=== PATIENT | male | born 1945 | race Caucasian/White ===

== ENCOUNTER 2017-01-12 12:19 | Inpatient (IN) | payer MEDICARE, OTHER ==
[~2017-01-12] VITALS: Ht 180.3 cm; Wt 75.5 kg
[~2017-01-12 12:19] MED LIST: AMLO5TAB4 PO; ATOR80TA75 PO; CELE200C PO; CLON-379 PO; CLOP75TA27 PO; FLUO40CA10 PO; LOSA100T7 PO; METO25TA7 PO; PANT40TA4 PO
--- NOTE | 2017-01-12 12:35 | ERA ---
ER Documentation Chief Complaint Date/Time DATE: 01/12/17 TIME: 12:35 Chief Complaint LEFT HIP PAIN FROM GROUND LEVEL FALL. UNABLE TO STRAIGHTEN LEG. HPI 71-year-old male with a history of hypertension, hyperlipidemia, CVA with left- sided weakness, GERD, osteoarthritis and prostatism presents to the ED via rescue ambulance for evaluation of left hip pain. Patient fell over his walker at home and now complains of severe, sharp, nonradiating left hip pain exacerbated any movement. He denies syncope or loss of consciousness. No head injury headache or neck pain. Denies visual changes or new focal weakness or numbness. Denies chest pain, palpitations or shortness of breath. Abdominal pain or back pain. Chronic polyuria but no dysuria or hematuria. No URI symptoms or cough. No fevers or chills per ROS All systems reviewed and are negative except as per history of present illness. Medications Home Meds Reported Medications Fluoxetine Hcl* (Prozac*) 40 Mg Capsule, 40 MG PO DAILY, CAP 07/05/16 Metoprolol Succinate* (Toprol XL*) 25 Mg Tab.sr.24h, 25 MG PO DAILY, #30 TAB 07/05/16 Clopidogrel Bisulfate (Clopidogrel) 75 Mg Tablet, 75 MG PO DAILY, #30 TAB 02/05/16 Atorvastatin* (Atorvastatin*) 80 Mg Tablet, 80 MG PO QHS, #30 TAB 02/05/16 Losartan Potassium* (Losartan Potassium*) 100 Mg Tablet, 100 MG PO DAILY, TAB 02/05/16 Pantoprazole* (Pantoprazole*) 40 Mg Tablet.dr, 40 MG PO DAILY, TAB 02/05/16 Discontinued Reported Medications Amlodipine Besylate* (Norvasc*) 5 Mg Tablet, 5 MG PO DAILY, TAB 02/05/16 Clonidine Hcl* (Clonidine Hcl*) 0.1 Mg Tab, 0.1 MG PO Q24 Y for ELEVATED BLOOD PRESSURE, TAB USE ONLY WHEN BP IS UP TO 170 OR ABOVE, 1 AT A TIME 02/05/16 Discontinued Scripts Celecoxib* (Celebrex*) 200 Mg Capsule, 200 MG PO DAILY Y for PAIN for 30 Days, # 30 CAP Prov:ELADIO MACIAS MD 07/06/16 Allergies Allergies: Coded Allergies: No Known Allergy (Unverified , 01/12/17) PMhx/Soc Reviewed in chart. As per HPI. History of Surgery: No Anesthesia Reaction: No Hx Neurological Disorder: Yes (CVA 2013) Hx Respiratory Disorders: No Hx Cardiac Disorders: Yes (HIGH BP;HIGH CHOL) Hx Psychiatric Problems: Yes Hx Miscellaneous Medical Probl: Yes (CVA (L sided weakness, HTN, GERD) Hx Alcohol Use: Yes Hx Substance Use: No Hx Tobacco Use: No FmHx Hypertension and coronary artery disease. No stroke or cancer. Physical Exam Vitals Vital Signs Date Time Temp Pulse Resp B/P Pulse Ox O2 Delivery O2 Flow Rate FiO2 01/12/17 12:28 98.8 112 20 155/87 98 Physical Exam Const: Alert, elderly in moderate distress due to pain. Head: Atraumatic Eyes: Normal Conjunctiva. Pupils equal reactive to light, extraocular movements are intact. No periorbital ecchymosis or subconjunctival hemorrhage. ENT: Normal External Ears, Nose and Mouth. Negative mathew sign. Neck: Full range of motion. Nontender. No JVD. Resp: Breath sounds are equal and clear to auscultation bilaterally Cardio: Regular rate and rhythm, no murmurs Abd: Soft, non tender, non distended. Normal bowel sounds Skin: No petechiae or rashes Back: No midline or flank tenderness Ext: Left lower extremity: Flex at the hip shortened and externally rotated. Groin tenderness. Distal neurovascular intact. Neur: Awake and alert. Mild left-sided weakness. No change from baseline. Psych: Normal Mood and Affect Result Diagram: 01/12/17 1240 01/12/17 1240 Results 24 hrs Laboratory Tests Test 01/12/17 12:40 White Blood Count 6.310^3/ul Red Blood Count 4.2210^6/ul Hemoglobin 13.3g/dl Hematocrit 38.8% Mean Corpuscular Volume 91.9fl Mean Corpuscular Hemoglobin 31.5pg Mean Corpuscular Hemoglobin Concent 34.3g/dl Red Cell Distribution Width 13.2% Platelet Count 27712^3/UL Mean Platelet Volume 10.2fl Neutrophils % 76.4% Lymphocytes % 12.8% Monocytes % 7.6% Eosinophils % 1.6% Basophils % 0.8% Nucleated Red Blood Cells % 0.0/100WBC Neutrophils # 4.910^3/ul Lymphocytes # 0.810^3/ul Monocytes # 0.510^3/ul Eosinophils # 0.110^3/ul Basophils # 0.110^3/ul Nucleated Red Blood Cells # 0.010^3/ul Sodium Level 138mmol/L Potassium Level 4.6mmol/L Chloride Level 108mmol/L Carbon Dioxide Level 25mmol/L Anion Gap 10 Blood Urea Nitrogen 13mg/dl Creatinine 0.70mg/dl Glucose Level 98mg/dl Calcium Level 9.1mg/dl Troponin I < 0.012ng/ml Current Medications Medications (Trade) Dose Ordered Sig/Jenny Route PRN Reason Start Time Stop Time Status Last Admin Dose Admin Morphine Sulfate (morphine) 4 mg ONCE STAT IV 01/12/17 13:08 01/12/17 13:13 DC 01/12/17 13:41 Ondansetron HCl (Zofran Inj) 4 mg ONCE STAT IV 01/12/17 13:08 01/12/17 13:13 DC 01/12/17 13:39 Morphine Sulfate (morphine) 4 mg ONCE STAT IV 01/12/17 14:33 01/12/17 14:37 DC 01/12/17 15:30 EKG: TIME: 14:56. Sinus rhythm. Ventricular rate 82. Left ventricular hypertrophy. Q waves in leads III and aVF. Nonspecific ST-T wave changes. No acute ST segment elevation or depression. No ectopy. EP Interpretation: Abnormal EKG. IMAGING: PROCEDURE: XR Chest. CLINICAL INDICATION: Pain. Trauma. TECHNIQUE: Chest x-ray, single view. COMPARISON: 07/05/2016. FINDINGS: The cardiac silhouette is magnified and unchanged in size and configuration. Mild aortic arch atherosclerotic calcification is present. Low lung volumes are observed. There is no evidence of focal pulmonary parenchymal opacification. Osseous structures appear decreased in density. The visualized upper abdomen is unremarkable. IMPRESSION: No radiographic evidence of acute cardiopulmonary pathology. RPTAT: PP .Valentina Go MD, Date Time Electronically viewed and signed by .Valentina Go MD, on 01/12/2017 13:52 .T/ PROCEDURE: XR Hip. CLINICAL INDICATION: Pain. Trauma. TECHNIQUE: Left hip x-rays, 2 views. COMPARISON: Pelvic x-ray 01/12/2017. FINDINGS: Bony mineralization appears decreased. A subcapital versus mid-cervical left femoral neck fracture is observed. The hip joint is intact. Soft tissues are unremarkable. IMPRESSION: Subcapital versus mid cervical left femoral neck fracture. RPTAT: PP .Valentina Go MD, Date Time Electronically viewed and signed by .Valentina Go MD, on 01/12/2017 13:54 .T/ PROCEDURE: XR Femur. CLINICAL INDICATION: Trauma. Left leg pain. TECHNIQUE: AP and lateral views of the left femur were performed. COMPARISON: None. FINDINGS: There is an acute subcapital mid-cervical left femoral neck fracture. There is no other fracture and there is no dislocation. The soft tissues are normal. Articular surfaces are intact. There is no lytic or blastic lesion. There is no radiopaque foreign body. IMPRESSION: 1. Acute subcapital or mid cervical left femoral neck fracture. 2. Otherwise unremarkable study. RPTAT: QQ .Nehemias Wong MD, Date Time Electronically viewed and signed by .Nehemias Wong MD, on 01/12/2017 14:09 .R/ PROCEDURE: XR Pelvis. CLINICAL INDICATION: Pain status post trauma. TECHNIQUE: Pelvic x-ray, single AP view. COMPARISON: None. FINDINGS: Bone density appears slightly decreased. There is a subcapital versus mid cervical left femoral neck fracture. The hip joints are intact. Soft tissues are unremarkable. IMPRESSION: Subcapital versus mid cervical left femoral neck fracture. RPTAT: PP .Valentina Go MD, MD Date Time Electronically viewed and signed by .Valentina oG MD, on 01/12/2017 13:55 .T/ Procedures/MDM DOCUMENTS REVIEWED: ED nurse, prior ED, prior records including admission 2015 for chest pain. MEDICAL DECISION MAKIN-year-old male with a history of hypertension, hyperlipidemia, CVA with left-sided weakness, GERD, osteoarthritis and prostatism presents to the ED via rescue ambulance for evaluation of left hip pain. Patient sustained a left subcapital femur fracture after mechanical fall. There is no dislocation. No head injury, headache, altered mental status or other indication for neuroimaging. [facility] for urgent surgical consultation, further evaluation and management. Counseled patient and family regarding diagnosis, diagnostic results and plan for admission. CALLS/CONSULTS: Time 14:30, Dr. June, Recommends Med/Surg. CALLS/CONSULTS: Time 15:30. Dr Aj PATIENT CARE TRANSITIONED: Time: 15:04, Dr. June. Departure Diagnosis: Primary Impression: Closed subcapital fracture of femur Qualified Code: S72.012A - Closed subcapital fracture of femur, left, initial encounter Additional Impressions: Fall Qualified Code: W19.XXXA - Fall, initial encounter Essential hypertension History of CVA (cerebrovascular accident) Condition: Serious ARTURO ALMANZA MD January 12, 2017 12:35
[2017-01-12 13:03] LABS: ADD SCAN DIFF NO; BASOPHIL # 0.1 10^3/ul (0.0-0.1); BASOPHILS % 0.8 % (0.0-2.0); EOSINOPHILS # 0.1 10^3/ul (0.0-0.5); EOSINOPHILS % 1.6 % (0.0-7.0); HEMATOCRIT 38.8 % (42.0-52.0); HEMOGLOBIN 13.3 g/dl (14.0-18.0); LYMPHOCYTES # 0.8 10^3/ul (0.8-2.9); LYMPHOCYTES % 12.8 % (15.0-51.0); MEAN CORPUSCULAR HEMOGLOBIN 31.5 pg (29.0-33.0); MEAN CORPUSCULAR HGB CONC 34.3 g/dl (32.0-37.0); MEAN CORPUSCULAR VOLUME 91.9 fl (82.0-101.0); MEAN PLATELET VOLUME 10.2 fl (7.4-10.4); MONOCYTE # 0.5 10^3/ul (0.3-0.9); MONOCYTES % 7.6 % (0.0-11.0); NEUTROPHIL # 4.9 10^3/ul (1.6-7.5); NEUTROPHILS % 76.4 % (39.0-77.0); PLATELET COUNT 182 10^3/UL (140-415); RED BLOOD COUNT 4.22 10^6/ul (4.70-6.10); RED CELL DISTRIBUTION WIDTH 13.2 % (11.5-14.5); WHITE BLOOD COUNT 6.3 10^3/ul (4.8-10.8)
[2017-01-12] MEDS ORDERED: ONDANSETRON 4 MG INJ IV STA (13:08)
[2017-01-12] MEDS ORDERED: morphine 4 MG/ML VIAL IV STA ×2 (13:08→14:33)
[2017-01-12 13:22] LABS: ANION GAP 10 (8-16); BLOOD UREA NITROGEN 13 mg/dl (7-20); CALCIUM 9.1 mg/dl (8.4-10.2); CARBON DIOXIDE 25 mmol/L (21-31); CHLORIDE 108 mmol/L (97-110); GLUCOSE 98 mg/dl (70-220); POTASSIUM 4.6 mmol/L (3.5-5.1); SODIUM 138 mmol/L (135-144)
[2017-01-12 13:40] LABS: TROPONIN-I < 0.012 ng/ml (0.00-0.12)
--- NOTE | 2017-01-12 13:52 | RADRPT ---
PROCEDURE: XR Chest. CLINICAL INDICATION: Pain. Trauma. TECHNIQUE: Chest x-ray, single view. COMPARISON: 07/05/2016. FINDINGS: The cardiac silhouette is magnified and unchanged in size and configuration. Mild aortic arch ather osclerotic calcification is present. Low lung volumes are observed. There is no evidence of focal pulmonary parenchymal opacification. Osseous structures appear decreased in density. The visualize d upper abdomen is unremarkable. IMPRESSION: No radiographic evidence of acute cardiopulmonary pathology. RPTAT: PP .Valentina Go MD, MD Date Time Electronically viewed and signed by .Valentina Go MD, MD on 01/12/2017 13:52 .T/
--- NOTE | 2017-01-12 13:55 | RADRPT ---
PROCEDURE: XR Hip. CLINICAL INDICATION: Pain. Trauma. TECHNIQUE: Left hip x-rays, 2 views. COMPARISON: Pelvic x-ray 01/12/2017. FINDINGS: Bony mineralization appears decreased. A subcapital versus mid-cervical left femoral neck fracture is observed. The hip joint is intact. Soft tissues are unremarkable. IMPRESSION: Subcapital versus mid cervical left femoral neck fracture. RPTAT: PP .Valentina Go MD, MD Date Time Electronically viewed and signed by .Valentina Go MD, on 01/12/2017 13:54 .T/
--- NOTE | 2017-01-12 13:56 | RADRPT ---
PROCEDURE: XR Pelvis. CLINICAL INDICATION: Pain status post trauma. TECHNIQUE: Pelvic x-ray, single AP view. COMPARISON: None. FINDINGS: Bone density appears slightly decreased. There is a subcapital versus mid cervical left femoral nec k fracture. The hip joints are intact. Soft tissues are unremarkable. IMPRESSION: Subcapital versus mid cervical left femoral neck fracture. RPTAT: PP .Valentina Go MD, MD Date Time Electronically viewed and signed by .Valentina Go MD, MD on 01/12/2017 13:55 .T/
--- NOTE | 2017-01-12 14:09 | RADRPT ---
PROCEDURE: XR Femur. CLINICAL INDICATION: Trauma. Left leg pain. TECHNIQUE: AP and lateral views of the left femur were performed. COMPARISON: None. FINDINGS: There is an acute subcapital mid-cervical left femoral neck fracture. There is no other fracture an d there is no dislocation. The soft tissues are normal. Articular surfaces are intact. There is no lytic or blastic lesion. There is no radiopaque foreign body. IMPRESSION: 1. Acute subcapital or mid cervical left femoral neck fracture. 2. Otherwise unremarkable study. RPTAT: QQ .Nehemias Wong MD, Date Time Electronically viewed and signed by .Nehemias Wong MD, on 01/12/2017 14:09 .R/
[2017-01-12] MEDS ORDERED: HYDROCODONE/APAP (5/325) TAB PO PRN (15:30)
[2017-01-12] MEDS ORDERED: NACL 0.9% 3 ML SYG IV SCH (15:30)
[2017-01-12] MEDS ORDERED: ONDANSETRON 4 MG TAB PO PRN (15:30)
[2017-01-12] MEDS: METOPROLOL (XL) 25 MG TAB PO SCH (15:30)
[2017-01-12] MEDS ORDERED: ACETAMINOPHEN 325 MG TAB PO PRN ×2 (15:30)
[2017-01-12] MEDS ORDERED: BISACODYL (EC) 5 MG TAB PO PRN (15:30)
[2017-01-12] MEDS ORDERED: ONDANSETRON 4 MG INJ IV PRN (15:30)
[2017-01-12 16:34] VITALS: TEMP 98.8
[2017-01-12 17:10] VITALS: BP 131/72; PULSE 73; RESP 18
[2017-01-12 17:21] VITALS: Ht 180.3 cm; Wt 75.5 kg
[2017-01-12 19:21] VITALS: BP 125/72; RESP 18
[2017-01-12] MEDS: DOCUSATE SODIUM 100 MG CAP PO PRN (20:15)
[2017-01-12] MEDS: ATORVASTATIN 80 MG TAB PO SCH (20:15)
[2017-01-12] MEDS: FAMOTIDINE 20 MG TAB PO SCH (20:15)
[2017-01-13] MEDS: DOCUSATE SODIUM 100 MG CAP PO PRN ×2 (04:29→20:28)
[2017-01-13] MEDS: HYDROCODONE/APAP (5/325) TAB PO PRN ×2 (04:29→09:54)
[2017-01-13 05:40] LABS: INR 1.16; PARTIAL THROMBOPLASTIN TIME 27.6 Sec (25.0-35.0); PROTIME 14.9 Sec (12.2-14.2); PT RATIO 1.2
[2017-01-13 08:49] VITALS: BP 124/69; RESP 20
[2017-01-13] MEDS: FAMOTIDINE 20 MG TAB PO SCH ×2 (09:50→20:27)
--- NOTE | 2017-01-13 09:50 | PREOPHP ---
DATE OF ADMISSION: 01/12/2017 PREOPERATIVE INTERNAL MEDICINE CONSULTATION/MEDICAL HISTORY AND PHYSICAL HISTORY OF PRESENT ILLNESS: This is one of several [facility] admissions for this 71-year-old gentleman admitted with a chief complaint of left hip pain. Mr. Waldron is a 71-year-old gentleman with a history of prior stroke and left- sided weakness, apparently lost his balance while walking towards his couch and fell and sustained injury to his left hip. The patient has been falling intermittently, he has been counseled on the use a walker; however, at this particular point in time he was not using his walker, but it was close, he was at home, going towards his couch. He denies any syncope or any other reason for the fall other than he lost his balance and fell. In terms of his past medical history the patient has had significant stroke in 2013, which left him with left-sided weakness. He has had tonsils, adenoid surgery and had a vascular procedure. Other than that, has been in relatively good health and has been quite despondent lately because of his issues, as far as his weakness on the left side and his dizziness and his ability to ambulate; however, again in terms of this particular fall denies any pains, loss of consciousness or other etiologies for his fall. MEDICATIONS: He is currently taking the following medications: 1. Amlodipine 5 mg a day. 2. Prozac 20 mg a day. 3. Lipitor 80 mg a day. 4. Losartan 50 mg a day. 5. Protonix 40 mg a day. 6. Metoprolol ER 25 mg a day. 7. Plavix 75 mg a day ALLERGIES: HE IS NOT ALLERGIC TO ANY MEDICATIONS. PAST MEDICAL HISTORY: Prior in the past has fractured his left arm and his left foot. Other than that, however, has been relatively stable other than that mentioned above. SOCIAL HISTORY: The patient is , has 3 children and 2 grandchildren. He does not smoke. Alcohol socially. Does not drink coffee and usually has no difficulty sleeping at night. FAMILY HISTORY: Father at age 86, COPD, was a smoker. Mother in her 80s, old age and blood pressure issues, possibly had a stroke. There is a family history of diabetes, hypertension, stroke. No heart or cancer to his knowledge. REVIEW OF SYSTEMS HEENT: Periodic headaches. CARDIORESPIRATORY: Denies any chest pain or shortness of breath. GASTROINTESTINAL: No melena or hematemesis. GENITOURINARY: No urgency or frequency. MUSCULOSKELETAL: Positive for weakness on the left side, dizziness, loss of balance and occasional falls. NEUROPSYCHIATRIC: Positive for depression. GENERAL HEALTH: As above. PHYSICAL EXAMINATION: VITAL SIGNS: The patient's blood pressure was 125/72, pulse was 90 and regular , respirations were 18, temperature 99.2, O2 saturation 95%. GENERAL: The patient was noted to be a well-developed, well-nourished male, alert and cooperative, in no apparent acute distress, oriented to time, place, and person and cognition. HEENT: Head was atraumatic. Eyes: Pupils were equal , reactive to light and accommodation. Fundi were poorly visualized. Tympanic membranes were unremarkable. Nose was negative. Mouth was unremarkable. Fair oral hygiene was present. NECK: Supple without any rigidity. Trachea was midline. Thyroid was unremarkable. Neck veins were flat. Carotid pulses were equal. No bruits were heard. BACK: Unremarkable. CHEST: Symmetrical. BREASTS AND AXILLARY: Did not reveal any masses. LUNGS: Clear to percussion and auscultation. HEART: PMI is fifth intercostal space at the midclavicular line. Regular sinus rhythm was noted. No significant murmurs, rubs, or gallops being elicited. ABDOMEN: Soft, good bowel sounds were noted. No significant organomegaly, masses, or tenderness. GENITALIA: Male external genitalia. RECTAL AND PROSTATIC: Done within the last year revealed prostate to be enlarged, no rectal or prostatic masses. EXTREMITIES: Did not reveal any clubbing, edema or cyanosis. Peripheral pulses were physiologic. Left-sided weakness was noted. SKIN: Moist and warm without any eruptions. No gross lymphadenopathy was noted. NEUROLOGIC: As mentioned above showed left-sided weakness compatible with his prior stroke. He also had shortening of his lower extremity; however, hard to tell lying in bed. IMPRESSION: 1. Acute subcapital arm and cervical left femoral neck fracture. 2. Status post stroke in 2013 with left-sided weakness. 3. Hypertension. 4. Gastroesophageal reflux disease. 5. Hypertension. 6. Depression. 7. Stable health. DISCUSSION: Review of laboratory and other data revealed the following: The patient's CBC reveals a normal white count, hemoglobin of 13.3, hematocrit of 38.8. Chemistry panel revealed normal electrolytes, BUN, creatinine, glucose, calcium. Troponin was negative and PT and PTT were normal. EKG did not reveal any acute changes and the patient's x-ray did not reveal any acute infiltrate. DISCUSSION: Dr. Aj, I see no contraindications to the patient undergoing current proposed surgery. I feel he is a suitable candidate at this time. Discussed it with the patient, he would rather be able to ambulate rather than to be bedridden. Recent laboratory done in my office, including lipids, electrolytes, glucose, BUN and creatinine and CBC were all normal as well. CONDITION ON ADMISSION: Stable. PROGNOSIS: Obviously dependent upon how the patient responds to treatment. Dictated By: DANIELLE HARMAN/JANET Conf#: [id number] DID#: [id number] MTDD
[2017-01-13] MEDS: METOPROLOL (XL) 25 MG TAB PO SCH (09:51)
[2017-01-13] MEDS: FLUOXETINE 20 MG CAP PO SCH (09:51)
[2017-01-13] MEDS: LOSARTAN 50 MG TAB PO SCH (09:51)
--- NOTE | 2017-01-13 10:26 | HP ---
Date/Time of Note Date/Time of Note DATE: 01/13/17 TIME: 10:06 Assessment/Plan VTE Prophylaxis VTE Prophylaxis Intervention: SCD's, other (Patient on clopidogrel 75 mg) Lines/Catheters IV Catheter Type (from Nrsg): Saline Lock Assessment/Plan Assessment/Plan * Discussed with Dr. Aj and patient PCP Dr. Babin and patient will be scheduled for left total hip arthroplasty (anterior versus posterior route?) On 01/13/2017. * Continue close monitoring while on MedSurg floor. * Will adjust [place] 10/325 mg 2 every 4 hours as needed for severe pain. * Dr. Babin has verbally cleared patient stating that he is stable for surgery tomorrow. Will provide documentation in chart. Primary care provider will also monitor patient's current medications as he is on blood thinners and has history of cardiac disorders along with CVA in 2013. * X-ray imaging of fracture as well as chest x-ray in [facility]. * Patient will be undergoing EKG later today and possible echocardiogram, per nurse. * Will begin preparation for hip replacement. * All questions asked by patient and patient's were discussed today. Risks and benefits regarding surgery discussed with patient today. * Current plan postoperatively, is for patient to be discharged to long-term facility per patient and patient's . Case management will follow- up with patient status post surgery regarding discharge after hip replacement. HPI/ROS Admit Date/Time Admit Date/Time January 12, 2017 at 15:05 Hx of Present Illness 71-year-old male with a history of hypertension, hyperlipidemia, CVA (2013) with subsequent left-sided weakness, GERD, osteoarthritis and prostatism seen today on the med/surg floor in 4 W in room 429. present. Original injury occurred on 01/12/2017 while at home. Patient incidentally tripped over his walker suffering pain local to the left hip. Patient denies any radiating pain at the time of injury. Patient denies any head trauma as well. Patient states that after stroke in 2013 he has experienced previous falls suffering minimal injuries. Patient was transported to emergency room, via ambulance, where x- rays were performed showing subcapital fracture to the left femur/femoral neck. Patient then admitted and transferred to [facility]. Currently, patient denies any pain complaints while at rest. He states that when he attempts to move left hip he experiences moderate to severe pain. Currently on [place] 10/325 as needed for severe pain complaints. [place] is helping alleviate pain complaints. Patient denies any focal neurological deficits. No increased weakness to the left side. Denies any chest pain/tightness. Patient denies any calf pain or shortness of breath. Patient is on O2 via nasal cannula and doing well. Patient is nonweightbearing secondary to severe pain due to fracture at the femoral neck/subcapital region of the left lower extremity. No head injury headache or neck pain. No fevers. Remains on bedrest/nonweightbearing. ROS Constitutional: no complaints Respiratory: no complaints Cardiovascular: no complaints PMH/Family/Social Past Medical History Hypertension, hyperlipidemia, CVA (2013) with subsequent left-sided weakness, GERD, osteoarthritis, prostatism Medical History: diabetes, hypertension Family History Significant Family History: heart disease Social History Alcohol Use: occasionally Smoking Status: Never smoker Exam/Review of Systems Vital Signs Vitals Vital Signs Date Time Temp Pulse Resp B/P Pulse Ox O2 Delivery O2 Flow Rate FiO2 01/13/17 08:49 98.3 93 20 124/69 93 01/12/17 17:10 Nasal Cannula 2.0 Intake and Output 01/12/17 01/12/17 01/13/17 15:00 23:00 07:00 Intake Total 300 ml 600 ml Balance 300 ml 600 ml Exam Exam * No obvious abnormalities such as ecchymosis on inspection of the left hip. Slight external rotation of the left lower extremity at rest. * No tenderness to palpation to the greater trochanteric region or directly over groin with deep palpation. * Normal sensory examination to light touch throughout the left lower extremity. Toes freely movable. * Negative Homans sign. * On passive range of motion there is moderate to severe pain exacerbation local to the left groin region. * Strength testing not had today with hip flexors, abductor, abductors and hip extensors secondary to left subcapital fracture at the femoral neck. * Normal capillary refill to the toes of bilateral lower extremities. Constitutional: alert, oriented, well developed Psych: no complaints Head: normocephalic Extremities: normal pulses Labs Result Diagram: 01/12/17 1240 01/12/17 1240 Medications Medications Current Medications Ondansetron HCl (Zofran Tab) 4 mg Q6H PRN PO NAUSEA AND/OR VOMITING Last administered on 01/12/17 17:34; Admin Dose 4 MG; Start 01/12/17 at 15:30 Acetaminophen (Tylenol Tab) 650 mg Q6H PRN PO PAIN LEVEL 1-3 OR FEVER; Start at 15:30 Acetaminophen/ Hydrocodone Bitart ([place] (5/325)) 1 tab Q6H PRN PO MODERATE PAIN LEVEL 4-6 Last administered on 01/12/17 17:34; Admin Dose 1 TAB; Start 01/12 at 15:30 Acetaminophen/ Hydrocodone Bitart ([place] (5/325)) 2 tab Q6H PRN PO SEVERE PAIN LEVEL 7-10 Last administered on 01/13/17 09:54; Admin Dose 2 TAB; Start 01/12/17 at 15:30 Docusate Sodium (Colace) 100 mg Q12H PRN PO CONSTIPATION Last administered on 04:29; Admin Dose 100 MG; Start 01/12/17 at 15:30 Bisacodyl (Dulcolax) 5 mg DAILY PRN PO CONSTIPATION; Start 01/12/17 at 15:30 Famotidine (Pepcid) 20 mg Q12 PO Last administered on 01/13/17 09:50; Admin Dose 20 MG; Start 01/12/17 at 21:00 Atorvastatin Calcium (Lipitor) 80 mg QHS PO Last administered on 01/12/17 20:15 ; Admin Dose 80 MG; Start 01/12/17 at 21:00 Fluoxetine HCl (Prozac) 40 mg DAILY PO Last administered on 01/13/17 09:51; Admin Dose 40 MG; Start 01/13/17 at 09:00 Losartan Potassium (Cozaar) 100 mg DAILY PO Last administered on 01/13/17 09:51 ; Admin Dose 100 MG; Start 01/13/17 at 09:00 Metoprolol Succinate (Toprol Xl) 25 mg DAILY PO Last administered on 01/13/17 09:51; Admin Dose 25 MG; Start 01/12/17 at 15:30 Copies To: CC: DANIELLE BABIN MD, KERBY PA-C January 13, 2017 10:19
--- NOTE | 2017-01-13 12:52 | RADRPT ---
PROCEDURE: CT LEFT HIP CLINICAL INDICATION: Fall. Rule out left femoral head fracture. The femoral neck fracture.. TECHNIQUE: CT scan of the left hip was performed on a multi -slice scanner. No IV contrast was ad ministered. Coronal and sagittal reformatted images were obtained from the axial source images. Th e total exam DLP equals 217.79 mGy-cm. The CDTI volume was 9.27 mGy. One or more of the following dose reduction techniques were used: - Automated exposure control. - Adjustment of the mA and/or kV according to patient size . - Use of iterative reconstruction technique. Images were reviewed on a high-resolution PACS workstation. COMPARISON: Plain film dated 01/12/2017. FINDINGS: There is a displaced comminuted subcapital left femoral neck fracture. The base of the femoral neck and trochanter is displaced superiorly 1.5 cm. The femoral head is still located within the acetab ulum. The intertrochanteric femur and shaft are angulated posteriorly with respect to the femoral he ad as can be seen on axial image number 28. There is a preexisting probable enchondroma within the medullary space. There is preexisting acetabular marginal spurring indicating moderate arthrosis. T he surrounding soft tissue swelling. The bones are osteoporotic. IMPRESSION: 1. Displaced comminuted subcapital left femoral neck fracture. 2. Osteoporosis. RPTAT: XX .Elder Davalos MD, Date Time Electronically viewed and signed by .Elder Davalos MD, on 01/13/2017 12:51 .T/
[2017-01-13] MEDS: ATORVASTATIN 80 MG TAB PO SCH (20:28)
[2017-01-13 21:02] VITALS: BP 98/60; RESP 20
[2017-01-14] VITALS (18 sets, daily range): BP systolic 102–159; BP diastolic 54–89; PULSE 60–94; RESP 14–21
[2017-01-14 05:25] LABS: INR 1.14; PROTIME 14.6 Sec (12.2-14.2); PT RATIO 1.1
[2017-01-14 05:26] LABS: PARTIAL THROMBOPLASTIN TIME 28.5 Sec (25.0-35.0)
[2017-01-14] MEDS: LACTATED RINGER'S 1,000 ML IV SCH ×3 (07:30→20:50)
[2017-01-14] MEDS: LOSARTAN 50 MG TAB PO SCH (09:00)
[2017-01-14] MEDS: FAMOTIDINE 20 MG TAB PO SCH ×2 (09:00→21:00)
[2017-01-14] MEDS: METOPROLOL (XL) 25 MG TAB PO SCH (09:00)
[2017-01-14] MEDS: FLUOXETINE 20 MG CAP PO SCH (09:00)
--- NOTE | 2017-01-14 13:43 | PN ---
Date/Time of Note Date/Time of Note DATE: 01/14/17 TIME: 13:41 Assessment/Plan VTE Prophylaxis VTE Prophylaxis Intervention: SCD's Lines/Catheters IV Catheter Type (from Nrs): Saline Lock Assessment/Plan Problems: (1) Onychomycosis Status: Chronic Comment: Lamisil pulse therapy (2) Closed subcapital fracture of femur Status: Acute Comment: For surgery today. Is an appropriate surgical candidate under the consult under the current circumstances. Benefits outweigh risks Qualifiers: Encounter type: initial encounter Laterality: left Qualified Code: S72.012A - Closed subcapital fracture of femur, left, initial encounter (3) Essential hypertension Status: Acute Comment: Adequate control. (4) Diastolic dysfunction Status: Chronic Comment: Noted. Needs his beta-daniel to be continued (5) Hyperlipidemia Status: Chronic Comment: Noted on on treatment. Qualifiers: Hyperlipidemia type: pure hypercholesterolemia Qualified Code: E78.00 - Pure hypercholesterolemia Subjective 24 Hr Interval Summary Free Text/Dictation Patient lying in bed. Scheduled for surgery in the next 3 hours. He reports he has significant pain at the hip site but otherwise is without complaints. Please see review of systems Constitutional: no complaints Eyes: no complaints ENT: no complaints Respiratory: no complaints Cardiovascular: no complaints (Denies chest pain pressure palpitations etc.) Gastrointestinal: no complaints Genitourinary: no complaints Neurologic: no complaints Exam/Review of Systems Vital Signs Vitals Vital Signs Date Time Temp Pulse Resp B/P Pulse Ox O2 Delivery O2 Flow Rate FiO2 01/14/17 12:14 65 114/62 01/14/17 08:32 98.9 18 99 01/12/17 17:10 Nasal Cannula 2.0 Intake and Output 01/13/17 01/13/17 01/14/17 15:00 23:00 07:00 Intake Total 1320 ml 750 ml Output Total 400 ml 620 ml Balance 920 ml 130 ml Exam Constitutional: alert, oriented Respiratory: clear to auscultation, normal air movement Cardiovascular: nl pulses, regular rate and rhythm Gastrointestinal: nl liver, spleen, non-tender, soft Extremities: other (Onychomycosis) Results Result Diagram: 01/12/17 1240 01/12/17 1240 Results 24 hrs Laboratory Tests Test 01/14/17 04:50 Prothrombin Time 14.6 H Prothrombin Time Ratio 1.1 INR International Normalized Ratio 1.14 Activated Partial Thromboplast Time 28.5 Medications Medications Current Medications Ondansetron HCl (Zofran Tab) 4 mg Q6H PRN PO NAUSEA AND/OR VOMITING Last administered on 01/12/17 17:34; Admin Dose 4 MG; Start 01/12/17 at 15:30 Acetaminophen (Tylenol Tab) 650 mg Q6H PRN PO PAIN LEVEL 1-3 OR FEVER; Start at 15:30 Docusate Sodium (Colace) 100 mg Q12H PRN PO CONSTIPATION Last administered on 20:28; Admin Dose 100 MG; Start 01/12/17 at 15:30 Bisacodyl (Dulcolax) 5 mg DAILY PRN PO CONSTIPATION; Start 01/12/17 at 15:30 Famotidine (Pepcid) 20 mg Q12 PO Last administered on 01/13/17 20:27; Admin Dose 20 MG; Start 01/12/17 at 21:00 Atorvastatin Calcium (Lipitor) 80 mg QHS PO Last administered on 01/13/17 20:28 ; Admin Dose 80 MG; Start 01/12/17 at 21:00 Fluoxetine HCl (Prozac) 40 mg DAILY PO Last administered on 01/13/17 09:51; Admin Dose 40 MG; Start 01/13/17 at 09:00 Losartan Potassium (Cozaar) 100 mg DAILY PO Last administered on 01/13/17 09:51 ; Admin Dose 100 MG; Start 01/13/17 at 09:00 Metoprolol Succinate (Toprol Xl) 25 mg DAILY PO Last administered on 01/13/17 09:51; Admin Dose 25 MG; Start 01/12/17 at 15:30 Acetaminophen/ Hydrocodone Bitart 1 tab 1 tab Q4H PRN PO Pain; Start 01/13/17 at 10:30 Lactated Ringer's (Lr) 1,000 ml @ 100 mls/hr Q10H IV ; Start 01/14/17 at 17:30; Stop 01/15/17 at 03:29 Oxycodone HCl (Oxycontin) 10 mg PRE-OP ONCE PO ; Start 01/14/17 at 17:30; Stop at 17:31 Pregabalin (Lyrica) 300 mg PRE-OP ONCE PO ; Start 01/14/17 at 17:30; Stop at 17:31 Celecoxib (Celebrex) 400 mg PRE-OP ONCE PO ; Start 01/14/17 at 17:30; Stop at 17:31 Tramadol HCl 50 mg 50 mg PRE-OP ONCE PO ; Start 01/14/17 at 17:30; Stop 01/14/17 at 17:31 Cefazolin Sodium/ Dextrose 50 ml @ 100 mls/hr PRE-OP ONCE IVPB ; Start 01/14/17 at 17:30; Stop 01/14/17 at 17:59 Tranexamic Acid 750 mg/Sodium Chloride 100 ml @ 200 mls/hr PRE-OP ONCE IV ; Start 01/14/17 at 17:30; Stop 01/14/17 at 17:59 Tranexamic Acid/ Sodium Chloride 107.5 ml @ 200 mls/hr INTRA-OP ONCE IVPB ; Start 01/14/17 at 17:30; Stop 01/14/17 at 18:02 Bupivacaine HCl/ Morphine Sulfate/ Epinephrine/ Ketorolac Tromethamine/ Clonidine/Sodium Chloride/ Cefuroxime Sodium (Marcaine 0.5% (Sdv)/Duramorph/ EPINEPHrine/ Toradol/Duraclon/ NS/Zinacef) INTRA-OP ONCE IRR ; Start 01/14/17 at 17:30; Stop 01/14/17 at 17:31 Bupivacaine Liposome (Exparel 266 Mg/ 20 ml Vial) 266 mg INTRA-OP ONCE INFIL ; Start 01/14/17 at 17:30; Stop 01/14/17 at 17:31 Miscellaneous Information 1 ea 1 ea NOTE XX ; Start 01/14/17 at 16:30; Stop 01/18 at 16:29 Lactated Ringer's (Lr) 1,000 ml @ 75 mls/hr [id number] IV Last administered on t 07:30; Admin Dose 75 MLS/HR; Start 01/14/17 at 07:30 MURIEL LÓPEZ MD January 14, 2017 13:43
[2017-01-14] MEDS ORDERED: HYDROmorphONE 1 MG/ML SYG IV PRN ×2 (14:00→19:30)
--- NOTE | 2017-01-14 14:41 | CONS ---
DATE OF ADMISSION: 01/12/2017 DATE OF CONSULTATION: 01/14/2017 REASON FOR CONSULTATION: Left hip fracture. HISTORY OF PRESENT ILLNESS: The patient is a 71-year-old gentleman with a history of prior stroke w ith left-sided weakness, who lost his balance 2 days ago and landed on his left hip and noted immedi ate pain and inability to bear weight on the left lower extremity. Prior to this event, he has been ambulatory with a walker. He denies pain in the hip prior to the fall. He has no pain elsewhere s eve the fall. He denies any loss of consciousness from the fall. He has a history of taking Plavi x and the last time he took it was 3 days ago. He has had no night pain, no rest pain, and denies a ny fevers or chills. PAST MEDICAL HISTORY: 1. History of a stroke. 2. Hypertension. 3. Elevated cholesterol. 4. Gastroesophageal reflux disease. 5. Enlarged prostate. PAST SURGICAL HISTORY: None. MEDICATIONS: 1. Amlodipine. 2. Prozac. 3. Lipitor. 4. Losartan. 5. Protonix. 6. Metoprolol. 7. Plavix. ALLERGIES: NO KNOWN DRUG ALLERGIES. SOCIAL HISTORY: The patient is and has 3 children and 2 grandchildren. Does not smoke. He drinks socially. FAMILY HISTORY: Noncontributory. GENERAL/CONSTITUTIONAL: Negative for recent fevers, chills, decreased appetite, fatigue, or unexpla ined weight loss. EYES/EARS/NOSE/MOUTH/THROAT: Negative for headaches, double vision, tearing, nose bleeding, colds, obstruction, discharge, dental difficulties, gingival bleeding, dentures, neck stiffness, pain, tend erness, or masses in thyroid or other areas. CARDIOVASCULAR: History of hypertension and elevated cholesterol. RESPIRATORY: Negative for shortness of breath, wheezing, stridor, hemoptysis, tuberculosis, fever, or night sweats. GASTROINTESTINAL: Negative for dysphagia, abdominal pain, heartburn, nausea, vomiting, hematemesis, jaundice, constipation, diarrhea, abnormal stools (anthony-colored, tarry, bloody, greasy, foul-smelli ng), or bright red blood per rectum. GENITOURINARY: Negative for urgency, frequency, dysuria, nocturia, hematuria, stones, infections, n ephritis, hesitancy, change in size of stream, dribbling, acute retention, or incontinence. MUSCULOSKELETAL: Negative for pain, swelling, redness or heat of muscles or joints, limitation of m otion, muscular weakness, atrophy, or cramps. NEUROLOGIC/PSYCHIATRIC: History of a stroke with left-sided weakness, history of depression. HEMATOLOGIC: Negative for anemia, bleeding tendency, previous transfusions and reactions, or Rh inc ompatibility. ENDOCRINE: Negative for polydipsia, polyuria, hormone therapy, or intolerance to heat or cold. PHYSICAL EXAMINATION: VITAL SIGNS: Temperature 98.9, blood pressure 114/62, pulse 65, respiratory rate 18. GENERAL APPEARANCE: Well-developed, well-nourished @@male in no acute distress. ORIENTATION: Alert and oriented to person, place, and time. HEENT: Normocephalic, atraumatic, sclerae anicteric, no nasal discharge, oropharynx clear, dentition is good. SKIN: Normal color, texture, and turgor. No rashes noted throughout the trunk, bilateral upper extre mities, and bilateral lower extremities. NECK: Supple, nontender, without lymphadenopathy. No thyromegaly, no masses. CARDIAC: Regular rate and rhythm. LUNGS: Clear to auscultation bilaterally, with symmetric chest rise. ABDOMEN: Soft, nontender, nondistended. MUSCULOSKELETAL: The patient is lying in bed with his left lower extremity shortened and externally rotated. The left hip is painful to attempted passive range of motion. The skin over the left hip is intact. The thigh is soft. The right hip is supple with no pain on passive range of motion. M otor strength is 5/5 in the bilateral quadriceps. He has 4/5 strength in the left tibialis anterior and 4/5 strength in the left extensor hallucis longus and gastrocsoleus and peroneals. Sensation i s grossly intact to light touch throughout the bilateral lower extremities. He has palpable dorsali s pedis and posterior tibial pulses, with capillary refill less than 2 seconds in all 5 digits. IMAGING: X-rays done on 01/12/2017 show a displaced left subcapital femoral neck fracture. There a re no degenerative changes of the hip joint. No bony lesions. There is diffuse osteopenia present. A CT scan of the left hip on 01/13/2017 shows a displaced left subcapital femoral neck fracture. There are no degenerative changes noted. LABORATORY DATA: Reveal a white blood cell count of 6.3, hematocrit 30.8, platelet count 182. BUN 13, creatinine 0.70. INR 1.14, PTT 28.5. ASSESSMENT AND PLAN: Displaced left subcapital femoral neck fracture. DISCUSSION: The patient would benefit from a left hip hemiarthroplasty. I had a lengthy discussion with the patient and his about the nature of the surgery, typical recovery course, and what to expect from a functional standpoint. They understand and wish to proceed. He has been medically c leared. We will plan to do the surgery this afternoon. I explained that because he has been on Manisha vix, he is at greater risk for bleeding, to wait for the Plavix to be out of his system and place hi m at risk for prolonged bed rest would not make sense. I explained the risks of surgery to include but not be limited to bleeding and possible need for blood transfusion, infection, pain, stiffness, neurovascular injury, possible numbness, weakness, and/or paralysis anywhere from the hip down to th e toes, fracture, instability, dislocation, leg length inequality, wear and/or loosening of the pros thesis, need for revision at a later date, wound healing problems, blood clots, pulmonary embolism, and anesthetic complications such as heart attack, stroke, GI bleed, pneumonia and/or . Ample time was allowed for the patient to ask questions, all of which were addressed and answered. He und erstands and wishes to proceed. Informed consent was given. We will plan to do the surgery this af terno. He has been n.p.o. after midnight. He will be typed and crossed 2 units of packed red blo od cells and 1 unit of platelets. Dictated By: KIM PEREZ MD EZ/NTS Conf#: [id number] DID#: [id number] CC: MURIEL LÓPEZ MD;*End*
[2017-01-14] MEDS ORDERED: BACITRACIN 50000 UNITS INJ ONE (14:51)
--- NOTE | 2017-01-14 15:08 | CONS ---
Date/Time of Note Date/Time of Note DATE: 01/14/17 TIME: 15:02 Assessment/Plan Assessment/Plan Additional Assessment/Plan Mechanical fall with hip fracture CVA Preserved ejection fraction Hypertension Patient status post mechanical fall with left hip fracture and plan for surgery today. Given the acute fracture, the benefits outweigh the risks at the current time. Plavix therapy currently on hold. Continue beta-daniel as heart rate and blood pressure permits, continue statin therapy. Will put holding parameters on antihypertensives. Consultation Date/Type/Reason Admit Date/Time January 12, 2017 at 15:05 Type of Consultation: cv Reason for Consultation Cardiac evaluation Hx of Present Illness This is a 71-year-old male with past medical history of CVA, hypertension who presents after mechanical fall onto his left side with left hip fracture. This occurred on Friday. There is no palpitations, dizziness or lightheadedness prior. There was no loss of consciousness. There was no head trauma. Patient found to have a left hip fracture is planned to undergo surgery today. He denies any chest pain or shortness of breath currently. He denies exertional chest pain or shortness of breath as well, dizziness or lightheadedness. He has been having frequent falls over the past few years after his CVA. 12 point review of systems was performed with all pertinent positives and negatives mentioned above and all else is Constitutional: no complaints Eyes: no complaints ENT: no complaints Respiratory: no complaints Cardiovascular: no complaints (Denies chest pain pressure palpitations etc.) Gastrointestinal: no complaints Genitourinary: no complaints Neurologic: no complaints Psychological: no complaints Past Medical History CVA Medical History: diabetes, hypertension Family History Significant Family History: no pertinent family hx Social History Alcohol Use: occasionally Smoking Status: Never smoker Other Social History Lives at home with family Exam/Review of Systems Vital Signs Vitals Vital Signs Date Time Temp Pulse Resp B/P Pulse Ox O2 Delivery O2 Flow Rate FiO2 01/14/17 12:14 65 114/62 01/14/17 08:32 98.9 18 99 01/12/17 17:10 Nasal Cannula 2.0 Intake and Output 01/13/17 01/13/17 01/14/17 15:00 23:00 07:00 Intake Total 1320 ml 750 ml Output Total 400 ml 620 ml Balance 920 ml 130 ml Exam No apparent distress, following commands, at bedside Constitutional: alert, oriented Head: normocephalic Respiratory: other (Coarse breath sounds bilaterally, no wheezing) Cardiovascular: other (S1-S2 heard, no murmurs appreciated), regular rate and rhythm Gastrointestinal: bowel sounds, non-tender, other (No guarding), soft Extremities: other (No significant edema or cyanosis seen) Results Result Diagram: 01/12/17 1240 01/12/17 1240 Results 24 hrs Laboratory Tests Test 01/14/17 04:50 Prothrombin Time 14.6 H Prothrombin Time Ratio 1.1 INR International Normalized Ratio 1.14 Activated Partial Thromboplast Time 28.5 Medications Medications Current Medications Ondansetron HCl (Zofran Tab) 4 mg Q6H PRN PO NAUSEA AND/OR VOMITING Last administered on 01/12/17 17:34; Admin Dose 4 MG; Start 01/12/17 at 15:30 Acetaminophen (Tylenol Tab) 650 mg Q6H PRN PO PAIN LEVEL 1-3 OR FEVER; Start at 15:30 Docusate Sodium (Colace) 100 mg Q12H PRN PO CONSTIPATION Last administered on 20:28; Admin Dose 100 MG; Start 01/12/17 at 15:30 Bisacodyl (Dulcolax) 5 mg DAILY PRN PO CONSTIPATION; Start 01/12/17 at 15:30 Famotidine (Pepcid) 20 mg Q12 PO Last administered on 01/13/17 20:27; Admin Dose 20 MG; Start 01/12/17 at 21:00 Atorvastatin Calcium (Lipitor) 80 mg QHS PO Last administered on 01/13/17 20:28 ; Admin Dose 80 MG; Start 01/12/17 at 21:00 Fluoxetine HCl (Prozac) 40 mg DAILY PO Last administered on 01/13/17 09:51; Admin Dose 40 MG; Start 01/13/17 at 09:00 Losartan Potassium (Cozaar) 100 mg DAILY PO Last administered on 01/13/17 09:51 ; Admin Dose 100 MG; Start 01/13/17 at 09:00 Metoprolol Succinate (Toprol Xl) 25 mg DAILY PO Last administered on 01/13/17 09:51; Admin Dose 25 MG; Start 01/12/17 at 15:30 Acetaminophen/ Hydrocodone Bitart 1 tab 1 tab Q4H PRN PO Pain; Start 01/13/17 at 10:30 Lactated Ringer's (Lr) 1,000 ml @ 100 mls/hr Q10H IV ; Start 01/14/17 at 17:30; Stop 01/15/17 at 03:29 Oxycodone HCl (Oxycontin) 10 mg PRE-OP ONCE PO ; Start 01/14/17 at 17:30; Stop at 17:31 Pregabalin (Lyrica) 300 mg PRE-OP ONCE PO ; Start 01/14/17 at 17:30; Stop at 17:31 Celecoxib (Celebrex) 400 mg PRE-OP ONCE PO ; Start 01/14/17 at 17:30; Stop at 17:31 Tramadol HCl 50 mg 50 mg PRE-OP ONCE PO ; Start 01/14/17 at 17:30; Stop 01/14/17 at 17:31 Cefazolin Sodium/ Dextrose 50 ml @ 100 mls/hr PRE-OP ONCE IVPB ; Start 01/14/17 at 17:30; Stop 01/14/17 at 17:59 Tranexamic Acid 750 mg/Sodium Chloride 100 ml @ 200 mls/hr PRE-OP ONCE IV ; Start 01/14/17 at 17:30; Stop 01/14/17 at 17:59 Tranexamic Acid/ Sodium Chloride 107.5 ml @ 200 mls/hr INTRA-OP ONCE IVPB ; Start 01/14/17 at 17:30; Stop 01/14/17 at 18:02 Bupivacaine HCl/ Morphine Sulfate/ Epinephrine/ Ketorolac Tromethamine/ Clonidine/Sodium Chloride/ Cefuroxime Sodium (Marcaine 0.5% (Sdv)/Duramorph/ EPINEPHrine/ Toradol/Duraclon/ NS/Zinacef) INTRA-OP ONCE IRR ; Start 01/14/17 at 17:30; Stop 01/14/17 at 17:31 Bupivacaine Liposome (Exparel 266 Mg/ 20 ml Vial) 266 mg INTRA-OP ONCE INFIL ; Start 01/14/17 at 17:30; Stop 01/14/17 at 17:31 Miscellaneous Information 1 ea 1 ea NOTE XX ; Start 01/14/17 at 16:30; Stop 01/18 at 16:29 Lactated Ringer's (Lr) 1,000 ml @ 75 mls/hr [id number] IV Last administered on 07:30; Admin Dose 75 MLS/HR; Start 01/14/17 at 07:30 Hydromorphone HCl (Dilaudid) 0.5 mg Q4H PRN IV PAIN Last administered on 14:05; Admin Dose 0.5 MG; Start 01/14/17 at 14:00 Terbinafine HCl (Lamisil) 250 mg BID PO ; Start 01/14/17 at 21:00; Stop 01/21/17 at 20:59 Procedures Procedures ECG demonstrates sinus rhythm, normal QRS duration, nonspecific STT wave abnormalities Thor Munguia DO January 14, 2017 15:08
[2017-01-14] MEDS ORDERED: POLYMYXIN B 500000 UNIT INJ ONE (16:22)
[2017-01-14] MEDS ORDERED: HEPARIN 1000 UNITS/ML 10 ML INJ ONE (16:22)
[2017-01-14] MEDS ORDERED: VANCOMYCIN 1 GM INJ ONE (16:22)
[2017-01-14] MEDS ORDERED: EXPAREL NOTE (BUPIVICAINE LIPOSOMAL) XX SCH (16:30)
[2017-01-14] MEDS ORDERED: MIDAZOLAM 1 MG/ML 2 ML INJ ONE (16:42)
[2017-01-14] MEDS ORDERED: METOCLOPRAMIDE 10 MG INJ ONE (16:42)
[2017-01-14] MEDS ORDERED: FENTAnyl 50 MCG/ML VIAL ONE (16:44)
[2017-01-14] MEDS ORDERED: ROCURONIUM 50 MG INJ ONE (16:44)
[2017-01-14] MEDS ORDERED: PROPOFOL 20 ML ONE (16:44)
[2017-01-14] MEDS ORDERED: CEFAZOLIN 1 GM INJ ONE (16:56)
[2017-01-14] MEDS ORDERED: DEXAMETHASONE 4 MG/ML 1 ML INJ ONE (16:57)
[2017-01-14] MEDS ORDERED: TRANEXAMIC ACID 750 MG in SOD CHLORIDE 0.9% 92.5 ML IV ONE (17:30)
[2017-01-14] MEDS ORDERED: CELECOXIB 400 MG PO X1 DOSE PO ONE (17:30)
[2017-01-14] MEDS ORDERED: CEFAZOLIN 2GM/50 ML (PMX) 50 ML X1 BEFORE INCISION IVPB ONE (17:30)
[2017-01-14] MEDS ORDERED: PAIN COCKTAIL-CEFUROXIME IRR ONE ×7 (17:30)
[2017-01-14] MEDS ORDERED: traMADOL 50 MG TAB X 1 DOSE PO ONE (17:30)
[2017-01-14] MEDS ORDERED: BUPIVACAINE LIPOSOME/PF 266 MG/20 ML VIAL INFIL ONE (17:30)
[2017-01-14] MEDS ORDERED: oxyCODONE (CR) 10 MG TAB [oxyCONTIN] X1 DOSE PO ONE (17:30)
[2017-01-14] MEDS ORDERED: LACTATED RINGER'S 1,000 ML IV SCH (17:30)
[2017-01-14] MEDS ORDERED: PREGABALIN 300 MG PO X1 PO ONE (17:30)
[2017-01-14] MEDS ORDERED: TRANEXAMIC ACID 750 MG in SOD CHLORIDE 0.9% 100 ML IVPB ONE (17:30)
[2017-01-14] MEDS ORDERED: HYDROmorphONE 2 MG/ML SYG ONE (17:46)
[2017-01-14] MEDS ORDERED: GLYCOPYRROLATE 0.4 MG INJ ONE (18:00)
[2017-01-14] MEDS ORDERED: NEOSTIGMINE 3 MG/3 ML SYRINGE ONE (18:00)
[2017-01-14] MEDS ORDERED: MEPERIDINE 25 MG INJ IV PRN ×2 (18:00→18:30)
[2017-01-14] MEDS: traMADol 50 MG TAB PO SCH ×2 (18:00→19:41)
[2017-01-14] MEDS ORDERED: ONDANSETRON 4 MG INJ IV PRN ×3 (18:00→19:30)
[2017-01-14] MEDS ORDERED: METOCLOPRAMIDE 10 MG INJ IV PRN ×2 (18:00→18:30)
[2017-01-14] MEDS ORDERED: DIPHENHYDRAMINE 50 MG INJ IV PRN ×2 (18:00→18:30)
[2017-01-14] MEDS ORDERED: HYDROmorphONE (0.2 MG/ML) 10ML SYG IV PRN ×6 (18:00→18:30)
[2017-01-14] MEDS ORDERED: EPHEDrine SULFATE 50 MG/5 ML SYG IV PRN (18:30)
--- NOTE | 2017-01-14 18:47 | OPR ---
Date/Time of Note Date/Time of Note DATE: 01/14/17 TIME: 18:46 Operative Report Free Text/Dictation Dictation # [id number] Procedure Date: January 14, 2017 Preoperative Diagnosis Left Femoral Neck Fracture Postoperative Diagnosis Same Operation Performed Left Hip Hemiarthroplasty Surgeon: KIM PEREZ MD assistant professor of radiology: DANIA MORRISON PA-C Anesthesiologist: LU PEREZ MD Estimated Blood Loss: 250 - 300 ml's Specimens Femoral Head Tubes/Drains Hemovac x 1 Complications: None Pt Condition Post Procedure: stable Disposition: PACU KIM PEREZ MD January 14, 2017 18:47
--- NOTE | 2017-01-14 19:27 | PN ---
Date/Time of Note Date/Time of Note DATE: 01/14/17 TIME: 19:16 Assessment/Plan Lines/Catheters IV Catheter Type (from Nrsg): Saline Lock Assessment/Plan Assessment/Plan Stable in PACU, s/p left hip hemiarthroplasty -continue Ancef until drain removed -pain meds as needed -hold ASA tonight but resume ASA BID for DVT prophylaxis -SCDs bilateral LE -posterior hip precautions -OOB with PT -check AM labs -d/c murcia in AM XR of the left hip is pending at this time Subjective 24 Hr Interval Summary Stable in PACU. Denies pain. Drowsy from anesthesia. Has left sided weakness from old CVA but is moving extremities. Exam/Review of Systems Vital Signs Vitals Vital Signs Date Time Temp Pulse Resp B/P Pulse Ox O2 Delivery O2 Flow Rate FiO2 01/14/17 19:05 98.7 01/14/17 12:14 65 114/62 01/14/17 08:32 18 99 01/12/17 17:10 Nasal Cannula 2.0 Intake and Output 01/13/17 01/13/17 01/14/17 15:00 23:00 07:00 Intake Total 1320 ml 2450 ml Output Total 400 ml 620 ml Balance 920 ml 1830 ml Exam Free Text/Dictation Hemovac: minimal Dressing dry Incision clean, dry, and intact without redness or drainage 5/ Quadriceps, Tibialis Anterior, EHL, Gastroc, Soleus, Peroneals Normal sensation Palpable DT/PT, CR <2 sec No distal edema; Results Result Diagram: 01/12/17 1240 01/12/17 1240 DANIA MORRISON PA-C January 14, 2017 19:26
[2017-01-14] MEDS ORDERED: NACL 0.9% 3 ML SYG IV SCH (19:30)
[2017-01-14] MEDS ORDERED: MAGNESIUM HYDROXIDE 30ML CUP PO PRN (19:30)
[2017-01-14] MEDS ORDERED: HYDROCODONE/APAP (5/325) TAB PO PRN ×2 (19:30)
[2017-01-14] MEDS ORDERED: DIPHENHYDRAMINE 25 MG CAP PO PRN (19:30)
[2017-01-14] MEDS ORDERED: BISACODYL 10 MG SUPP PR PRN (19:30)
[2017-01-14] MEDS ORDERED: NA PHOSPHATE/BIPHOS 133 ML ENEMA PR PRN (19:30)
[2017-01-14 19:34] LABS: HEMATOCRIT 38.9 % (42.0-52.0); HEMOGLOBIN 13.1 g/dl (14.0-18.0)
[2017-01-14] MEDS: CEFAZOLIN 2 GM/50 ML (PMX) 50 ML IVPB SCH (19:40)
[2017-01-14 19:56] LABS: CREATININE 0.78 mg/dl (0.61-1.24)
[2017-01-14 19:57] LABS: CALCIUM 8.8 mg/dl (8.4-10.2)
[2017-01-14] MEDS: ATORVASTATIN 80 MG TAB PO SCH (21:00)
[2017-01-14] MEDS: TERBINAFINE 250 MG TAB PO SCH (21:00)
[2017-01-14] MEDS: DOCUSATE SODIUM 100 MG CAP PO SCH (21:00)
--- NOTE | 2017-01-14 21:07 | OPR ---
DATE OF OPERATION: 01/14/2017 PREOPERATIVE DIAGNOSIS: Displaced left femoral neck fracture. POSTOPERATIVE DIAGNOSIS: Displaced left femoral neck fracture. OPERATION PERFORMED: Left hip hemiarthroplasty. SURGEON: Kim Mckeon MD ONCOLOGY NURSE: ANDREI Henry COMPONENTS USED: DePuy size 7 standard [place] stem, 49 mm bipolar shell, 28+5 cobalt chrome femoral head. ANESTHESIA: Spinal plus general endotracheal intubation plus periarticular injection. ANESTHESIOLOGIST: Yvonne Morales MD ESTIMATED BLOOD LOSS: 300 mL INTRAVENOUS FLUIDS: 700 mL of crystalloid and 150 mL of autologous Cell Saver blood and 1 unit of p latelets. SPECIMENS: Femoral head. DRAINS: Hemovac x1. COMPLICATIONS: None. DISPOSITION: The patient tolerated the procedure well, was taken to the recovery room in stable con dition. INDICATIONS: The patient is a 71-year-old gentleman who had a mechanical fall and sustained a left femoral neck fracture. He has a history of a stroke and is hemiplegic on the left side. Nonetheles s, he has been ambulatory with a walker for short distances. I felt he would benefit from a hemiart hroplasty. The risks, benefits and alternatives of the procedure were explained in detail to the andrei tieson. I explained the risks to include but not be limited to bleeding and possible need for blood transfusion; infection; pain; stiffness; neurovascular injury with possible numbness, weakness and/o r paralysis anywhere from the hip down to the toes; fracture; instability; dislocation; leg length i nequality; wear and/or loosening of the prosthesis; need for a revision at a later date; wound heali ng problems; blood clots; pulmonary embolism and anesthetic complications such as heart attack, stro ke, GI bleed, pneumonia and/or . Ample time was allowed for the patient to ask questions, all of which were addressed and answered. The patient understands the risks and wishes to proceed. Inf ormed consent was signed prior to the procedure. PROCEDURE: The patient's left hip was initialed with a marking pen in the preoperative holding area to identify the correct operative site. The patient was then brought to the operating room and tra nsferred from the [facility] to the operating table, where he was anesthetized and intubated. A time-out was performed to confirm the left side was correct operative site. He was given 2 grams of intravenous Ancef within 1 hour prior to the incision. The patient was then turned to the latera l decubitus position with the left side up. An axillary roll was placed under the right chest wall. The patient was secured into the pegboard, and all bony prominences were well padded. The left hi p and lower extremity were prepped and draped in usual sterile fashion. A posterolateral incision was made centered over the greater trochanter. This was carried down to s ubcutaneous tissue and fat with sharp dissection. The iliotibial band and gluteus jade muscle fa scia were incised along the length of the wound. The gluteus jade muscle fibers were bluntly spl it. The trochanteric bursa was incised. The piriformis and conjoined tendon were identified and ta ruma down off the posterior aspect of the greater trochanter and tagged with #2 FiberWire. Quadratus femoris was released for optimal visualization. A posterior capsulotomy was performed. The capsul e was tagged with #2 FiberWire. The fracture was encountered. The joint fluid was normal in color and consistency. The head was removed and sized to be 49 mm. A cleanup osteotomy was made a finger breadth above the level of lesser trochanter. The femur was then prepared with the tapered reamers going up to a size 7, getting a good bite, and then broached up to a size 7, maintaining laterally d irected force and keeping the broach anteverted 20 to 25 degrees relative to the tibia pointing towa rds the ceiling. The size 7 got a good bite and sat flush with the neck cut. A trial 7 standard ne ck with a 28+5 head and 49 bipolar shell were assembled and reduced in the acetabulum. The hip was taken through range of motion and was quite stable. The hip came to full extension. No posterior i mpingement or anterior instability. The [place] sign showed a combined forward flexion of 45 degree s. The hip came to full extension. No posterior impingement or anterior instability. Leg lengths were palpated to be equal. At this point, the trial was dislocated, the trial stem removed. The re al stem was opened and impacted into the femur and sat flush with the neck cut. The trunnion was ir rigated and dried, and the real 28+5 head and 49 bipolar shell were assembled and impacted on the tr unnion and then reduced in the acetabulum. The hip was taken through range of motion and was quite stable. The hip was irrigated with antibiotic saline pulsatile lavage. The soft tissues were infil trated with a mixture of 0.5% bupivacaine, 4 mg Duramorph, 30 mg Toradol, clonidine, cefuroxime and 266 mg of liposomal bupivacaine. At this point, FloSeal was placed in the deep portion of the wound . A Hemovac drain was placed in the deep portion of the wound. The posterior capsule short externa l rotators were repaired back to the greater trochanter through drill holes with #2 FiberWire. Quad ratus femoris was repaired with running #1 Vicryl. The gluteus jade tendon was intact. The scia tic nerve was palpated, noted to be intact, no undue tension. The iliotibial band was repaired with interrupted #1 Ethibonds in dxbidu-uu-rchme fashion. The gluteus jade muscle fascia was repaire d with running #1 Vicryl. The deep fat layer was irrigated and closed with 2-0 Stratafix, 3-0 Vicry l and aj on the skin. Skin edges were sealed with Dermabond. The wound was covered with silve r Mepilex and the drains secured with 3-0 nylon. Sponge and needle counts were correct at the end o f the case. The patient was taken out of the pegboard and transferred to the [facility], where he was placed in the supine position with an abduction pillow between his legs. He was awakened, e xtubated and taken to the recovery room in stable condition. Dictated By: KIM FRANK/JANET Conf#: [id number] DID#: [id number]
--- NOTE | 2017-01-14 22:12 | RADRPT ---
PROCEDURE: XR Pelvis. CLINICAL INDICATION: Trauma. TECHNIQUE: Single frontal AP view of the pelvis was performed. COMPARISON: There are no similar studies submitted for comparison. FINDINGS: Recent left total hip replacement is noted. There are overlying skin aj. A drainage catheter is seen at the operative site along with some subcutaneous emphysema. A Valenzuela catheter is noted. N o acute fracture or subluxation is identified. The sacroiliac joints are intact.No destructive osse ous lesion is identified. The bilateral hips are within normal limits on this single frontal view. T he soft tissues are unremarkable. IMPRESSION: Status post recent left total hip replacement. No acute fracture or subluxation. RPTAT: HIKT .Steve Moore MD, MD Date Time Electronically viewed and signed by .Steve Moore MD, on 01/14/2017 22:11 .T/
[2017-01-14] MEDS ORDERED: SOD CHLORIDE 0.9% IVPB ONE (22:30)
[2017-01-14] MEDS ORDERED: TRANEXAMIC ACID IVPB ONE (22:30)
--- NOTE | 2017-01-14 22:51 | RADRPT ---
PROCEDURE: XR hip CLINICAL INDICATION: Trauma TECHNIQUE: Single AP views of the left hip were performed. COMPARISON: There are no similar studies submitted for comparison. FINDINGS: A left total hip replacement is noted. Some postoperative gas is noted at the operative bed along w ith a drainage catheter. Skin aj are present. No definite fracture or abnormal lucency surrou nding the prosthesis. There is no obvious dislocation of the prosthesis. IMPRESSION: Left total hip replacement. RPTAT: HIKT .Steve Moore MD, Date Time Electronically viewed and signed by .Steve Moore MD, on 01/14/2017 22:50 .T/
[2017-01-15 00:04] VITALS: BP 119/65; RESP 18
[2017-01-15] MEDS ORDERED: TRANEXAMIC ACID IVPB ONE (01:30)
[2017-01-15] MEDS ORDERED: SOD CHLORIDE 0.9% IVPB ONE (01:30)
[2017-01-15] MEDS: CEFAZOLIN 2 GM/50 ML (PMX) 50 ML IVPB SCH ×3 (03:53→21:05)
[2017-01-15] MEDS: LACTATED RINGER'S 1,000 ML IV SCH ×5 (03:59→23:30)
[2017-01-15 05:15] LABS: HEMATOCRIT 33.5 % (42.0-52.0); HEMOGLOBIN 11.3 g/dl (14.0-18.0)
[2017-01-15 05:29] LABS: POTASSIUM 3.4 mmol/L (3.5-5.1)
[2017-01-15 05:31] LABS: CREATININE 0.63 mg/dl (0.61-1.24)
[2017-01-15 05:32] LABS: CALCIUM 8.5 mg/dl (8.4-10.2)
[2017-01-15] MEDS: PANTOPRAZOLE (EC) 40 MG TAB PO SCH ×2 (05:48→17:29)
[2017-01-15] MEDS: traMADol 50 MG TAB PO SCH ×5 (05:48→23:58)
[2017-01-15 07:13] LABS: INR 1.14; PROTIME 14.6 Sec (12.2-14.2); PT RATIO 1.1
[2017-01-15 07:14] LABS: PARTIAL THROMBOPLASTIN TIME 28.1 Sec (25.0-35.0)
[2017-01-15 07:31] VITALS: BP 118/72; RESP 18
[2017-01-15] MEDS ORDERED: POTASSIUM CHLORIDE (SR) 20 MEQ TAB PO STA (07:48)
--- NOTE | 2017-01-15 07:56 | PN ---
Date/Time of Note Date/Time of Note DATE: 01/15/17 TIME: 07:53 Assessment/Plan VTE Prophylaxis VTE Prophylaxis Intervention: SCD's Lines/Catheters IV Catheter Type (from Nrs): Peripheral IV Assessment/Plan Problems: (1) BPH (benign prostatic hypertrophy) with urinary retention Status: Chronic Comment: Postvoid residual is 180 cc. We will start him on tamsulosin. (2) Closed subcapital fracture of femur Status: Acute Comment: Postop day #1. Patient's symptoms are improved. Progressive physical therapy as per orthopedic surgery. Thank you to them for an excellent job. Usage of the aspirin protocol for DVT prophylaxis in combination with sequential compression of devices. Resume Plavix in the near future Qualifiers: Encounter type: initial encounter Laterality: left Qualified Code: S72.012A - Closed subcapital fracture of femur, left, initial encounter (3) Essential hypertension Status: Acute Comment: Well-controlled. (4) History of CVA (cerebrovascular accident) Status: Acute Comment: Quiescent and inactive at this time. (5) Onychomycosis Status: Chronic Comment: On pulse therapy at this time (6) Diastolic dysfunction Status: Chronic Comment: Noted and on beta-blockade. This is to be continued. (7) Hyperlipidemia Status: Chronic Comment: On statin therapy for risk factor modification. Qualifiers: Hyperlipidemia type: pure hypercholesterolemia Qualified Code: E78.00 - Pure hypercholesterolemia Subjective 24 Hr Interval Summary Free Text/Dictation Patient asleep but easily aroused. Fully oriented. He reports that the pain in his leg is less than it was yesterday. He is anxious to proceed forward with rehabilitation Constitutional: no complaints (No fevers chills or sweats) Respiratory: no complaints Cardiovascular: no complaints Gastrointestinal: no complaints Genitourinary: no complaints Musculoskeletal: other (Some leg pain but improved versus yesterday) Exam/Review of Systems Vital Signs Vitals Vital Signs Date Time Temp Pulse Resp B/P Pulse Ox O2 Delivery O2 Flow Rate FiO2 01/15/17 07:31 97.7 75 18 118/72 92 01/14/17 20:15 Room Air 01/14/17 19:40 2.0 Intake and Output 01/14/17 01/14/17 01/15/17 15:00 23:00 07:00 Intake Total 300 ml 2684.6 ml Output Total 1170 ml 200 ml Balance -870 ml 2484.6 ml Exam Constitutional: alert, oriented Respiratory: clear to auscultation, normal air movement Cardiovascular: nl pulses, regular rate and rhythm Gastrointestinal: nl liver, spleen, non-tender, soft Extremities: normal pulses, other (Negative Homans bilaterally) Results Result Diagram: 01/15/175 01/15/175 Results 24 hrs Laboratory Tests Test 01/14/17 19:15 01/15/17 04:45 Hemoglobin 13.1 L 11.3 L Hematocrit 38.9 L 33.5 L Sodium Level 143 143 Potassium Level 3.0 L 3.4 L Chloride Level 105 107 Carbon Dioxide Level 28 29 Anion Gap 13 10 Blood Urea Nitrogen 34 H 34 H Creatinine 0.78 0.63 Glucose Level 137 124 Calcium Level 8.8 8.5 Prothrombin Time 14.6 H Prothrombin Time Ratio 1.1 INR International Normalized Ratio 1.14 Activated Partial Thromboplast Time 28.1 Medications Medications Current Medications Ondansetron HCl (Zofran Tab) 4 mg Q6H PRN PO NAUSEA AND/OR VOMITING Last administered on 01/12/17 17:34; Admin Dose 4 MG; Start 01/12/17 at 15:30 Acetaminophen (Tylenol Tab) 650 mg Q6H PRN PO PAIN LEVEL 1-3 OR FEVER; Start at 15:30 Docusate Sodium (Colace) 100 mg Q12H PRN PO CONSTIPATION Last administered on 20:28; Admin Dose 100 MG; Start 01/12/17 at 15:30 Bisacodyl (Dulcolax) 5 mg DAILY PRN PO CONSTIPATION; Start 01/12/17 at 15:30 Famotidine (Pepcid) 20 mg Q12 PO Last administered on 01/13/17 20:27; Admin Dose 20 MG; Start 01/12/17 at 21:00 Atorvastatin Calcium (Lipitor) 80 mg QHS PO Last administered on 01/13/17 20:28 ; Admin Dose 80 MG; Start 01/12/17 at 21:00 Fluoxetine HCl (Prozac) 40 mg DAILY PO Last administered on 01/13/17 09:51; Admin Dose 40 MG; Start 01/13/17 at 09:00 Metoprolol Succinate (Toprol Xl) 25 mg DAILY PO Last administered on 01/13/17 09:51; Admin Dose 25 MG; Start 01/12/17 at 15:30 Acetaminophen/ Hydrocodone Bitart ([place] (5/325)) 1 tab Q4H PRN PO Pain; Start 01/13/17 at 10:30 Miscellaneous Information 1 ea 1 ea NOTE XX ; Start 01/14/17 at 16:30; Stop 01/18 at 16:29 Lactated Ringer's (Lr) 1,000 ml @ 75 mls/hr [id number] IV Last administered on 07:30; Admin Dose 75 MLS/HR; Start 01/14/17 at 07:30 Hydromorphone HCl (Dilaudid) 0.5 mg Q4H PRN IV PAIN Last administered on 14:05; Admin Dose 0.5 MG; Start 01/14/17 at 14:00 Terbinafine HCl (Lamisil) 250 mg BID PO ; Start 01/14/17 at 21:00; Stop 01/21/17 at 20:59 Losartan Potassium 50 mg 50 mg BID PO ; Start 01/15/17 at 09:00 Lactated Ringer's (Lr) 1,000 ml @ 125 mls/hr Q8H IV Last administered on 03:59; Admin Dose 125 MLS/HR; Start 01/14/17 at 19:04 Tramadol HCl (Ultram) 50 mg Q6 PO Last administered on 01/15/17 05:48; Admin Dose 50 MG; Start 01/14/17 at 12:00; Stop 01/17/17 at 11:59 Acetaminophen/ Hydrocodone Bitart ([place] (5/325)) 1 tab Q4H PRN PO PAIN LEVEL 1 -3; Start 01/14/17 at 19:30 Acetaminophen/ Hydrocodone Bitart ([place] (5/325)) 2 tab Q4H PRN PO PAIN LEVEL 4 -7; Start 01/14/17 at 19:30 Hydromorphone HCl 1 mg 1 mg Q3H PRN IV PAIN LEVEL 8-10; Start 01/14/17 at 19:30 Cefazolin Sodium/ Dextrose (Ancef 2 Gm/50 ml (Pmx)) 50 ml @ 100 mls/hr Q8H IVPB Last administered on 01/15/17 03:53; Admin Dose 100 MLS/HR; Start at 19:30; Stop 01/15/17 at 11:59 Ondansetron HCl (Zofran Inj) 4 mg Q6H PRN IV NAUSEA AND/OR VOMITING; Start 01/14 at 19:30 Bisacodyl (Dulcolax Supp) 10 mg Q12H PRN [place] CONSTIPATION; Start 01/14/17 at 19: 30 Magnesium Hydroxide (Milk Of Mag) 30 ml BID PRN PO CONSTIPATION; Start 01/14/17 at 19:30 Sodium Biphosphate/ Sodium Phosphate (Fleet Enema) 133 ml DAILY PRN [place] CONSTIPATION; Start 01/14/17 at 19:30 Docusate Sodium (Colace) 100 mg BID PO ; Start 01/14/17 at 21:00 Diphenhydramine HCl (Benadryl) 25 mg Q6H PRN PO PRURITUS; Start 01/14/17 at 19: 30 Aspirin (Ecotrin) 325 mg BID PO ; Start 01/15/17 at 09:00 Pantoprazole (Protonix Tab) 40 mg BID@,18 PO Last administered on 01/15/17 05:48; Admin Dose 40 MG; Start 01/15/17 at 06:00 Tamsulosin HCl (Flomax) 0.4 mg HS PO ; Start 01/15/17 at 21:00; Status MURIEL LANCE MD January 15, 2017 07:56
[2017-01-15] MEDS: LOSARTAN 50 MG TAB PO SCH ×2 (08:25→21:00)
[2017-01-15] MEDS: ASPIRIN (EC) 325 MG TAB PO SCH ×2 (08:25→21:06)
[2017-01-15] MEDS: FLUOXETINE 20 MG CAP PO SCH (08:26)
[2017-01-15] MEDS: FAMOTIDINE 20 MG TAB PO SCH ×2 (08:26→21:06)
[2017-01-15] MEDS: TERBINAFINE 250 MG TAB PO SCH ×2 (08:26→21:07)
[2017-01-15] MEDS: DOCUSATE SODIUM 100 MG CAP PO SCH ×2 (08:27→21:06)
[2017-01-15] MEDS: METOPROLOL (XL) 25 MG TAB PO SCH (08:27)
--- NOTE | 2017-01-15 08:52 | PN ---
Date/Time of Note Date/Time of Note DATE: 01/15/17 TIME: 08:49 Assessment/Plan Lines/Catheters IV Catheter Type (from Nrsg): Peripheral IV Assessment/Plan Assessment/Plan Stable POD #1, s/p left hip bipolar hemiarthroplasty -continue Ancef until drain removed -pain meds as needed -ASA/SCDs for DVT prophylaxis -OOB with PT -continue posterior hip precautions -monitor drain -check AM labs -ARU eval for transfer upon discharge -will need ARU versus SNF upon discharge Subjective 24 Hr Interval Summary No acute overnight events. Denies any pain. Did not start PT yesterday. Drowsy but arousable. Denies f/c. VSS, afebrile. Would like ARU to evaluate as possible candidate upon transfer as he will needed ARU versus SNF upon discharge. Exam/Review of Systems Vital Signs Vitals Vital Signs Date Time Temp Pulse Resp B/P Pulse Ox O2 Delivery O2 Flow Rate FiO2 01/15/17 07:31 97.7 75 18 118/72 92 01/14/17 20:15 Room Air 01/14/17 19:40 2.0 Intake and Output 01/14/17 01/14/17 01/15/17 15:00 23:00 07:00 Intake Total 300 ml 2684.6 ml Output Total 1170 ml 200 ml Balance -870 ml 2484.6 ml Exam Free Text/Dictation Hemovac: 20cc Dressing dry Incision clean, dry, and intact without redness or drainage 01/10 Quadriceps, Tibialis Anterior, EHL, Gastroc, Soleus, Peroneals Normal sensation Palpable DT/PT, CR <2 sec No distal edema Results Result Diagram: 01/15/17 0445 01/15/17 0445 DANIA MORRISON PA-C January 15, 2017 08:52
[2017-01-15 09:17] LABS: ADD UMIC YES; URINE BILIRUBIN (Dip) NEGATIVE (NEGATIVE); URINE BLOOD (Dip) TRACE (NEGATIVE); URINE COLOR LT. YELLOW (YELLOW); URINE GLUCOSE (Dip) NEGATIVE (NEGATIVE); URINE KETONES (Dip) NEGATIVE (NEGATIVE); URINE LEUKOCYTE ESTERASE (Dip) NEGATIVE (NEGATIVE); URINE NITRITE (Dip) NEGATIVE (NEGATIVE); URINE TOTAL PROTEIN (Dip) 1+ (NEGATIVE); URINE UROBILINOGEN (Dip) 0.2 E.U./dL (0.1-1.0)
[2017-01-15 09:24] LABS: BACTERIA,URINE OCCASIONAL
[2017-01-15 09:25] LABS: MUCUS,URINE OCCASIONAL
[2017-01-15] MEDS: HYDROCODONE/APAP (5/325) TAB PO PRN ×2 (11:57→13:23)
--- NOTE | 2017-01-15 19:35 | CONS ---
Date/Time of Note Date/Time of Note DATE: 01/15/17 TIME: 19:33 Assessment/Plan Assessment/Plan Additional Assessment/Plan Mechanical fall with hip fracture CVA Preserved ejection fraction Hypertension -Patient status post surgery. Doing well and denies chest pain and shortness of breath. Blood pressure trend remained stable. Continue antihypertensives with holding parameters. Consultation Date/Type/Reason Admit Date/Time January 12, 2017 at 15:05 Initial Consult Date Type of Consultation: cv 24 HR Interval Summary Free Text/Dictation Status post surgery. Denies chest pain, shortness of breath. Feeling much better Exam/Review of Systems Vital Signs Vitals Vital Signs Date Time Temp Pulse Resp B/P Pulse Ox O2 Delivery O2 Flow Rate FiO2 01/15/17 07:31 97.7 75 18 118/72 92 01/14/17 20:15 Room Air 01/14/17 19:40 2.0 Intake and Output 01/14/17 01/14/17 01/15/17 15:00 23:00 07:00 Intake Total 300 ml 2684.6 ml Output Total 1170 ml 200 ml Balance -870 ml 2484.6 ml Exam No apparent distress Constitutional: alert, oriented Head: normocephalic Respiratory: other (Sounds bilaterally, no wheezing) Cardiovascular: other (S1-S2), regular rate and rhythm Gastrointestinal: bowel sounds, non-tender, soft Extremities: edema (Trace) Results Result Diagram: 01/15/17 0445 01/15/17 0445 Results 24 hrs Laboratory Tests Test 01/15/17 04:45 01/15/17 07:35 Hemoglobin 11.3 L Hematocrit 33.5 L Prothrombin Time 14.6 H Prothrombin Time Ratio 1.1 INR International Normalized Ratio 1.14 Activated Partial Thromboplast Time 28.1 Sodium Level 143 Potassium Level 3.4 L Chloride Level 107 Carbon Dioxide Level 29 Anion Gap 10 Blood Urea Nitrogen 34 H Creatinine 0.63 Glucose Level 124 Calcium Level 8.5 Urine Color LT. YELLOW Urine Clarity CLEAR Urine pH 6.0 Urine Specific [place] >=1.030 H Urine Ketones NEGATIVE Urine Nitrite NEGATIVE Urine Bilirubin NEGATIVE Urine Urobilinogen 0.2 E.U./dL Urine Leukocyte Esterase NEGATIVE Urine Microscopic RBC 2-5 Urine Microscopic WBC 0-2 Urine Bacteria OCCASIONAL Urine Mucus OCCASIONAL Urine Hemoglobin TRACE Urine Glucose NEGATIVE Urine Total Protein 1+ H Medications Medications Current Medications Ondansetron HCl (Zofran Tab) 4 mg Q6H PRN PO NAUSEA AND/OR VOMITING Last administered on 01/12/17 17:34; Admin Dose 4 MG; Start 01/12/17 at 15:30 Acetaminophen (Tylenol Tab) 650 mg Q6H PRN PO PAIN LEVEL 1-3 OR FEVER; Start at 15:30 Docusate Sodium (Colace) 100 mg Q12H PRN PO CONSTIPATION Last administered on 20:28; Admin Dose 100 MG; Start 01/12/17 at 15:30 Bisacodyl (Dulcolax) 5 mg DAILY PRN PO CONSTIPATION; Start 01/12/17 at 15:30 Famotidine (Pepcid) 20 mg Q12 PO Last administered on 01/13/17 20:27; Admin Dose 20 MG; Start 01/12/17 at 21:00 Atorvastatin Calcium (Lipitor) 80 mg QHS PO Last administered on 01/13/17 20:28 ; Admin Dose 80 MG; Start 01/12/17 at 21:00 Fluoxetine HCl (Prozac) 40 mg DAILY PO Last administered on 01/15/17 08:26; Admin Dose 40 MG; Start 01/13/17 at 09:00 Metoprolol Succinate (Toprol Xl) 25 mg DAILY PO Last administered on 01/15/17 08:27; Admin Dose 25 MG; Start 01/12/17 at 15:30 Acetaminophen/ Hydrocodone Bitart ([place] (5/325)) 1 tab Q4H PRN PO Pain Last administered on 01/15/17 13:23; Admin Dose 1 TAB; Start 01/13/17 at 10:30 Miscellaneous Information 1 ea 1 ea NOTE XX ; Start 01/14/17 at 16:30; Stop 01/18 at 16:29 Lactated Ringer's (Lr) 1,000 ml @ 75 mls/hr [id number] IV Last administered on 07:30; Admin Dose 75 MLS/HR; Start 01/14/17 at 07:30 Hydromorphone HCl (Dilaudid) 0.5 mg Q4H PRN IV PAIN Last administered on 14:05; Admin Dose 0.5 MG; Start 01/14/17 at 14:00 Terbinafine HCl (Lamisil) 250 mg BID PO Last administered on 01/15/17 08:26; Admin Dose 250 MG; Start 01/14/17 at 21:00; Stop 01/21/17 at 20:59 Losartan Potassium 50 mg 50 mg BID PO Last administered on 01/15/17 08:25; Admin Dose 50 MG; Start 01/15/17 at 09:00 Lactated Ringer's (Lr) 1,000 ml @ 125 mls/hr Q8H IV Last administered on 13:24; Admin Dose 125 MLS/HR; Start 01/14/17 at 19:04 Tramadol HCl (Ultram) 50 mg Q6 PO Last administered on 01/15/17 17:29; Admin Dose 50 MG; Start 01/14/17 at 12:00; Stop 01/17/17 at 11:59 Acetaminophen/ Hydrocodone Bitart ([place] (5/325)) 1 tab Q4H PRN PO PAIN LEVEL 1 -3; Start 01/14/17 at 19:30 Acetaminophen/ Hydrocodone Bitart ([place] (5/325)) 2 tab Q4H PRN PO PAIN LEVEL 4 -7; Start 01/14/17 at 19:30 Hydromorphone HCl (Dilaudid) 1 mg Q3H PRN IV PAIN LEVEL 8-10; Start 01/14/17 at 19:30 Ondansetron HCl (Zofran Inj) 4 mg Q6H PRN IV NAUSEA AND/OR VOMITING; Start 01/14 at 19:30 Bisacodyl (Dulcolax Supp) 10 mg Q12H PRN [place] CONSTIPATION; Start 01/14/17 at 19: 30 Magnesium Hydroxide (Milk Of Mag) 30 ml BID PRN PO CONSTIPATION; Start 01/14/17 at 19:30 Sodium Biphosphate/ Sodium Phosphate (Fleet Enema) 133 ml DAILY PRN [place] CONSTIPATION; Start 01/14/17 at 19:30 Docusate Sodium (Colace) 100 mg BID PO Last administered on 01/15/17 08:27; Admin Dose 100 MG; Start 01/14/17 at 21:00 Diphenhydramine HCl (Benadryl) 25 mg Q6H PRN PO PRURITUS; Start 01/14/17 at 19: 30 Aspirin (Ecotrin) 325 mg BID PO Last administered on 01/15/17 08:25; Admin Dose 325 MG; Start 01/15/17 at 09:00 Pantoprazole (Protonix Tab) 40 mg BID@06,18 PO Last administered on 01/15/17 17:29; Admin Dose 40 MG; Start 01/15/17 at 06:00 Tamsulosin HCl 0.4 mg 0.4 mg HS PO ; Start 01/15/17 at 21:00 Cefazolin Sodium/ Dextrose (Ancef 2 Gm/50 ml (Pmx)) 50 ml @ 100 mls/hr Q8 IVPB Last administered on 01/15/17 13:24; Admin Dose 100 MLS/HR; Start 01/15/17 at 14:00; Stop 01/16/17 at 06:29 Thor Munguia DO January 15, 2017 19:35
[2017-01-15 20:10] VITALS: BP 106/61; RESP 22
[2017-01-15] MEDS ORDERED: TAMSULOSIN (SR) 0.4 MG CAP PO SCH (21:00)
[2017-01-15] MEDS: ATORVASTATIN 80 MG TAB PO SCH (21:06)
[2017-01-16] MEDS: LACTATED RINGER'S 1,000 ML IV SCH ×4 (03:04→11:53)
[2017-01-16 04:54] LABS: HEMATOCRIT 30.9 % (42.0-52.0); HEMOGLOBIN 10.2 g/dl (14.0-18.0)
[2017-01-16] MEDS: PANTOPRAZOLE (EC) 40 MG TAB PO SCH (05:09)
[2017-01-16] MEDS: traMADol 50 MG TAB PO SCH ×2 (05:10→11:24)
[2017-01-16] MEDS: CEFAZOLIN 2 GM/50 ML (PMX) 50 ML IVPB SCH (05:10)
[2017-01-16 05:23] LABS: POTASSIUM 3.6 mmol/L (3.5-5.1)
[2017-01-16 05:25] LABS: CREATININE 0.66 mg/dl (0.61-1.24)
[2017-01-16 05:26] LABS: CALCIUM 7.9 mg/dl (8.4-10.2)
[2017-01-16 05:43] LABS: INR 1.13; PROTIME 14.5 Sec (12.2-14.2); PT RATIO 1.1
[2017-01-16 05:44] LABS: PARTIAL THROMBOPLASTIN TIME 28.4 Sec (25.0-35.0)
[2017-01-16 08:06] VITALS: BP 100/59; RESP 18
[2017-01-16] MEDS: METOPROLOL (XL) 25 MG TAB PO SCH (08:11)
[2017-01-16] MEDS: LOSARTAN 50 MG TAB PO SCH (08:11)
[2017-01-16] MEDS: TERBINAFINE 250 MG TAB PO SCH (08:12)
[2017-01-16] MEDS: FAMOTIDINE 20 MG TAB PO SCH (08:12)
[2017-01-16] MEDS: DOCUSATE SODIUM 100 MG CAP PO SCH (08:12)
[2017-01-16] MEDS: ASPIRIN (EC) 325 MG TAB PO SCH (08:12)
[2017-01-16] MEDS: FLUOXETINE 20 MG CAP PO SCH (08:12)
--- NOTE | 2017-01-16 09:51 | PDOCDIS ---
Discharge Instructions DIAGNOSIS Discharge Diagnosis: s/p left hip hemiarthroplasty CONDITION Patient Condition: Fair HOME CARE INSTRUCTIONS: Diet Instructions: RegularSpecial Diet: REGULAR ACTIVITY: Activity Restrictions: Slowly Increase Activity Rest between Activity Avoid heavy lifting Do not operate Machinery Do not operate Power Tool Avoid Heavy Housework Keep Limb Elevated Bathing Restrictions: Shower FOLLOW UP/APPOINTMENTS Appointments follow up in the office on 01/24/17 OTHER ORDERS: Other Orders: S/P left hip hemiarthroplasty Physical Therapy: Three times per week at home x 2 weeks Daily in Rehab/SNF WB STATUS: WBAT Strengthening exercises for both upper and un-operated lower extremities. 1. Gait training with front wheeled walker 2. Wide base gait, no pivot turns. 3. Abductor strengthening. 4. Quadriceps and hamstring strengthening. 5. May switch to cane in contra lateral hand 6 weeks after surgery. 6. Physical Therapy can open case if nursing is not available. 7. Ice Packs while at rest to surgical wound for 20 minutes, 3 times/day. 8. Patient requires mobile SCDs to reduce risk of developing DVT following RANDEE. Patient will use the mobile SCDs for 30 days postoperatively. Hip Precautions: no flexion beyond 90 degrees, no adduction, no internal rotation. Bathing assistance by home health aide twice weekly if Medicare patient. Occupational Therapy: Evaluation for assistive devices and ADL training. Wound Care: Keep incision dry & covered with Tegaderm until first visit with Dr. Mckeon Anticoagulation Orders: Enteric Coated Aspirin 325 mg po bid x 6 weeks from date of surgery Follow-up:Call for an appointment with Dr. Mckeon in 1 week after discharged from hospital at DME Orders: CAMILO, 3-in-1 [employer], Mobile SCDs DANIA MORRISON PA-C January 16, 2017 09:51
--- NOTE | 2017-01-16 15:59 | PN ---
Date/Time of Note Date/Time of Note DATE: 01/16/17 TIME: 15:56 Assessment/Plan Lines/Catheters IV Catheter Type (from Nrsg): Saline Lock Valenzuela in Place (from Nrsg): No Assessment/Plan Assessment/Plan POD #2, s/p left hip bipolar hemiarthroplasty -pain meds as needed -ASA/SCDs for DVT prophylaxis -OOB with PT -posterior hip precautions -dressing changed -drain removed -accepted to ARU. Stable from an orthopedic standpoint for transfer Subjective 24 Hr Interval Summary No acute overnight events. States hip pain is feeling better overall. ARU evaluated and accepted the patient. Walked briefly yesterday but still a significant fall risk. VSS, afebrile. Will be transferred to ARU when medically cleared. Exam/Review of Systems Vital Signs Vitals Vital Signs Date Time Temp Pulse Resp B/P Pulse Ox O2 Delivery O2 Flow Rate FiO2 01/16/17 08:06 98.1 75 18 100/59 94 01/15/17 21:00 Nasal Cannula 2.0 Intake and Output 01/15/17 01/15/17 01/16/17 15:00 23:00 07:00 Intake Total 800 ml 1690 ml 1630 ml Output Total 550 ml 580 ml Balance 800 ml 1140 ml 1050 ml Exam Free Text/Dictation Dressing dry Incision clean, dry, and intact without redness or drainage 5/ Quadriceps, Tibialis Anterior, EHL, Gastroc, Soleus, Peroneals Normal sensation Palpable DT/PT, CR <2 sec No distal edema Results Result Diagram: 01/16/1742901/16/17429 DANIA MORRISON PA-C January 16, 2017 15:59
--- NOTE | 2017-01-16 16:47 | CONS ---
Date/Time of Note Date/Time of Note DATE: 01/16/17 TIME: 16:46 Assessment/Plan Assessment/Plan Additional Assessment/Plan Mechanical fall with hip fracture CVA Preserved ejection fraction Hypertension -Blood pressure trend on the lower end, we decreased dose of losartan and continue holding parameters on antihypertensives. Encourage physical therapy. Consultation Date/Type/Reason Admit Date/Time January 12, 2017 at 15:05 Type of Consultation: cv 24 HR Interval Summary Free Text/Dictation Patient denies chest pain, shortness of breath, dizziness. Underwent physical therapy today Exam/Review of Systems Vital Signs Vitals Vital Signs Date Time Temp Pulse Resp B/P Pulse Ox O2 Delivery O2 Flow Rate FiO2 01/16/17 08:06 98.1 75 18 100/59 94 01/15/17 21:00 Nasal Cannula 2.0 Intake and Output 01/15/17 01/15/17 01/16/17 15:00 23:00 07:00 Intake Total 800 ml 1690 ml 1630 ml Output Total 550 ml 580 ml Balance 800 ml 1140 ml 1050 ml Exam No apparent distress Constitutional: alert, oriented Head: normocephalic Respiratory: other Cardiovascular: other (S1-S2 heard), regular rate and rhythm Gastrointestinal: bowel sounds, non-tender, soft Extremities: other (No edema) Results Result Diagram: 01/16/17 0430 01/16/17 0430 Results 24 hrs Laboratory Tests Test 01/16/17 04:30 Hemoglobin 10.2 L Hematocrit 30.9 L Prothrombin Time 14.5 H Prothrombin Time Ratio 1.1 INR International Normalized Ratio 1.13 Activated Partial Thromboplast Time 28.4 Sodium Level 138 Potassium Level 3.6 Chloride Level 104 Carbon Dioxide Level 28 Anion Gap 10 Blood Urea Nitrogen 32 H Creatinine 0.66 Glucose Level 96 Calcium Level 7.9 L Medications Medications Current Medications Ondansetron HCl (Zofran Tab) 4 mg Q6H PRN PO NAUSEA AND/OR VOMITING Last administered on 01/12/17 17:34; Admin Dose 4 MG; Start 01/12/17 at 15:30 Acetaminophen (Tylenol Tab) 650 mg Q6H PRN PO PAIN LEVEL 1-3 OR FEVER; Start at 15:30 Docusate Sodium (Colace) 100 mg Q12H PRN PO CONSTIPATION Last administered on 20:28; Admin Dose 100 MG; Start 01/12/17 at 15:30 Bisacodyl (Dulcolax) 5 mg DAILY PRN PO CONSTIPATION; Start 01/12/17 at 15:30 Famotidine (Pepcid) 20 mg Q12 PO Last administered on 01/16/17 08:12; Admin Dose 20 MG; Start 01/12/17 at 21:00 Atorvastatin Calcium (Lipitor) 80 mg QHS PO Last administered on 01/15/17 21: 06; Admin Dose 80 MG; Start 01/12/17 at 21:00 Fluoxetine HCl (Prozac) 40 mg DAILY PO Last administered on 01/16/17 08:12; Admin Dose 40 MG; Start 01/13/17 at 09:00 Metoprolol Succinate (Toprol Xl) 25 mg DAILY PO Last administered on 01/15/17 08:27; Admin Dose 25 MG; Start 01/12/17 at 15:30 Acetaminophen/ Hydrocodone Bitart ([place] (5/325)) 1 tab Q4H PRN PO Pain Last administered on 01/15/17 13:23; Admin Dose 1 TAB; Start 01/13/17 at 10:30 Miscellaneous Information 1 ea 1 ea NOTE XX ; Start 01/14/17 at 16:30; Stop 01/18 at 16:29 Lactated Ringer's (Lr) 1,000 ml @ 75 mls/hr [id number] IV Last administered on 07:30; Admin Dose 75 MLS/HR; Start 01/14/17 at 07:30 Hydromorphone HCl (Dilaudid) 0.5 mg Q4H PRN IV PAIN Last administered on 14:05; Admin Dose 0.5 MG; Start 01/14/17 at 14:00 Terbinafine HCl (Lamisil) 250 mg BID PO Last administered on 01/16/17 08:12; Admin Dose 250 MG; Start 01/14/17 at 21:00; Stop 01/21/17 at 20:59 Losartan Potassium 50 mg 50 mg BID PO Last administered on 01/15/17 08:25; Admin Dose 50 MG; Start 01/15/17 at 09:00 Lactated Ringer's (Lr) 1,000 ml @ 125 mls/hr Q8H IV Last administered on 11:50; Admin Dose 125 MLS/HR; Start 01/14/17 at 19:04 Tramadol HCl (Ultram) 50 mg Q6 PO Last administered on 01/16/17 11:24; Admin Dose 50 MG; Start 01/14/17 at 12:00; Stop 01/17/17 at 11:59 Acetaminophen/ Hydrocodone Bitart ([place] (5/325)) 1 tab Q4H PRN PO PAIN LEVEL 1 -3; Start 01/14/17 at 19:30 Acetaminophen/ Hydrocodone Bitart ([place] (5/325)) 2 tab Q4H PRN PO PAIN LEVEL 4 -7; Start 01/14/17 at 19:30 Hydromorphone HCl (Dilaudid) 1 mg Q3H PRN IV PAIN LEVEL 8-10; Start 01/14/17 at 19:30 Ondansetron HCl (Zofran Inj) 4 mg Q6H PRN IV NAUSEA AND/OR VOMITING; Start 01/14 at 19:30 Bisacodyl (Dulcolax Supp) 10 mg Q12H PRN [place] CONSTIPATION; Start 01/14/17 at 19: 30 Magnesium Hydroxide (Milk Of Mag) 30 ml BID PRN PO CONSTIPATION Last administered on 01/16/17 11:50; Admin Dose 30 ML; Start 01/14/17 at 19:30 Sodium Biphosphate/ Sodium Phosphate (Fleet Enema) 133 ml DAILY PRN [place] CONSTIPATION; Start 01/14/17 at 19:30 Docusate Sodium (Colace) 100 mg BID PO Last administered on 01/16/17 08:12; Admin Dose 100 MG; Start 01/14/17 at 21:00 Diphenhydramine HCl (Benadryl) 25 mg Q6H PRN PO PRURITUS; Start 01/14/17 at 19: 30 Aspirin (Ecotrin) 325 mg BID PO Last administered on 01/16/17 08:12; Admin Dose 325 MG; Start 01/15/17 at 09:00 Pantoprazole (Protonix Tab) 40 mg BID@,18 PO Last administered on 01/16/17 05:09; Admin Dose 40 MG; Start 01/15/17 at 06:00 Tamsulosin HCl (Flomax) 0.4 mg HS PO Last administered on 01/15/17t 21:06; Admin Dose 0.4 MG; Start 01/15/17 at 21:00 Thor Munguia DO January 16, 2017 16:47
[2017-01-16] MEDS ORDERED: LOSARTAN 25 MG TAB PO SCH (21:00)
[2017-01-16] MEDS ORDERED: LOSARTAN 50 MG TAB PO SCH (21:00)
== END 2017-01-16 17:20 | DRG 470 ==
LOC: E/R 12:19 → MS1 15:05
PROVIDERS: ADMIT Internal Medicine; ATTEND Internal Medicine
PROC: 30253H0 (ICD-10-PCS; 2017-01-14)
PROC: 30233R1 Transfusion of Nonautologous Platelets into Peripheral Vein, Percutaneous Approach (ICD-10-PCS; 2017-01-14)
PROC: 0SRS01A Replacement of Left Hip Joint, Femoral Surface with Metal Synthetic Substitute, Uncemented, Open Approach (ICD-10-PCS; principal; 2017-01-14 16:00)
DX: S72.012A Unspecified intracapsular fracture of left femur, initial encounter for closed fracture (principal); I50.32 Chronic diastolic (congestive) heart failure; I69.354 Hemiplegia and hemiparesis following cerebral infarction affecting left non-dominant side; W19.XXXA Unspecified fall, initial encounter; E11.9 Type 2 diabetes mellitus without complications; E78.5 Hyperlipidemia, unspecified; B35.1 Tinea unguium; N40.1 Benign prostatic hyperplasia with lower urinary tract symptoms; R33.8 Other retention of urine
CPT/HCPCS: 36430; 71010; 72170; 73500; 73510; 73550; 73700; 80048; 81001; 81003; 84484; 85014; 85018; 85025; 85610; 85730; 86850; 86900; 86901; 86920; 86945; 87086; 88305; 88311; 93005; 96374; 96375; 96376; 97110; 97116; 97163; 97530; A4310; C9290; J0171; J0690; J0697; J0735; J1100; J1170; J1644; J1885; J2250; J2270; J2274; J2405; J2710; J2765; J3010; J3370; J7120; P9035

== ENCOUNTER 2017-01-16 18:00 | Inpatient (IN) | payer MEDICARE, OTHER ==
[~2017-01-16] VITALS: Ht 180.3 cm; Wt 75.0 kg
[2017-01-16 18:00] VITALS: PULSE 85; Ht 180.3 cm; Wt 75.0 kg
[~2017-01-16 18:00] MED LIST changes: -AMLO5TAB4 PO; -CELE200C PO; -CLON-379 PO
[2017-01-16] MEDS ORDERED: BISACODYL 10 MG SUPP PR PRN (19:00)
[2017-01-16] MEDS ORDERED: DIPHENHYDRAMINE 25 MG CAP PO PRN (19:00)
[2017-01-16] MEDS ORDERED: MAGNESIUM HYDROXIDE 30ML CUP PO PRN (19:30)
[2017-01-16 19:56] VITALS: BP 111/58; RESP 19
--- NOTE | 2017-01-16 20:12 | HP ---
Date/Time of Note Date/Time of Note DATE: 01/16/17 TIME: 20:04 Assessment/Plan VTE Prophylaxis VTE Prophylaxis Intervention: ambulation Lines/Catheters Urinary Cath still in place: Yes Reason Cath still needed: urinary retention Assessment/Plan Problems: (1) Closed left hip fracture Status: Acute Comment: s/p left hemiarthroplasty. 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 Tamsulosin started last night. [place] reinserted today. (3) Essential (primary) hypertension Status: Chronic Comment: Good blood pressure control (4) Diastolic dysfunction Status: Chronic Comment: no new issues. on beta blockade (5) Hyperlipidemia Status: Chronic (6) Constipation Status: Acute Comment: likely secondary to opioid use for pain control. Will receive Lactulose today. If no BM enema will be administered tomorrow. Assessment/Plan Continue physical rehabilitation as per acute rehab team and ortho team. HPI/ROS Admit Date/Time Admit Date/Time January 16, 2017 at 18:00 Hx of Present Illness 71 year old loyd/p left subcapsular femur fracture underwent left jose arthroplasty. Now transferred to AR unit. ROS Genitourinary: other (unrinary retention) PMH/Family/Social Past Medical History Medical History: high cholesterol, hypertension, other (cva, diastolic dysfunction, BPH) Past Surgical History Past Surgical Hx: other (left hemiarthroplasty) Exam/Review of Systems Vital Signs Vitals Vital Signs Date Time Temp Pulse Resp B/P Pulse Ox O2 Delivery O2 Flow Rate FiO2 01/16/17 19:56 98.1 84 19 111/58 94 Exam Constitutional: alert, oriented Head: normocephalic Eyes: EOMI, PERRL Neck: supple Respiratory: clear to auscultation Cardiovascular: regular rate and rhythm Gastrointestinal: soft Genitourinary - Male: other (murcia to gravity) Extremities: normal pulses Medications Medications Current Medications Acetaminophen (Tylenol Tab) 650 mg Q6H PRN PO PAIN LEVEL 1-3 OR FEVER; Start at 19:00 Aspirin (Ecotrin) 325 mg BID PO ; Start 01/16/17 at 21:00 Atorvastatin Calcium (Lipitor) 80 mg QHS PO ; Start 01/16/17 at 21:00 Bisacodyl (Dulcolax) 5 mg DAILY PRN PO CONSTIPATION; Start 01/16/17 at 19:00 Bisacodyl (Dulcolax Supp) 10 mg Q12H PRN [place] CONSTIPATION; Start 01/16/17 at 19: 00 Diphenhydramine HCl (Benadryl) 25 mg Q6H PRN PO PRURITUS; Start 01/16/17 at 19: 00 Docusate Sodium (Colace) 100 mg BID PO ; Start 01/16/17 at 21:00 Famotidine (Pepcid) 20 mg Q12 PO ; Start 01/16/17 at 21:00 Fluoxetine HCl (Prozac) 40 mg DAILY PO ; Start 01/17/17 at 09:00 Acetaminophen/ Hydrocodone Bitart ([place] (5/325)) 1 tab Q4H PRN PO PAIN LEVEL 1 -3; Start 01/16/17 at 19:30 Acetaminophen/ Hydrocodone Bitart ([place] (5/325)) 2 tab Q4H PRN PO PAIN LEVEL 4 -7; Start 01/16/17 at 19:30 Losartan Potassium (Cozaar) 12.5 mg BID PO ; Start 01/16/17 at 21:00 Magnesium Hydroxide (Milk Of Mag) 30 ml BID PRN PO CONSTIPATION; Start at 19:30 Metoprolol Succinate (Toprol Xl) 25 mg DAILY PO ; Start 01/17/17 at 09:00 Sodium Biphosphate/ Sodium Phosphate (Fleet Enema) 133 ml DAILY PRN [place] CONSTIPATION; Start 01/16/17 at 19:30 Tamsulosin HCl (Flomax) 0.4 mg HS PO ; Start 01/16/17 at 21:00 Terbinafine HCl (Lamisil) 250 mg BID PO ; Start 01/16/17 at 21:00; Stop at 20:59 Tramadol HCl (Ultram) 50 mg Q6 PO ; Start 01/17/17 at 00:00; Stop 01/17/17 at 11 :59 Hydromorphone HCl (Dilaudid) 0.5 mg Q6H PRN IV PAIN; Start 01/16/17 at 19:30 ROGER ALMODOVAR MD January 16, 2017 20:12
[2017-01-16] MEDS: LOSARTAN 25 MG TAB PO SCH (22:00)
[2017-01-16] MEDS: FAMOTIDINE 20 MG TAB PO SCH (22:23)
[2017-01-16] MEDS: TAMSULOSIN (SR) 0.4 MG CAP PO SCH (22:23)
[2017-01-16] MEDS: DOCUSATE SODIUM 100 MG CAP PO SCH (22:23)
[2017-01-16] MEDS: ATORVASTATIN 80 MG TAB PO SCH (22:23)
[2017-01-16] MEDS: TERBINAFINE 250 MG TAB PO SCH (22:24)
[2017-01-16] MEDS: SENNA TAB PO SCH (22:24)
[2017-01-16] MEDS: ASPIRIN (EC) 325 MG TAB PO SCH (22:24)
[2017-01-16] MEDS: LACTULOSE 30ML CUP PO PRN (22:25)
[2017-01-17] MEDS: traMADol 50 MG TAB PO SCH ×2 (06:24)
[2017-01-17] MEDS: NA PHOSPHATE/BIPHOS 133 ML ENEMA PR PRN (06:25)
[2017-01-17 06:58] LABS: ADD SCAN DIFF NO
[2017-01-17 07:06] LABS: BASOPHILS % 0.4 % (0.0-2.0); EOSINOPHILS # 0.2 10^3/ul (0.0-0.5); EOSINOPHILS % 2.2 % (0.0-7.0); HEMATOCRIT 32.1 % (42.0-52.0); LYMPHOCYTES # 0.9 10^3/ul (0.8-2.9); LYMPHOCYTES % 9.6 % (15.0-51.0); MEAN CORPUSCULAR HEMOGLOBIN 31.4 pg (29.0-33.0); MEAN CORPUSCULAR HGB CONC 34.3 g/dl (32.0-37.0); MEAN CORPUSCULAR VOLUME 91.7 fl (82.0-101.0); MEAN PLATELET VOLUME 10.7 fl (7.4-10.4); MONOCYTE # 0.9 10^3/ul (0.3-0.9); MONOCYTES % 10.5 % (0.0-11.0); NEUTROPHIL # 6.8 10^3/ul (1.6-7.5); NEUTROPHILS % 76.3 % (39.0-77.0); PLATELET COUNT 170 10^3/UL (140-415); RED CELL DISTRIBUTION WIDTH 13.2 % (11.5-14.5)
[2017-01-17 08:03] VITALS: BP 126/61; RESP 18
[2017-01-17] MEDS: HYDROmorphONE 1 MG/ML SYG IV PRN ×2 (09:09→15:10)
[2017-01-17] MEDS: TERBINAFINE 250 MG TAB PO SCH ×2 (09:10→21:39)
[2017-01-17] MEDS: DOCUSATE SODIUM 100 MG CAP PO SCH ×2 (09:10→20:54)
[2017-01-17] MEDS: FLUOXETINE 20 MG CAP PO SCH (09:10)
[2017-01-17] MEDS: LOSARTAN 25 MG TAB PO SCH ×2 (09:11→20:55)
[2017-01-17] MEDS: ASPIRIN (EC) 325 MG TAB PO SCH ×2 (09:11→20:55)
[2017-01-17] MEDS: FAMOTIDINE 20 MG TAB PO SCH ×2 (09:11→20:54)
[2017-01-17] MEDS: METOPROLOL (XL) 25 MG TAB PO SCH (09:11)
[2017-01-17 11:01] LABS: ALBUMIN 2.6 g/dl (3.3-4.9); ALBUMIN/GLOBULIN RATIO 0.92; BILIRUBIN,INDIRECT 0.9 mg/dl (0-1.1); BILIRUBIN,TOTAL 0.9 mg/dl (0.2-1.3); CALCIUM 8.4 mg/dl (8.4-10.2); CREATININE 0.59 mg/dl (0.61-1.24); POTASSIUM 3.5 mmol/L (3.5-5.1); TOTAL PROTEIN 5.4 g/dl (6.1-8.1)
--- NOTE | 2017-01-17 12:07 | RADRPT ---
PROCEDURE: Urinary bladder ultrasound and pelvis. CLINICAL INDICATION: Urinary retention, evaluate prostate size TECHNIQUE: Multiple sonographic images of the pelvis were obtained. The images were reviewed on a PACS workstation. COMPARISON: None. FINDINGS: The urinary bladder bladder is normal in size, contour and wall thickness. No evidence of bladder st ones. No evidence of a bladder mass. There is a prevoid volume of 156 cc the patient was not able to void. The prostate is normal in size measuring 3.7 x 3.7 x 3.7 cm. RPTAT: AA IMPRESSION: The patient was unable to void. Normal size prostate. .Shahriar Abarca MD, MD Date Time Electronically viewed and signed by .Shahriar Abarca MD, MD on 01/17/2017 12:07 .S/
--- NOTE | 2017-01-17 12:31 | CONS ---
DATE OF ADMISSION: 01/16/2017 DATE OF CONSULTATION: 01/17/2017 TYPE OF CONSULTATION: Rehabilitation Post-Admission Physician Evaluation REHABILITATION IMPAIRMENT CATEGORY: Left femoral neck fracture status post left hip hemiarthroplasty. ACTIVE COMORBIDITIES: 1. History of cerebrovascular accident with residual left-sided weakness. 2. Hypertension. 3. Hyperlipidemia. 4. Gastroesophageal reflux disease. 5. Anemia. 6. Impairments in self-care, mobility and cognition. HISTORY OF PRESENT ILLNESS: The patient is a very-pleasant 71-year-old gentleman with a history of previous CVA with residual weakness, who is status post a mechanical fall with resultant left hip pain. Workup did reveal a left femoral neck fracture and the patient underwent a left hip hemiarthroplasty on 01/14/[address] Mckeon. The patient's hospital course has been notable for significant pain in addition to anemia and significant impairments in self-care and mobility as compared to baseline. The patient has been cleared to transfer to the rehabilitation unit for comprehensive interdisciplinary rehab care. FUNCTIONAL HISTORY: Prior to recent events, he was independent in self-care tasks and mobility. Currently, he requires maximal to total assist for self- care activities and maximal assist for mobility tasks. I have reviewed the preadmission screen and the patient's current functional status is consistent with the preadmission screen. SOCIAL HISTORY: The patient lives at home with his and hopes to return there upon discharge. PAST MEDICAL HISTORY: 1. Cerebrovascular accident with residual weakness. 2. Hypertension. 3. BPH. 4. Hyperlipidemia. 5. Gastroesophageal reflux disease. CURRENT MEDICATIONS: 1. Ecotrin 325 p.o. b.i.d. 2. Lipitor 80 mg p.o. at bedtime. 3. Dulcolax suppository. 4. Benadryl p.r.n. 5. Colace. 6. Pepcid. 7. Prozac 40 mg p.o. daily. 8. [place] p.r.n. 9. Cozaar 50 mg p.o. b.i.d. 10. Toprol-XL 25 mg p.o. daily. 11. Flomax 0.4 mg p.o. at bedtime. 12. Lamisil 250 b.i.d. 13. Ultram p.r.n. ALLERGIES: THE PATIENT WITH NO KNOWN DRUG ALLERGIES. PHYSICAL EXAMINATION: VITAL SIGNS: The patient is currently afebrile with stable vital signs. HEENT: Extraocular motions are intact. Oropharynx clear. NECK: Supple. LUNGS: Clear anteriorly. CARDIAC: S1, S2. ABDOMEN: Soft, nontender, positive bowel sounds. NEUROLOGIC: He is awake and alert and oriented to person and hospital. He will follow simple 1-step commands. He demonstrates antigravity strength in bilateral upper extremity and the right lower extremity. He is able to dorsiflex on the left lower extremity. PLAN: The patient has been admitted for comprehensive interdisciplinary acute rehab and is anticipated to tolerate 3 hours of daily therapy in divided doses for at least 5/7 days a week. The treatment plan will include: 1. Physical therapy to focus on bed mobility, transfers, and household ambulation with the goal of having the patient reach standby assist level. 2. Occupational therapy to focus on hygiene, grooming, dressing, bathing, and toileting activities with the goal of having the patient reach standby assist level. 3. Rehabilitation nursing for carryover of therapeutic interventions, the goal of continent of bowel and bladder, and the goal of pain adequately managed on oral medications. 4. Speech therapy for full cognitive assessment and retraining with the goal of having the patient return to baseline cognition. ESTIMATED LENGTH OF STAY: 14 days. DISPOSITION GOAL: Home. Rehabilitation Barrier: Pain Intervention for Barrier: Interdisciplinary rehab I acknowledge that I performed a full physical examination on this patient within 24 hours of admission to the rehabilitation unit. I believe the patient is a good candidate for comprehensive interdisciplinary rehab care and is anticipated to make reasonable goals in a reasonable period of time as outlined above. Dictated By: KIMBRELI WOLFF/JANET Conf#: [id number] DID#: [id number]
--- NOTE | 2017-01-17 12:49 | CONS ---
Date/Time of Note Date/Time of Note DATE: 01/17/17 TIME: 12:48 Assessment/Plan Assessment/Plan Additional Assessment/Plan Mechanical fall with hip fracture CVA Preserved ejection fraction Hypertension -Blood pressure trend remains stable. Continue antihypertensives with holding parameters. Encourage physical therapy. Consultation Date/Type/Reason Admit Date/Time January 16, 2017 at 18:00 Initial Consult Date Type of Consultation: cv 24 HR Interval Summary Free Text/Dictation Denies chest pain, shortness of breath Exam/Review of Systems Vital Signs Vitals Vital Signs Date Time Temp Pulse Resp B/P Pulse Ox O2 Delivery O2 Flow Rate FiO2 01/17/17 08:03 98.2 91 18 126/61 96 Intake and Output 01/16/17 01/16/17 01/17/17 15:00 23:00 07:00 Intake Total 350 ml Output Total 1100 ml Balance -750 ml Exam Sitting in wheelchair, no apparent distress Constitutional: alert, oriented Head: normocephalic Respiratory: other (Coarse breath sounds bilaterally, no wheezing) Cardiovascular: other (S1-S2 heard), regular rate and rhythm Gastrointestinal: bowel sounds, non-tender, soft Extremities: other (No edema) Results Result Diagram: 01/17/17 0615 01/17/17 0615 Results 24 hrs Laboratory Tests Test 01/17/17 06:15 White Blood Count 9.0 # Red Blood Count 3.50 L Hemoglobin 11.0 L Hematocrit 32.1 L Mean Corpuscular Volume 91.7 Mean Corpuscular Hemoglobin 31.4 Mean Corpuscular Hemoglobin Concent 34.3 Red Cell Distribution Width 13.2 Platelet Count 170 Mean Platelet Volume 10.7 H Neutrophils % 76.3 Lymphocytes % 9.6 L Monocytes % 10.5 Eosinophils % 2.2 Basophils % 0.4 Nucleated Red Blood Cells % 0.0 Neutrophils # 6.8 Lymphocytes # 0.9 Monocytes # 0.9 Eosinophils # 0.2 Basophils # 0.0 Nucleated Red Blood Cells # 0.0 Sodium Level 139 Potassium Level 3.5 Chloride Level 106 Carbon Dioxide Level 25 Anion Gap 12 Blood Urea Nitrogen 24 H Creatinine 0.59 L Glucose Level 93 Calcium Level 8.4 Total Bilirubin 0.9 Direct Bilirubin 0.00 Indirect Bilirubin 0.9 Aspartate Amino Transf (AST/SGOT) 103 H Alanine Aminotransferase (ALT/SGPT) 82 H Alkaline Phosphatase 58 Total Protein 5.4 L Albumin 2.6 L Globulin 2.80 Albumin/Globulin Ratio 0.92 Medications Medications Current Medications Acetaminophen (Tylenol Tab) 650 mg Q6H PRN PO PAIN LEVEL 1-3 OR FEVER; Start at 19:00 Aspirin (Ecotrin) 325 mg BID PO Last administered on 01/17/17 09:11; Admin Dose 325 MG; Start 01/16/17 at 21:00 Atorvastatin Calcium (Lipitor) 80 mg QHS PO Last administered on 01/16/17 22: 23; Admin Dose 80 MG; Start 01/16/17 at 21:00 Bisacodyl (Dulcolax) 5 mg DAILY PRN PO CONSTIPATION; Start 01/16/17 at 19:00 Bisacodyl (Dulcolax Supp) 10 mg Q12H PRN [place] CONSTIPATION; Start 01/16/17 at 19: 00 Diphenhydramine HCl (Benadryl) 25 mg Q6H PRN PO PRURITUS; Start 01/16/17 at 19: 00 Docusate Sodium (Colace) 100 mg BID PO Last administered on 01/17/17 09:10; Admin Dose 100 MG; Start 01/16/17 at 21:00 Famotidine (Pepcid) 20 mg Q12 PO Last administered on 01/17/17 09:11; Admin Dose 20 MG; Start 01/16/17 at 21:00 Fluoxetine HCl (Prozac) 40 mg DAILY PO Last administered on 01/17/17 09:10; Admin Dose 40 MG; Start 01/17/17 at 09:00 Acetaminophen/ Hydrocodone Bitart ([place] (5/325)) 1 tab Q4H PRN PO PAIN LEVEL 1 -3; Start 01/16/17 at 19:30 Acetaminophen/ Hydrocodone Bitart ([place] (5/325)) 2 tab Q4H PRN PO PAIN LEVEL 4 -7; Start 01/16/17 at 19:30 Losartan Potassium (Cozaar) 12.5 mg BID PO Last administered on 01/17/17 09:11 ; Admin Dose 12.5 MG; Start 01/16/17 at 21:00 Magnesium Hydroxide (Milk Of Mag) 30 ml BID PRN PO CONSTIPATION; Start at 19:30 Metoprolol Succinate (Toprol Xl) 25 mg DAILY PO Last administered on 01/17/17 09:11; Admin Dose 25 MG; Start 01/17/17 at 09:00 Sodium Biphosphate/ Sodium Phosphate (Fleet Enema) 133 ml DAILY PRN [place] CONSTIPATION Last administered on 01/17/17 06:25; Admin Dose 133 ML; Start 07/25 at 19:30 Tamsulosin HCl (Flomax) 0.4 mg HS PO Last administered on 01/16/17 22:23; Admin Dose 0.4 MG; Start 01/16/17 at 21:00 Terbinafine HCl (Lamisil) 250 mg BID PO Last administered on 01/17/17 09:10; Admin Dose 250 MG; Start 01/16/17 at 21:00; Stop 01/21/17 at 20:59 Hydromorphone HCl (Dilaudid) 0.5 mg Q6H PRN IV PAIN Last administered on 09:09; Admin Dose 0.5 MG; Start 01/16/17 at 19:30 Senna (Senokot) 1 tab HS PO Last administered on 01/16/17 22:24; Admin Dose 1 TAB; Start 01/16/17 at 22:00 Lactulose (Enulose) 20 gm DAILY PRN PO CONSTIPATION Last administered on 22:25; Admin Dose 20 GM; Start 01/16/17 at 22:00 Thor Munguia DO January 17, 2017 12:49
--- NOTE | 2017-01-17 13:03 | PN ---
Date/Time of Note Date/Time of Note DATE: 01/17/17 TIME: 13:00 Assessment/Plan VTE Prophylaxis VTE Prophylaxis Intervention: anti-embolic stocking Lines/Catheters IV Catheter Type (from Nrsg): Saline Lock Urinary Cath still in place: Yes Subjective 24 Hr Interval Summary Free Text/Dictation post left hip fx, working on transfers post cva, stable trouble voiding, us ok 156 cc, would repeat us if no void , may need catheter hbp bp is ok Musculoskeletal: bone/joint pain Neurologic: confusion Exam/Review of Systems Vital Signs Vitals Vital Signs Date Time Temp Pulse Resp B/P Pulse Ox O2 Delivery O2 Flow Rate FiO2 01/17/17 08:03 98.2 91 18 126/61 96 Intake and Output 01/16/17 01/16/17 01/17/17 15:00 23:00 07:00 Intake Total 350 ml Output Total 1100 ml Balance -750 ml Results Result Diagram: 01/17/17 0615 01/17/17 0615 Results 24 hrs Laboratory Tests Test 01/17/17 06:15 White Blood Count 9.0 # Red Blood Count 3.50 L Hemoglobin 11.0 L Hematocrit 32.1 L Mean Corpuscular Volume 91.7 Mean Corpuscular Hemoglobin 31.4 Mean Corpuscular Hemoglobin Concent 34.3 Red Cell Distribution Width 13.2 Platelet Count 170 Mean Platelet Volume 10.7 H Neutrophils % 76.3 Lymphocytes % 9.6 L Monocytes % 10.5 Eosinophils % 2.2 Basophils % 0.4 Nucleated Red Blood Cells % 0.0 Neutrophils # 6.8 Lymphocytes # 0.9 Monocytes # 0.9 Eosinophils # 0.2 Basophils # 0.0 Nucleated Red Blood Cells # 0.0 Sodium Level 139 Potassium Level 3.5 Chloride Level 106 Carbon Dioxide Level 25 Anion Gap 12 Blood Urea Nitrogen 24 H Creatinine 0.59 L Glucose Level 93 Calcium Level 8.4 Total Bilirubin 0.9 Direct Bilirubin 0.00 Indirect Bilirubin 0.9 Aspartate Amino Transf (AST/SGOT) 103 H Alanine Aminotransferase (ALT/SGPT) 82 H Alkaline Phosphatase 58 Total Protein 5.4 L Albumin 2.6 L Globulin 2.80 Albumin/Globulin Ratio 0.92 Medications Medications Current Medications Acetaminophen (Tylenol Tab) 650 mg Q6H PRN PO PAIN LEVEL 1-3 OR FEVER; Start at 19:00 Aspirin (Ecotrin) 325 mg BID PO Last administered on 01/17/17 09:11; Admin Dose 325 MG; Start 01/16/17 at 21:00 Atorvastatin Calcium (Lipitor) 80 mg QHS PO Last administered on 01/16/17 22: 23; Admin Dose 80 MG; Start 01/16/17 at 21:00 Bisacodyl (Dulcolax) 5 mg DAILY PRN PO CONSTIPATION; Start 01/16/17 at 19:00 Bisacodyl (Dulcolax Supp) 10 mg Q12H PRN [place] CONSTIPATION; Start 01/16/17 at 19: 00 Diphenhydramine HCl (Benadryl) 25 mg Q6H PRN PO PRURITUS; Start 01/16/17 at 19: 00 Docusate Sodium (Colace) 100 mg BID PO Last administered on 01/17/17 09:10; Admin Dose 100 MG; Start 01/16/17 at 21:00 Famotidine (Pepcid) 20 mg Q12 PO Last administered on 01/17/17 09:11; Admin Dose 20 MG; Start 01/16/17 at 21:00 Fluoxetine HCl (Prozac) 40 mg DAILY PO Last administered on 01/17/17 09:10; Admin Dose 40 MG; Start 01/17/17 at 09:00 Acetaminophen/ Hydrocodone Bitart ([place] (5/325)) 1 tab Q4H PRN PO PAIN LEVEL 1 -3; Start 01/16/17 at 19:30 Acetaminophen/ Hydrocodone Bitart ([place] (5/325)) 2 tab Q4H PRN PO PAIN LEVEL 4 -7; Start 01/16/17 at 19:30 Losartan Potassium (Cozaar) 12.5 mg BID PO Last administered on 01/17/17 09:11 ; Admin Dose 12.5 MG; Start 01/16/17 at 21:00 Magnesium Hydroxide (Milk Of Mag) 30 ml BID PRN PO CONSTIPATION; Start at 19:30 Metoprolol Succinate (Toprol Xl) 25 mg DAILY PO Last administered on 01/17/17 09:11; Admin Dose 25 MG; Start 01/17/17 at 09:00 Sodium Biphosphate/ Sodium Phosphate (Fleet Enema) 133 ml DAILY PRN [place] CONSTIPATION Last administered on 01/17/17 06:25; Admin Dose 133 ML; Start 07/25 at 19:30 Tamsulosin HCl (Flomax) 0.4 mg HS PO Last administered on 01/16/17 22:23; Admin Dose 0.4 MG; Start 01/16/17 at 21:00 Terbinafine HCl (Lamisil) 250 mg BID PO Last administered on 01/17/17 09:10; Admin Dose 250 MG; Start 01/16/17 at 21:00; Stop 01/21/17 at 20:59 Hydromorphone HCl (Dilaudid) 0.5 mg Q6H PRN IV PAIN Last administered on 09:09; Admin Dose 0.5 MG; Start 01/16/17 at 19:30 Senna (Senokot) 1 tab HS PO Last administered on 01/16/17 22:24; Admin Dose 1 TAB; Start 01/16/17 at 22:00 Lactulose (Enulose) 20 gm DAILY PRN PO CONSTIPATION Last administered on 22:25; Admin Dose 20 GM; Start 01/16/17 at 22:00 EMMANUELLE VIZCAINO MD January 17, 2017 13:03
--- NOTE | 2017-01-17 15:48 | CONS ---
DATE OF ADMISSION: 01/16/2017 DATE OF CONSULTATION: 01/16/2017 REQUESTING PHYSICIAN: Dr. Donovan. Dear Thor, Thank you for asking me to see this patient in urological consultation. HISTORY OF PRESENT ILLNESS: This is a 71-year-old male who had a fall at home and sustained a fracture of his left hip and underwent a left hemiarthroplasty. [facility] the [facility] he had an indwelling Valenzuela catheter and that removed the patient was not able to urinate. Therefore, a urological consultation was requested. Patient states that prior to his fall while he was living at home he usually has nocturia 8 to 10 times at night and he usually voids a small amount. He, however, denies any incontinence at night or even during the day. There is no history of dysuria and no history of gross hematuria. He states that his primary care physician has done a PSA on him and that was less than 4, but he has not been taking any medication for prostate. PAST MEDICAL HISTORY: Includes a history of hypertension. The patient has also diastolic dysfunction, hyperlipidemia, he is recently suffering from constipation secondary to opioid use for his pain control. The patient also has had a history of cerebrovascular accident from which he recovered fairly well and question of benign prostatic hypertrophy. FAMILY HISTORY: Positive for heart disease. SOCIAL HISTORY: He drinks occasionally. He never did smoke. MEDICATION THAT HE IS ON PRESENTLY: Includes: 1. Prozac. 2. Metoprolol. 3. Tramadol. 4. Aspirin. 5. Atorvastatin. 6. Colace. 7. Pepcid. 8. Losartan. 9. Tamsulosin 0.4 mg. 10. Lamisil. 11. [place]. 12. Milk of magnesia. 13. Dilaudid. 14. Tylenol. 15. Dulcolax. 16. Benadryl. PHYSICAL EXAMINATION: GENERAL: Reveals an elderly male, 71 years old. He weighs about 75 kilograms. He is 71 inches tall. VITAL SIGNS: Temperature is 98.1, pulse is 84, respirations 19, blood pressure 111/58. ABDOMEN: Soft. There is no abdominal mass palpable. The bladder is not distended. GENITALIA: The external genitalia are normal. RECTAL: Examination revealed a soft prostate. EXTREMITIES: He does have a scar over his left hip from his recent surgery. LABORATORY DATA: His CBC shows a white count of 6.3, hemoglobin 10.2, hematocrit 30.9, platelet count 182,000. The BUN is 32, creatinine 0.66, sodium 138, potassium 3.6, chloride 104, CO2 . Urinalysis showing 1+ protein and it is negative for occult blood. IMPRESSION: Urinary retention, most likely secondary to him being in bed and pain medications and muscle relaxant; however, the patient used to have nocturia about 10 times and one would wonder if he was emptying his bladder well and keeping a high postvoid residual. RECOMMENDATION: At the present would be to keep the Valenzuela catheter overnight, discontinue the Valenzuela catheter tomorrow morning, do a pelvic ultrasound on him, check the prevoid/postvoid bladder volume and also check the prostate volume, see if the prostate is enlarged and then depending on the finding one could decide whether to increase the Flomax or maybe even try to give him some urecholine. Decision on the next step would be dependent on the finding on the pelvic ultrasound and we will do in and out cath on him every 6 hours or for a bladder volume of 500 mL if he cannot urinate on his own. Dictated By: ANTONIO LOO/JANET Conf#: [id number] DID#: [id number] CC: KIMBERLI CASEY MD;*EndCC* MTDD
--- NOTE | 2017-01-17 16:11 | PN ---
DATE: 01/17/2017 SUBJECTIVE: Urinary retention. The patient has not been able to urinate. He is post left hip frac ture and history of cerebrovascular accident in the past. The patient is on intermittent catheteriz ation if the bladder volume is over 500 or if he does void and the postvoid residual is over 300. OBJECTIVE: VITAL SIGNS: Temperature is 98.2, pulse is 91, respirations 18, and blood pressure 126/61. ABDOMEN: Soft. IMAGING DATA: The patient did have a pelvic ultrasound done today. The bladder, at the time of the ultrasound, we had the catheter removed, in fact this morning, and had the patient undergo the pelv ic ultrasound. The prevoid volume was 146 mL. The patient was not able to void. The prostate size was measured 3.7 x 3.7 x 3.7 cm, which is not a large prostate, is a normal size prostate. IMPRESSION: Urinary retention, most likely related to the fact that he is in bed and not moving. PLAN: Check his postvoid residual. If the postvoid residual is more than 300, do a straight cathet erization. If he does not void and the bladder scan is over 500 or so, do a straight catheterizatio n as well. Dictated By: ANTONIO LOO/JANET Conf#: [id number] DID#: [id number]
[2017-01-17] MEDS ORDERED: HYDROmorphONE 1 MG/ML SYG IV STA (17:25)
[2017-01-17] MEDS: LIDOCAINE 2% JELLY 30 ML TOP PRN (18:22)
[2017-01-17] MEDS ORDERED: LIDOCAINE 2% 20 ML UROJET SYRINGE MM PRN (18:30)
[2017-01-17 20:20] VITALS: BP 118/69; RESP 20
[2017-01-17] MEDS: TAMSULOSIN (SR) 0.4 MG CAP PO SCH (20:55)
[2017-01-17] MEDS: ATORVASTATIN 80 MG TAB PO SCH (20:55)
[2017-01-17] MEDS: SENNA TAB PO SCH (20:55)
[2017-01-18] VITALS (9 sets, daily range): BP systolic 70–155; BP diastolic 46–76; PULSE 68–78; RESP 16–20
[2017-01-18] MEDS: LIDOCAINE 2% JELLY 30 ML TOP PRN (06:00)
[2017-01-18] MEDS: HYDROCODONE/APAP (5/325) TAB PO PRN ×2 (06:14→19:50)
[2017-01-18] MEDS: LACTULOSE 30ML CUP PO PRN (06:47)
[2017-01-18] MEDS: METOPROLOL (XL) 25 MG TAB PO SCH (09:00)
[2017-01-18] MEDS: LOSARTAN 25 MG TAB PO SCH (09:00)
[2017-01-18 09:20] LABS: ADD UMIC NO; URINE BILIRUBIN (Dip) NEGATIVE (NEGATIVE); URINE BLOOD (Dip) NEGATIVE (NEGATIVE); URINE COLOR LT. YELLOW (YELLOW); URINE GLUCOSE (Dip) NEGATIVE (NEGATIVE); URINE KETONES (Dip) NEGATIVE (NEGATIVE); URINE LEUKOCYTE ESTERASE (Dip) NEGATIVE (NEGATIVE); URINE NITRITE (Dip) NEGATIVE (NEGATIVE); URINE TOTAL PROTEIN (Dip) NEGATIVE (NEGATIVE); URINE UROBILINOGEN (Dip) 2.0 E.U./dL (0.1-1.0)
[2017-01-18] MEDS ORDERED: SOD CHLORIDE 0.9% 500 ML IV ONE ×2 (10:00→14:00)
[2017-01-18] MEDS: DOCUSATE SODIUM 100 MG CAP PO SCH ×2 (10:06→20:04)
[2017-01-18] MEDS: TERBINAFINE 250 MG TAB PO SCH ×2 (10:06→20:04)
[2017-01-18] MEDS: FAMOTIDINE 20 MG TAB PO SCH ×2 (10:06→20:04)
[2017-01-18] MEDS: ASPIRIN (EC) 325 MG TAB PO SCH ×2 (10:07→20:04)
[2017-01-18] MEDS: FLUOXETINE 20 MG CAP PO SCH (10:07)
[2017-01-18] MEDS: BISACODYL (EC) 5 MG TAB PO PRN (10:08)
[2017-01-18 10:11] LABS: HEMATOCRIT 33.1 % (42.0-52.0)
--- NOTE | 2017-01-18 11:10 | PN ---
Date/Time of Note Date/Time of Note DATE: 01/18/17 TIME: 11:08 Assessment/Plan VTE Prophylaxis VTE Prophylaxis Intervention: SCD's Lines/Catheters IV Catheter Type (from Nrs): Saline Lock Urinary Cath still in place: No Assessment/Plan Assessment/Plan Mechanical fall with hip fracture CVA Preserved ejection fraction Hypertension s/p hypotesnion 01/18 -Blood pressure meds to be held today and RN informed -s/p ivf bolus Encourage physical therapy if bp stable later today Subjective 24 Hr Interval Summary Free Text/Dictation The patient with hypotensio today Exam/Review of Systems Vital Signs Vitals Vital Signs Date Time Temp Pulse Resp B/P Pulse Ox O2 Delivery O2 Flow Rate FiO2 01/18/17 10:03 78 16 105/61 98 Nasal Cannula 2.0 01/17/17 20:20 99.0 Intake and Output 01/17/17 01/17/17 01/18/17 15:00 23:00 07:00 Intake Total 720 ml 1360 ml Output Total 600 ml Balance 720 ml 760 ml Results Result Diagram: 01/18/17 0930 01/17/17 0615 Results 24 hrs Laboratory Tests Test 01/18/17 09:30 Hemoglobin 11.0 L Hematocrit 33.1 L Medications Medications Current Medications Acetaminophen (Tylenol Tab) 650 mg Q6H PRN PO PAIN LEVEL 1-3 OR FEVER; Start at 19:00 Aspirin (Ecotrin) 325 mg BID PO Last administered on 01/18/17 10:07; Admin Dose 325 MG; Start 01/16/17 at 21:00 Atorvastatin Calcium (Lipitor) 80 mg QHS PO Last administered on 01/17/17 20: 55; Admin Dose 80 MG; Start 01/16/17 at 21:00 Bisacodyl (Dulcolax) 5 mg DAILY PRN PO CONSTIPATION Last administered on 10:08; Admin Dose 5 MG; Start 01/16/17 at 19:00 Bisacodyl (Dulcolax Supp) 10 mg Q12H PRN [place] CONSTIPATION; Start 01/16/17 at 19: 00 Diphenhydramine HCl (Benadryl) 25 mg Q6H PRN PO PRURITUS; Start 01/16/17 at 19: 00 Docusate Sodium (Colace) 100 mg BID PO Last administered on 01/18/17 10:06; Admin Dose 100 MG; Start 01/16/17 at 21:00 Famotidine (Pepcid) 20 mg Q12 PO Last administered on 01/18/17 10:06; Admin Dose 20 MG; Start 01/16/17 at 21:00 Fluoxetine HCl (Prozac) 40 mg DAILY PO Last administered on 01/18/17 10:07; Admin Dose 40 MG; Start 01/17/17 at 09:00 Acetaminophen/ Hydrocodone Bitart ([place] (5/325)) 1 tab Q4H PRN PO PAIN LEVEL 1 -3 Last administered on 01/18/17 06:14; Admin Dose 1 TAB; Start 01/16/17 at 19: 30 Acetaminophen/ Hydrocodone Bitart ([place] (5/325)) 2 tab Q4H PRN PO PAIN LEVEL 4 -7; Start 01/16/17 at 19:30 Magnesium Hydroxide (Milk Of Mag) 30 ml BID PRN PO CONSTIPATION; Start at 19:30 Sodium Biphosphate/ Sodium Phosphate (Fleet Enema) 133 ml DAILY PRN [place] CONSTIPATION Last administered on 01/17/17 06:25; Admin Dose 133 ML; Start 07/25 at 19:30 Tamsulosin HCl (Flomax) 0.4 mg HS PO Last administered on 01/17/17 20:55; Admin Dose 0.4 MG; Start 01/16/17 at 21:00 Terbinafine HCl (Lamisil) 250 mg BID PO Last administered on 01/18/17 10:06; Admin Dose 250 MG; Start 01/16/17 at 21:00; Stop 01/21/17 at 20:59 Hydromorphone HCl (Dilaudid) 0.5 mg Q6H PRN IV PAIN Last administered on 15:10; Admin Dose 0.5 MG; Start 01/16/17 at 19:30 Senna (Senokot) 1 tab HS PO Last administered on 01/17/17 20:55; Admin Dose 1 TAB; Start 01/16/17 at 22:00 Lactulose (Enulose) 20 gm DAILY PRN PO CONSTIPATION Last administered on 06:47; Admin Dose 20 GM; Start 01/16/17 at 22:00 Lidocaine (Xylocaine) 1 applic PRN PRN TOP PAIN Last administered on 01/18/17t 06:00; Admin Dose 1 APPLIC; Start 01/17/17 at 18:00 MASON RABAGO MD January 18, 2017 11:10
--- NOTE | 2017-01-18 11:19 | PN ---
Date/Time of Note Date/Time of Note DATE: 01/18/17 TIME: 11:07 Assessment/Plan VTE Prophylaxis VTE Prophylaxis Intervention: other (ASA) Lines/Catheters IV Catheter Type (from Nrs): Saline Lock Urinary Cath still in place: No Assessment/Plan Assessment/Plan 1. Status post mechanical fall with displaced left femoral neck fracture, status post left hip hemiarthroplasty. With impaired mobility/gait/ADLs. Hold out of bed therapies for hypotension. Currently mod assist for grooming and upper body dressing. 2. Acute postoperative pain. Continue pain regimen, caution with hypotension. 3. History of cerebrovascular accident with residual left-sided weakness. Continue secondary stroke prevention. 4. Hypertension. Hypotensive this morning, now receiving IV fluids. Internal medicine has discontinued BP medications. Closely monitor. 5. Hyperlipidemia. Continue Statin. 6. Gastroesophageal reflux disease. On pepcid. 7. Anemia. Hemoglobin/hematocrit stable, monitor. 8. Constipation. On bowel regimen. Check abdominal XR. 9. Urinary retention. Managed per urology. Continue to monitor PVRs, I/O cath as needed. Subjective 24 Hr Interval Summary Free Text/Dictation Rehab progress note Subjective: Nursing reports patient reporting dizziness this morning, BP checked 70/46. BP meds held and patient is now receiving IV fluids, BP improved 105/61 and reports feeling better. Has minimal left hip pain. ROS: Denies headache, no chest pain, no shortness of breath, no abdominal pain, no nausea, no vomiting, no chills. Significant for constipation. Exam/Review of Systems Vital Signs Vitals Vital Signs Date Time Temp Pulse Resp B/P Pulse Ox O2 Delivery O2 Flow Rate FiO2 01/18/17 10:03 78 16 105/61 98 Nasal Cannula 2.0 01/17/17 20:20 99.0 Intake and Output 01/17/17 01/17/17 01/18/17 14:59 22:59 06:59 Intake Total 720 ml 1360 ml Output Total 600 ml Balance 720 ml 760 ml Exam General: Awake, alert, no acute distress, nasal cannula in place CV: Regular rate, s1s2 Lungs: Symmetrical air entry bilaterally, no wheezing or crackles. Abdomen soft, nontender Extremities without cyanosis, left hip surgical site with dressing in place clean and dry Neuro: No new apparent focal changes. Follows simple commands. Results Result Diagram: 01/18/17 0930 01/17/17 0615 Results 24 hrs Laboratory Tests Test 01/18/17 09:30 Hemoglobin 11.0 L Hematocrit 33.1 L Medications Medications Current Medications Acetaminophen (Tylenol Tab) 650 mg Q6H PRN PO PAIN LEVEL 1-3 OR FEVER; Start at 19:00 Aspirin (Ecotrin) 325 mg BID PO Last administered on 01/18/17 10:07; Admin Dose 325 MG; Start 01/16/17 at 21:00 Atorvastatin Calcium (Lipitor) 80 mg QHS PO Last administered on 01/17/17 20: 55; Admin Dose 80 MG; Start 01/16/17 at 21:00 Bisacodyl (Dulcolax) 5 mg DAILY PRN PO CONSTIPATION Last administered on 10:08; Admin Dose 5 MG; Start 01/16/17 at 19:00 Bisacodyl (Dulcolax Supp) 10 mg Q12H PRN [place] CONSTIPATION; Start 01/16/17 at 19: 00 Diphenhydramine HCl (Benadryl) 25 mg Q6H PRN PO PRURITUS; Start 01/16/17 at 19: 00 Docusate Sodium (Colace) 100 mg BID PO Last administered on 01/18/17 10:06; Admin Dose 100 MG; Start 01/16/17 at 21:00 Famotidine (Pepcid) 20 mg Q12 PO Last administered on 01/18/17 10:06; Admin Dose 20 MG; Start 01/16/17 at 21:00 Fluoxetine HCl (Prozac) 40 mg DAILY PO Last administered on 01/18/17 10:07; Admin Dose 40 MG; Start 01/17/17 at 09:00 Acetaminophen/ Hydrocodone Bitart ([place] (5/325)) 1 tab Q4H PRN PO PAIN LEVEL 1 -3 Last administered on 01/18/17 06:14; Admin Dose 1 TAB; Start 01/16/17 at 19: 30 Acetaminophen/ Hydrocodone Bitart ([place] (5/325)) 2 tab Q4H PRN PO PAIN LEVEL 4 -7; Start 01/16/17 at 19:30 Magnesium Hydroxide (Milk Of Mag) 30 ml BID PRN PO CONSTIPATION; Start at 19:30 Sodium Biphosphate/ Sodium Phosphate (Fleet Enema) 133 ml DAILY PRN [place] CONSTIPATION Last administered on 01/17/17 06:25; Admin Dose 133 ML; Start 07/25 at 19:30 Tamsulosin HCl (Flomax) 0.4 mg HS PO Last administered on 01/17/17 20:55; Admin Dose 0.4 MG; Start 01/16/17 at 21:00 Terbinafine HCl (Lamisil) 250 mg BID PO Last administered on 01/18/17 10:06; Admin Dose 250 MG; Start 01/16/17 at 21:00; Stop 01/21/17 at 20:59 Hydromorphone HCl (Dilaudid) 0.5 mg Q6H PRN IV PAIN Last administered on 15:10; Admin Dose 0.5 MG; Start 01/16/17 at 19:30 Senna (Senokot) 1 tab HS PO Last administered on 01/17/17 20:55; Admin Dose 1 TAB; Start 01/16/17 at 22:00 Lactulose (Enulose) 20 gm DAILY PRN PO CONSTIPATION Last administered on 06:47; Admin Dose 20 GM; Start 01/16/17 at 22:00 Lidocaine (Xylocaine) 1 applic PRN PRN TOP PAIN Last administered on 01/18/17 06:00; Admin Dose 1 APPLIC; Start 01/17/17 at 18:00 IGNACIO DUKES January 18, 2017 11:17
--- NOTE | 2017-01-18 11:46 | RADRPT ---
PROCEDURE: XR Abdomen. CLINICAL INDICATION: Abdominal pain TECHNIQUE: Two views of the abdomen are available for review. COMPARISON: None. FINDINGS: Mild retained fecal material is suggestive of constipation. There is no evidence of obstruction. Th ere are no abnormal calcifications overlying the urinary tracts. Rounded calcific densities project over the right upper quadrant, possibly representing gallstones. There is degenerative spondylosis of the spine. The patient is status post left hip arthroplasty. Lateral left hip skin aj are in place. IMPRESSION: 1. Mild retained fecal material may indicate constipation. No evidence of bowel obstruction is olga ntified. 2. Rounded calcific densities in the right upper quadrant may represent gallstones. RPTAT: QQ .Christiano Holcomb MD, MD Date Time Electronically viewed and signed by .Christiano Holcomb MD, MD on 01/18/2017 11:46 .R/
[2017-01-18] MEDS ORDERED: SOD CHLORIDE 0.9% 1,000 ML IV ONE (15:00)
--- NOTE | 2017-01-18 15:43 | PN ---
Date/Time of Note Date/Time of Note DATE: 01/18/17 TIME: 15:37 Assessment/Plan VTE Prophylaxis VTE Prophylaxis Intervention: ambulation Lines/Catheters [facility] Saline Lock Urinary Cath still in place: No Assessment/Plan Problems: (1) Hypokalemia Status: Acute Comment: Will replace with KCL 40 mEQ x 2 days. (2) BPH (benign prostatic hypertrophy) with urinary retention Status: Chronic Comment: Still with urinary retention. Dr. Morgan following. Appreciate input. (3) Constipation Status: Acute Comment: Failed laxative and enema. Will need to disimpact once blood pressure improved. (4) Closed left hip fracture Status: Acute Comment: S/P partial left arthroplasty. Management per ARU (5) Essential (primary) hypertension Status: Chronic Comment: Blood pressure low. NS bolus given with some improvement. Will prescribe another liter NS. Blood pressure medications discontinued. Tamsulosin also discontinued. Will monitor BP. (6) Diastolic dysfunction Status: Chronic Comment: No current issues. Management per Dr. Owen. Subjective 24 Hr Interval Summary Free Text/Dictation Complains of feeling a bit lightheaded. Still unable to urinate on his own. Still no BM Exam/Review of Systems Vital Signs Vitals Vital Signs Date Time Temp Pulse Resp B/P Pulse Ox O2 Delivery O2 Flow Rate FiO2 01/18/17 13:57 78 18 95/64 96 Nasal Cannula 2.0 01/17/17 20:20 99.0 Intake and Output 01/17/17 01/17/17 01/18/17 15:00 23:00 07:00 Intake Total 720 ml 1360 ml Output Total 600 ml Balance 720 ml 760 ml Exam Constitutional: alert, oriented Eyes: EOMI, PERRL Neck: supple Respiratory: clear to auscultation Cardiovascular: regular rate and rhythm Gastrointestinal: soft Extremities: normal pulses Results Result Diagram: 01/18/17 0930 01/17/17 0615 Results 24 hrs Laboratory Tests Test 01/18/17 09:30 Hemoglobin 11.0 L Hematocrit 33.1 L Medications Medications Current Medications Acetaminophen (Tylenol Tab) 650 mg Q6H PRN PO PAIN LEVEL 1-3 OR FEVER; Start at 19:00 Aspirin (Ecotrin) 325 mg BID PO Last administered on 01/18/17t 10:07; Admin Dose 325 MG; Start 01/16/17 at 21:00 Atorvastatin Calcium (Lipitor) 80 mg QHS PO Last administered on 01/17/17 20: 55; Admin Dose 80 MG; Start 01/16/17 at 21:00 Bisacodyl (Dulcolax) 5 mg DAILY PRN PO CONSTIPATION Last administered on 10:08; Admin Dose 5 MG; Start 01/16/17 at 19:00 Bisacodyl (Dulcolax Supp) 10 mg Q12H PRN [place] CONSTIPATION; Start 01/16/17 at 19: 00 Diphenhydramine HCl (Benadryl) 25 mg Q6H PRN PO PRURITUS; Start 01/16/17 at 19: 00 Docusate Sodium (Colace) 100 mg BID PO Last administered on 01/18/17 10:06; Admin Dose 100 MG; Start 01/16/17 at 21:00 Famotidine (Pepcid) 20 mg Q12 PO Last administered on 01/18/17 10:06; Admin Dose 20 MG; Start 01/16/17 at 21:00 Fluoxetine HCl (Prozac) 40 mg DAILY PO Last administered on 01/18/17 10:07; Admin Dose 40 MG; Start 01/17/17 at 09:00 Acetaminophen/ Hydrocodone Bitart ([place] (5/325)) 1 tab Q4H PRN PO PAIN LEVEL 1 -3 Last administered on 01/18/17 06:14; Admin Dose 1 TAB; Start 01/16/17 at 19: 30 Acetaminophen/ Hydrocodone Bitart ([place] (5/325)) 2 tab Q4H PRN PO PAIN LEVEL 4 -7; Start 01/16/17 at 19:30 Magnesium Hydroxide (Milk Of Mag) 30 ml BID PRN PO CONSTIPATION; Start at 19:30 Sodium Biphosphate/ Sodium Phosphate (Fleet Enema) 133 ml DAILY PRN [place] CONSTIPATION Last administered on 01/17/17 06:25; Admin Dose 133 ML; Start 07/25 at 19:30 Terbinafine HCl (Lamisil) 250 mg BID PO Last administered on 01/18/17 10:06; Admin Dose 250 MG; Start 01/16/17 at 21:00; Stop 01/21/17 at 20:59 Hydromorphone HCl (Dilaudid) 0.5 mg Q6H PRN IV PAIN Last administered on 15:10; Admin Dose 0.5 MG; Start 01/16/17 at 19:30 Senna (Senokot) 1 tab HS PO Last administered on 01/17/17 20:55; Admin Dose 1 TAB; Start 01/16/17 at 22:00 Lactulose (Enulose) 20 gm DAILY PRN PO CONSTIPATION Last administered on 06:47; Admin Dose 20 GM; Start 01/16/17 at 22:00 Lidocaine 1 applic 1 applic PRN PRN TOP PAIN Last administered on 01/18/17 06: 00; Admin Dose 1 APPLIC; Start 01/17/17 at 18:00 Sodium Chloride (NS) 1,000 ml @ 1,000 mls/hr Q1H ONCE IV Last administered on 01/18/17 15:10; Admin Dose 1,000 MLS/HR; Start 01/18/17 at 15:00; Stop at 15:59 Potassium Chloride (Klor-Con 10) 30 meq DAILY PO ; Start 01/18/17 at 16:00; Stop 01/20/17 at 15:59 ROGER ALMODOVAR MD January 18, 2017 15:43
[2017-01-18] MEDS: POTASSIUM CHLORIDE (SR) 10 MEQ TAB PO SCH (15:51)
--- NOTE | 2017-01-18 16:38 | PN ---
DATE: 01/18/2017 SUBJECTIVE: Urinary retention. The patient has not been able to urinate and as far as the patient himself, he is comfortable and he denies having any pain at the present; however, his blood pressure has been down. OBJECTIVE FINDINGS: His temperature is 99.0. The blood pressure is 89/60, pulse is 78, respirations 18. The patient has been on blood pressure medications and these were put on hold because of the h ypotension. He is also on tamsulosin and we could stop that as well, as his prostate is not large a nd therefore the tamsulosin may not be helping, and he, in fact, has not been able to urinate and he needed to be catheterized and 600 mL of urine drained out of him. LABORATORY DATA: His hemoglobin is 11.0, hematocrit 33.1. BUN is 24, creatinine 0.59. Urine cultu re, no growth after 24 hours. IMPRESSION: 1. Urinary retention. 2. Hypotension. PLAN: Stop the Flomax as well and continue to do the straight catheterization for him for a postvoid residual of over 300 mL or a bladder volume of 500 or more. Dictated By: ANTONIO LOO/JANET Conf#: [id number] DID#: [id number]
[2017-01-18] MEDS: SENNA TAB PO SCH (20:04)
[2017-01-18] MEDS: ATORVASTATIN 80 MG TAB PO SCH (20:04)
[2017-01-18] MEDS: NA PHOSPHATE/BIPHOS 133 ML ENEMA PR PRN (21:56)
[2017-01-18] MEDS: HYDROmorphONE 1 MG/ML SYG IV PRN (22:14)
[2017-01-19 07:30] VITALS: BP_SYST 119; BP_DIAS 78; BP_DIAS 79; PULSE 80; RESP 16; RESP 20
[2017-01-19] MEDS: ASPIRIN (EC) 325 MG TAB PO SCH ×2 (09:05→20:04)
[2017-01-19] MEDS: DOCUSATE SODIUM 100 MG CAP PO SCH ×2 (09:05→20:04)
[2017-01-19] MEDS: TERBINAFINE 250 MG TAB PO SCH ×2 (09:05→20:04)
[2017-01-19] MEDS: FAMOTIDINE 20 MG TAB PO SCH ×2 (09:05→20:04)
[2017-01-19] MEDS: BISACODYL (EC) 5 MG TAB PO PRN (09:05)
[2017-01-19] MEDS: FLUOXETINE 20 MG CAP PO SCH (09:05)
[2017-01-19] MEDS: POTASSIUM CHLORIDE (SR) 10 MEQ TAB PO SCH (09:06)
[2017-01-19 09:14] VITALS: BP 92/55; PULSE 88; RESP 16
--- NOTE | 2017-01-19 09:16 | PN ---
Date/Time of Note Date/Time of Note DATE: 01/19/17 TIME: 09:12 Assessment/Plan VTE Prophylaxis VTE Prophylaxis Intervention: other (ASA) Lines/Catheters IV Catheter Type (from Nrs): Saline Lock Urinary Cath still in place: No Assessment/Plan Assessment/Plan 1. Status post mechanical fall with displaced left femoral neck fracture, status post left hip hemiarthroplasty. With impaired mobility/gait/ADLs. Continue PT/OT. Total assist for lower body dressing. Monitor vitals closely with therapies. 2. Acute postoperative pain. Controlled. Continue pain regimen. 3. History of cerebrovascular accident with residual left-sided weakness. Continue secondary stroke prevention. 4. Hypertension. Hypotensive yesterday, s/p IV fluids. BP medications and flomax discontinued. BP better this morning. Continue to closely monitor. Internal medicine managing. 5. Hyperlipidemia. Continue Statin. 6. GERD. On pepcid. 7. Anemia. Hemoglobin/hematocrit stable on labs yesterday. 8. Constipation. Continue bowel regimen. Nursing reports fecal impaction, unable to disimpact yesterday due to low BP, disimpact when BP improves. 9. Urinary retention. Continue to monitor PVRs, I/O cath as needed. Urology following. Subjective 24 Hr Interval Summary Free Text/Dictation Rehab progress note Subjective: Reports moderate pain in left hip currently. Dizziness has improved , BP better this morning. ROS: Denies abdominal pain, no vomiting, no chills, no headache, no shortness of breath, no chest pain. Exam/Review of Systems Vital Signs Vitals Vital Signs Date Time Temp Pulse Resp B/P Pulse Ox O2 Delivery O2 Flow Rate FiO2 01/18/17 20:04 98.6 91 20 155/72 97 01/18/17 20:00 Nasal Cannula 2.0 Intake and Output 01/18/17 01/18/17 01/19/17 15:00 23:00 07:00 Intake Total 740 ml 2300 ml 200 ml Output Total 630 ml 500 ml Balance 740 ml 1670 ml -300 ml Exam General: Awake, alert, no acute distress, nasal cannula in place CV: Regular rate, s1s2 Lungs: Respirations nonlabored, no wheezing or crackles. Abdomen soft, nontender Extremities without cyanosis, no new swelling. Neuro: No focal changes. Follows simple commands. Results Result Diagram: 01/18/17 0930 01/17/17 0615 Results 24 hrs Laboratory Tests Test 01/18/17 09:30 Hemoglobin 11.0 L Hematocrit 33.1 L Medications Medications Current Medications Acetaminophen (Tylenol Tab) 650 mg Q6H PRN PO PAIN LEVEL 1-3 OR FEVER; Start at 19:00 Aspirin (Ecotrin) 325 mg BID PO Last administered on 01/19/17 09:05; Admin Dose 325 MG; Start 01/16/17 at 21:00 Atorvastatin Calcium (Lipitor) 80 mg QHS PO Last administered on 01/18/17 20: 04; Admin Dose 80 MG; Start 01/16/17 at 21:00 Bisacodyl (Dulcolax) 5 mg DAILY PRN PO CONSTIPATION Last administered on 09:05; Admin Dose 5 MG; Start 01/16/17 at 19:00 Bisacodyl (Dulcolax Supp) 10 mg Q12H PRN [place] CONSTIPATION; Start 01/16/17 at 19: 00 Diphenhydramine HCl (Benadryl) 25 mg Q6H PRN PO PRURITUS; Start 01/16/17 at 19: 00 Docusate Sodium (Colace) 100 mg BID PO Last administered on 01/19/17 09:05; Admin Dose 100 MG; Start 01/16/17 at 21:00 Famotidine (Pepcid) 20 mg Q12 PO Last administered on 01/19/17 09:05; Admin Dose 20 MG; Start 01/16/17 at 21:00 Fluoxetine HCl (Prozac) 40 mg DAILY PO Last administered on 01/19/17 09:05; Admin Dose 40 MG; Start 01/17/17 at 09:00 Acetaminophen/ Hydrocodone Bitart ([place] (5/325)) 1 tab Q4H PRN PO PAIN LEVEL 1 -3 Last administered on 01/18/17 06:14; Admin Dose 1 TAB; Start 01/16/17 at 19: 30 Acetaminophen/ Hydrocodone Bitart ([place] (5/325)) 2 tab Q4H PRN PO PAIN LEVEL 4 -7 Last administered on 01/18/17 19:50; Admin Dose 2 TAB; Start 01/16/17 at 19: 30 Magnesium Hydroxide (Milk Of Mag) 30 ml BID PRN PO CONSTIPATION; Start at 19:30 Sodium Biphosphate/ Sodium Phosphate (Fleet Enema) 133 ml DAILY PRN [place] CONSTIPATION Last administered on 01/18/17 21:56; Admin Dose 133 ML; Start 07/25 at 19:30 Terbinafine HCl (Lamisil) 250 mg BID PO Last administered on 01/19/17 09:05; Admin Dose 250 MG; Start 01/16/17 at 21:00; Stop 01/21/17 at 20:59 Hydromorphone HCl (Dilaudid) 0.5 mg Q6H PRN IV PAIN Last administered on 22:14; Admin Dose 0.5 MG; Start 01/16/17 at 19:30 Senna (Senokot) 1 tab HS PO Last administered on 01/18/17 20:04; Admin Dose 1 TAB; Start 01/16/17 at 22:00 Lactulose (Enulose) 20 gm DAILY PRN PO CONSTIPATION Last administered on 06:47; Admin Dose 20 GM; Start 01/16/17 at 22:00 Lidocaine (Xylocaine) 1 applic PRN PRN TOP PAIN Last administered on 01/18/17 06:00; Admin Dose 1 APPLIC; Start 01/17/17 at 18:00 Potassium Chloride (Klor-Con 10) 30 meq DAILY PO Last administered on 09:06; Admin Dose 30 MEQ; Start 01/18/17 at 16:00; Stop 01/20/17 at 15:59 IGNACIO DUKES January 19, 2017 09:16
[2017-01-19 10:45] LABS: POTASSIUM 3.8 mmol/L (3.5-5.1)
[2017-01-19 10:47] LABS: CREATININE 0.66 mg/dl (0.61-1.24)
[2017-01-19 10:48] LABS: CALCIUM 8.2 mg/dl (8.4-10.2)
[2017-01-19] MEDS: LACTULOSE 30ML CUP PO PRN (11:13)
[2017-01-19 11:19] VITALS: BP 116/75; PULSE 94; RESP 16
[2017-01-19] MEDS: HYDROCODONE/APAP (5/325) TAB PO PRN (11:23)
[2017-01-19 12:23] VITALS: BP 117/65; PULSE 80; RESP 18
--- NOTE | 2017-01-19 17:09 | PN ---
Date/Time of Note Date/Time of Note DATE: 01/19/17 TIME: 17:05 Assessment/Plan VTE Prophylaxis VTE Prophylaxis Intervention: ambulation Lines/Catheters IV Catheter Type (from Nrs): Saline Lock Central line still needed: No Urinary Cath still in place: No Assessment/Plan Problems: (1) BPH (benign prostatic hypertrophy) with urinary retention Status: Chronic Comment: Still no voiding without catheterization. (2) Constipation Status: Resolved (3) Closed left hip fracture Status: Acute Comment: s/p partial arthroplasty (4) Essential (primary) hypertension Status: Chronic Comment: stable Assessment/Plan Clinically stable. Rehab per ARU. Urinary retention per Dr. Morgan. Subjective 24 Hr Interval Summary Free Text/Dictation Feeling better. Large BM today. No longer feeling light headed. Exam/Review of Systems Vital Signs Vitals Vital Signs Date Time Temp Pulse Resp B/P Pulse Ox O2 Delivery O2 Flow Rate FiO2 01/19/17 12:23 98.4 80 18 117/65 96 Nasal Cannula 2.0 Intake and Output 01/18/17 01/18/17 01/19/17 15:00 23:00 07:00 Intake Total 740 ml 2300 ml 200 ml Output Total 630 ml 500 ml Balance 740 ml 1670 ml -300 ml Exam Blood pressure more stable Constitutional: alert, oriented Psych: no complaints Neck: supple Respiratory: clear to auscultation Cardiovascular: regular rate and rhythm Gastrointestinal: soft Musculoskeletal: nl extremities to inspection Results Result Diagram: 01/18/17 0930 01/19/17 0955 Results 24 hrs Laboratory Tests Test 01/19/17 09:55 01/19/17 12:10 Sodium Level 141 Potassium Level 3.8 Chloride Level 107 Carbon Dioxide Level 27 Anion Gap 11 Blood Urea Nitrogen 20 Creatinine 0.66 Glucose Level 96 Calcium Level 8.2 L Bedside Glucose 103 Medications Medications Current Medications Acetaminophen (Tylenol Tab) 650 mg Q6H PRN PO PAIN LEVEL 1-3 OR FEVER; Start at 19:00 Aspirin (Ecotrin) 325 mg BID PO Last administered on 01/19/17 09:05; Admin Dose 325 MG; Start 01/16/17 at 21:00 Atorvastatin Calcium (Lipitor) 80 mg QHS PO Last administered on 01/18/17 20: 04; Admin Dose 80 MG; Start 01/16/17 at 21:00 Bisacodyl (Dulcolax) 5 mg DAILY PRN PO CONSTIPATION Last administered on 09:05; Admin Dose 5 MG; Start 01/16/17 at 19:00 Bisacodyl (Dulcolax Supp) 10 mg Q12H PRN [place] CONSTIPATION Last administered on 11:13; Admin Dose 10 MG; Start 01/16/17 at 19:00 Diphenhydramine HCl (Benadryl) 25 mg Q6H PRN PO PRURITUS; Start 01/16/17 at 19: 00 Docusate Sodium (Colace) 100 mg BID PO Last administered on 01/19/17 09:05; Admin Dose 100 MG; Start 01/16/17 at 21:00 Famotidine (Pepcid) 20 mg Q12 PO Last administered on 01/19/17 09:05; Admin Dose 20 MG; Start 01/16/17 at 21:00 Fluoxetine HCl (Prozac) 40 mg DAILY PO Last administered on 01/19/17 09:05; Admin Dose 40 MG; Start 01/17/17 at 09:00 Acetaminophen/ Hydrocodone Bitart ([place] (5/325)) 1 tab Q4H PRN PO PAIN LEVEL 1 -3 Last administered on 01/19/17 11:23; Admin Dose 1 TAB; Start 01/16/17 at 19: 30 Acetaminophen/ Hydrocodone Bitart ([place] (5/325)) 2 tab Q4H PRN PO PAIN LEVEL 4 -7 Last administered on 01/18/17 19:50; Admin Dose 2 TAB; Start 01/16/17 at 19: 30 Magnesium Hydroxide (Milk Of Mag) 30 ml BID PRN PO CONSTIPATION; Start at 19:30 Sodium Biphosphate/ Sodium Phosphate (Fleet Enema) 133 ml DAILY PRN [place] CONSTIPATION Last administered on 01/18/17 21:56; Admin Dose 133 ML; Start 07/25 at 19:30 Terbinafine HCl (Lamisil) 250 mg BID PO Last administered on 01/19/17 09:05; Admin Dose 250 MG; Start 01/16/17 at 21:00; Stop 01/21/17 at 20:59 Hydromorphone HCl (Dilaudid) 0.5 mg Q6H PRN IV PAIN Last administered on 22:14; Admin Dose 0.5 MG; Start 01/16/17 at 19:30; Status Future Hold Senna (Senokot) 1 tab HS PO Last administered on 01/18/17 20:04; Admin Dose 1 TAB; Start 01/16/17 at 22:00 Lactulose (Enulose) 20 gm DAILY PRN PO CONSTIPATION Last administered on 11:13; Admin Dose 20 GM; Start 01/16/17 at 22:00 Lidocaine (Xylocaine) 1 applic PRN PRN TOP PAIN Last administered on 01/18/17 06:00; Admin Dose 1 APPLIC; Start 01/17/17 at 18:00 Potassium Chloride (Klor-Con 10) 30 meq DAILY PO Last administered on 09:06; Admin Dose 30 MEQ; Start 01/18/17 at 16:00; Stop 01/20/17 at 15:59 ROGER ALMODOVAR MD January 19, 2017 17:09
[2017-01-19] MEDS: SENNA TAB PO SCH (20:04)
[2017-01-19] MEDS: ATORVASTATIN 80 MG TAB PO SCH (20:04)
[2017-01-19 20:30] VITALS: BP 98/75; PULSE 86; RESP 18
[2017-01-20 08:00] VITALS: BP 121/70; PULSE 73; RESP 17
[2017-01-20] MEDS: ASPIRIN (EC) 325 MG TAB PO SCH ×2 (08:17→20:32)
[2017-01-20] MEDS: TERBINAFINE 250 MG TAB PO SCH ×2 (08:17→20:32)
[2017-01-20] MEDS: POTASSIUM CHLORIDE (SR) 10 MEQ TAB PO SCH (08:17)
[2017-01-20] MEDS: FAMOTIDINE 20 MG TAB PO SCH ×2 (08:18→20:32)
[2017-01-20] MEDS: DOCUSATE SODIUM 100 MG CAP PO SCH ×2 (08:18→20:32)
[2017-01-20] MEDS: FLUOXETINE 20 MG CAP PO SCH (08:18)
[2017-01-20] MEDS: HYDROCODONE/APAP (5/325) TAB PO PRN (09:10)
[2017-01-20 11:30] VITALS: BP 89/61
[2017-01-20 11:45] VITALS: BP 101/59
--- NOTE | 2017-01-20 11:50 | CONS ---
Date/Time of Note Date/Time of Note DATE: 01/20/17 TIME: 11:49 Consult Date/Type/Reason Admit Date/Time January 16, 2017 at 18:00 Initial Consult Date Type of Consultation: cv Subjective no new complaints Objective Vital Signs Date Time Temp Pulse Resp B/P Pulse Ox O2 Delivery O2 Flow Rate FiO2 01/19/17 20:30 98.3 86 18 98/75 97 Room Air 01/19/17 12:23 2.0 Intake and Output 01/19/17 01/19/17 01/20/17 14:59 22:59 06:59 Intake Total 1410 ml Output Total 600 ml Balance 810 ml INTERDISCIPLINARY TEAM CONFERENCE BOWEL- Cont BLADDER-Cont SKIN- intact OT- DRESSING-mod/max BATHING-mod/max TOILETING-max PT- BED MOBILITY-max TRANSFERS-max AMBULATION-max W.C. MOBILITY-max SPEECH- COGNITION-LA A/P- Interdisciplinary team conference held today. Please see interdisciplinary sheet. Working toward d.c. on 01/31 with post discharge follow up of physical therapy, occupational therapy. Results/Medications Result Diagram: 01/18/17 0930 01/19/17 0955 Results 24 hrs Laboratory Tests Test 01/19/17 12:10 Bedside Glucose 103 Medications Current Medications Acetaminophen (Tylenol Tab) 650 mg Q6H PRN PO PAIN LEVEL 1-3 OR FEVER; Start at 19:00 Aspirin (Ecotrin) 325 mg BID PO Last administered on 01/20/17 08:17; Admin Dose 325 MG; Start 01/16/17 at 21:00 Atorvastatin Calcium (Lipitor) 80 mg QHS PO Last administered on 01/19/17 20: 04; Admin Dose 80 MG; Start 01/16/17 at 21:00 Bisacodyl (Dulcolax) 5 mg DAILY PRN PO CONSTIPATION Last administered on 09:05; Admin Dose 5 MG; Start 01/16/17 at 19:00 Bisacodyl (Dulcolax Supp) 10 mg Q12H PRN [place] CONSTIPATION Last administered on 11:13; Admin Dose 10 MG; Start 01/16/17 at 19:00 Diphenhydramine HCl (Benadryl) 25 mg Q6H PRN PO PRURITUS; Start 01/16/17 at 19: 00 Docusate Sodium (Colace) 100 mg BID PO Last administered on 01/20/17 08:18; Admin Dose 100 MG; Start 01/16/17 at 21:00 Famotidine (Pepcid) 20 mg Q12 PO Last administered on 01/20/17 08:18; Admin Dose 20 MG; Start 01/16/17 at 21:00 Fluoxetine HCl (Prozac) 40 mg DAILY PO Last administered on 01/20/17 08:18; Admin Dose 40 MG; Start 01/17/17 at 09:00 Acetaminophen/ Hydrocodone Bitart ([place] (5/325)) 1 tab Q4H PRN PO PAIN LEVEL 1 -3 Last administered on 01/19/17 11:23; Admin Dose 1 TAB; Start 01/16/17 at 19: 30 Acetaminophen/ Hydrocodone Bitart ([place] (5/325)) 2 tab Q4H PRN PO PAIN LEVEL 4 -7 Last administered on 01/20/17 09:10; Admin Dose 2 TAB; Start 01/16/17 at 19: 30 Magnesium Hydroxide (Milk Of Mag) 30 ml BID PRN PO CONSTIPATION; Start at 19:30 Sodium Biphosphate/ Sodium Phosphate (Fleet Enema) 133 ml DAILY PRN [place] CONSTIPATION Last administered on 01/18/17 21:56; Admin Dose 133 ML; Start 07/25 at 19:30 Terbinafine HCl (Lamisil) 250 mg BID PO Last administered on 01/20/17 08:17; Admin Dose 250 MG; Start 01/16/17 at 21:00; Stop 01/21/17 at 20:59 Hydromorphone HCl (Dilaudid) 0.5 mg Q6H PRN IV PAIN Last administered on 22:14; Admin Dose 0.5 MG; Start 01/16/17 at 19:30; Status Future Hold Senna (Senokot) 1 tab HS PO Last administered on 01/19/17 20:04; Admin Dose 1 TAB; Start 01/16/17 at 22:00 Lactulose (Enulose) 20 gm DAILY PRN PO CONSTIPATION Last administered on 11:13; Admin Dose 20 GM; Start 01/16/17 at 22:00 Lidocaine (Xylocaine) 1 applic PRN PRN TOP PAIN Last administered on 01/18/17 06:00; Admin Dose 1 APPLIC; Start 01/17/17 at 18:00 Potassium Chloride (Klor-Con 10) 30 meq DAILY PO Last administered on 08:17; Admin Dose 30 MEQ; Start 01/18/17 at 16:00; Stop 01/20/17 at 15:59 KIMBERLI CASEY MD January 20, 2017 11:50
--- NOTE | 2017-01-20 12:49 | PN ---
Date/Time of Note Date/Time of Note DATE: 01/20/17 TIME: 12:46 Assessment/Plan VTE Prophylaxis VTE Prophylaxis Intervention: ambulation Lines/Catheters IV Catheter Type (from Nrsg): Saline Lock Urinary Cath still in place: No Subjective 24 Hr Interval Summary Free Text/Dictation amb with max assist of two today states used walker prior to fx and was falling since the cva alert, spech is slow, appropriate gi ok on exam.lungs clear, jhr ok some edema dressing appars clean Exam/Review of Systems Vital Signs Vitals Vital Signs Date Time Temp Pulse Resp B/P Pulse Ox O2 Delivery O2 Flow Rate FiO2 01/20/17 11:45 101/59 01/19/17 20:30 98.3 86 18 97 Room Air 01/19/17 12:23 2.0 Intake and Output 01/19/17 01/19/17 01/20/17 15:00 23:00 07:00 Intake Total 1410 ml Output Total 600 ml Balance 810 ml Results Result Diagram: 01/18/17 0930 01/19/17 0955 Medications Medications Current Medications Acetaminophen (Tylenol Tab) 650 mg Q6H PRN PO PAIN LEVEL 1-3 OR FEVER; Start at 19:00 Aspirin (Ecotrin) 325 mg BID PO Last administered on 01/20/17 08:17; Admin Dose 325 MG; Start 01/16/17 at 21:00 Atorvastatin Calcium (Lipitor) 80 mg QHS PO Last administered on 01/19/17 20: 04; Admin Dose 80 MG; Start 01/16/17 at 21:00 Bisacodyl (Dulcolax) 5 mg DAILY PRN PO CONSTIPATION Last administered on 09:05; Admin Dose 5 MG; Start 01/16/17 at 19:00 Bisacodyl (Dulcolax Supp) 10 mg Q12H PRN [place] CONSTIPATION Last administered on 11:13; Admin Dose 10 MG; Start 01/16/17 at 19:00 Diphenhydramine HCl (Benadryl) 25 mg Q6H PRN PO PRURITUS; Start 01/16/17 at 19: 00 Docusate Sodium (Colace) 100 mg BID PO Last administered on 01/20/17 08:18; Admin Dose 100 MG; Start 01/16/17 at 21:00 Famotidine (Pepcid) 20 mg Q12 PO Last administered on 01/20/17 08:18; Admin Dose 20 MG; Start 01/16/17 at 21:00 Fluoxetine HCl (Prozac) 40 mg DAILY PO Last administered on 01/20/17 08:18; Admin Dose 40 MG; Start 01/17/17 at 09:00 Acetaminophen/ Hydrocodone Bitart ([place] (5/325)) 1 tab Q4H PRN PO PAIN LEVEL 1 -3 Last administered on 01/19/17 11:23; Admin Dose 1 TAB; Start 01/16/17 at 19: 30 Acetaminophen/ Hydrocodone Bitart ([place] (5/325)) 2 tab Q4H PRN PO PAIN LEVEL 4 -7 Last administered on 01/20/17 09:10; Admin Dose 2 TAB; Start 01/16/17 at 19: 30 Magnesium Hydroxide (Milk Of Mag) 30 ml BID PRN PO CONSTIPATION; Start at 19:30 Sodium Biphosphate/ Sodium Phosphate (Fleet Enema) 133 ml DAILY PRN [place] CONSTIPATION Last administered on 01/18/17 21:56; Admin Dose 133 ML; Start 07/25 at 19:30 Terbinafine HCl (Lamisil) 250 mg BID PO Last administered on 01/20/17 08:17; Admin Dose 250 MG; Start 01/16/17 at 21:00; Stop 01/21/17 at 20:59 Hydromorphone HCl (Dilaudid) 0.5 mg Q6H PRN IV PAIN Last administered on 22:14; Admin Dose 0.5 MG; Start 01/16/17 at 19:30; Status Future Hold Senna (Senokot) 1 tab HS PO Last administered on 01/19/17 20:04; Admin Dose 1 TAB; Start 01/16/17 at 22:00 Lactulose (Enulose) 20 gm DAILY PRN PO CONSTIPATION Last administered on 11:13; Admin Dose 20 GM; Start 01/16/17 at 22:00 Lidocaine (Xylocaine) 1 applic PRN PRN TOP PAIN Last administered on 01/18/17 06:00; Admin Dose 1 APPLIC; Start 5/12/17 at 18:00 Potassium Chloride (Klor-Con 10) 30 meq DAILY PO Last administered on t 08:17; Admin Dose 30 MEQ; Start 01/18/17 at 16:00; Stop 01/20/17 at 15:59 EMMANUELLE VIZCAINO MD January 20, 2017 12:49
[2017-01-20] MEDS: LIDOCAINE 2% JELLY 30 ML TOP PRN (17:46)
[2017-01-20 19:42] VITALS: BP 112/68; RESP 18
[2017-01-20] MEDS: ATORVASTATIN 80 MG TAB PO SCH (20:32)
[2017-01-20] MEDS: SENNA TAB PO SCH (20:32)
[2017-01-21 07:38] VITALS: BP 114/66; RESP 18
[2017-01-21] MEDS: ASPIRIN (EC) 325 MG TAB PO SCH ×2 (09:47→20:27)
[2017-01-21] MEDS: FLUOXETINE 20 MG CAP PO SCH (09:47)
[2017-01-21] MEDS: BETHANECHOL 10 MG TAB PO SCH ×3 (09:47→20:27)
[2017-01-21] MEDS: DOCUSATE SODIUM 100 MG CAP PO SCH ×2 (09:47→20:30)
[2017-01-21] MEDS: FAMOTIDINE 20 MG TAB PO SCH ×2 (09:47→20:27)
[2017-01-21] MEDS: TERBINAFINE 250 MG TAB PO SCH ×2 (09:47→20:27)
--- NOTE | 2017-01-21 10:06 | PN ---
Date/Time of Note Date/Time of Note DATE: 01/21/17 TIME: 10:02 Assessment/Plan Lines/Catheters IV Catheter Type (from Nrsg): Saline Lock Valenzuela in Place (from Nrsg): No Assessment/Plan Assessment/Plan Stable in ARU, s/p left hip bipolar hemiarthroplasty -pain meds as needed -ASA/SCDs for DVT prophylaxis -OOB with PT -check routine laboratory analysis -dressing changed today -continue with posterior hip precautions -AP pelvis and XR right hip due to pain -will continue to follow along Subjective 24 Hr Interval Summary Progressing well in ARU. Denies significant left hip pain but is complaining of right hip pain. No fall or trauma noted. VSS, afebrile. Exam/Review of Systems Vital Signs Vitals Vital Signs Date Time Temp Pulse Resp B/P Pulse Ox O2 Delivery O2 Flow Rate FiO2 01/21/17 07:38 97.9 68 18 114/66 94 01/20/17 08:00 Room Air 01/19/17 12:23 2.0 Intake and Output 01/20/17 01/20/17 01/21/17 15:00 23:00 07:00 Intake Total 1200 ml 500 ml Output Total 375 ml 514 ml Balance 825 ml -14 ml Exam Free Text/Dictation Dressing dry Incision clean, dry, and intact without redness or drainage 01/10 Quadriceps, Tibialis Anterior, EHL, Gastroc, Soleus, Peroneals Normal sensation Palpable DT/PT, CR <2 sec No distal edema Results Result Diagram: 01/18/17 0930 01/19/17 0955 DANIA MORRISON PA-C January 21, 2017 10:06
--- NOTE | 2017-01-21 10:58 | PN ---
DATE: 01/21/2017 SUBJECTIVE: Urinary retention. The patient states that he has the urge to urinate but is unable to . OBJECTIVE: VITAL SIGNS: Temperature is 97.9, pulse 68, respiration 18, blood pressure 114/66. ABDOMEN: Soft. LABORATORY DATA: His last CBC shows a white count of 9.0, hemoglobin 11.0, hematocrit 33.1. The BU N is 20, creatinine 0.6. Electrolytes are normal. MEDICATIONS: 1. Reviewed and he is on Prozac 40 mg daily. 2. Aspirin. 3. Atorvastatin. 4. Colace. 5. Pepcid. 6. Lamisil. 7. [place]. 8. Milk of magnesia. 9. Benadryl. HISTORY OF PRESENT ILLNESS: The patient had a pelvic ultrasound that shows normal size prostate. T he patient has not been able to urinate and a straight cath has been yielding about 500 to 514 mL q. 6h. IMPRESSION: Urinary retention likely to be from the prostate. There is suggestive from his history prior to the hospital admission that he was urinating about 10 times at night a small amount, that he may have had a postvoid residual. PLAN: To start him on a low dose of urecholine 10 mg 3 times a day and see if that would help, and then if it does not, we could increase it to 25 mg 3 times a day. Also, I discussed with the patien t the possibility that if he cannot urinate that he may need either to have an indwelling Valenzuela cath eter or learn how to do self-catheterization. He refused. He said, "I will not do self-catheteriza tion and I will not accept to have a Valenzuela catheter." I told him the consequences if he does go int o retention and cannot urinate and does not want either option that he will have retention and he wi ll be in pain and that the urine will back-up to his kidney and would eventually damage his kidneys and he will be incontinent. He said, "I will take that chance". So, hopefully things do not get th at far and he will be able to urinate on his own. So I am going to start him on urecholine 10 mg 3 times a day and continue to do in and out catheterization for him every 6 hours. Dictated By: ANTONIO LOO/JANET Conf#: [id number] [facility]#: [id number]
--- NOTE | 2017-01-21 11:26 | CONS ---
Date/Time of Note Date/Time of Note DATE: 01/21/17 TIME: 11:26 Consult Date/Type/Reason Admit Date/Time January 16, 2017 at 18:00 Type of Consultation: cv Subjective Pt with decreased SBP this AM Objective pulm-cta abd-soft max assist Vital Signs Date Time Temp Pulse Resp B/P Pulse Ox O2 Delivery O2 Flow Rate FiO2 01/21/17 07:38 97.9 68 18 114/66 94 01/20/17 08:00 Room Air 01/19/17 12:23 2.0 Intake and Output 01/20/17 01/20/17 01/21/17 15:00 23:00 07:00 Intake Total 1200 ml 500 ml Output Total 375 ml 514 ml Balance 825 ml -14 ml Results/Medications Result Diagram: 01/18/1730 01/19/17 0955 Medications Current Medications Acetaminophen (Tylenol Tab) 650 mg Q6H PRN PO PAIN LEVEL 1-3 OR FEVER; Start at 19:00 Aspirin (Ecotrin) 325 mg BID PO Last administered on 01/21/17 09:47; Admin Dose 325 MG; Start 01/16/17 at 21:00 Atorvastatin Calcium (Lipitor) 80 mg QHS PO Last administered on 01/20/17 20: 32; Admin Dose 80 MG; Start 01/16/17 at 21:00 Bisacodyl (Dulcolax) 5 mg DAILY PRN PO CONSTIPATION Last administered on 09:05; Admin Dose 5 MG; Start 01/16/17 at 19:00 Bisacodyl (Dulcolax Supp) 10 mg Q12H PRN [place] CONSTIPATION Last administered on 11:13; Admin Dose 10 MG; Start 01/16/17 at 19:00 Diphenhydramine HCl (Benadryl) 25 mg Q6H PRN PO PRURITUS; Start 01/16/17 at 19: 00 Docusate Sodium (Colace) 100 mg BID PO Last administered on 01/21/17 09:47; Admin Dose 100 MG; Start 01/16/17 at 21:00 Famotidine (Pepcid) 20 mg Q12 PO Last administered on 01/21/17 09:47; Admin Dose 20 MG; Start 01/16/17 at 21:00 Fluoxetine HCl (Prozac) 40 mg DAILY PO Last administered on 01/21/17 09:47; Admin Dose 40 MG; Start 01/17/17 at 09:00 Acetaminophen/ Hydrocodone Bitart ([place] (5/325)) 1 tab Q4H PRN PO PAIN LEVEL 1 -3 Last administered on 01/19/17 11:23; Admin Dose 1 TAB; Start 01/16/17 at 19: 30 Acetaminophen/ Hydrocodone Bitart ([place] (5/325)) 2 tab Q4H PRN PO PAIN LEVEL 4 -7 Last administered on 01/20/17 09:10; Admin Dose 2 TAB; Start 01/16/17 at 19: 30 Magnesium Hydroxide (Milk Of Mag) 30 ml BID PRN PO CONSTIPATION; Start at 19:30 Sodium Biphosphate/ Sodium Phosphate (Fleet Enema) 133 ml DAILY PRN [place] CONSTIPATION Last administered on 01/18/17 21:56; Admin Dose 133 ML; Start 07/25 at 19:30 Terbinafine HCl (Lamisil) 250 mg BID PO Last administered on 01/21/17 09:47; Admin Dose 250 MG; Start 01/16/17 at 21:00; Stop 01/21/17 at 20:59 Hydromorphone HCl (Dilaudid) 0.5 mg Q6H PRN IV PAIN Last administered on 22:14; Admin Dose 0.5 MG; Start 01/16/17 at 19:30; Status Future Hold Senna (Senokot) 1 tab HS PO Last administered on 01/20/17 20:32; Admin Dose 1 TAB; Start 01/16/17 at 22:00 Lactulose (Enulose) 20 gm DAILY PRN PO CONSTIPATION Last administered on 11:13; Admin Dose 20 GM; Start 01/16/17 at 22:00 Lidocaine (Xylocaine) 1 applic PRN PRN TOP PAIN Last administered on 01/20/17 17:46; Admin Dose 1 APPLIC; Start 01/17/17 at 18:00 [place] Chloride (Urecholine) 10 mg TID PO Last administered on 01/21/17 09:47; Admin Dose 10 MG; Start 01/21/17 at 09:00 Tamsulosin HCl (Flomax) 0.4 mg HS PO ; Start 01/21/17 at 21:00 Hydrocortisone (Hydrocortisone 1% Cr) 1 applic BID TOP ; Start 01/21/17 at 11:30 ; Status UNV Assessment/Plan Additional Assessment/Plan Rehab- Left femoral neck fracture status post left hip hemiarthroplasty; History of cerebrovascular accident with residual left-sided weakness. Continue rehab activities as tolerated orthostatic-abd binder and TOÑITO hose for OOB Hypertension. Hyperlipidemia. Gastroesophageal reflux disease. Anemia. KIMBERLI CSAEY MD January 21, 2017 11:26
[2017-01-21 11:51] LABS: ADD SCAN DIFF NO
--- NOTE | 2017-01-21 11:57 | RADRPT ---
PROCEDURE: XR Hip 2 Views. CLINICAL INDICATION: Pain, dislocation. TECHNIQUE: AP and frog lateral views of the right hip were performed. COMPARISON: Pelvis x-ray January 14, 2017 FINDINGS: Use osteopenia is identified. The osseous structures appear intact. No destructive bony lesions ar e observed. Mild narrowing of the right hip joint is seen. The soft tissues overlying the right hip are unremarkable. IMPRESSION: Osteopenia. Mild osteoarthritis of the right hip. If further characterization is needed CT or MRI could be helpful. RPTAT: AA .Jesse Hodge MD, Date Time Electronically viewed and signed by .Jesse Hodge MD, on 01/21/2017 11:56 .P/
[2017-01-21 11:58] LABS: BASOPHILS % 0.4 % (0.0-2.0); EOSINOPHILS # 0.2 10^3/ul (0.0-0.5); EOSINOPHILS % 2.1 % (0.0-7.0); HEMATOCRIT 34.2 % (42.0-52.0); HEMOGLOBIN 11.1 g/dl (14.0-18.0); LYMPHOCYTES % 10.2 % (15.0-51.0); MEAN CORPUSCULAR HEMOGLOBIN 30.7 pg (29.0-33.0); MEAN CORPUSCULAR HGB CONC 32.5 g/dl (32.0-37.0); MEAN CORPUSCULAR VOLUME 94.5 fl (82.0-101.0); MEAN PLATELET VOLUME 10.1 fl (7.4-10.4); MONOCYTE # 0.9 10^3/ul (0.3-0.9); MONOCYTES % 8.4 % (0.0-11.0); NEUTROPHIL # 7.9 10^3/ul (1.6-7.5); NEUTROPHILS % 76.8 % (39.0-77.0); PLATELET COUNT 241 10^3/UL (140-415); RED BLOOD COUNT 3.62 10^6/ul (4.70-6.10); RED CELL DISTRIBUTION WIDTH 13.4 % (11.5-14.5); WHITE BLOOD COUNT 10.2 10^3/ul (4.8-10.8)
--- NOTE | 2017-01-21 12:06 | RADRPT ---
PROCEDURE: XR Pelvis. CLINICAL INDICATION: Left hip pain. Evaluate for dislocation. Total hip replacement. TECHNIQUE: Single AP view of the pelvis. COMPARISON: 01/14/2017 postop left hip. FINDINGS: There are no fractures or dislocations. Intact left total hip prosthesis without dislocation. CT st aples overlie the left hip soft tissues. No evidence of hardware failure or loosening. The pelvis, sacrum, right hip, and visualized lumbar spine are intact. IMPRESSION: Intact left total hip prosthesis without evidence of dislocation or fracture. RPTAT:AAJJ Juwan De Los Santos Physician Date Time Electronically viewed and signed by Physician Ciaran on 01/21/2017 12:06 TOSHA/
[2017-01-21] MEDS ORDERED: HYDROCORTISONE 1% 28 GM CR TOP SCH (12:30)
[2017-01-21] MEDS ORDERED: HYDROCORTISONE 1% 28 GM CR TOP PRN (13:00)
--- NOTE | 2017-01-21 13:17 | CONS ---
Date/Time of Note Date/Time of Note DATE: 01/21/17 TIME: 13:15 Assessment/Plan Assessment/Plan Additional Assessment/Plan Mechanical fall with hip fracture CVA Preserved ejection fraction History of hypertension with labile blood pressure -Blood pressure has been on the lower end but overall improved the past 24 hours. Would continue to hold antihypertensive medications. Hemoglobin remains stable. Having less symptoms of lightheadedness with activity. Would continue to monitor with fall precautions. Consultation Date/Type/Reason Admit Date/Time January 16, 2017 at 18:00 Type of Consultation: cv 24 HR Interval Summary Free Text/Dictation Denies chest pain, shortness of breath. Having episodes of lightheadedness during physical therapy. Exam/Review of Systems Vital Signs Vitals Vital Signs Date Time Temp Pulse Resp B/P Pulse Ox O2 Delivery O2 Flow Rate FiO2 01/21/17 07:38 97.9 68 18 114/66 94 01/20/17 08:00 Room Air 01/19/17 12:23 2.0 Intake and Output 01/20/17 01/20/17 01/21/17 15:00 23:00 07:00 Intake Total 1200 ml 500 ml Output Total 375 ml 514 ml Balance 825 ml -14 ml Exam No apparent distress, family at bedside Constitutional: alert, oriented Head: normocephalic Respiratory: other (Coarse breath sounds bilaterally, no wheezing) Cardiovascular: other (S1-S2 heard), regular rate and rhythm Gastrointestinal: bowel sounds, non-tender, soft Extremities: other (No edema) Results Result Diagram: 01/21/17 1127 01/19/17 0955 Results 24 hrs Laboratory Tests Test 01/21/17 11:27 White Blood Count 10.2 Red Blood Count 3.62 L Hemoglobin 11.1 L Hematocrit 34.2 L Mean Corpuscular Volume 94.5 Mean Corpuscular Hemoglobin 30.7 Mean Corpuscular Hemoglobin Concent 32.5 Red Cell Distribution Width 13.4 Platelet Count 241 # Mean Platelet Volume 10.1 Neutrophils % 76.8 Lymphocytes % 10.2 L Monocytes % 8.4 Eosinophils % 2.1 Basophils % 0.4 Nucleated Red Blood Cells % 0.0 Neutrophils # 7.9 H Lymphocytes # 1.0 Monocytes # 0.9 Eosinophils # 0.2 Basophils # 0.0 Nucleated Red Blood Cells # 0.0 Medications Medications Current Medications Acetaminophen (Tylenol Tab) 650 mg Q6H PRN PO PAIN LEVEL 1-3 OR FEVER; Start at 19:00 Aspirin (Ecotrin) 325 mg BID PO Last administered on 01/21/17 09:47; Admin Dose 325 MG; Start 01/16/17 at 21:00 Atorvastatin Calcium (Lipitor) 80 mg QHS PO Last administered on 01/20/17 20: 32; Admin Dose 80 MG; Start 01/16/17 at 21:00 Bisacodyl (Dulcolax) 5 mg DAILY PRN PO CONSTIPATION Last administered on 09:05; Admin Dose 5 MG; Start 01/16/17 at 19:00 Bisacodyl (Dulcolax Supp) 10 mg Q12H PRN [place] CONSTIPATION Last administered on 11:13; Admin Dose 10 MG; Start 01/16/17 at 19:00 Diphenhydramine HCl (Benadryl) 25 mg Q6H PRN PO PRURITUS; Start 01/16/17 at 19: 00 Docusate Sodium (Colace) 100 mg BID PO Last administered on 01/21/17 09:47; Admin Dose 100 MG; Start 01/16/17 at 21:00 Famotidine (Pepcid) 20 mg Q12 PO Last administered on 01/21/17 09:47; Admin Dose 20 MG; Start 01/16/17 at 21:00 Fluoxetine HCl (Prozac) 40 mg DAILY PO Last administered on 01/21/17 09:47; Admin Dose 40 MG; Start 01/17/17 at 09:00 Acetaminophen/ Hydrocodone Bitart ([place] (5/325)) 1 tab Q4H PRN PO PAIN LEVEL 1 -3 Last administered on 01/19/17 11:23; Admin Dose 1 TAB; Start 01/16/17 at 19: 30 Acetaminophen/ Hydrocodone Bitart ([place] (5/325)) 2 tab Q4H PRN PO PAIN LEVEL 4 -7 Last administered on 01/20/17 09:10; Admin Dose 2 TAB; Start 01/16/17 at 19: 30 Magnesium Hydroxide (Milk Of Mag) 30 ml BID PRN PO CONSTIPATION; Start at 19:30 Sodium Biphosphate/ Sodium Phosphate (Fleet Enema) 133 ml DAILY PRN [place] CONSTIPATION Last administered on 01/18/17 21:56; Admin Dose 133 ML; Start 07/25 at 19:30 Terbinafine HCl (Lamisil) 250 mg BID PO Last administered on 01/21/17 09:47; Admin Dose 250 MG; Start 01/16/17 at 21:00; Stop 01/21/17 at 20:59 Hydromorphone HCl (Dilaudid) 0.5 mg Q6H PRN IV PAIN Last administered on 22:14; Admin Dose 0.5 MG; Start 01/16/17 at 19:30; Status Future Hold Senna (Senokot) 1 tab HS PO Last administered on 01/20/17 20:32; Admin Dose 1 TAB; Start 01/16/17 at 22:00 Lactulose (Enulose) 20 gm DAILY PRN PO CONSTIPATION Last administered on 11:13; Admin Dose 20 GM; Start 01/16/17 at 22:00 Lidocaine (Xylocaine) 1 applic PRN PRN TOP PAIN Last administered on 01/20/17 17:46; Admin Dose 1 APPLIC; Start 01/17/17 at 18:00 Bethanechol Chloride (Urecholine) 10 mg TID PO Last administered on 01/21/17 13:09; Admin Dose 10 MG; Start 01/21/17 at 09:00 Tamsulosin HCl (Flomax) 0.4 mg HS PO ; Start 01/21/17 at 21:00 Hydrocortisone (Hydrocortisone 1% Cr) 1 applic BID PRN TOP rashes; Start at 13:00 Thor Munguia DO January 21, 2017 13:17
--- NOTE | 2017-01-21 19:12 | PN ---
Date/Time of Note Date/Time of Note DATE: 01/21/17 TIME: 19:10 Assessment/Plan VTE Prophylaxis VTE Prophylaxis Intervention: heparin Lines/Catheters IV [facility] [facility] Urinary Cath still in place: No Assessment/Plan Problems: (1) BPH (benign prostatic hypertrophy) with urinary retention Status: Chronic Comment: He is being seen in consultation by urology. They have recommended bethanechol on top of the tamsulosin. We will go ahead and also add in finasteride with the hope that we can get him to the point that he does not need catheterization. He has been counseled to be upright when he is attempting to urinate (2) Diastolic dysfunction Status: Chronic Comment: Noted and stable (3) Essential (primary) hypertension Status: Chronic Comment: Adequate control under current circumstances (4) Hyperlipidemia Status: Chronic Comment: On therapy Qualifiers: Hyperlipidemia type: pure hypercholesterolemia Qualified Code: E78.00 - Pure hypercholesterolemia (5) Closed left hip fracture Status: Acute Comment: He is recuperating nicely after the open reduction internal fixation surgical procedure Qualifiers: Encounter type: subsequent encounter Fracture healing: with routine healing Qualified Code: S72.002D - Closed left hip fracture, with routine healing, subsequent encounter Subjective 24 Hr Interval Summary Free Text/Dictation Patient reports in general is doing well but is extremely disturbed about the concept of urinary catheterization issue Constitutional: no complaints (No fevers chills or sweats) Respiratory: no complaints Cardiovascular: no complaints Gastrointestinal: no complaints Genitourinary: other Musculoskeletal: no complaints Exam/Review of Systems Vital Signs Vitals Vital Signs Date Time Temp Pulse Resp B/P Pulse Ox O2 Delivery O2 Flow Rate FiO2 01/21/17 07:38 97.9 68 18 114/66 94 01/20/17 08:00 Room Air 01/19/17 12:23 2.0 Intake and Output 01/20/17 01/20/17 01/21/17 15:00 23:00 07:00 Intake Total 1200 ml 500 ml Output Total 375 ml 514 ml Balance 825 ml -14 ml Exam Constitutional: alert, oriented Neck: non-tender, supple Respiratory: clear to auscultation, normal air movement Cardiovascular: nl pulses, regular rate and rhythm Gastrointestinal: nl liver, spleen, non-tender, soft Results Result Diagram: 01/21/17 1127 01/19/17 0955 Results 24 hrs Laboratory Tests Test 01/21/17 11:27 White Blood Count 10.2 Red Blood Count 3.62 L Hemoglobin 11.1 L Hematocrit 34.2 L Mean Corpuscular Volume 94.5 Mean Corpuscular Hemoglobin 30.7 Mean Corpuscular Hemoglobin Concent 32.5 Red Cell Distribution Width 13.4 Platelet Count 241 # Mean Platelet Volume 10.1 Neutrophils % 76.8 Lymphocytes % 10.2 L Monocytes % 8.4 Eosinophils % 2.1 Basophils % 0.4 Nucleated Red Blood Cells % 0.0 Neutrophils # 7.9 H Lymphocytes # 1.0 Monocytes # 0.9 Eosinophils # 0.2 Basophils # 0.0 Nucleated Red Blood Cells # 0.0 Medications Medications Current Medications Acetaminophen (Tylenol Tab) 650 mg Q6H PRN PO PAIN LEVEL 1-3 OR FEVER; Start at 19:00 Aspirin (Ecotrin) 325 mg BID PO Last administered on 01/21/17 09:47; Admin Dose 325 MG; Start 01/16/17 at 21:00 Atorvastatin Calcium (Lipitor) 80 mg QHS PO Last administered on 01/20/17 20: 32; Admin Dose 80 MG; Start 01/16/17 at 21:00 Bisacodyl (Dulcolax) 5 mg DAILY PRN PO CONSTIPATION Last administered on 09:05; Admin Dose 5 MG; Start 01/16/17 at 19:00 Bisacodyl (Dulcolax Supp) 10 mg Q12H PRN [place] CONSTIPATION Last administered on 11:13; Admin Dose 10 MG; Start 01/16/17 at 19:00 Diphenhydramine HCl (Benadryl) 25 mg Q6H PRN PO PRURITUS; Start 01/16/17 at 19: 00 Docusate Sodium (Colace) 100 mg BID PO Last administered on 01/21/17 09:47; Admin Dose 100 MG; Start 01/16/17 at 21:00 Famotidine (Pepcid) 20 mg Q12 PO Last administered on 01/21/17 09:47; Admin Dose 20 MG; Start 01/16/17 at 21:00 Fluoxetine HCl (Prozac) 40 mg DAILY PO Last administered on 01/21/17 09:47; Admin Dose 40 MG; Start 01/17/17 at 09:00 Acetaminophen/ Hydrocodone Bitart ([place] (5/325)) 1 tab Q4H PRN PO PAIN LEVEL 1 -3 Last administered on 01/19/17 11:23; Admin Dose 1 TAB; Start 01/16/17 at 19: 30 Acetaminophen/ Hydrocodone Bitart ([place] (5/325)) 2 tab Q4H PRN PO PAIN LEVEL 4 -7 Last administered on 01/20/17 09:10; Admin Dose 2 TAB; Start 01/16/17 at 19: 30 Magnesium Hydroxide (Milk Of Mag) 30 ml BID PRN PO CONSTIPATION; Start at 19:30 Sodium Biphosphate/ Sodium Phosphate (Fleet Enema) 133 ml DAILY PRN [place] CONSTIPATION Last administered on 01/18/17 21:56; Admin Dose 133 ML; Start 07/25 at 19:30 Terbinafine HCl (Lamisil) 250 mg BID PO Last administered on 01/21/17 09:47; Admin Dose 250 MG; Start 01/16/17 at 21:00; Stop 01/21/17 at 20:59 Hydromorphone HCl (Dilaudid) 0.5 mg Q6H PRN IV PAIN Last administered on 22:14; Admin Dose 0.5 MG; Start 01/16/17 at 19:30; Status Future Hold Senna (Senokot) 1 tab HS PO Last administered on 01/20/17 20:32; Admin Dose 1 TAB; Start 01/16/17 at 22:00 Lactulose (Enulose) 20 gm DAILY PRN PO CONSTIPATION Last administered on 11:13; Admin Dose 20 GM; Start 01/16/17 at 22:00 Lidocaine (Xylocaine) 1 applic PRN PRN TOP PAIN Last administered on 01/20/17 17:46; Admin Dose 1 APPLIC; Start 01/17/17 at 18:00 Bethanechol Chloride (Urecholine) 10 mg TID PO Last administered on 01/21/17 13:09; Admin Dose 10 MG; Start 01/21/17 at 09:00 Tamsulosin HCl (Flomax) 0.4 mg HS PO ; Start 01/21/17 at 21:00 Hydrocortisone (Hydrocortisone 1% Cr) 1 applic BID PRN TOP rashes; Start at 13:00 MURIEL LÓPEZ MD January 21, 2017 19:12
[2017-01-21] MEDS ORDERED: FINASTERIDE 5 MG TAB PO ONE (19:30)
[2017-01-21] MEDS: ATORVASTATIN 80 MG TAB PO SCH (20:27)
[2017-01-21] MEDS: SENNA TAB PO SCH (20:30)
[2017-01-21] MEDS: TAMSULOSIN (SR) 0.4 MG CAP PO SCH (20:32)
[2017-01-21 21:04] VITALS: BP 137/65; RESP 20
[2017-01-21] MEDS: HYDROCODONE/APAP (5/325) TAB PO PRN (21:57)
[2017-01-21] MEDS: LIDOCAINE 2% JELLY 30 ML TOP PRN (21:58)
[2017-01-22] MEDS: LIDOCAINE 2% JELLY 30 ML TOP PRN (06:15)
[2017-01-22 07:37] VITALS: BP 110/65; RESP 18
[2017-01-22] MEDS: DOCUSATE SODIUM 100 MG CAP PO SCH ×2 (09:06→20:55)
[2017-01-22] MEDS: FLUOXETINE 20 MG CAP PO SCH (09:06)
[2017-01-22] MEDS: FAMOTIDINE 20 MG TAB PO SCH ×2 (09:06→20:55)
[2017-01-22] MEDS: BETHANECHOL 10 MG TAB PO SCH ×2 (09:06→12:37)
[2017-01-22] MEDS: ASPIRIN (EC) 325 MG TAB PO SCH ×2 (09:06→20:55)
[2017-01-22] MEDS: FINASTERIDE 5 MG TAB PO SCH (09:07)
--- NOTE | 2017-01-22 12:01 | CONS ---
Date/Time of Note Date/Time of Note DATE: 01/22/17 TIME: 12:00 Consult Date/Type/Reason Admit Date/Time January 16, 2017 at 18:00 Type of Consultation: cv Subjective Feeling better today Objective pulm-cta abd-soft max transfer Vital Signs Date Time Temp Pulse Resp B/P Pulse Ox O2 Delivery O2 Flow Rate FiO2 01/22/17 07:37 97.9 62 18 110/65 95 01/20/17 08:00 Room Air 01/19/17 12:23 2.0 Intake and Output 01/21/17 01/21/17 01/22/17 14:59 22:59 06:59 Intake Total 720 ml 360 ml 1100 ml Output Total 750 ml Balance 720 ml 360 ml 350 ml Results/Medications Result Diagram: 01/21/17 1127 01/19/17 0955 Medications Current Medications Acetaminophen (Tylenol Tab) 650 mg Q6H PRN PO PAIN LEVEL 1-3 OR FEVER; Start at 19:00 Aspirin (Ecotrin) 325 mg BID PO Last administered on 01/22/17 09:06; Admin Dose 325 MG; Start 01/16/17 at 21:00 Atorvastatin Calcium (Lipitor) 80 mg QHS PO Last administered on 01/21/17 20: 27; Admin Dose 80 MG; Start 01/16/17 at 21:00 Bisacodyl (Dulcolax) 5 mg DAILY PRN PO CONSTIPATION Last administered on 09:05; Admin Dose 5 MG; Start 01/16/17 at 19:00 Bisacodyl (Dulcolax Supp) 10 mg Q12H PRN [place] CONSTIPATION Last administered on 11:13; Admin Dose 10 MG; Start 01/16/17 at 19:00 Diphenhydramine HCl (Benadryl) 25 mg Q6H PRN PO PRURITUS; Start 01/16/17 at 19: 00 Docusate Sodium (Colace) 100 mg BID PO Last administered on 01/22/17 09:06; Admin Dose 100 MG; Start 01/16/17 at 21:00 Famotidine (Pepcid) 20 mg Q12 PO Last administered on 01/22/17 09:06; Admin Dose 20 MG; Start 01/16/17 at 21:00 Fluoxetine HCl (Prozac) 40 mg DAILY PO Last administered on 01/22/17 09:06; Admin Dose 40 MG; Start 01/17/17 at 09:00 Acetaminophen/ Hydrocodone Bitart ([place] (5/325)) 1 tab Q4H PRN PO PAIN LEVEL 1 -3 Last administered on 01/21/17 21:57; Admin Dose 1 TAB; Start 01/16/17 at 19: 30 Acetaminophen/ Hydrocodone Bitart ([place] (5/325)) 2 tab Q4H PRN PO PAIN LEVEL 4 -7 Last administered on 01/20/17 09:10; Admin Dose 2 TAB; Start 01/16/17 at 19: 30 Magnesium Hydroxide (Milk Of Mag) 30 ml BID PRN PO CONSTIPATION; Start at 19:30 Sodium Biphosphate/ Sodium Phosphate (Fleet Enema) 133 ml DAILY PRN [place] CONSTIPATION Last administered on 01/18/17 21:56; Admin Dose 133 ML; Start 07/25 at 19:30 Hydromorphone HCl (Dilaudid) 0.5 mg Q6H PRN IV PAIN Last administered on 22:14; Admin Dose 0.5 MG; Start 01/16/17 at 19:30; Status Future Hold Senna (Senokot) 1 tab HS PO Last administered on 01/20/17 20:32; Admin Dose 1 TAB; Start 01/16/17 at 22:00 Lactulose (Enulose) 20 gm DAILY PRN PO CONSTIPATION Last administered on 11:13; Admin Dose 20 GM; Start 01/16/17 at 22:00 Lidocaine (Xylocaine) 1 applic PRN PRN TOP PAIN Last administered on 01/22/17 06:15; Admin Dose 1 APPLIC; Start 01/17/17 at 18:00 Bethanechol Chloride (Urecholine) 10 mg TID PO Last administered on 01/22/17 09:06; Admin Dose 10 MG; Start 01/21/17 at 09:00 Tamsulosin HCl (Flomax) 0.4 mg HS PO Last administered on 01/21/17 20:32; Admin Dose 0.4 MG; Start 01/21/17 at 21:00 Hydrocortisone (Hydrocortisone 1% Cr) 1 applic BID PRN TOP rashes; Start at 13:00 Finasteride (Proscar) 5 mg DAILY PO Last administered on 01/22/17t 09:07; Admin Dose 5 MG; Start 01/22/17 at 09:00 Assessment/Plan Additional Assessment/Plan Rehab- Left femoral neck fracture status post left hip hemiarthroplasty; History of cerebrovascular accident with residual left-sided weakness. Continue rehab program Hypertension. Hyperlipidemia. Gastroesophageal reflux disease. Anemia. KIMBERLI CASEY MD January 22, 2017 12:01
--- NOTE | 2017-01-22 13:56 | PN ---
DATE: 01/22/2017 SUBJECTIVE: Patient is unable to urinate. He denies having any pain, he complains, however, that w hen they do the in and out catheterization for him, it is very painful. OBJECTIVE VITAL SIGNS: His temperature is 97.9, blood pressure 110/65, the pulse is 62, respiration is 18. ABDOMEN: Soft. The patient was last catheterized for 450 mL and the time before for another 400 and before that is 600 mL. The patient's is at the bedside and the patient and his wanted to ask me questions and so I sat down and talked to them. Basically, they are concerned about how come he is not able to urina te and if he was urinating at home, why is he not urinating here. I again asked them if that is cor rect that when he was at home, he was urinating about 10 times at night and the as answered yes , and he was urinating , but a small amount, so I told them most likely the patient was already keep ing a high postvoid residual at home and when he urinates a small amount, it does not take a long ti me for the bladder to fill up again and giving him the sensation to urinate again. So he most likel y did have a problem before he came into the hospital and as he got sick in the hospital and was get ting pain medications and being bedridden, then the bladder became unable to squeeze the urine out a nd he ended in urinary retention. I did mention to them that I already started him on urecholine 10 mg 3 times a day and see if that w ould help. So far it did not, so we will increase urecholine to 25 mg and see if that helps. Also, we shall continue to do the in and out catheterization and they asked as he leaves the place here, what would be the plan. I again explained to him and to his , if he is not able to urinate he h as 1 of 2 options, one, to have the Valenzuela catheter at all the time, and the second option would be t o do in and out catheterization every 6 hours by either him doing it or his doing it, or anothe r person if there is another portion to do that. If he does not do anything, then his bladder gets distended and the urine will back up to the kidney, high risk of infection and kidney damage as well as infection. Also, most likely overflow incontinence. ASSESSMENT: The patient expressed himself that he does not want to have a catheter and does not wan t to do the self-catheterization. So, at the present, I have no choice but to increase the urecholi ne to 25 mg every 6 hours and hopefully that would help so we do not have to be concerned about him urinating. If not, then he has to make a decision what kind of treatment he wants to accept and wha t kind of risks he wants to take. Dictated By: ANTONIO LOO/JANET Conf#: [id number] DID#: [id number]
[2017-01-22] MEDS: BETHANECHOL 25 MG TAB PO SCH ×3 (15:27→23:29)
--- NOTE | 2017-01-22 17:52 | CONS ---
DATE OF ADMISSION: 01/16/2017 DATE OF CONSULTATION: 01/22/2017 TYPE OF CONSULTATION: Psychological. REFERRING PHYSICIAN: Alberto Toro MD CONSULTING PSYCHOLOGIST: Katrina Boykin, PhD REASON FOR CONSULTATION: This consultation was requested by Dr. Sofi Toro in order to evaluate the cognitive and emotional functioning of this patient related to his present medical condition. HISTORY OF PRESENT ILLNESS: The patient is a 71-year-old male. He has a history of previous CVAs w ith residual weakness. The patient says that he has had 2 strokes and the last one was 2 years ago. The patient did have a fall which resulted in left hip pain. The patient's workup revealed a left femoral neck fracture and the patient underwent left hip hemiarthroplasty on 01/14/2017. The patie nt was cleared medically and then transferred to the rehabilitation unit for comprehensive interdisc iplinary rehabilitation care. The patient is motivated to get better. The patient is very frustrat ed about what happened. The patient has had numerous falls in the recent past. The patient's was present during the consultation with the patient's permission and she did state that he had diff iculty with balance and falls. The patient was frustrated but motivated to try and get better so th at he can return home. FAMILY AND SOCIAL HISTORY: The patient lives in a home with his . The patient wants to return there when he is discharged. They are looking into possible in- home health care to help when he r eturns home. MEDICATIONS: The patient is currently on Prozac 40 mg daily. The patient reports that he was on P rozac for approximately the last year and it was prescribed by his primary care physician, Dr. Madai garner. SUBSTANCE USE: The patient reports that he does not smoke. The patient reports that he does not us e alcohol or other drugs. MENTAL STATUS EXAMINATION: APPEARANCE: The patient was seen in his wheelchair. He was of average height and weight. He has w stacey hair and jalloh and mustache. The patient reports that he is right-handed. BEHAVIOR: The patient was cooperative during the consultation. The patient did attempt to answer a ll questions presented to him by the interviewer. MOOD AND AFFECT: The patient's mood appears to be slightly depressed. Affect did appear to be slig htly anxious. PERCEPTION: The patient reports no hallucinations or delusions. The patient was alert to person, p lace, situation and time. MEMORY AND COGNITION: The patient's memory and cognition appear to be basically intact. He was abl e to remember recent and remote events. He was able to say who the locksmith helper i s and who the governor of the state is. He could not state who the mayor of the [facility] is. He did kn ow the name of the hospital. He did know the month and the year. He was able to spell "world" forw emilie but could not spell "world" backwards. The patient was able to do 1 serial 7 subtraction from 1 00 and then made an error. Overall, the patient's cognitions are not great, but they are not terrib ly impaired either. INTELLIGENCE: Intelligence appears to fall in the average range. INSIGHT: Good. JUDGMENT: Good. THOUGHT CONTENT: The patient is concerned about his present medical condition. The patient does wa nt to return home as soon as possible and is fearful, however, that he may not be able to walk again without falling, and this does pose an issue for him. DISCUSSION: The patient can likely benefit from some cognitive/behavioral psychotherapy while he is on the unit. This psychotherapy would focus on his underlying level of anxiety about falling. It was suggested to the patient that he work on safety issues in regard to his walking while he is stil l in the program. It appears that is something that they are dressing. DIAGNOSTIC IMPRESSION: F33.1, major depressive disorder, recurrent, moderate. Thank you very much, Dr. Sofi Toro, for referring this individual. Please do not hesitate to ca ll if you have additional questions. Dictated By: KATRINA BOYKIN PHD VICKY/JANET Conf#: [id number] DID#: [id number]
[2017-01-22 20:03] VITALS: BP 113/60; RESP 18
[2017-01-22] MEDS: ATORVASTATIN 80 MG TAB PO SCH (20:55)
[2017-01-22] MEDS: TAMSULOSIN (SR) 0.4 MG CAP PO SCH (20:55)
[2017-01-22] MEDS: SENNA TAB PO SCH (20:55)
[2017-01-22] MEDS: HYDROCODONE/APAP (5/325) TAB PO PRN (20:56)
[2017-01-23] MEDS: BETHANECHOL 25 MG TAB PO SCH ×3 (06:46→18:32)
[2017-01-23 07:30] VITALS: BP 105/58; RESP 18
--- NOTE | 2017-01-23 09:25 | PN ---
DATE: 01/23/2017 SUBJECTIVE: Urinary retention. Postoperatively the patient has been started on urecholine, 25 mg ev cyrus 6 hours, and since yesterday he started urinating and he is urinating better. He has voided twi ce last night, one time 250, and the postvoid residual was 76 mL. This morning he voided 300 and th e postvoid was 278 mL. In either case, the postvoid was less than 300, not requiring any in and out catheterization and yesterday when the nurses tried to catheterize to do a straight catheterization on him, they were having difficulty doing it, so will try to avoid it if we can. OBJECTIVE: VITAL SIGNS: Temperature is 98.7, blood pressure 113/60, pulse 72, respirations 18. ABDOMEN: Soft. His urine is also clear. Laboratory data is all from 2 days ago and the urine culture shows no growth. PLAN: Continue the urecholine 25 mg every 6 hours and continue to check his postvoid residual with a bladder scan. Dictated By: ANTONIO LOO/JANET Conf#: [id number] DID#: [id number]
[2017-01-23] MEDS: FINASTERIDE 5 MG TAB PO SCH (09:45)
[2017-01-23] MEDS: FAMOTIDINE 20 MG TAB PO SCH ×2 (09:45→20:09)
[2017-01-23] MEDS: FLUOXETINE 20 MG CAP PO SCH (09:45)
[2017-01-23] MEDS: ASPIRIN (EC) 325 MG TAB PO SCH ×2 (09:46→20:08)
[2017-01-23] MEDS: HYDROCODONE/APAP (5/325) TAB PO PRN (09:46)
[2017-01-23] MEDS: DOCUSATE SODIUM 100 MG CAP PO SCH ×2 (09:46→20:14)
--- NOTE | 2017-01-23 11:16 | CONS ---
Date/Time of Note Date/Time of Note DATE: 01/23/17 TIME: 11:15 Consult Date/Type/Reason Admit Date/Time January 16, 2017 at 18:00 Type of Consultation: cv Subjective Comfortable Objective pulm-cta max assist transfer Vital Signs Date Time Temp Pulse Resp B/P Pulse Ox O2 Delivery O2 Flow Rate FiO2 01/22/17 20:03 98.7 72 18 113/60 97 01/20/17 08:00 Room Air 01/19/17 12:23 2.0 Intake and Output 01/22/17 01/22/17 01/23/17 15:00 23:00 07:00 Intake Total 1200 ml 360 ml 1210 ml Output Total 650 ml 600 ml Balance 550 ml 360 ml 610 ml Results/Medications Result Diagram: 01/21/17 1127 01/19/17 0955 Medications Current Medications Acetaminophen (Tylenol Tab) 650 mg Q6H PRN PO PAIN LEVEL 1-3 OR FEVER; Start at 19:00 Aspirin (Ecotrin) 325 mg BID PO Last administered on 01/23/17 09:46; Admin Dose 325 MG; Start 01/16/17 at 21:00 Atorvastatin Calcium (Lipitor) 80 mg QHS PO Last administered on 01/22/17 20: 55; Admin Dose 80 MG; Start 01/16/17 at 21:00 Bisacodyl (Dulcolax) 5 mg DAILY PRN PO CONSTIPATION Last administered on 09:05; Admin Dose 5 MG; Start 01/16/17 at 19:00 Bisacodyl (Dulcolax Supp) 10 mg Q12H PRN [place] CONSTIPATION Last administered on 11:13; Admin Dose 10 MG; Start 01/16/17 at 19:00 Diphenhydramine HCl (Benadryl) 25 mg Q6H PRN PO PRURITUS; Start 01/16/17 at 19: 00 Docusate Sodium (Colace) 100 mg BID PO Last administered on 01/23/17 09:46; Admin Dose 100 MG; Start 01/16/17 at 21:00 Famotidine (Pepcid) 20 mg Q12 PO Last administered on 01/23/17 09:45; Admin Dose 20 MG; Start 01/16/17 at 21:00 Fluoxetine HCl (Prozac) 40 mg DAILY PO Last administered on 01/23/17 09:45; Admin Dose 40 MG; Start 01/17/17 at 09:00 Acetaminophen/ Hydrocodone Bitart ([place] (5/325)) 1 tab Q4H PRN PO PAIN LEVEL 1 -3 Last administered on 01/21/17 21:57; Admin Dose 1 TAB; Start 01/16/17 at 19: 30 Acetaminophen/ Hydrocodone Bitart ([place] (5/325)) 2 tab Q4H PRN PO PAIN LEVEL 4 -7 Last administered on 01/23/17 09:46; Admin Dose 2 TAB; Start 01/16/17 at 19: 30 Magnesium Hydroxide (Milk Of Mag) 30 ml BID PRN PO CONSTIPATION; Start at 19:30 Sodium Biphosphate/ Sodium Phosphate (Fleet Enema) 133 ml DAILY PRN [place] CONSTIPATION Last administered on 01/18/17 21:56; Admin Dose 133 ML; Start 07/25 at 19:30 Hydromorphone HCl (Dilaudid) 0.5 mg Q6H PRN IV PAIN Last administered on 22:14; Admin Dose 0.5 MG; Start 01/16/17 at 19:30; Status Future Hold Senna (Senokot) 1 tab HS PO Last administered on 01/22/17 20:55; Admin Dose 1 TAB; Start 01/16/17 at 22:00 Lactulose (Enulose) 20 gm DAILY PRN PO CONSTIPATION Last administered on 11:13; Admin Dose 20 GM; Start 01/16/17 at 22:00 Lidocaine (Xylocaine) 1 applic PRN PRN TOP PAIN Last administered on 01/22/17 06:15; Admin Dose 1 APPLIC; Start 01/17/17 at 18:00 Tamsulosin HCl (Flomax) 0.4 mg HS PO Last administered on 01/22/17 20:55; Admin Dose 0.4 MG; Start 01/21/17 at 21:00 Hydrocortisone (Hydrocortisone 1% Cr) 1 applic BID PRN TOP rashes; Start at 13:00 Finasteride (Proscar) 5 mg DAILY PO Last administered on 01/23/17 09:45; Admin Dose 5 MG; Start 01/22/17 at 09:00 Bethanechol Chloride (Urecholine) 25 mg Q6 PO Last administered on 01/23/17t 06 :46; Admin Dose 25 MG; Start 01/22/17 at 14:30 Assessment/Plan Additional Assessment/Plan Rehab- Left femoral neck fracture status post left hip hemiarthroplasty; History of cerebrovascular accident with residual left-sided weakness. Continue rehab activities Hypertension. Hyperlipidemia. Gastroesophageal reflux disease. Anemia. KIMBERLI CASEY MD January 23, 2017 11:16
--- NOTE | 2017-01-23 13:55 | PN ---
Date/Time of Note Date/Time of Note DATE: 01/23/17 TIME: 13:50 Assessment/Plan Lines/Catheters IV Catheter Type (from Nrsg): Saline Lock Valenzuela in Place (from Nrsg): No Assessment/Plan Assessment/Plan Stable in ARU, s/p left bipolar hemiarthroplasty -pain meds as needed -continue ASA/SCDs for DVT prophylaxis -OOB with PT as tolerated -continue posterior hip precautions -dressing changed today -discharge planning per ARU Subjective 24 Hr Interval Summary Doing well in ARU. Progressing with PT. Pain improving overall. VSS, afebrile. Exam/Review of Systems Vital Signs Vitals Vital Signs Date Time Temp Pulse Resp B/P Pulse Ox O2 Delivery O2 Flow Rate FiO2 01/23/17 07:30 98.0 70 18 105/58 95 01/20/17 08:00 Room Air 01/19/17 12:23 2.0 Intake and Output 01/22/17 01/22/17 01/23/17 15:00 23:00 07:00 Intake Total 1200 ml 360 ml 1210 ml Output Total 650 ml 600 ml Balance 550 ml 360 ml 610 ml Exam Free Text/Dictation Dressing dry Incision clean, dry, and intact without redness or drainage 01/10 Quadriceps, Tibialis Anterior, EHL, Gastroc, Soleus, Peroneals Normal sensation Palpable DT/PT, CR <2 sec No distal edema Results Result Diagram: 01/21/17 1127 01/19/17 0955 DANIA MORRISON PA-C January 23, 2017 13:55
--- NOTE | 2017-01-23 13:56 | CONS ---
Date/Time of Note Date/Time of Note DATE: 01/23/17 TIME: 13:55 Assessment/Plan Assessment/Plan Additional Assessment/Plan Mechanical fall with hip fracture CVA Preserved ejection fraction History of hypertension with labile blood pressure -Blood pressure trend overall improved. We will continue to hold antihypertensives at the current time. Encourage physical therapy with fall precautions. Consultation Date/Type/Reason Admit Date/Time January 16, 2017 at 18:00 Type of Consultation: cv 24 HR Interval Summary Free Text/Dictation Denies shortness of breath, chest pain, dizziness with physical therapy Exam/Review of Systems Vital Signs Vitals Vital Signs Date Time Temp Pulse Resp B/P Pulse Ox O2 Delivery O2 Flow Rate FiO2 01/23/17 07:30 98.0 70 18 105/58 95 01/20/17 08:00 Room Air 01/19/17 12:23 2.0 Intake and Output 01/22/17 01/22/17 01/23/17 15:00 23:00 07:00 Intake Total 1200 ml 360 ml 1210 ml Output Total 650 ml 600 ml Balance 550 ml 360 ml 610 ml Exam No apparent distress Constitutional: alert, oriented Head: normocephalic Respiratory: other (Coarse breath sounds bilaterally, no wheezing) Cardiovascular: other (S1-S2 heard), regular rate and rhythm Gastrointestinal: bowel sounds, non-tender, soft Extremities: other (No edema) Results Result Diagram: 01/21/17 1127 01/19/17 0955 Medications Medications Current Medications Acetaminophen (Tylenol Tab) 650 mg Q6H PRN PO PAIN LEVEL 1-3 OR FEVER; Start at 19:00 Aspirin (Ecotrin) 325 mg BID PO Last administered on 01/23/17 09:46; Admin Dose 325 MG; Start 01/16/17 at 21:00 Atorvastatin Calcium (Lipitor) 80 mg QHS PO Last administered on 01/22/17 20: 55; Admin Dose 80 MG; Start 01/16/17 at 21:00 Bisacodyl (Dulcolax) 5 mg DAILY PRN PO CONSTIPATION Last administered on 09:05; Admin Dose 5 MG; Start 01/16/17 at 19:00 Bisacodyl (Dulcolax Supp) 10 mg Q12H PRN [place] CONSTIPATION Last administered on 11:13; Admin Dose 10 MG; Start 01/16/17 at 19:00 Diphenhydramine HCl (Benadryl) 25 mg Q6H PRN PO PRURITUS; Start 01/16/17 at 19: 00 Docusate Sodium (Colace) 100 mg BID PO Last administered on 01/23/17 09:46; Admin Dose 100 MG; Start 01/16/17 at 21:00 Famotidine (Pepcid) 20 mg Q12 PO Last administered on 01/23/17 09:45; Admin Dose 20 MG; Start 01/16/17 at 21:00 Fluoxetine HCl (Prozac) 40 mg DAILY PO Last administered on 01/23/17 09:45; Admin Dose 40 MG; Start 01/17/17 at 09:00 Acetaminophen/ Hydrocodone Bitart ([place] (5/325)) 1 tab Q4H PRN PO PAIN LEVEL 1 -3 Last administered on 01/21/17 21:57; Admin Dose 1 TAB; Start 01/16/17 at 19: 30 Acetaminophen/ Hydrocodone Bitart ([place] (5/325)) 2 tab Q4H PRN PO PAIN LEVEL 4 -7 Last administered on 01/23/17 09:46; Admin Dose 2 TAB; Start 01/16/17 at 19: 30 Magnesium Hydroxide (Milk Of Mag) 30 ml BID PRN PO CONSTIPATION; Start at 19:30 Sodium Biphosphate/ Sodium Phosphate (Fleet Enema) 133 ml DAILY PRN [place] CONSTIPATION Last administered on 01/18/17 21:56; Admin Dose 133 ML; Start 07/25 at 19:30 Hydromorphone HCl (Dilaudid) 0.5 mg Q6H PRN IV PAIN Last administered on 22:14; Admin Dose 0.5 MG; Start 01/16/17 at 19:30; Status Future Hold Senna (Senokot) 1 tab HS PO Last administered on 01/22/17 20:55; Admin Dose 1 TAB; Start 01/16/17 at 22:00 Lactulose (Enulose) 20 gm DAILY PRN PO CONSTIPATION Last administered on 11:13; Admin Dose 20 GM; Start 01/16/17 at 22:00 Lidocaine (Xylocaine) 1 applic PRN PRN TOP PAIN Last administered on 01/22/17 06:15; Admin Dose 1 APPLIC; Start 01/17/17 at 18:00 Tamsulosin HCl (Flomax) 0.4 mg HS PO Last administered on 01/22/17 20:55; Admin Dose 0.4 MG; Start 01/21/17 at 21:00 Hydrocortisone (Hydrocortisone 1% Cr) 1 applic BID PRN TOP rashes; Start at 13:00 Finasteride (Proscar) 5 mg DAILY PO Last administered on 01/23/17 09:45; Admin Dose 5 MG; Start 01/22/17 at 09:00 Bethanechol Chloride (Urecholine) 25 mg Q6 PO Last administered on 01/23/17 06 :46; Admin Dose 25 MG; Start 01/22/17 at 14:30 Thor Munguia DO January 23, 2017 13:56
--- NOTE | 2017-01-23 18:20 | PN ---
Date/Time of Note Date/Time of Note DATE: 01/23/17 TIME: 18:18 Assessment/Plan VTE Prophylaxis VTE Prophylaxis Intervention: heparin Lines/Catheters IV [facility] Saline Lock Urinary Cath still in place: No Assessment/Plan Problems: (1) BPH (benign prostatic hypertrophy) with urinary retention Status: Chronic Comment: Part of this is bladder spasticity but he also has significant BPH. He is starting to improve. I would increase his alpha blockade to see if this will help with the whole process. (2) Onychomycosis Status: Chronic Comment: Completing pulse therapy (3) Hyperlipidemia Status: Chronic Comment: Stable on statin therapy Qualifiers: Hyperlipidemia type: pure hypercholesterolemia Qualified Code: E78.00 - Pure hypercholesterolemia (4) Essential (primary) hypertension Status: Chronic Comment: Adequate control (5) Diastolic dysfunction Status: Chronic Comment: Stable on medication Assessment/Plan Status post ORIF of hip fracture. He is progressing very slowly. He will need some encouragement to get along as this will be a major determinant of his overall long-term life prognosis Subjective 24 Hr Interval Summary Free Text/Dictation Patient reports that he thinks he is catching up with his urination. He offers no other complaints. Constitutional: no complaints (Denies fevers chills or sweats) Respiratory: no complaints Cardiovascular: no complaints Gastrointestinal: no complaints Genitourinary: no complaints Exam/Review of Systems Vital Signs Vitals Vital Signs Date Time Temp Pulse Resp B/P Pulse Ox O2 Delivery O2 Flow Rate FiO2 01/23/17 07:30 98.0 70 18 105/58 95 01/20/17 08:00 Room Air 01/19/17 12:23 2.0 Intake and Output 01/22/17 01/22/17 01/23/17 15:00 23:00 07:00 Intake Total 1200 ml 360 ml 1210 ml Output Total 650 ml 600 ml Balance 550 ml 360 ml 610 ml Exam Constitutional: alert, oriented Neck: non-tender, supple Respiratory: clear to auscultation, normal air movement Cardiovascular: nl pulses, regular rate and rhythm Gastrointestinal: nl liver, spleen, non-tender, soft Results Result Diagram: 01/21/17 1127 01/19/17 0955 Medications Medications Current Medications Acetaminophen (Tylenol Tab) 650 mg Q6H PRN PO PAIN LEVEL 1-3 OR FEVER; Start at 19:00 Aspirin (Ecotrin) 325 mg BID PO Last administered on 01/23/17 09:46; Admin Dose 325 MG; Start 01/16/17 at 21:00 Atorvastatin Calcium (Lipitor) 80 mg QHS PO Last administered on 01/22/17 20: 55; Admin Dose 80 MG; Start 01/16/17 at 21:00 Bisacodyl (Dulcolax) 5 mg DAILY PRN PO CONSTIPATION Last administered on 09:05; Admin Dose 5 MG; Start 01/16/17 at 19:00 Bisacodyl (Dulcolax Supp) 10 mg Q12H PRN [place] CONSTIPATION Last administered on 11:13; Admin Dose 10 MG; Start 01/16/17 at 19:00 Diphenhydramine HCl (Benadryl) 25 mg Q6H PRN PO PRURITUS; Start 01/16/17 at 19: 00 Docusate Sodium (Colace) 100 mg BID PO Last administered on 01/23/17 09:46; Admin Dose 100 MG; Start 01/16/17 at 21:00 Famotidine (Pepcid) 20 mg Q12 PO Last administered on 01/23/17 09:45; Admin Dose 20 MG; Start 01/16/17 at 21:00 Fluoxetine HCl (Prozac) 40 mg DAILY PO Last administered on 01/23/17 09:45; Admin Dose 40 MG; Start 01/17/17 at 09:00 Acetaminophen/ Hydrocodone Bitart ([place] (5/325)) 1 tab Q4H PRN PO PAIN LEVEL 1 -3 Last administered on 01/21/17 21:57; Admin Dose 1 TAB; Start 01/16/17 at 19: 30 Acetaminophen/ Hydrocodone Bitart ([place] (5/325)) 2 tab Q4H PRN PO PAIN LEVEL 4 -7 Last administered on 01/23/17 09:46; Admin Dose 2 TAB; Start 01/16/17 at 19: 30 Magnesium Hydroxide (Milk Of Mag) 30 ml BID PRN PO CONSTIPATION; Start at 19:30 Sodium Biphosphate/ Sodium Phosphate (Fleet Enema) 133 ml DAILY PRN [place] CONSTIPATION Last administered on 01/18/17 21:56; Admin Dose 133 ML; Start 07/25 at 19:30 Hydromorphone HCl (Dilaudid) 0.5 mg Q6H PRN IV PAIN Last administered on 22:14; Admin Dose 0.5 MG; Start 01/16/17 at 19:30; Status Future Hold Senna (Senokot) 1 tab HS PO Last administered on 01/22/17 20:55; Admin Dose 1 TAB; Start 01/16/17 at 22:00 Lactulose (Enulose) 20 gm DAILY PRN PO CONSTIPATION Last administered on 11:13; Admin Dose 20 GM; Start 01/16/17 at 22:00 Lidocaine (Xylocaine) 1 applic PRN PRN TOP PAIN Last administered on 01/22/17 06:15; Admin Dose 1 APPLIC; Start 01/17/17 at 18:00 Hydrocortisone (Hydrocortisone 1% Cr) 1 applic BID PRN TOP rashes; Start at 13:00 Finasteride (Proscar) 5 mg DAILY PO Last administered on 01/23/17 09:45; Admin Dose 5 MG; Start 01/22/17 at 09:00 Bethanechol Chloride (Urecholine) 25 mg Q6 PO Last administered on 01/23/17 15 :46; Admin Dose 25 MG; Start 01/22/17 at 14:30 Tamsulosin HCl (Flomax) 0.8 mg HS PO ; Start 01/23/17 at 21:00 MURIEL LÓPEZ MD January 23, 2017 18:20
[2017-01-23 20:00] VITALS: BP 97/56; RESP 20
[2017-01-23] MEDS: ATORVASTATIN 80 MG TAB PO SCH (20:08)
[2017-01-23] MEDS: TAMSULOSIN (SR) 0.4 MG CAP PO SCH (20:11)
[2017-01-23] MEDS: ACETAMINOPHEN 325 MG TAB PO PRN (20:14)
[2017-01-23] MEDS: SENNA TAB PO SCH (20:14)
[2017-01-24] MEDS: BETHANECHOL 25 MG TAB PO SCH ×4 (00:15→17:41)
[2017-01-24 07:41] VITALS: BP 117/62; RESP 18
[2017-01-24] MEDS: FAMOTIDINE 20 MG TAB PO SCH ×2 (08:30→20:32)
[2017-01-24] MEDS: DOCUSATE SODIUM 100 MG CAP PO SCH ×2 (08:30→20:32)
[2017-01-24] MEDS: FLUOXETINE 20 MG CAP PO SCH (08:31)
[2017-01-24] MEDS: HYDROCODONE/APAP (5/325) TAB PO PRN ×2 (08:31→17:42)
[2017-01-24] MEDS: FINASTERIDE 5 MG TAB PO SCH (08:31)
[2017-01-24] MEDS: ASPIRIN (EC) 325 MG TAB PO SCH ×2 (08:31→20:32)
--- NOTE | 2017-01-24 10:10 | CONS ---
Date/Time of Note Date/Time of Note DATE: 01/24/17 TIME: 10:08 Assessment/Plan Assessment/Plan Additional Assessment/Plan Mechanical fall with hip fracture CVA Preserved ejection fraction History of hypertension with labile blood pressure Possible urinary retention -Blood pressure trend overall stable. Would monitor trend and for any symptoms of hypotension given increased dose of Flomax. Encourage physical therapy with fall precautions. Consultation Date/Type/Reason Admit Date/Time January 16, 2017 at 18:00 Type of Consultation: cv 24 HR Interval Summary Free Text/Dictation Denies shortness of breath, chest pain or dizziness Exam/Review of Systems Vital Signs Vitals Vital Signs Date Time Temp Pulse Resp B/P Pulse Ox O2 Delivery O2 Flow Rate FiO2 01/24/17 07:41 97.6 65 18 117/62 97 01/20/17 08:00 Room Air Intake and Output 01/23/17 01/23/17 01/24/17 15:00 23:00 07:00 Intake Total 640 ml 250 ml Output Total 700 ml 1400 ml Balance -60 ml -1150 ml Exam No apparent distress, undergoing physical therapy Constitutional: alert, oriented Head: normocephalic Respiratory: other (Coarse breath sounds bilaterally, no wheezing) Cardiovascular: other (S1-S2 heard), regular rate and rhythm Gastrointestinal: bowel sounds, non-tender, soft Extremities: other (Trace edema) Results Result Diagram: 01/21/17 1127 Medications Medications Current Medications Acetaminophen (Tylenol Tab) 650 mg Q6H PRN PO PAIN LEVEL 1-3 OR FEVER Last administered on 01/23/17 20:14; Admin Dose 650 MG; Start 01/16/17 at 19:00 Aspirin (Ecotrin) 325 mg BID PO Last administered on 01/24/17 08:31; Admin Dose 325 MG; Start 01/16/17 at 21:00 Atorvastatin Calcium (Lipitor) 80 mg QHS PO Last administered on 01/23/17 20: 08; Admin Dose 80 MG; Start 01/16/17 at 21:00 Bisacodyl (Dulcolax) 5 mg DAILY PRN PO CONSTIPATION Last administered on 09:05; Admin Dose 5 MG; Start 01/16/17 at 19:00 Bisacodyl (Dulcolax Supp) 10 mg Q12H PRN [place] CONSTIPATION Last administered on 11:13; Admin Dose 10 MG; Start 01/16/17 at 19:00 Diphenhydramine HCl (Benadryl) 25 mg Q6H PRN PO PRURITUS; Start 01/16/17 at 19: 00 Docusate Sodium (Colace) 100 mg BID PO Last administered on 01/24/17 08:30; Admin Dose 100 MG; Start 01/16/17 at 21:00 Famotidine (Pepcid) 20 mg Q12 PO Last administered on 01/24/17 08:30; Admin Dose 20 MG; Start 01/16/17 at 21:00 Fluoxetine HCl (Prozac) 40 mg DAILY PO Last administered on 01/24/17 08:31; Admin Dose 40 MG; Start 01/17/17 at 09:00 Acetaminophen/ Hydrocodone Bitart ([place] (5/325)) 1 tab Q4H PRN PO PAIN LEVEL 1 -3 Last administered on 01/21/17 21:57; Admin Dose 1 TAB; Start 01/16/17 at 19: 30 Acetaminophen/ Hydrocodone Bitart ([place] (5/325)) 2 tab Q4H PRN PO PAIN LEVEL 4 -7 Last administered on 01/24/17 08:31; Admin Dose 2 TAB; Start 01/16/17 at 19: 30 Magnesium Hydroxide (Milk Of Mag) 30 ml BID PRN PO CONSTIPATION; Start at 19:30 Sodium Biphosphate/ Sodium Phosphate (Fleet Enema) 133 ml DAILY PRN [place] CONSTIPATION Last administered on 01/18/17 21:56; Admin Dose 133 ML; Start 07/25 at 19:30 Hydromorphone HCl (Dilaudid) 0.5 mg Q6H PRN IV PAIN Last administered on 22:14; Admin Dose 0.5 MG; Start 01/16/17 at 19:30; Status Future Hold Senna (Senokot) 1 tab HS PO Last administered on 01/22/17 20:55; Admin Dose 1 TAB; Start 01/16/17 at 22:00 Lactulose (Enulose) 20 gm DAILY PRN PO CONSTIPATION Last administered on 11:13; Admin Dose 20 GM; Start 01/16/17 at 22:00 Lidocaine (Xylocaine) 1 applic PRN PRN TOP PAIN Last administered on 01/22/17 06:15; Admin Dose 1 APPLIC; Start 01/17/17 at 18:00 Hydrocortisone (Hydrocortisone 1% Cr) 1 applic BID PRN TOP rashes; Start at 13:00 Finasteride (Proscar) 5 mg DAILY PO Last administered on 01/24/17 08:31; Admin Dose 5 MG; Start 01/22/17 at 09:00 Bethanechol Chloride (Urecholine) 25 mg Q6 PO Last administered on 01/24/17 06 :11; Admin Dose 25 MG; Start 01/22/17 at 14:30 Tamsulosin HCl (Flomax) 0.8 mg HS PO Last administered on 01/23/17 20:11; Admin Dose 0.8 MG; Start 01/23/17 at 21:00 Thor Munguia DO January 24, 2017 10:10
--- NOTE | 2017-01-24 11:09 | PN ---
Date/Time of Note Date/Time of Note DATE: 01/24/17 TIME: 11:04 Assessment/Plan VTE Prophylaxis VTE Prophylaxis Intervention: other (ASA) Lines/Catheters IV Catheter Type (from Nrsg): Saline Lock Urinary Cath still in place: No Assessment/Plan Assessment/Plan 1. Status post mechanical fall with displaced left femoral neck fracture, status post left hip hemiarthroplasty. With impaired mobility/gait/ADLs. Min assist bed mobility for supine to sit. 2. Acute postoperative pain. Controlled. Continue pain regimen. 3. History of cerebrovascular accident with residual left-sided weakness. Continue secondary stroke prevention. 4. Hypertension.Continue to monitor BP. Off hypertensive medications. Cardiology and internal medicine following. 5. Hyperlipidemia. Continue Statin. 6. Gastroesophageal reflux disease. On pepcid. 7. Anemia. Hemoglobin/hematocrit stable on last labs, monitor. 8. Urinary retention. Managed per urology. Continue to monitor PVRs, I/O cath as needed. Subjective 24 Hr Interval Summary Free Text/Dictation Rehab progress note Subjective: No new complaints. Overall reports hip pain improving. ROS: Denies chest pain, no shortness of breath, no abdominal pain, no nausea or vomiting, no chills. Exam/Review of Systems Vital Signs Vitals Vital Signs Date Time Temp Pulse Resp B/P Pulse Ox O2 Delivery O2 Flow Rate FiO2 01/24/17 07:41 97.6 65 18 117/62 97 01/20/17 08:00 Room Air Intake and Output 01/23/17 01/23/17 01/24/17 15:00 23:00 07:00 Intake Total 640 ml 250 ml Output Total 700 ml 1400 ml Balance -60 ml -1150 ml Exam General: Awake, alert, no acute distress CV: Regular rate, s1s2 Lungs: Respirations are nonlabored, no wheezing Abdomen soft, nontender Extremities without cyanosis, no new swelling Neuro: No new focal changes. Follows simple commands. Results Result Diagram: 01/21/17 1127 Medications Medications Current Medications Acetaminophen (Tylenol Tab) 650 mg Q6H PRN PO PAIN LEVEL 1-3 OR FEVER Last administered on 01/23/17 20:14; Admin Dose 650 MG; Start 01/16/17 at 19:00 Aspirin (Ecotrin) 325 mg BID PO Last administered on 01/24/17 08:31; Admin Dose 325 MG; Start 01/16/17 at 21:00 Atorvastatin Calcium (Lipitor) 80 mg QHS PO Last administered on 01/23/17 20: 08; Admin Dose 80 MG; Start 01/16/17 at 21:00 Bisacodyl (Dulcolax) 5 mg DAILY PRN PO CONSTIPATION Last administered on 09:05; Admin Dose 5 MG; Start 01/16/17 at 19:00 Bisacodyl (Dulcolax Supp) 10 mg Q12H PRN [place] CONSTIPATION Last administered on 11:13; Admin Dose 10 MG; Start 01/16/17 at 19:00 Diphenhydramine HCl (Benadryl) 25 mg Q6H PRN PO PRURITUS; Start 01/16/17 at 19: 00 Docusate Sodium (Colace) 100 mg BID PO Last administered on 01/24/17 08:30; Admin Dose 100 MG; Start 01/16/17 at 21:00 Famotidine (Pepcid) 20 mg Q12 PO Last administered on 01/24/17 08:30; Admin Dose 20 MG; Start 01/16/17 at 21:00 Fluoxetine HCl (Prozac) 40 mg DAILY PO Last administered on 01/24/17 08:31; Admin Dose 40 MG; Start 01/17/17 at 09:00 Acetaminophen/ Hydrocodone Bitart ([place] (5/325)) 1 tab Q4H PRN PO PAIN LEVEL 1 -3 Last administered on 01/21/17 21:57; Admin Dose 1 TAB; Start 01/16/17 at 19: 30 Acetaminophen/ Hydrocodone Bitart ([place] (5/325)) 2 tab Q4H PRN PO PAIN LEVEL 4 -7 Last administered on 01/24/17 08:31; Admin Dose 2 TAB; Start 01/16/17 at 19: 30 Magnesium Hydroxide (Milk Of Mag) 30 ml BID PRN PO CONSTIPATION; Start at 19:30 Sodium Biphosphate/ Sodium Phosphate (Fleet Enema) 133 ml DAILY PRN [place] CONSTIPATION Last administered on 01/18/17 21:56; Admin Dose 133 ML; Start 07/25 at 19:30 Hydromorphone HCl (Dilaudid) 0.5 mg Q6H PRN IV PAIN Last administered on 22:14; Admin Dose 0.5 MG; Start 01/16/17 at 19:30; Status Future Hold Senna (Senokot) 1 tab HS PO Last administered on 01/22/17 20:55; Admin Dose 1 TAB; Start 01/16/17 at 22:00 Lactulose (Enulose) 20 gm DAILY PRN PO CONSTIPATION Last administered on 11:13; Admin Dose 20 GM; Start 01/16/17 at 22:00 Lidocaine (Xylocaine) 1 applic PRN PRN TOP PAIN Last administered on 01/22/17 06:15; Admin Dose 1 APPLIC; Start 01/17/17 at 18:00 Hydrocortisone (Hydrocortisone 1% Cr) 1 applic BID PRN TOP rashes; Start at 13:00 Finasteride (Proscar) 5 mg DAILY PO Last administered on 01/24/17 08:31; Admin Dose 5 MG; Start 01/22/17 at 09:00 Bethanechol Chloride (Urecholine) 25 mg Q6 PO Last administered on 01/24/17 06 :11; Admin Dose 25 MG; Start 01/22/17 at 14:30 Tamsulosin HCl (Flomax) 0.8 mg HS PO Last administered on 01/23/17 20:11; Admin Dose 0.8 MG; Start 01/23/17 at 21:00 IGNACIO DUKES January 24, 2017 11:09
--- NOTE | 2017-01-24 17:36 | PN ---
Date/Time of Note Date/Time of Note DATE: 01/24/17 TIME: 17:34 Assessment/Plan VTE Prophylaxis VTE Prophylaxis Intervention: heparin Lines/Catheters IV [facility]from [facility] Saline Lock Urinary Cath still in place: No Assessment/Plan Problems: (1) Status post type I or II open fracture of left hip Status: Acute Comment: To continue post therapy to get the patient up and around. (2) BPH (benign prostatic hypertrophy) with urinary retention Status: Chronic Comment: His postvoid residuals are reduced with treatment of BPH in the usage of Urecholine. Continue with this and try and get him to be more adept (3) Essential (primary) hypertension Status: Chronic Comment: Well-controlled (4) Diastolic dysfunction Status: Chronic Comment: Stable (5) Hyperlipidemia Status: Chronic Comment: Controlled on therapy Qualifiers: Hyperlipidemia type: pure hypercholesterolemia Qualified Code: E78.00 - Pure hypercholesterolemia Subjective 24 Hr Interval Summary Free Text/Dictation Patient remains somewhat bedbound. He does get up and around with physical therapy to limited extent Constitutional: no complaints ENT: no complaints Respiratory: no complaints Cardiovascular: no complaints Exam/Review of Systems Vital Signs Vitals Vital Signs Date Time Temp Pulse Resp B/P Pulse Ox O2 Delivery O2 Flow Rate FiO2 01/24/17 07:41 97.6 65 18 117/62 97 01/20/17 08:00 Room Air Intake and Output 01/23/17 01/23/17 01/24/17 15:00 23:00 07:00 Intake Total 640 ml 250 ml Output Total 700 ml 1400 ml Balance -60 ml -1150 ml Exam Constitutional: alert, oriented Respiratory: clear to auscultation, normal air movement Cardiovascular: nl pulses, regular rate and rhythm Results Result Diagram: 01/21/17 1127 Medications Medications Current Medications Acetaminophen (Tylenol Tab) 650 mg Q6H PRN PO PAIN LEVEL 1-3 OR FEVER Last administered on 01/23/17 20:14; Admin Dose 650 MG; Start 01/16/17 at 19:00 Aspirin (Ecotrin) 325 mg BID PO Last administered on 01/24/17 08:31; Admin Dose 325 MG; Start 01/16/17 at 21:00 Atorvastatin Calcium (Lipitor) 80 mg QHS PO Last administered on 01/23/17 20: 08; Admin Dose 80 MG; Start 01/16/17 at 21:00 Bisacodyl (Dulcolax) 5 mg DAILY PRN PO CONSTIPATION Last administered on 09:05; Admin Dose 5 MG; Start 01/16/17 at 19:00 Bisacodyl (Dulcolax Supp) [address] [place] CONSTIPATION Last administered on 11:13; Admin Dose 10 MG; Start 01/16/17 at 19:00 Diphenhydramine HCl (Benadryl) 25 mg Q6H PRN PO PRURITUS; Start 01/16/17 at 19: 00 Docusate Sodium (Colace) 100 mg BID PO Last administered on 01/24/17 08:30; Admin Dose 100 MG; Start 01/16/17 at 21:00 Famotidine (Pepcid) 20 mg Q12 PO Last administered on 01/24/17 08:30; Admin Dose 20 MG; Start 01/16/17 at 21:00 Fluoxetine HCl (Prozac) 40 mg DAILY PO Last administered on 01/24/17 08:31; Admin Dose 40 MG; Start 01/17/17 at 09:00 Acetaminophen/ Hydrocodone Bitart ([place] (5/325)) 1 tab Q4H PRN PO PAIN LEVEL 1 -3 Last administered on 01/21/17 21:57; Admin Dose 1 TAB; Start 01/16/17 at 19: 30 Acetaminophen/ Hydrocodone Bitart ([place] (5/325)) 2 tab Q4H PRN PO PAIN LEVEL 4 -7 Last administered on 01/24/17 08:31; Admin Dose 2 TAB; Start 01/16/17 at 19: 30 Magnesium Hydroxide (Milk Of Mag) 30 ml BID PRN PO CONSTIPATION; Start at 19:30 Sodium Biphosphate/ Sodium Phosphate (Fleet Enema) [address] CONSTIPATION Last administered on 01/18/17 21:56; Admin Dose 133 ML; Start 07/25 at 19:30 Hydromorphone HCl (Dilaudid) 0.5 mg Q6H PRN IV PAIN Last administered on 22:14; Admin Dose 0.5 MG; Start 01/16/17 at 19:30; Status Future Hold Senna (Senokot) 1 tab HS PO Last administered on 01/22/17 20:55; Admin Dose 1 TAB; Start 01/16/17 at 22:00 Lactulose (Enulose) 20 gm DAILY PRN PO CONSTIPATION Last administered on 11:13; Admin Dose 20 GM; Start 01/16/17 at 22:00 Lidocaine (Xylocaine) 1 applic PRN PRN TOP PAIN Last administered on 01/22/17 06:15; Admin Dose 1 APPLIC; Start 01/17/17 at 18:00 Hydrocortisone (Hydrocortisone 1% Cr) 1 applic BID PRN TOP rashes; Start at 13:00 Finasteride (Proscar) 5 mg DAILY PO Last administered on 01/24/17 08:31; Admin Dose 5 MG; Start 01/22/17 at 09:00 Bethanechol Chloride (Urecholine) 25 mg Q6 PO Last administered on 01/24/17 12 :28; Admin Dose 25 MG; Start 01/22/17 at 14:30 Tamsulosin HCl (Flomax) 0.8 mg HS PO Last administered on 01/23/17 20:11; Admin Dose 0.8 MG; Start 01/23/17 at 21:00 MURIEL LÓPEZ MD January 24, 2017 17:36
[2017-01-24 20:00] VITALS: BP 107/58; RESP 18
[2017-01-24] MEDS: ATORVASTATIN 80 MG TAB PO SCH (20:32)
[2017-01-24] MEDS: SENNA TAB PO SCH (20:32)
[2017-01-24] MEDS: TAMSULOSIN (SR) 0.4 MG CAP PO SCH (20:32)
[2017-01-25] MEDS: BETHANECHOL 25 MG TAB PO SCH ×4 (00:56→17:31)
[2017-01-25 07:30] VITALS: BP 123/69; RESP 18
[2017-01-25] MEDS: DOCUSATE SODIUM 100 MG CAP PO SCH ×2 (08:31→20:51)
[2017-01-25] MEDS: ASPIRIN (EC) 325 MG TAB PO SCH ×2 (08:31→20:51)
[2017-01-25] MEDS: FLUOXETINE 20 MG CAP PO SCH (08:32)
[2017-01-25] MEDS: FAMOTIDINE 20 MG TAB PO SCH ×2 (08:32→20:52)
[2017-01-25] MEDS: FINASTERIDE 5 MG TAB PO SCH (08:32)
[2017-01-25] MEDS: HYDROCODONE/APAP (5/325) TAB PO PRN (12:29)
--- NOTE | 2017-01-25 12:58 | PN ---
Date/Time of Note Date/Time of Note DATE: 01/25/17 TIME: 12:50 Assessment/Plan VTE Prophylaxis VTE Prophylaxis Intervention: other (ASA) Lines/Catheters IV Catheter Type (from Nrsg): Saline Lock Urinary Cath still in place: No Assessment/Plan Assessment/Plan 1. Status post mechanical fall with displaced left femoral neck fracture, status post left hip hemiarthroplasty. With impaired mobility/gait/ADLs. Mod assist for transfers, mod assist x2 for gait 15ft with FWW. 2. Acute postoperative pain. Controlled on prn norco. 3. History of cerebrovascular accident with residual left-sided weakness. Continue secondary stroke prevention. 4. History of hypertension. Off hypertensive medications. Continue to monitor BP. Cardiology and internal medicine following. 5. Hyperlipidemia. Continue Statin. 6. GERD. On pepcid. 7. Anemia. Continue to monitor hemoglobin/hematocrit. 8. BPH with Urinary retention. Continue management per urology. Continue bladder program. Continue to monitor PVRs, I/O cath as needed. Subjective 24 Hr Interval Summary Free Text/Dictation Rehab progress note Subjective: Minimal pain currently in left hip. ROS: Denies chest pain, no shortness of breath, no abdominal pain, no nausea, no vomiting, no chills. Denies constipation. Exam/Review of Systems Vital Signs Vitals Vital Signs Date Time Temp Pulse Resp B/P Pulse Ox O2 Delivery O2 Flow Rate FiO2 01/25/17 07:30 98.4 67 18 123/69 96 Intake and Output 01/24/17 01/24/17 01/25/17 15:00 23:00 07:00 Intake Total 1200 ml 600 ml Output Total 200 ml 300 ml Balance 1000 ml 300 ml Exam General: Awake, alert, no acute distress CV: Regular rate, s1s2 audible Lungs: Symmetrical air entry bilaterally, no wheezing or crackles Abdomen soft, nontender, +bowel sounds Extremities without cyanosis, no new swelling Neuro: No new focal changes. Follows simple commands. Results Result Diagram: 01/21/17 1127 Medications Medications Current Medications Acetaminophen (Tylenol Tab) 650 mg Q6H PRN PO PAIN LEVEL 1-3 OR FEVER Last administered on 01/23/17 20:14; Admin Dose 650 MG; Start 01/16/17 at 19:00 Aspirin (Ecotrin) 325 mg BID PO Last administered on 01/25/17 08:31; Admin Dose 325 MG; Start 01/16/17 at 21:00 Atorvastatin Calcium (Lipitor) 80 mg QHS PO Last administered on 01/24/17 20: 32; Admin Dose 80 MG; Start 01/16/17 at 21:00 Bisacodyl (Dulcolax) 5 mg DAILY PRN PO CONSTIPATION Last administered on 09:05; Admin Dose 5 MG; Start 01/16/17 at 19:00 Bisacodyl (Dulcolax Supp) 10 mg Q12H PRN [place] CONSTIPATION Last administered on 11:13; Admin Dose 10 MG; Start 01/16/17 at 19:00 Diphenhydramine HCl (Benadryl) 25 mg Q6H PRN PO PRURITUS; Start 01/16/17 at 19: 00 Docusate Sodium (Colace) 100 mg BID PO Last administered on 01/25/17 08:31; Admin Dose 100 MG; Start 01/16/17 at 21:00 Famotidine (Pepcid) 20 mg Q12 PO Last administered on 01/25/17 08:32; Admin Dose 20 MG; Start 01/16/17 at 21:00 Fluoxetine HCl (Prozac) 40 mg DAILY PO Last administered on 01/25/17 08:32; Admin Dose 40 MG; Start 01/17/17 at 09:00 Acetaminophen/ Hydrocodone Bitart ([place] (5/325)) 1 tab Q4H PRN PO PAIN LEVEL 1 -3 Last administered on 01/25/17 12:29; Admin Dose 1 TAB; Start 01/16/17 at 19: 30 Acetaminophen/ Hydrocodone Bitart ([place] (5/325)) 2 tab Q4H PRN PO PAIN LEVEL 4 -7 Last administered on 01/24/17 08:31; Admin Dose 2 TAB; Start 01/16/17 at 19: 30 Magnesium Hydroxide (Milk Of Mag) 30 ml BID PRN PO CONSTIPATION; Start at 19:30 Sodium Biphosphate/ Sodium Phosphate (Fleet Enema) 133 ml DAILY PRN [place] CONSTIPATION Last administered on 01/18/17 21:56; Admin Dose 133 ML; Start 07/25 at 19:30 Hydromorphone HCl (Dilaudid) 0.5 mg Q6H PRN IV PAIN Last administered on 22:14; Admin Dose 0.5 MG; Start 01/16/17 at 19:30; Status Future Hold Senna (Senokot) 1 tab HS PO Last administered on 01/24/17 20:32; Admin Dose 1 TAB; Start 01/16/17 at 22:00 Lactulose (Enulose) 20 gm DAILY PRN PO CONSTIPATION Last administered on 11:13; Admin Dose 20 GM; Start 01/16/17 at 22:00 Lidocaine (Xylocaine) 1 applic PRN PRN TOP PAIN Last administered on 01/22/17 06:15; Admin Dose 1 APPLIC; Start 01/17/17 at 18:00 Hydrocortisone (Hydrocortisone 1% Cr) 1 applic BID PRN TOP rashes; Start at 13:00 Finasteride (Proscar) 5 mg DAILY PO Last administered on 01/25/17 08:32; Admin Dose 5 MG; Start 01/22/17 at 09:00 Bethanechol Chloride (Urecholine) 25 mg Q6 PO Last administered on 01/25/17 12 :25; Admin Dose 25 MG; Start 01/22/17 at 14:30 Tamsulosin HCl (Flomax) 0.8 mg HS PO Last administered on 01/24/17 20:32; Admin Dose 0.8 MG; Start 01/23/17 at 21:00 IGNACIO DUKES January 25, 2017 12:57
--- NOTE | 2017-01-25 13:39 | PN ---
Date/Time of Note Date/Time of Note DATE: 01/25/17 TIME: 13:37 Assessment/Plan VTE Prophylaxis VTE Prophylaxis Intervention: heparin Lines/Catheters IV [facility] Type [facility] Saline Lock Urinary Cath still in place: No Assessment/Plan Problems: (1) Hyperlipidemia Status: Chronic Comment: Remains on statin therapy. There is no evidence of untoward medication side effects Qualifiers: Hyperlipidemia type: pure hypercholesterolemia Qualified Code: E78.00 - Pure hypercholesterolemia (2) Diastolic dysfunction Status: Chronic Comment: Stable (3) Essential (primary) hypertension Status: Chronic Comment: Well-controlled on current regimen (4) Status post type I or II open fracture of left hip Status: Acute Comment: Postop and going through rehabilitation but progressing slowly (5) BPH (benign prostatic hypertrophy) with urinary retention Status: Chronic Comment: Effective therapy although just barely. Continue with this. As he gets more active and upright I expect we will actually see him do better Subjective 24 Hr Interval Summary Free Text/Dictation Patient reports that from his perspective he is able to urinate without significant difficulties Constitutional: no complaints Respiratory: no complaints Cardiovascular: no complaints Gastrointestinal: no complaints Exam/Review of Systems Vital Signs Vitals Vital Signs Date Time Temp Pulse Resp B/P Pulse Ox O2 Delivery O2 Flow Rate FiO2 01/25/17 07:30 98.4 67 18 123/69 96 Intake and Output 01/24/17 01/24/17 01/25/17 15:00 23:00 07:00 Intake Total 1200 ml 600 ml Output Total 200 ml 300 ml Balance 1000 ml 300 ml Exam Constitutional: alert, oriented Neck: non-tender, supple Respiratory: clear to auscultation, normal air movement Cardiovascular: nl pulses, regular rate and rhythm Results Result Diagram: 01/21/17 1127 Medications Medications Current Medications Acetaminophen (Tylenol Tab) 650 mg Q6H PRN PO PAIN LEVEL 1-3 OR FEVER Last administered on 01/23/17 20:14; Admin Dose 650 MG; Start 01/16/17 at 19:00 Aspirin (Ecotrin) 325 mg BID PO Last administered on 01/25/17 08:31; Admin Dose 325 MG; Start 01/16/17 at 21:00 Atorvastatin Calcium (Lipitor) 80 mg QHS PO Last administered on 01/24/17 20: 32; Admin Dose 80 MG; Start 01/16/17 at 21:00 Bisacodyl (Dulcolax) 5 mg DAILY PRN PO CONSTIPATION Last administered on 09:05; Admin Dose 5 MG; Start 01/16/17 at 19:00 Bisacodyl (Dulcolax Supp) 10 mg Q12H PRN [place] CONSTIPATION Last administered on 11:13; Admin Dose 10 MG; Start 01/16/17 at 19:00 Diphenhydramine HCl (Benadryl) 25 mg Q6H PRN PO PRURITUS; Start 01/16/17 at 19: 00 Docusate Sodium (Colace) 100 mg BID PO Last administered on 01/25/17 08:31; Admin Dose 100 MG; Start 01/16/17 at 21:00 Famotidine (Pepcid) 20 mg Q12 PO Last administered on 01/25/17 08:32; Admin Dose 20 MG; Start 01/16/17 at 21:00 Fluoxetine HCl (Prozac) 40 mg DAILY PO Last administered on 01/25/17 08:32; Admin Dose 40 MG; Start 01/17/17 at 09:00 Acetaminophen/ Hydrocodone Bitart ([place] (5/325)) 1 tab Q4H PRN PO PAIN LEVEL 1 -3 Last administered on 01/25/17 12:29; Admin Dose 1 TAB; Start 01/16/17 at 19: 30 Acetaminophen/ Hydrocodone Bitart ([place] (5/325)) 2 tab Q4H PRN PO PAIN LEVEL 4 -7 Last administered on 01/24/17 08:31; Admin Dose 2 TAB; Start 01/16/17 at 19: 30 Magnesium Hydroxide (Milk Of Mag) 30 ml BID PRN PO CONSTIPATION; Start at 19:30 Sodium Biphosphate/ Sodium Phosphate (Fleet Enema) 133 ml DAILY PRN [place] CONSTIPATION Last administered on 01/18/17 21:56; Admin Dose 133 ML; Start 07/25 at 19:30 Hydromorphone HCl (Dilaudid) 0.5 mg Q6H PRN IV PAIN Last administered on 22:14; Admin Dose 0.5 MG; Start 01/16/17 at 19:30; Status Future Hold Senna (Senokot) 1 tab HS PO Last administered on 01/24/17 20:32; Admin Dose 1 TAB; Start 01/16/17 at 22:00 Lactulose (Enulose) 20 gm DAILY PRN PO CONSTIPATION Last administered on 11:13; Admin Dose 20 GM; Start 01/16/17 at 22:00 Lidocaine (Xylocaine) 1 applic PRN PRN TOP PAIN Last administered on 01/22/17 06:15; Admin Dose 1 APPLIC; Start 01/17/17 at 18:00 Hydrocortisone (Hydrocortisone 1% Cr) 1 applic BID PRN TOP rashes; Start at 13:00 Finasteride (Proscar) 5 mg DAILY PO Last administered on 01/25/17 08:32; Admin Dose 5 MG; Start 01/22/17 at 09:00 Bethanechol Chloride (Urecholine) 25 mg Q6 PO Last administered on 01/25/17 12 :25; Admin Dose 25 MG; Start 01/22/17 at 14:30 Tamsulosin HCl (Flomax) 0.8 mg HS PO Last administered on 01/24/17 20:32; Admin Dose 0.8 MG; Start 01/23/17 at 21:00 MURIEL LÓPEZ MD January 25, 2017 13:39
[2017-01-25 19:38] VITALS: BP 106/58; RESP 19
[2017-01-25] MEDS: TAMSULOSIN (SR) 0.4 MG CAP PO SCH (20:51)
[2017-01-25] MEDS: ATORVASTATIN 80 MG TAB PO SCH (20:51)
[2017-01-25] MEDS: SENNA TAB PO SCH (20:52)
[2017-01-26] MEDS: BETHANECHOL 25 MG TAB PO SCH ×4 (00:33→17:53)
[2017-01-26] MEDS: DOCUSATE SODIUM 100 MG CAP PO SCH ×2 (08:49→21:16)
[2017-01-26] MEDS: ASPIRIN (EC) 325 MG TAB PO SCH ×2 (08:50→21:16)
[2017-01-26] MEDS: FINASTERIDE 5 MG TAB PO SCH (08:50)
[2017-01-26] MEDS: FAMOTIDINE 20 MG TAB PO SCH ×2 (08:50→21:16)
[2017-01-26] MEDS: FLUOXETINE 20 MG CAP PO SCH (08:50)
[2017-01-26] MEDS: HYDROCODONE/APAP (5/325) TAB PO PRN ×2 (09:41→17:57)
--- NOTE | 2017-01-26 10:02 | PN ---
Date/Time of Note Date/Time of Note DATE: 01/26/17 TIME: 10:01 Assessment/Plan VTE Prophylaxis VTE Prophylaxis Intervention: other (ASA) Lines/Catheters IV Catheter Type (from Nrsg): Saline Lock Urinary Cath still in place: No Assessment/Plan Assessment/Plan 1. Status post mechanical fall with displaced left femoral neck fracture, status post left hip hemiarthroplasty. With impaired mobility/gait/ADLs. SPV for grooming. Max assist toileting. 2. Acute postoperative pain. Controlled. Continue pain regimen including prn norco. Cautious use with relative hypotension. 3. History of cerebrovascular accident with residual left-sided weakness. Continue secondary stroke prevention. 4. History of hypertension. Off hypertensive medications. With intermittent hypotension. Cardiology and internal medicine following. 5. Hyperlipidemia. Continue Statin. 6. GERD. Continue pepcid. 7. Anemia. Continue to monitor hemoglobin/hematocrit. Stable on last labs. 8. BPH with Urinary retention. Continue management per urology. Continue to monitor PVRs, I/O cath as needed. Subjective 24 Hr Interval Summary Free Text/Dictation Rehab progress note Subjective: Reports moderate pain now in left hip. Nursing reports no acute overnight events. ROS: Denies chest pain, no shortness of breath, no chills, no abdominal pain, no constipation, no dysuria. Exam/Review of Systems Vital Signs Vitals Vital Signs Date Time Temp Pulse Resp B/P Pulse Ox O2 Delivery O2 Flow Rate FiO2 01/25/17 19:38 98.1 85 19 106/58 96 Intake and Output 01/25/17 01/25/17 01/26/17 15:00 23:00 07:00 Intake Total 920 ml 260 ml Output Total 800 ml 1300 ml Balance 120 ml -1040 ml Exam General: Awake, alert, no acute distress, sitting up in wheelchair CV: Regular rate, s1s2 Lungs: Respirations are nonlabored, no wheezing Abdomen soft, nontender Extremities without cyanosis, no new swelling Neuro: No new focal changes. Follows simple commands. Medications Medications Current Medications Acetaminophen (Tylenol Tab) 650 mg Q6H PRN PO PAIN LEVEL 1-3 OR FEVER Last administered on 01/23/17 20:14; Admin Dose 650 MG; Start 01/16/17 at 19:00 Aspirin (Ecotrin) 325 mg BID PO Last administered on 01/26/17 08:50; Admin Dose 325 MG; Start 01/16/17 at 21:00 Atorvastatin Calcium (Lipitor) 80 mg QHS PO Last administered on 01/25/17 20: 51; Admin Dose 80 MG; Start 01/16/17 at 21:00 Bisacodyl (Dulcolax) 5 mg DAILY PRN PO CONSTIPATION Last administered on 09:05; Admin Dose 5 MG; Start 01/16/17 at 19:00 Bisacodyl (Dulcolax Supp) 10 mg Q12H PRN [place] CONSTIPATION Last administered on 11:13; Admin Dose 10 MG; Start 01/16/17 at 19:00 Diphenhydramine HCl (Benadryl) 25 mg Q6H PRN PO PRURITUS; Start 01/16/17 at 19: 00 Docusate Sodium (Colace) 100 mg BID PO Last administered on 01/26/17 08:49; Admin Dose 100 MG; Start 01/16/17 at 21:00 Famotidine (Pepcid) 20 mg Q12 PO Last administered on 01/26/17 08:50; Admin Dose 20 MG; Start 01/16/17 at 21:00 Fluoxetine HCl (Prozac) 40 mg DAILY PO Last administered on 01/26/17 08:50; Admin Dose 40 MG; Start 01/17/17 at 09:00 Acetaminophen/ Hydrocodone Bitart ([place] (5/325)) 1 tab Q4H PRN PO PAIN LEVEL 1 -3 Last administered on 01/25/17 12:29; Admin Dose 1 TAB; Start 01/16/17 at 19: 30 Acetaminophen/ Hydrocodone Bitart ([place] (5/325)) 2 tab Q4H PRN PO PAIN LEVEL 4 -7 Last administered on 01/26/17 09:41; Admin Dose 2 TAB; Start 01/16/17 at 19: 30 Magnesium Hydroxide (Milk Of Mag) 30 ml BID PRN PO CONSTIPATION; Start at 19:30 Sodium Biphosphate/ Sodium Phosphate (Fleet Enema) 133 ml DAILY PRN [place] CONSTIPATION Last administered on 01/18/17 21:56; Admin Dose 133 ML; Start 07/25 at 19:30 Hydromorphone HCl (Dilaudid) 0.5 mg Q6H PRN IV PAIN Last administered on 22:14; Admin Dose 0.5 MG; Start 01/16/17 at 19:30; Status Future Hold Senna (Senokot) 1 tab HS PO Last administered on 01/25/17 20:52; Admin Dose 1 TAB; Start 01/16/17 at 22:00 Lactulose (Enulose) 20 gm DAILY PRN PO CONSTIPATION Last administered on 11:13; Admin Dose 20 GM; Start 01/16/17 at 22:00 Lidocaine (Xylocaine) 1 applic PRN PRN TOP PAIN Last administered on 01/22/17 06:15; Admin Dose 1 APPLIC; Start 01/17/17 at 18:00 Hydrocortisone (Hydrocortisone 1% Cr) 1 applic BID PRN TOP rashes; Start at 13:00 Finasteride (Proscar) 5 mg DAILY PO Last administered on 01/26/17 08:50; Admin Dose 5 MG; Start 01/22/17 at 09:00 Bethanechol Chloride (Urecholine) 25 mg Q6 PO Last administered on 01/26/17 06 :57; Admin Dose 25 MG; Start 01/22/17 at 14:30 Tamsulosin HCl (Flomax) 0.8 mg HS PO Last administered on 01/25/17 20:51; Admin Dose 0.8 MG; Start 01/23/17 at 21:00 IGNACIO DUKES January 26, 2017 10:02
--- NOTE | 2017-01-26 10:50 | PN ---
Date/Time of Note Date/Time of Note DATE: 01/26/17 TIME: 10:48 Assessment/Plan VTE Prophylaxis VTE Prophylaxis Intervention: anti-embolic stocking Lines/Catheters IV Catheter Type (from [facility]): Saline Lock Urinary Cath still in place: No Assessment/Plan Problems: (1) Hyperlipidemia Status: Chronic Comment: Continue on statin therapy Qualifiers: Hyperlipidemia type: pure hypercholesterolemia Qualified Code: E78.00 - Pure hypercholesterolemia (2) Diastolic dysfunction Status: Chronic Comment: Noted and stable on medical treatment (3) Essential (primary) hypertension Status: Chronic Comment: Adequate control continue same therapy (4) BPH (benign prostatic hypertrophy) with urinary retention Status: Chronic Comment: On full dose therapy also using Urecholine. With this he has acceptable postvoid residuals (5) Closed left hip fracture Status: Acute Comment: Is status post repair of the hip fracture and recuperating at a somewhat slower pace Qualifiers: Encounter type: subsequent encounter Fracture healing: with routine healing Qualified Code: S72.002D - Closed left hip fracture, with routine healing, subsequent encounter Subjective 24 Hr Interval Summary Free Text/Dictation Patient notes a little bit of congestion and eyes watering but otherwise no complaints Constitutional: no complaints Respiratory: no complaints Cardiovascular: no complaints Gastrointestinal: no complaints Exam/Review of Systems Vital Signs Vitals Vital Signs Date Time Temp Pulse Resp B/P Pulse Ox O2 Delivery O2 Flow Rate FiO2 01/25/17 19:38 98.1 85 19 106/58 96 Intake and Output 01/25/17 01/25/17 01/26/17 15:00 23:00 07:00 Intake Total 920 ml 260 ml Output Total 800 ml 1300 ml Balance 120 ml -1040 ml Exam Constitutional: alert, oriented Neck: non-tender, supple Respiratory: clear to auscultation, normal air movement Cardiovascular: nl pulses, regular rate and rhythm Medications Medications Current Medications Acetaminophen (Tylenol Tab) 650 mg Q6H PRN PO PAIN LEVEL 1-3 OR FEVER Last administered on 01/23/17 20:14; Admin Dose 650 MG; Start 01/16/17 at 19:00 Aspirin (Ecotrin) 325 mg BID PO Last administered on 01/26/17 08:50; Admin Dose 325 MG; Start 01/16/17 at 21:00 Atorvastatin Calcium (Lipitor) 80 mg QHS PO Last administered on 01/25/17 20: 51; Admin Dose 80 MG; Start 01/16/17 at 21:00 Bisacodyl (Dulcolax) 5 mg DAILY PRN PO CONSTIPATION Last administered on 09:05; Admin Dose 5 MG; Start 01/16/17 at 19:00 Bisacodyl (Dulcolax Supp) 10 mg Q12H PRN [place] CONSTIPATION Last administered on 11:13; Admin Dose 10 MG; Start 01/16/17 at 19:00 Diphenhydramine HCl (Benadryl) 25 mg Q6H PRN PO PRURITUS; Start 01/16/17 at 19: 00 Docusate Sodium (Colace) 100 mg BID PO Last administered on 01/26/17 08:49; Admin Dose 100 MG; Start 01/16/17 at 21:00 Famotidine (Pepcid) 20 mg Q12 PO Last administered on 01/26/17 08:50; Admin Dose 20 MG; Start 01/16/17 at 21:00 Fluoxetine HCl (Prozac) 40 mg DAILY PO Last administered on 01/26/17 08:50; Admin Dose 40 MG; Start 01/17/17 at 09:00 Acetaminophen/ Hydrocodone Bitart ([place] (5/325)) 1 tab Q4H PRN PO PAIN LEVEL 1 -3 Last administered on 01/25/17 12:29; Admin Dose 1 TAB; Start 01/16/17 at 19: 30 Acetaminophen/ Hydrocodone Bitart ([place] (5/325)) 2 tab Q4H PRN PO PAIN LEVEL 4 -7 Last administered on 01/26/17 09:41; Admin Dose 2 TAB; Start 01/16/17 at 19: 30 Magnesium Hydroxide (Milk Of Mag) 30 ml BID PRN PO CONSTIPATION; Start at 19:30 Sodium Biphosphate/ Sodium Phosphate (Fleet Enema) 133 ml DAILY PRN [place] CONSTIPATION Last administered on 01/18/17 21:56; Admin Dose 133 ML; Start 07/25 at 19:30 Hydromorphone HCl (Dilaudid) 0.5 mg Q6H PRN IV PAIN Last administered on 22:14; Admin Dose 0.5 MG; Start 01/16/17 at 19:30; Status Future Hold Senna (Senokot) 1 tab HS PO Last administered on 01/25/17 20:52; Admin Dose 1 TAB; Start 01/16/17 at 22:00 Lactulose (Enulose) 20 gm DAILY PRN PO CONSTIPATION Last administered on 11:13; Admin Dose 20 GM; Start 01/16/17 at 22:00 Lidocaine (Xylocaine) 1 applic PRN PRN TOP PAIN Last administered on 01/22/17 06:15; Admin Dose 1 APPLIC; Start 01/17/17 at 18:00 Hydrocortisone (Hydrocortisone 1% Cr) 1 applic BID PRN TOP rashes; Start at 13:00 Finasteride (Proscar) 5 mg DAILY PO Last administered on 01/26/17 08:50; Admin Dose 5 MG; Start 01/22/17 at 09:00 Bethanechol Chloride (Urecholine) 25 mg Q6 PO Last administered on 01/26/17 06 :57; Admin Dose 25 MG; Start 01/22/17 at 14:30 Tamsulosin HCl (Flomax) 0.8 mg HS PO Last administered on 01/25/17 20:51; Admin Dose 0.8 MG; Start 01/23/17 at 21:00 MURIEL LÓPEZ MD January 26, 2017 10:50
[2017-01-26 20:10] VITALS: BP 101/60; RESP 18
[2017-01-26] MEDS: SENNA TAB PO SCH (21:16)
[2017-01-26] MEDS: TAMSULOSIN (SR) 0.4 MG CAP PO SCH (21:16)
[2017-01-26] MEDS: ACETYLCYSTEINE 600 MG CAP PO SCH (21:16)
[2017-01-26] MEDS: ATORVASTATIN 80 MG TAB PO SCH (21:16)
[2017-01-27] MEDS: BETHANECHOL 25 MG TAB PO SCH ×4 (00:01→17:42)
[2017-01-27 07:30] VITALS: BP 117/66; RESP 18
[2017-01-27 07:52] LABS: ADD SCAN DIFF NO
[2017-01-27 08:03] LABS: BASOPHIL # 0.1 10^3/ul (0.0-0.1); BASOPHILS % 0.4 % (0.0-2.0); EOSINOPHILS # 0.3 10^3/ul (0.0-0.5); EOSINOPHILS % 2.1 % (0.0-7.0); HEMATOCRIT 30.6 % (42.0-52.0); HEMOGLOBIN 9.9 g/dl (14.0-18.0); LYMPHOCYTES # 1.2 10^3/ul (0.8-2.9); LYMPHOCYTES % 8.9 % (15.0-51.0); MEAN CORPUSCULAR HEMOGLOBIN 31.3 pg (29.0-33.0); MEAN CORPUSCULAR HGB CONC 32.4 g/dl (32.0-37.0); MEAN CORPUSCULAR VOLUME 96.8 fl (82.0-101.0); MEAN PLATELET VOLUME 10.9 fl (7.4-10.4); MONOCYTE # 0.8 10^3/ul (0.3-0.9); MONOCYTES % 6.3 % (0.0-11.0); NEUTROPHIL # 10.8 10^3/ul (1.6-7.5); NEUTROPHILS % 81.2 % (39.0-77.0); PLATELET COUNT 192 10^3/UL (140-415); RED BLOOD COUNT 3.16 10^6/ul (4.70-6.10); RED CELL DISTRIBUTION WIDTH 14.2 % (11.5-14.5); WHITE BLOOD COUNT 13.2 10^3/ul (4.8-10.8)
[2017-01-27 08:24] LABS: ALBUMIN 2.6 g/dl (3.3-4.9)
[2017-01-27 08:25] LABS: POTASSIUM 3.6 mmol/L (3.5-5.1)
[2017-01-27 08:27] LABS: ALBUMIN/GLOBULIN RATIO 0.89; BILIRUBIN,INDIRECT 0.5 mg/dl (0-1.1); BILIRUBIN,TOTAL 0.5 mg/dl (0.2-1.3); CREATININE 0.63 mg/dl (0.61-1.24); TOTAL PROTEIN 5.5 g/dl (6.1-8.1)
[2017-01-27 08:28] LABS: CALCIUM 8.4 mg/dl (8.4-10.2)
[2017-01-27] MEDS: HYDROCODONE/APAP (5/325) TAB PO PRN ×2 (09:23→20:02)
[2017-01-27] MEDS: FLUOXETINE 20 MG CAP PO SCH (09:24)
[2017-01-27] MEDS: ASPIRIN (EC) 325 MG TAB PO SCH ×2 (09:25→20:01)
[2017-01-27] MEDS: FINASTERIDE 5 MG TAB PO SCH (09:25)
[2017-01-27] MEDS: DOCUSATE SODIUM 100 MG CAP PO SCH ×2 (09:25→20:01)
[2017-01-27] MEDS: FAMOTIDINE 20 MG TAB PO SCH ×2 (09:25→20:01)
[2017-01-27] MEDS: ACETYLCYSTEINE 600 MG CAP PO SCH ×2 (09:25→20:01)
--- NOTE | 2017-01-27 09:31 | PN ---
Date/Time of Note Date/Time of Note DATE: 01/27/17 TIME: 09:29 Assessment/Plan Lines/Catheters IV Catheter Type (from Nrsg): Saline Lock Valenzuela in Place (from Nrsg): No Assessment/Plan Assessment/Plan Stable in ARU, s/p left hemiarthroplasty -pain meds as needed -ASA/SCDs -OOB with PT -posterior hip precautions -dressing changed Subjective 24 Hr Interval Summary Doing well in ARU. Denies significant pain. Making progress with PT. Exam/Review of Systems Vital Signs Vitals Vital Signs Date Time Temp Pulse Resp B/P Pulse Ox O2 Delivery O2 Flow Rate FiO2 01/26/17 20:10 98.3 84 18 101/60 97 Intake and Output 01/26/17 01/26/17 01/27/17 15:00 23:00 07:00 Intake Total 1440 ml 350 ml Output Total 1450 ml 970 ml Balance -10 ml -620 ml Exam Free Text/Dictation Dressing dry Incision clean, dry, and intact without redness or drainage 01/10 Quadriceps, Tibialis Anterior, EHL, Gastroc, Soleus, Peroneals Normal sensation Palpable DT/PT, CR <2 sec No distal edema Results Result Diagram: 01/27/17 0610 01/27/17 0610 DANIA MORRISON PA-C January 27, 2017 09:31
--- NOTE | 2017-01-27 11:51 | CONS ---
Date/Time of Note Date/Time of Note DATE: 01/27/17 TIME: 11:50 Consult Date/Type/Reason Admit Date/Time January 16, 2017 at 18:00 Type of Consultation: cv Objective Vital Signs Date Time Temp Pulse Resp B/P Pulse Ox O2 Delivery O2 Flow Rate FiO2 01/26/17 20:10 98.3 84 18 101/60 97 Intake and Output 01/26/17 01/26/17 01/27/17 15:00 23:00 07:00 Intake Total 1440 ml 350 ml Output Total 1450 ml 970 ml Balance -10 ml -620 ml INTERDISCIPLINARY TEAM CONFERENCE BOWEL- Cont BLADDER-Cont SKIN- intact OT- DRESSING-mod BATHING-mod TOILETING-mod PT- BED MOBILITY-mod TRANSFERS-mod AMBULATION-mod15 feet A/P- Interdisciplinary team conference held today. Please see interdisciplinary sheet. Working toward d.cBrandon on 01/31 with post discharge follow up of physical therapy, occupational therapy. Results/Medications Result Diagram: 01/27/17 0610 01/27/17 0610 Results 24 hrs Laboratory Tests Test 01/27/17 06:10 White Blood Count 13.2 #H Red Blood Count 3.16 L Hemoglobin 9.9 L Hematocrit 30.6 L Mean Corpuscular Volume 96.8 Mean Corpuscular Hemoglobin 31.3 Mean Corpuscular Hemoglobin Concent 32.4 Red Cell Distribution Width 14.2 Platelet Count 192 # Mean Platelet Volume 10.9 H Neutrophils % 81.2 H Lymphocytes % 8.9 L Monocytes % 6.3 Eosinophils % 2.1 Basophils % 0.4 Nucleated Red Blood Cells % 0.0 Neutrophils # 10.8 H Lymphocytes # 1.2 Monocytes # 0.8 Eosinophils # 0.3 Basophils # 0.1 Nucleated Red Blood Cells # 0.0 Sodium Level 138 Potassium Level 3.6 Chloride Level 104 Carbon Dioxide Level 28 Anion Gap 10 Blood Urea Nitrogen 12 Creatinine 0.63 Glucose Level 83 Calcium Level 8.4 Total Bilirubin 0.5 Direct Bilirubin 0.00 Indirect Bilirubin 0.5 Aspartate Amino Transf (AST/SGOT) 24 Alanine Aminotransferase (ALT/SGPT) 57 Alkaline Phosphatase 81 Total Protein 5.5 L Albumin 2.6 L Globulin 2.90 Albumin/Globulin Ratio 0.89 Medications Current Medications Acetaminophen (Tylenol Tab) 650 mg Q6H PRN PO PAIN LEVEL 1-3 OR FEVER Last administered on 01/23/17 20:14; Admin Dose 650 MG; Start 01/16/17 at 19:00 Aspirin (Ecotrin) 325 mg BID PO Last administered on 01/27/17 09:25; Admin Dose 325 MG; Start 01/16/17 at 21:00 Atorvastatin Calcium (Lipitor) 80 mg QHS PO Last administered on 01/26/17 21: 16; Admin Dose 80 MG; Start 01/16/17 at 21:00 Bisacodyl (Dulcolax) 5 mg DAILY PRN PO CONSTIPATION Last administered on 09:05; Admin Dose 5 MG; Start 01/16/17 at 19:00 Bisacodyl (Dulcolax Supp) 10 mg Q12H PRN [place] CONSTIPATION Last administered on 11:13; Admin Dose 10 MG; Start 01/16/17 at 19:00 Diphenhydramine HCl (Benadryl) 25 mg Q6H PRN PO PRURITUS; Start 01/16/17 at 19: 00 Docusate Sodium (Colace) 100 mg BID PO Last administered on 01/27/17 09:25; Admin Dose 100 MG; Start 01/16/17 at 21:00 Famotidine (Pepcid) 20 mg Q12 PO Last administered on 01/27/17 09:25; Admin Dose 20 MG; Start 01/16/17 at 21:00 Fluoxetine HCl (Prozac) 40 mg DAILY PO Last administered on 01/27/17 09:24; Admin Dose 40 MG; Start 01/17/17 at 09:00 Acetaminophen/ Hydrocodone Bitart ([place] (5/325)) 1 tab Q4H PRN PO PAIN LEVEL 1 -3 Last administered on 01/25/17 12:29; Admin Dose 1 TAB; Start 01/16/17 at 19: 30 Acetaminophen/ Hydrocodone Bitart ([place] (5/325)) 2 tab Q4H PRN PO PAIN LEVEL 4 -7 Last administered on 01/27/17 09:23; Admin Dose 2 TAB; Start 01/16/17 at 19: 30 Magnesium Hydroxide (Milk Of Mag) 30 ml BID PRN PO CONSTIPATION; Start at 19:30 Sodium Biphosphate/ Sodium Phosphate (Fleet Enema) 133 ml DAILY PRN [place] CONSTIPATION Last administered on 01/18/17 21:56; Admin Dose 133 ML; Start 07/25 at 19:30 Hydromorphone HCl (Dilaudid) 0.5 mg Q6H PRN [place] PAIN Last administered on 22:14; Admin Dose 0.5 MG; Start 01/16/17 at 19:30; Status Future Hold Senna (Senokot) 1 tab HS PO Last administered on 01/26/17 21:16; Admin Dose 1 TAB; Start 01/16/17 at 22:00 Lactulose (Enulose) 20 gm DAILY PRN PO CONSTIPATION Last administered on 11:13; Admin Dose 20 GM; Start 01/16/17 at 22:00 Lidocaine (Xylocaine) 1 applic PRN PRN [place] PAIN Last administered on 01/22/17 06:15; Admin Dose 1 APPLIC; Start 01/17/17 at 18:00 Hydrocortisone (Hydrocortisone 1% Cr) 1 applic BID PRN TOP rashes; Start at 13:00 Finasteride (Proscar) 5 mg DAILY PO Last administered on 01/27/17 09:25; Admin Dose 5 MG; Start 01/22/17 at 09:00 Bethanechol Chloride (Urecholine) 25 mg Q6 PO Last administered on 01/27/17 05 :21; Admin Dose 25 MG; Start 01/22/17 at 14:30 Tamsulosin HCl (Flomax) 0.8 mg HS PO Last administered on 01/26/17 21:16; Admin Dose 0.8 MG; Start 01/23/17 at 21:00 Acetylcysteine (Nac) 600 mg BID PO Last administered on 01/27/17 09:25; Admin Dose 600 MG; Start 01/26/17 at 21:00 KIMBERLI CASEY MD January 27, 2017 11:51 KIMBERLI CASEY MD January 27, 2017 11:51
--- NOTE | 2017-01-27 13:55 | PN ---
Date/Time of Note Date/Time of Note DATE: 01/27/17 TIME: 13:52 Assessment/Plan VTE Prophylaxis VTE Prophylaxis Intervention: heparin Lines/Catheters IV [facility] [place] Urinary Cath still in place: No Assessment/Plan Problems: (1) Status post hip hemiarthroplasty Status: Acute Comment: Recovering slowly. (2) Hyperlipidemia Status: Chronic Comment: Continue on statin therapy Qualifiers: Hyperlipidemia type: pure hypercholesterolemia Qualified Code: E78.00 - Pure hypercholesterolemia (3) Diastolic dysfunction Status: Chronic Comment: Stable on current regimen (4) Essential (primary) hypertension Status: Chronic Comment: Well-controlled. (5) BPH (benign prostatic hypertrophy) with urinary retention Status: Chronic Comment: He is on full dose treatment and has fair control. He is able to urinate. I believe he would be doing better if we can get a more actively up and around with his physical therapy. Assessment/Plan He is presently complaining of some pulmonary congestion. We will check a chest x-ray Subjective 24 Hr Interval Summary Free Text/Dictation Patient complains of some chest congestion. Denies any shortness of breath. Constitutional: no complaints Respiratory: cough Cardiovascular: no complaints Gastrointestinal: no complaints Exam/Review of Systems Vital Signs Vitals Vital Signs Date Time Temp Pulse Resp B/P Pulse Ox O2 Delivery O2 Flow Rate FiO2 01/27/17 07:30 97.9 74 18 117/66 95 Intake and Output 01/26/17 01/26/17 01/27/17 15:00 23:00 07:00 Intake Total 1440 ml 350 ml Output Total 1450 ml 970 ml Balance -10 ml -620 ml Exam Constitutional: alert, oriented Neck: non-tender, supple Respiratory: clear to auscultation, normal air movement Cardiovascular: nl pulses, regular rate and rhythm Results Result Diagram: 01/27/17 0610 01/27/17 0610 Results 24 hrs Laboratory Tests Test 01/27/17 06:10 White Blood Count 13.2 #H Red Blood Count 3.16 L Hemoglobin 9.9 L Hematocrit 30.6 L Mean Corpuscular Volume 96.8 Mean Corpuscular Hemoglobin 31.3 Mean Corpuscular Hemoglobin Concent 32.4 Red Cell Distribution Width 14.2 Platelet Count 192 # Mean Platelet Volume 10.9 H Neutrophils % 81.2 H Lymphocytes % 8.9 L Monocytes % 6.3 Eosinophils % 2.1 Basophils % 0.4 Nucleated Red Blood Cells % 0.0 Neutrophils # 10.8 H Lymphocytes # 1.2 Monocytes # 0.8 Eosinophils # 0.3 Basophils # 0.1 Nucleated Red Blood Cells # 0.0 Sodium Level 138 Potassium Level 3.6 Chloride Level 104 Carbon Dioxide Level 28 Anion Gap 10 Blood Urea Nitrogen 12 Creatinine 0.63 Glucose Level 83 Calcium Level 8.4 Total Bilirubin 0.5 Direct Bilirubin 0.00 Indirect Bilirubin 0.5 Aspartate Amino Transf (AST/SGOT) 24 Alanine Aminotransferase (ALT/SGPT) 57 Alkaline Phosphatase 81 Total Protein 5.5 L Albumin 2.6 L Globulin 2.90 Albumin/Globulin Ratio 0.89 Medications Medications Current Medications Acetaminophen (Tylenol Tab) 650 mg Q6H PRN PO PAIN LEVEL 1-3 OR FEVER Last administered on 01/23/17 20:14; Admin Dose 650 MG; Start 01/16/17 at 19:00 Aspirin (Ecotrin) 325 mg BID PO Last administered on 01/27/17 09:25; Admin Dose 325 MG; Start 01/16/17 at 21:00 Atorvastatin Calcium (Lipitor) 80 mg QHS PO Last administered on 01/26/17 21: 16; Admin Dose 80 MG; Start 01/16/17 at 21:00 Bisacodyl (Dulcolax) 5 mg DAILY PRN PO CONSTIPATION Last administered on 09:05; Admin Dose 5 MG; Start 01/16/17 at 19:00 Bisacodyl (Dulcolax Supp) [address] [place] CONSTIPATION Last administered on 11:13; Admin Dose 10 MG; Start 01/16/17 at 19:00 Diphenhydramine HCl (Benadryl) 25 mg Q6H PRN PO PRURITUS; Start 01/16/17 at 19: 00 Docusate Sodium (Colace) 100 mg BID PO Last administered on 01/27/17 09:25; Admin Dose 100 MG; Start 01/16/17 at 21:00 Famotidine (Pepcid) 20 mg Q12 PO Last administered on 01/27/17 09:25; Admin Dose 20 MG; Start 01/16/17 at 21:00 Fluoxetine HCl (Prozac) 40 mg DAILY PO Last administered on 01/27/17 09:24; Admin Dose 40 MG; Start 01/17/17 at 09:00 Acetaminophen/ Hydrocodone Bitart ([place] (5/325)) 1 tab Q4H PRN PO PAIN LEVEL 1 -3 Last administered on 01/25/17 12:29; Admin Dose 1 TAB; Start 01/16/17 at 19: 30 Acetaminophen/ Hydrocodone Bitart ([place] (5/325)) 2 tab Q4H PRN PO PAIN LEVEL 4 -7 Last administered on 01/27/17 09:23; Admin Dose 2 TAB; Start 01/16/17 at 19: 30 Magnesium Hydroxide (Milk Of Mag) 30 ml BID PRN PO CONSTIPATION; Start at 19:30 Sodium Biphosphate/ Sodium Phosphate (Fleet Enema) [address] [place] CONSTIPATION Last administered on 01/18/17 21:56; Admin Dose 133 ML; Start 07/25 at 19:30 Hydromorphone HCl (Dilaudid) 0.5 mg Q6H PRN [place] PAIN Last administered on 22:14; Admin Dose 0.5 MG; Start 01/16/17 at 19:30; Status Future Hold Senna (Senokot) 1 tab HS PO Last administered on 01/26/17 21:16; Admin Dose 1 TAB; Start 01/16/17 at 22:00 Lactulose (Enulose) 20 gm DAILY PRN PO CONSTIPATION Last administered on 11:13; Admin Dose 20 GM; Start 01/16/17 at 22:00 Lidocaine (Xylocaine) 1 applic PRN PRN TOP PAIN Last administered on 01/22/17 06:15; Admin Dose 1 APPLIC; Start 01/17/17 at 18:00 Hydrocortisone (Hydrocortisone 1% Cr) 1 applic BID PRN [place] rashes; Start at 13:00 Finasteride (Proscar) 5 mg DAILY PO Last administered on 01/27/17 09:25; Admin Dose 5 MG; Start 01/22/17 at 09:00 Bethanechol Chloride (Urecholine) 25 mg Q6 PO Last administered on 01/27/17 12 :29; Admin Dose 25 MG; Start 01/22/17 at 14:30 Tamsulosin HCl (Flomax) 0.8 mg HS PO Last administered on 01/26/17 21:16; Admin Dose 0.8 MG; Start 01/23/17 at 21:00 Acetylcysteine (Nac) 600 mg BID PO Last administered on 01/27/17 09:25; Admin Dose 600 MG; Start 01/26/17 at 21:00 MURIEL LÓPEZ MD January 27, 2017 13:54
--- NOTE | 2017-01-27 17:18 | CONS ---
Date/Time of Note Date/Time of Note DATE: 01/27/17 TIME: 17:17 Assessment/Plan Assessment/Plan Additional Assessment/Plan Mechanical fall with hip fracture CVA Preserved ejection fraction History of hypertension with labile blood pressure Possible urinary retention -Blood pressure trend overall stable. Would monitor trend and for any symptoms of hypotension given increased dose of Flomax. Check chest x-ray. Encourage physical therapy with fall precautions. Consultation Date/Type/Reason Admit Date/Time January 16, 2017 at 18:00 Type of Consultation: cv 24 HR Interval Summary Free Text/Dictation Denies shortness of breath, complaining of productive cough, no dizziness Exam/Review of Systems Vital Signs Vitals Vital Signs Date Time Temp Pulse Resp B/P Pulse Ox O2 Delivery O2 Flow Rate FiO2 01/27/17 07:30 97.9 74 18 117/66 95 Intake and Output 01/26/17 01/26/17 01/27/17 15:00 23:00 07:00 Intake Total 1440 ml 350 ml Output Total 1450 ml 970 ml Balance -10 ml -620 ml Exam No apparent distress Constitutional: alert, oriented Head: normocephalic Neck: supple Respiratory: other (Coarse breath sounds bilaterally, no wheezing) Cardiovascular: other (S1-S2 heard), regular rate and rhythm Gastrointestinal: bowel sounds, non-tender, soft Extremities: edema (Trace) Results Result Diagram: 01/27/17 0610 01/27/17 0610 Results 24 hrs Laboratory Tests Test 01/27/17 06:10 White Blood Count 13.2 #H Red Blood Count 3.16 L Hemoglobin 9.9 L Hematocrit 30.6 L Mean Corpuscular Volume 96.8 Mean Corpuscular Hemoglobin 31.3 Mean Corpuscular Hemoglobin Concent 32.4 Red Cell Distribution Width 14.2 Platelet Count 192 # Mean Platelet Volume 10.9 H Neutrophils % 81.2 H Lymphocytes % 8.9 L Monocytes % 6.3 Eosinophils % 2.1 Basophils % 0.4 Nucleated Red Blood Cells % 0.0 Neutrophils # 10.8 H Lymphocytes # 1.2 Monocytes # 0.8 Eosinophils # 0.3 Basophils # 0.1 Nucleated Red Blood Cells # 0.0 Sodium Level 138 Potassium Level 3.6 Chloride Level 104 Carbon Dioxide Level 28 Anion Gap 10 Blood Urea Nitrogen 12 Creatinine 0.63 Glucose Level 83 Calcium Level 8.4 Total Bilirubin 0.5 Direct Bilirubin 0.00 Indirect Bilirubin 0.5 Aspartate Amino Transf (AST/SGOT) 24 Alanine Aminotransferase (ALT/SGPT) 57 Alkaline Phosphatase 81 Total Protein 5.5 L Albumin 2.6 L Globulin 2.90 Albumin/Globulin Ratio 0.89 Medications Medications Current Medications Acetaminophen (Tylenol Tab) 650 mg Q6H PRN PO PAIN LEVEL 1-3 OR FEVER Last administered on 01/23/17 20:14; Admin Dose 650 MG; Start 01/16/17 at 19:00 Aspirin (Ecotrin) 325 mg BID PO Last administered on 01/27/17 09:25; Admin Dose 325 MG; Start 01/16/17 at 21:00 Atorvastatin Calcium (Lipitor) 80 mg QHS PO Last administered on 01/26/17 21: 16; Admin Dose 80 MG; Start 01/16/17 at 21:00 Bisacodyl (Dulcolax) 5 mg DAILY PRN PO CONSTIPATION Last administered on 09:05; Admin Dose 5 MG; Start 01/16/17 at 19:00 Bisacodyl (Dulcolax Supp) 10 mg Q12H PRN [place] CONSTIPATION Last administered on 11:13; Admin Dose 10 MG; Start 01/16/17 at 19:00 Diphenhydramine HCl (Benadryl) 25 mg Q6H PRN PO PRURITUS; Start 01/16/17 at 19: 00 Docusate Sodium (Colace) 100 mg BID PO Last administered on 01/27/17 09:25; Admin Dose 100 MG; Start 01/16/17 at 21:00 Famotidine (Pepcid) 20 mg Q12 PO Last administered on 01/27/17 09:25; Admin Dose 20 MG; Start 01/16/17 at 21:00 Fluoxetine HCl (Prozac) 40 mg DAILY PO Last administered on 01/27/17 09:24; Admin Dose 40 MG; Start 01/17/17 at 09:00 Acetaminophen/ Hydrocodone Bitart ([place] (5/325)) 1 tab Q4H PRN PO PAIN LEVEL 1 -3 Last administered on 01/25/17 12:29; Admin Dose 1 TAB; Start 01/16/17 at 19: 30 Acetaminophen/ Hydrocodone Bitart ([place] (5/325)) 2 tab Q4H PRN PO PAIN LEVEL 4 -7 Last administered on 01/27/17 09:23; Admin Dose 2 TAB; Start 01/16/17 at 19: 30 Magnesium Hydroxide (Milk Of Mag) 30 ml BID PRN PO CONSTIPATION; Start at 19:30 Sodium Biphosphate/ Sodium Phosphate (Fleet Enema) 133 ml DAILY PRN [place] CONSTIPATION Last administered on 01/18/17 21:56; Admin Dose 133 ML; Start 07/25 at 19:30 Hydromorphone HCl (Dilaudid) 0.5 mg Q6H PRN IV PAIN Last administered on 22:14; Admin Dose 0.5 MG; Start 01/16/17 at 19:30; Status Future Hold Senna (Senokot) 1 tab HS PO Last administered on 01/26/17 21:16; Admin Dose 1 TAB; Start 01/16/17 at 22:00 Lactulose (Enulose) 20 gm DAILY PRN PO CONSTIPATION Last administered on 11:13; Admin Dose 20 GM; Start 01/16/17 at 22:00 Lidocaine (Xylocaine) 1 applic PRN PRN TOP PAIN Last administered on 01/22/17 06:15; Admin Dose 1 APPLIC; Start 01/17/17 at 18:00 Hydrocortisone (Hydrocortisone 1% Cr) 1 applic BID PRN TOP rashes; Start at 13:00 Finasteride (Proscar) 5 mg DAILY PO Last administered on 01/27/17 09:25; Admin Dose 5 MG; Start 01/22/17 at 09:00 Bethanechol Chloride (Urecholine) 25 mg Q6 PO Last administered on 01/27/17 12 :29; Admin Dose 25 MG; Start 01/22/17 at 14:30 Tamsulosin HCl (Flomax) 0.8 mg HS PO Last administered on 01/26/17 21:16; Admin Dose 0.8 MG; Start 01/23/17 at 21:00 Acetylcysteine (Nac) 600 mg BID PO Last administered on 01/27/17 09:25; Admin Dose 600 MG; Start 01/26/17 at 21:00 Thor Munguia DO January 27, 2017 17:18
[2017-01-27 19:22] VITALS: BP 112/55; RESP 18
[2017-01-27] MEDS: SENNA TAB PO SCH (20:01)
[2017-01-27] MEDS: ATORVASTATIN 80 MG TAB PO SCH (20:01)
[2017-01-27] MEDS: TAMSULOSIN (SR) 0.4 MG CAP PO SCH (20:01)
[2017-01-28] MEDS: BETHANECHOL 25 MG TAB PO SCH ×5 (00:03→23:05)
[2017-01-28 07:27] VITALS: BP 110/59; RESP 18
--- NOTE | 2017-01-28 08:18 | RADRPT ---
PROCEDURE: XR Chest. CLINICAL INDICATION: Congestion TECHNIQUE: A single AP view of the chest was obtained. COMPARISON: Chest x-ray dated 01/12/[address] chest dated 07/06/2060 FINDINGS: No focal airspace opacification, pleural effusion or pneumothorax is seen. The cardiomediastinal si lhouette is within normal limits for size. The osseous structures are unremarkable. IMPRESSION: No radiographic evidence of acute cardiopulmonary disease. No significant interval change. RPTAT: HH .Mariana Arita MD, MD Date Time Electronically viewed and signed by .Mariana Arita MD, on 01/28/2017 08:18 .G/
[2017-01-28] MEDS: ASPIRIN (EC) 325 MG TAB PO SCH ×2 (09:34→20:26)
[2017-01-28] MEDS: FAMOTIDINE 20 MG TAB PO SCH ×2 (09:34→20:26)
[2017-01-28] MEDS: ACETYLCYSTEINE 600 MG CAP PO SCH ×2 (09:34→20:26)
[2017-01-28] MEDS: DOCUSATE SODIUM 100 MG CAP PO SCH ×2 (09:34→20:26)
[2017-01-28] MEDS: FINASTERIDE 5 MG TAB PO SCH (09:34)
[2017-01-28] MEDS: FLUOXETINE 20 MG CAP PO SCH (09:35)
--- NOTE | 2017-01-28 12:08 | CONS ---
Date/Time of Note Date/Time of Note DATE: 01/28/17 TIME: 12:08 Consult Date/Type/Reason Admit Date/Time January 16, 2017 at 18:00 Type of Consultation: cv Subjective no new complaints Objective pulm-cta abd-soft mod assist ambulation with PT Vital Signs Date Time Temp Pulse Resp B/P Pulse Ox O2 Delivery O2 Flow Rate FiO2 01/28/17 07:27 97.9 72 18 110/59 97 Intake and Output 01/27/17 01/27/17 01/28/17 14:59 22:59 06:59 Intake Total 1400 ml 850 ml Output Total 1020 ml 850 ml Balance 380 ml 0 ml Results/Medications Result Diagram: 01/27/1710 01/27/17 0610 Medications Current Medications Acetaminophen (Tylenol Tab) 650 mg Q6H PRN PO PAIN LEVEL 1-3 OR FEVER Last administered on 01/23/17 20:14; Admin Dose 650 MG; Start 01/16/17 at 19:00 Aspirin (Ecotrin) 325 mg BID PO Last administered on 01/28/17 09:34; Admin Dose 325 MG; Start 01/16/17 at 21:00 Atorvastatin Calcium (Lipitor) 80 mg QHS PO Last administered on 01/27/17 20: 01; Admin Dose 80 MG; Start 01/16/17 at 21:00 Bisacodyl (Dulcolax) 5 mg DAILY PRN PO CONSTIPATION Last administered on 09:05; Admin Dose 5 MG; Start 01/16/17 at 19:00 Bisacodyl (Dulcolax Supp) 10 mg Q12H PRN [place] CONSTIPATION Last administered on 11:13; Admin Dose 10 MG; Start 01/16/17 at 19:00 Diphenhydramine HCl (Benadryl) 25 mg Q6H PRN PO PRURITUS; Start 01/16/17 at 19: 00 Docusate Sodium (Colace) 100 mg BID PO Last administered on 01/28/17 09:34; Admin Dose 100 MG; Start 01/16/17 at 21:00 Famotidine (Pepcid) 20 mg Q12 PO Last administered on 01/28/17 09:34; Admin Dose 20 MG; Start 01/16/17 at 21:00 Fluoxetine HCl (Prozac) 40 mg DAILY PO Last administered on 01/28/17 09:35; Admin Dose 40 MG; Start 01/17/17 at 09:00 Acetaminophen/ Hydrocodone Bitart ([place] (5/325)) 1 tab Q4H PRN PO PAIN LEVEL 1 -3 Last administered on 01/25/17 12:29; Admin Dose 1 TAB; Start 01/16/17 at 19: 30 Acetaminophen/ Hydrocodone Bitart ([place] (5/325)) 2 tab Q4H PRN PO PAIN LEVEL 4 -7 Last administered on 01/27/17 20:02; Admin Dose 2 TAB; Start 01/16/17 at 19: 30 Magnesium Hydroxide (Milk Of Mag) 30 ml BID PRN PO CONSTIPATION; Start at 19:30 Sodium Biphosphate/ Sodium Phosphate (Fleet Enema) 133 ml DAILY PRN [place] CONSTIPATION Last administered on 01/18/17 21:56; Admin Dose 133 ML; Start 07/25 at 19:30 Hydromorphone HCl (Dilaudid) 0.5 mg Q6H PRN IV PAIN Last administered on 22:14; Admin Dose 0.5 MG; Start 01/16/17 at 19:30; Status Future Hold Senna (Senokot) 1 tab HS PO Last administered on 01/27/17 20:01; Admin Dose 1 TAB; Start 01/16/17 at 22:00 Lactulose (Enulose) 20 gm DAILY PRN PO CONSTIPATION Last administered on 11:13; Admin Dose 20 GM; Start 01/16/17 at 22:00 Lidocaine (Xylocaine) 1 applic PRN PRN TOP PAIN Last administered on 01/22/17 06:15; Admin Dose 1 APPLIC; Start 01/17/17 at 18:00 Hydrocortisone (Hydrocortisone 1% Cr) 1 applic BID PRN TOP rashes; Start at 13:00 Finasteride (Proscar) 5 mg DAILY PO Last administered on 01/28/17 09:34; Admin Dose 5 MG; Start 01/22/17 at 09:00 Bethanechol Chloride (Urecholine) 25 mg Q6 PO Last administered on 01/28/17 06 :10; Admin Dose 25 MG; Start 01/22/17 at 14:30 Tamsulosin HCl (Flomax) 0.8 mg HS PO Last administered on 01/27/17 20:01; Admin Dose 0.8 MG; Start 01/23/17 at 21:00 Acetylcysteine (Nac) 600 mg BID PO Last administered on 01/28/17 09:34; Admin Dose 600 MG; Start 01/26/17 at 21:00 Assessment/Plan Additional Assessment/Plan Rehab- Left femoral neck fracture status post left hip hemiarthroplasty; History of cerebrovascular accident with residual left-sided weakness. Progressing with rehab activities Hypertension. Hyperlipidemia. Gastroesophageal reflux disease. Anemia. KIMBERLI CASEY MD January 28, 2017 12:08
--- NOTE | 2017-01-28 13:05 | CONS ---
Date/Time of Note Date/Time of Note DATE: 01/28/17 TIME: 13:04 Assessment/Plan Assessment/Plan Additional Assessment/Plan Mechanical fall with hip fracture CVA Preserved ejection fraction History of hypertension with labile blood pressure Possible urinary retention -Blood pressure trend overall stable. Chest x-ray with no evidence of volume overload or infiltrate. Continue physical therapy as tolerated. No new cardiac orders at the current time. Consultation Date/Type/Reason Admit Date/Time January 16, 2017 at 18:00 Type of Consultation: cv 24 HR Interval Summary Free Text/Dictation Feeling better, denies cough or shortness of breath today, no dizziness with physical therapy Exam/Review of Systems Vital Signs Vitals Vital Signs Date Time Temp Pulse Resp B/P Pulse Ox O2 Delivery O2 Flow Rate FiO2 01/28/17 07:27 97.9 72 18 110/59 97 Intake and Output 01/27/17 01/27/17 01/28/17 15:00 23:00 07:00 Intake Total 1400 ml 850 ml Output Total 1020 ml 850 ml Balance 380 ml 0 ml Exam No apparent distress, eating lunch Constitutional: alert, oriented Head: normocephalic Respiratory: other (Coarse breath sounds bilaterally, no wheezing) Cardiovascular: other (S1-S2 heard), regular rate and rhythm Gastrointestinal: bowel sounds, non-tender, soft Extremities: edema (Trace) Results Result Diagram: 01/27/17 0610 01/27/17 0610 Medications Medications Current Medications Acetaminophen (Tylenol Tab) 650 mg Q6H PRN PO PAIN LEVEL 1-3 OR FEVER Last administered on 01/23/17 20:14; Admin Dose 650 MG; Start 01/16/17 at 19:00 Aspirin (Ecotrin) 325 mg BID PO Last administered on 01/28/17 09:34; Admin Dose 325 MG; Start 01/16/17 at 21:00 Atorvastatin Calcium (Lipitor) 80 mg QHS PO Last administered on 01/27/17 20: 01; Admin Dose 80 MG; Start 01/16/17 at 21:00 Bisacodyl (Dulcolax) 5 mg DAILY PRN PO CONSTIPATION Last administered on 09:05; Admin Dose 5 MG; Start 01/16/17 at 19:00 Bisacodyl (Dulcolax Supp) 10 mg Q12H PRN [place] CONSTIPATION Last administered on 11:13; Admin Dose 10 MG; Start 01/16/17 at 19:00 Diphenhydramine HCl (Benadryl) 25 mg Q6H PRN PO PRURITUS; Start 01/16/17 at 19: 00 Docusate Sodium (Colace) 100 mg BID PO Last administered on 01/28/17 09:34; Admin Dose 100 MG; Start 01/16/17 at 21:00 Famotidine (Pepcid) 20 mg Q12 PO Last administered on 01/28/17 09:34; Admin Dose 20 MG; Start 01/16/17 at 21:00 Fluoxetine HCl (Prozac) 40 mg DAILY PO Last administered on 01/28/17 09:35; Admin Dose 40 MG; Start 01/17/17 at 09:00 Acetaminophen/ Hydrocodone Bitart ([place] (5/325)) 1 tab Q4H PRN PO PAIN LEVEL 1 -3 Last administered on 01/25/17 12:29; Admin Dose 1 TAB; Start 01/16/17 at 19: 30 Acetaminophen/ Hydrocodone Bitart ([place] (5/325)) 2 tab Q4H PRN PO PAIN LEVEL 4 -7 Last administered on 01/27/17 20:02; Admin Dose 2 TAB; Start 01/16/17 at 19: 30 Magnesium Hydroxide (Milk Of Mag) 30 ml BID PRN PO CONSTIPATION; Start at 19:30 Sodium Biphosphate/ Sodium Phosphate (Fleet Enema) 133 ml DAILY PRN [place] CONSTIPATION Last administered on 01/18/17 21:56; Admin Dose 133 ML; Start 07/25 at 19:30 Hydromorphone HCl (Dilaudid) 0.5 mg Q6H PRN IV PAIN Last administered on 22:14; Admin Dose 0.5 MG; Start 01/16/17 at 19:30; Status Future Hold Senna (Senokot) 1 tab HS PO Last administered on 01/27/17 20:01; Admin Dose 1 TAB; Start 01/16/17 at 22:00 Lactulose (Enulose) 20 gm DAILY PRN PO CONSTIPATION Last administered on 11:13; Admin Dose 20 GM; Start 01/16/17 at 22:00 Lidocaine (Xylocaine) 1 applic PRN PRN TOP PAIN Last administered on 01/22/17 06:15; Admin Dose 1 APPLIC; Start 01/17/17 at 18:00 Hydrocortisone (Hydrocortisone 1% Cr) 1 applic BID PRN TOP rashes; Start at 13:00 Finasteride (Proscar) 5 mg DAILY PO Last administered on 01/28/17 09:34; Admin Dose 5 MG; Start 01/22/17 at 09:00 Bethanechol Chloride (Urecholine) 25 mg Q6 PO Last administered on 01/28/17 12 :24; Admin Dose 25 MG; Start 01/22/17 at 14:30 Tamsulosin HCl (Flomax) 0.8 mg HS PO Last administered on 01/27/17 20:01; Admin Dose 0.8 MG; Start 01/23/17 at 21:00 Acetylcysteine (Nac) 600 mg BID PO Last administered on 01/28/17 09:34; Admin Dose 600 MG; Start 01/26/17 at 21:00 Thor Munguia DO January 28, 2017 13:05
--- NOTE | 2017-01-28 13:19 | PN ---
Date/Time of Note Date/Time of Note DATE: 01/28/17 TIME: 13:17 Assessment/Plan VTE Prophylaxis VTE Prophylaxis Intervention: heparin Lines/Catheters IV C[facility] Type (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 Offers no complaint Respiratory: no complaints Cardiovascular: no complaints Gastrointestinal: no complaints Exam/Review of Systems Vital Signs Vitals Vital Signs Date Time Temp Pulse Resp B/P Pulse Ox O2 Delivery O2 Flow Rate FiO2 01/28/17 07:27 97.9 72 18 110/59 97 Intake and Output 01/27/17 01/27/17 01/28/17 15:00 23:00 07:00 Intake Total 1400 ml 850 ml Output Total 1020 ml 850 ml Balance 380 ml 0 ml Exam Constitutional: alert, oriented Neck: non-tender, supple Respiratory: clear to auscultation, normal air movement Cardiovascular: nl pulses, regular rate and rhythm Gastrointestinal: nl liver, spleen, non-tender, soft Results Result Diagram: 01/27/17 0610 01/27/17 0610 Medications Medications Current Medications Acetaminophen (Tylenol Tab) 650 mg Q6H PRN PO PAIN LEVEL 1-3 OR FEVER Last administered on 01/23/17 20:14; Admin Dose 650 MG; Start 01/16/17 at 19:00 Aspirin (Ecotrin) 325 mg BID PO Last administered on 01/28/17 09:34; Admin Dose 325 MG; Start 01/16/17 at 21:00 Atorvastatin Calcium (Lipitor) 80 mg QHS PO Last administered on 01/27/17 20: 01; Admin Dose 80 MG; Start 01/16/17 at 21:00 Bisacodyl (Dulcolax) 5 mg DAILY PRN PO CONSTIPATION Last administered on 09:05; Admin Dose 5 MG; Start 01/16/17 at 19:00 Bisacodyl (Dulcolax Supp) 10 mg Q12H PRN [place] CONSTIPATION Last administered on 11:13; Admin Dose 10 MG; Start 01/16/17 at 19:00 Diphenhydramine HCl (Benadryl) 25 mg Q6H PRN PO PRURITUS; Start 01/16/17 at 19: 00 Docusate Sodium (Colace) 100 mg BID PO Last administered on 01/28/17 09:34; Admin Dose 100 MG; Start 01/16/17 at 21:00 Famotidine (Pepcid) 20 mg Q12 PO Last administered on 01/28/17 09:34; Admin Dose 20 MG; Start 01/16/17 at 21:00 Fluoxetine HCl (Prozac) 40 mg DAILY PO Last administered on 01/28/17 09:35; Admin Dose 40 MG; Start 01/17/17 at 09:00 Acetaminophen/ Hydrocodone Bitart ([place] (5/325)) 1 tab Q4H PRN PO PAIN LEVEL 1 -3 Last administered on 01/25/17 12:29; Admin Dose 1 TAB; Start 01/16/17 at 19: 30 Acetaminophen/ Hydrocodone Bitart ([place] (5/325)) 2 tab Q4H PRN PO PAIN LEVEL 4 -7 Last administered on 01/27/17 20:02; Admin Dose 2 TAB; Start 01/16/17 at 19: 30 Magnesium Hydroxide (Milk Of Mag) 30 ml BID PRN PO CONSTIPATION; Start at 19:30 Sodium Biphosphate/ Sodium Phosphate (Fleet Enema) 133 ml DAILY PRN [place] CONSTIPATION Last administered on 01/18/17 21:56; Admin Dose 133 ML; Start 07/25 at 19:30 Hydromorphone HCl (Dilaudid) 0.5 mg Q6H PRN IV PAIN Last administered on 22:14; Admin Dose 0.5 MG; Start 01/16/17 at 19:30; Status Future Hold Senna (Senokot) 1 tab HS PO Last administered on 01/27/17 20:01; Admin Dose 1 TAB; Start 01/16/17 at 22:00 Lactulose (Enulose) 20 gm DAILY PRN PO CONSTIPATION Last administered on 11:13; Admin Dose 20 GM; Start 01/16/17 at 22:00 Lidocaine (Xylocaine) 1 applic PRN PRN TOP PAIN Last administered on 01/22/17 06:15; Admin Dose 1 APPLIC; Start 01/17/17 at 18:00 Hydrocortisone (Hydrocortisone 1% Cr) 1 applic BID PRN TOP rashes; Start at 13:00 Finasteride (Proscar) 5 mg DAILY PO Last administered on 01/28/17 09:34; Admin Dose 5 MG; Start 01/22/17 at 09:00 Bethanechol Chloride (Urecholine) 25 mg Q6 PO Last administered on 01/28/17 12 :24; Admin Dose 25 MG; Start 01/22/17 at 14:30 Tamsulosin HCl (Flomax) 0.8 mg HS PO Last administered on 01/27/17 20:01; Admin Dose 0.8 MG; Start 01/23/17 at 21:00 Acetylcysteine (Nac) 600 mg BID PO Last administered on 01/28/17 09:34; Admin Dose 600 MG; Start 01/26/17 at 21:00 MURIEL LÓPEZ MD January 28, 2017 13:19
[2017-01-28 19:13] VITALS: BP 105/61; RESP 18
[2017-01-28] MEDS: SENNA TAB PO SCH (20:26)
[2017-01-28] MEDS: TAMSULOSIN (SR) 0.4 MG CAP PO SCH (20:26)
[2017-01-28] MEDS: ATORVASTATIN 80 MG TAB PO SCH (20:26)
[2017-01-29] MEDS: HYDROCODONE/APAP (5/325) TAB PO PRN ×2 (00:13→09:46)
[2017-01-29] MEDS: BETHANECHOL 25 MG TAB PO SCH ×3 (05:32→19:27)
[2017-01-29 07:38] VITALS: BP 117/65; RESP 18
[2017-01-29] MEDS: ASPIRIN (EC) 325 MG TAB PO SCH ×2 (08:53→20:50)
[2017-01-29] MEDS: FLUOXETINE 20 MG CAP PO SCH (08:53)
[2017-01-29] MEDS: FINASTERIDE 5 MG TAB PO SCH (08:53)
[2017-01-29] MEDS: DOCUSATE SODIUM 100 MG CAP PO SCH ×2 (08:53→20:50)
[2017-01-29] MEDS: FAMOTIDINE 20 MG TAB PO SCH ×2 (08:53→20:50)
[2017-01-29] MEDS: ACETYLCYSTEINE 600 MG CAP PO SCH ×2 (09:06→20:50)
--- NOTE | 2017-01-29 10:00 | CONS ---
Date/Time of Note Date/Time of Note DATE: 01/29/17 TIME: 09:59 Consult Date/Type/Reason Admit Date/Time January 16, 2017 at 18:00 Type of Consultation: cv Subjective overall improving Objective pulm-cta abd-soft mod assist ambulation Vital Signs Date Time Temp Pulse Resp B/P Pulse Ox O2 Delivery O2 Flow Rate FiO2 01/29/17 07:38 98.1 69 18 117/65 97 Intake and Output 01/28/17 01/28/17 01/29/17 15:00 23:00 07:00 Intake Total 960 ml 660 ml 1150 ml Output Total 200 ml 1350 ml 250 ml Balance 760 ml -690 ml 900 ml Results/Medications Result Diagram: 01/27/17 0610 01/27/17 0610 Medications Current Medications Acetaminophen (Tylenol Tab) 650 mg Q6H PRN PO PAIN LEVEL 1-3 OR FEVER Last administered on 01/23/17 20:14; Admin Dose 650 MG; Start 01/16/17 at 19:00 Aspirin (Ecotrin) 325 mg BID PO Last administered on 01/29/17 08:53; Admin Dose 325 MG; Start 01/16/17 at 21:00 Atorvastatin Calcium (Lipitor) 80 mg QHS PO Last administered on 01/28/17 20: 26; Admin Dose 80 MG; Start 01/16/17 at 21:00 Bisacodyl (Dulcolax) 5 mg DAILY PRN PO CONSTIPATION Last administered on 09:05; Admin Dose 5 MG; Start 01/16/17 at 19:00 Bisacodyl (Dulcolax Supp) 10 mg Q12H PRN [place] CONSTIPATION Last administered on 11:13; Admin Dose 10 MG; Start 01/16/17 at 19:00 Diphenhydramine HCl (Benadryl) 25 mg Q6H PRN PO PRURITUS; Start 01/16/17 at 19: 00 Docusate Sodium (Colace) 100 mg BID PO Last administered on 01/29/17 08:53; Admin Dose 100 MG; Start 01/16/17 at 21:00 Famotidine (Pepcid) 20 mg Q12 PO Last administered on 01/29/17 08:53; Admin Dose 20 MG; Start 01/16/17 at 21:00 Fluoxetine HCl (Prozac) 40 mg DAILY PO Last administered on 01/29/17 08:53; Admin Dose 40 MG; Start 01/17/17 at 09:00 Acetaminophen/ Hydrocodone Bitart ([place] (5/325)) 1 tab Q4H PRN PO PAIN LEVEL 1 -3 Last administered on 01/25/17 12:29; Admin Dose 1 TAB; Start 01/16/17 at 19: 30 Acetaminophen/ Hydrocodone Bitart ([place] (5/325)) 2 tab Q4H PRN PO PAIN LEVEL 4 -7 Last administered on 01/29/17 09:46; Admin Dose 2 TAB; Start 01/16/17 at 19: 30 Magnesium Hydroxide (Milk Of Mag) 30 ml BID PRN PO CONSTIPATION; Start at 19:30 Sodium Biphosphate/ Sodium Phosphate (Fleet Enema) 133 ml DAILY PRN [place] CONSTIPATION Last administered on 01/18/17 21:56; Admin Dose 133 ML; Start 07/25 at 19:30 Hydromorphone HCl (Dilaudid) 0.5 mg Q6H PRN IV PAIN Last administered on 22:14; Admin Dose 0.5 MG; Start 01/16/17 at 19:30; Status Future Hold Senna (Senokot) 1 tab HS PO Last administered on 01/28/17 20:26; Admin Dose 1 TAB; Start 01/16/17 at 22:00 Lactulose (Enulose) 20 gm DAILY PRN PO CONSTIPATION Last administered on 11:13; Admin Dose 20 GM; Start 01/16/17 at 22:00 Lidocaine (Xylocaine) 1 applic PRN PRN TOP PAIN Last administered on 01/22/17 06:15; Admin Dose 1 APPLIC; Start 01/17/17 at 18:00 Hydrocortisone (Hydrocortisone 1% Cr) 1 applic BID PRN TOP rashes; Start at 13:00 Finasteride (Proscar) 5 mg DAILY PO Last administered on 01/29/17 08:53; Admin Dose 5 MG; Start 01/22/17 at 09:00 Bethanechol Chloride (Urecholine) 25 mg Q6 PO Last administered on 01/29/17 08 :54; Admin Dose 25 MG; Start 01/22/17 at 14:30 Tamsulosin HCl (Flomax) 0.8 mg HS PO Last administered on 01/28/17 20:26; Admin Dose 0.8 MG; Start 01/23/17 at 21:00 Acetylcysteine (Nac) 600 mg BID PO Last administered on 01/29/17 09:06; Admin Dose 600 MG; Start 01/26/17 at 21:00 Assessment/Plan Additional Assessment/Plan Rehab- Left femoral neck fracture status post left hip hemiarthroplasty; History of cerebrovascular accident with residual left-sided weakness. Continue rehab therapies Hypertension. Hyperlipidemia. Gastroesophageal reflux disease. Anemia. KIMBERLI CASEY MD January 29, 2017 10:00
[2017-01-29 12:00] VITALS: BP 98/58; PULSE 73; RESP 18
--- NOTE | 2017-01-29 12:16 | CONS ---
Date/Time of Note Date/Time of Note DATE: 01/29/17 TIME: 12:12 Assessment/Plan Assessment/Plan Additional Assessment/Plan Mechanical fall with hip fracture CVA Preserved ejection fraction History of hypertension with labile blood pressure Possible urinary retention -Patient with symptoms of dizziness with sitting up and while undergoing physical therapy. Discussion with nursing staff, systolic blood pressure in the 90s during this episode. Patient did receive 2 tablets of [place] this morning. He has remained off his antihypertensives but is on medications for his prostate which could possibly be contributing to his hypotension. Would consider adjusting pain medication regimen to see if this would help with his blood pressure. As per patient's , patient with good p.o. intake. Recommended increasing oral salt intake to see if this helps as well as changing positions slowly with assistance and evaluate if any improvement. Would continue lower extremity compression stockings. Consultation Date/Type/Reason Admit Date/Time January 16, 2017 at 18:00 Type of Consultation: cv 24 HR Interval Summary Free Text/Dictation Patient with dizziness this morning with sitting in chair and with undergoing physical therapy. Feels better now since back in bed, denies chest pain, shortness of breath or palpitations Exam/Review of Systems Vital Signs Vitals Vital Signs Date Time Temp Pulse Resp B/P Pulse Ox O2 Delivery O2 Flow Rate FiO2 01/29/17 07:38 98.1 69 18 117/65 97 Intake and Output 01/28/17 01/28/17 01/29/17 15:00 23:00 07:00 Intake Total 960 ml 660 ml 1150 ml Output Total 200 ml 1350 ml 250 ml Balance 760 ml -690 ml 900 ml Exam No apparent distress, following commands Constitutional: alert, oriented Head: normocephalic Respiratory: other Cardiovascular: other (S1-S2 heard, no murmurs appreciated), regular rate and rhythm Gastrointestinal: bowel sounds, non-tender, other (No guarding), soft Extremities: other (No edema, stockings on) Results Result Diagram: 01/27/17 0610 01/27/17 0610 Medications Medications Current Medications Acetaminophen (Tylenol Tab) 650 mg Q6H PRN PO PAIN LEVEL 1-3 OR FEVER Last administered on 01/23/17 20:14; Admin Dose 650 MG; Start 01/16/17 at 19:00 Aspirin (Ecotrin) 325 mg BID PO Last administered on 01/29/17 08:53; Admin Dose 325 MG; Start 01/16/17 at 21:00 Atorvastatin Calcium (Lipitor) 80 mg QHS PO Last administered on 01/28/17 20: 26; Admin Dose 80 MG; Start 01/16/17 at 21:00 Bisacodyl (Dulcolax) 5 mg DAILY PRN PO CONSTIPATION Last administered on 09:05; Admin Dose 5 MG; Start 01/16/17 at 19:00 Bisacodyl (Dulcolax Supp) 10 mg Q12H PRN [place] CONSTIPATION Last administered on 11:13; Admin Dose 10 MG; Start 01/16/17 at 19:00 Diphenhydramine HCl (Benadryl) 25 mg Q6H PRN PO PRURITUS; Start 01/16/17 at 19: 00 Docusate Sodium (Colace) 100 mg BID PO Last administered on 01/29/17 08:53; Admin Dose 100 MG; Start 01/16/17 at 21:00 Famotidine (Pepcid) 20 mg Q12 PO Last administered on 01/29/17 08:53; Admin Dose 20 MG; Start 01/16/17 at 21:00 Fluoxetine HCl (Prozac) 40 mg DAILY PO Last administered on 01/29/17 08:53; Admin Dose 40 MG; Start 01/17/17 at 09:00 Acetaminophen/ Hydrocodone Bitart ([place] (5/325)) 1 tab Q4H PRN PO PAIN LEVEL 1 -3 Last administered on 01/25/17 12:29; Admin Dose 1 TAB; Start 01/16/17 at 19: 30 Acetaminophen/ Hydrocodone Bitart ([place] (5/325)) 2 tab Q4H PRN PO PAIN LEVEL 4 -7 Last administered on 01/29/17 09:46; Admin Dose 2 TAB; Start 01/16/17 at 19: 30 Magnesium Hydroxide (Milk Of Mag) 30 ml BID PRN PO CONSTIPATION; Start at 19:30 Sodium Biphosphate/ Sodium Phosphate (Fleet Enema) 133 ml DAILY PRN [place] CONSTIPATION Last administered on 01/18/17 21:56; Admin Dose 133 ML; Start 07/25 at 19:30 Hydromorphone HCl (Dilaudid) 0.5 mg Q6H PRN IV PAIN Last administered on 22:14; Admin Dose 0.5 MG; Start 01/16/17 at 19:30; Status Future Hold Senna (Senokot) 1 tab HS PO Last administered on 01/28/17 20:26; Admin Dose 1 TAB; Start 01/16/17 at 22:00 Lactulose (Enulose) 20 gm DAILY PRN PO CONSTIPATION Last administered on 11:13; Admin Dose 20 GM; Start 01/16/17 at 22:00 Lidocaine (Xylocaine) 1 applic PRN PRN TOP PAIN Last administered on 01/22/17 06:15; Admin Dose 1 APPLIC; Start 01/17/17 at 18:00 Hydrocortisone (Hydrocortisone 1% Cr) 1 applic BID PRN TOP rashes; Start at 13:00 Finasteride (Proscar) 5 mg DAILY PO Last administered on 01/29/17 08:53; Admin Dose 5 MG; Start 01/22/17 at 09:00 Bethanechol Chloride (Urecholine) 25 mg Q6 PO Last administered on 01/29/17 08 :54; Admin Dose 25 MG; Start 01/22/17 at 14:30 Tamsulosin HCl (Flomax) 0.8 mg HS PO Last administered on 01/28/17 20:26; Admin Dose 0.8 MG; Start 01/23/17 at 21:00 Acetylcysteine (Nac) 600 mg BID PO Last administered on 01/29/17 09:06; Admin Dose 600 MG; Start 01/26/17 at 21:00 Thor Munguia DO January 29, 2017 12:16
[2017-01-29 12:39] VITALS: BP 105/63; PULSE 72; RESP 18
--- NOTE | 2017-01-29 18:24 | PN ---
DATE: 01/29/2017 PSYCHOLOGY -- INDIVIDUAL SESSION-- [id number] This is a followup on a patient who was seen last week. The patient was seen in bed. The patient was feeling fatigued after just trying to do physical therapy. The patient is very frustrated becau se he continues to have medical problems with fluctuating blood pressure. The patient is still in pain and is not able to accomplish what he would like to. The patient is fearful that he will not g et better to the point where he be would able to return home with his . I worked with the patie nt supportively to try to help encourage him to continue to work on his physical and emotional issue s. The patient was very cooperative and did try to pay attention to what is going on and how it aff ects his overall view of things. Dictated By: KATRINA HENDERSON PHD VICKY/JANET Conf#: [id number] DID#: [id number]
[2017-01-29 20:00] VITALS: BP 113/62; RESP 20
[2017-01-29] MEDS: SENNA TAB PO SCH (20:50)
[2017-01-29] MEDS: ATORVASTATIN 80 MG TAB PO SCH (20:50)
[2017-01-29] MEDS: TAMSULOSIN (SR) 0.4 MG CAP PO SCH (20:50)
[2017-01-30] MEDS: BETHANECHOL 25 MG TAB PO SCH ×5 (06:30→23:59)
[2017-01-30 07:30] VITALS: BP 120/70; RESP 18
[2017-01-30] MEDS: ASPIRIN (EC) 325 MG TAB PO SCH ×2 (09:16→20:32)
[2017-01-30] MEDS: FLUOXETINE 20 MG CAP PO SCH (09:16)
[2017-01-30] MEDS: ACETYLCYSTEINE 600 MG CAP PO SCH ×2 (09:16→20:32)
[2017-01-30] MEDS: FAMOTIDINE 20 MG TAB PO SCH ×2 (09:16→20:32)
[2017-01-30] MEDS: FINASTERIDE 5 MG TAB PO SCH (09:16)
[2017-01-30] MEDS: DOCUSATE SODIUM 100 MG CAP PO SCH ×2 (09:16→20:32)
[2017-01-30] MEDS: HYDROCODONE/APAP (5/325) TAB PO PRN ×2 (09:16→14:28)
--- NOTE | 2017-01-30 11:11 | CONS ---
Date/Time of Note Date/Time of Note DATE: 01/30/17 TIME: 11:11 Consult Date/Type/Reason Admit Date/Time January 16, 2017 at 18:00 Type of Consultation: cv Subjective Feeling better Objective pulm-cta abd-soft mod assist Vital Signs Date Time Temp Pulse Resp B/P Pulse Ox O2 Delivery O2 Flow Rate FiO2 01/30/17 07:30 98.2 72 18 120/70 95 01/29/17 12:39 Room Air Intake and Output 01/29/17 01/29/17 01/30/17 15:00 23:00 07:00 Intake Total 1200 ml 1320 ml 200 ml Output Total 500 ml 200 ml 650 ml Balance 700 ml 1120 ml -450 ml Results/Medications Result Diagram: 01/27/1710 01/27/17 0610 Medications Current Medications Acetaminophen (Tylenol Tab) 650 mg Q6H PRN PO PAIN LEVEL 1-3 OR FEVER Last administered on 01/23/17 20:14; Admin Dose 650 MG; Start 01/16/17 at 19:00 Aspirin (Ecotrin) 325 mg BID PO Last administered on 01/30/17 09:16; Admin Dose 325 MG; Start 01/16/17 at 21:00 Atorvastatin Calcium (Lipitor) 80 mg QHS PO Last administered on 01/29/17 20: 50; Admin Dose 80 MG; Start 01/16/17 at 21:00 Bisacodyl (Dulcolax) 5 mg DAILY PRN PO CONSTIPATION Last administered on 09:05; Admin Dose 5 MG; Start 01/16/17 at 19:00 Bisacodyl (Dulcolax Supp) 10 mg Q12H PRN [place] CONSTIPATION Last administered on 11:13; Admin Dose 10 MG; Start 01/16/17 at 19:00 Diphenhydramine HCl (Benadryl) 25 mg Q6H PRN PO PRURITUS; Start 01/16/17 at 19: 00 Docusate Sodium (Colace) 100 mg BID PO Last administered on 01/30/17 09:16; Admin Dose 100 MG; Start 01/16/17 at 21:00 Famotidine (Pepcid) 20 mg Q12 PO Last administered on 01/30/17 09:16; Admin Dose 20 MG; Start 01/16/17 at 21:00 Fluoxetine HCl (Prozac) 40 mg DAILY PO Last administered on 01/30/17 09:16; Admin Dose 40 MG; Start 01/17/17 at 09:00 Acetaminophen/ Hydrocodone Bitart ([place] (5/325)) 1 tab Q4H PRN PO PAIN LEVEL 1 -3 Last administered on 01/30/17 09:16; Admin Dose 1 TAB; Start 01/16/17 at 19: 30 Acetaminophen/ Hydrocodone Bitart ([place] (5/325)) 2 tab Q4H PRN PO PAIN LEVEL 4 -7 Last administered on 01/29/17 09:46; Admin Dose 2 TAB; Start 01/16/17 at 19: 30 Magnesium Hydroxide (Milk Of Mag) 30 ml BID PRN PO CONSTIPATION; Start at 19:30 Sodium Biphosphate/ Sodium Phosphate (Fleet Enema) 133 ml DAILY PRN [place] CONSTIPATION Last administered on 01/18/17 21:56; Admin Dose 133 ML; Start 07/25 at 19:30 Hydromorphone HCl (Dilaudid) 0.5 mg Q6H PRN IV PAIN Last administered on 22:14; Admin Dose 0.5 MG; Start 01/16/17 at 19:30; Status Future Hold Senna (Senokot) 1 tab HS PO Last administered on 01/29/17 20:50; Admin Dose 1 TAB; Start 01/16/17 at 22:00 Lactulose (Enulose) 20 gm DAILY PRN PO CONSTIPATION Last administered on 11:13; Admin Dose 20 GM; Start 01/16/17 at 22:00 Lidocaine (Xylocaine) 1 applic PRN PRN TOP PAIN Last administered on 01/22/17 06:15; Admin Dose 1 APPLIC; Start 01/17/17 at 18:00 Hydrocortisone (Hydrocortisone 1% Cr) 1 applic BID PRN TOP rashes; Start at 13:00 Finasteride (Proscar) 5 mg DAILY PO Last administered on 01/30/17 09:16; Admin Dose 5 MG; Start 01/22/17 at 09:00 Bethanechol Chloride (Urecholine) 25 mg Q6 PO Last administered on 01/30/17 06 :30; Admin Dose 25 MG; Start 01/22/17 at 14:30 Tamsulosin HCl (Flomax) 0.8 mg HS PO Last administered on 01/29/17 20:50; Admin Dose 0.8 MG; Start 01/23/17 at 21:00 Acetylcysteine (Nac) 600 mg BID PO Last administered on 01/30/17 09:16; Admin Dose 600 MG; Start 01/26/17 at 21:00 Assessment/Plan Additional Assessment/Plan Rehab- Left femoral neck fracture status post left hip hemiarthroplasty; History of cerebrovascular accident with residual left-sided weakness. Continue rehab therapies, overall improving Hypertension. Hyperlipidemia. Gastroesophageal reflux disease. Anemia. KIMBERLI CASEY MD January 30, 2017 11:11
--- NOTE | 2017-01-30 17:25 | CONS ---
Date/Time of Note Date/Time of Note DATE: 01/30/17 TIME: 17:23 Assessment/Plan Assessment/Plan Additional Assessment/Plan Mechanical fall with hip fracture CVA Preserved ejection fraction History of hypertension with labile blood pressure Possible urinary retention -Blood pressure trend has improved and patient undergoing physical therapy and remains asymptomatic with no dizziness or lightheadedness. Would continue to hold antihypertensive medications. Consultation Date/Type/Reason Admit Date/Time January 16, 2017 at 18:00 Type of Consultation: cv 24 HR Interval Summary Free Text/Dictation Patient feeling better today. Denies any dizziness or lightheadedness with activity Exam/Review of Systems Vital Signs Vitals Vital Signs Date Time Temp Pulse Resp B/P Pulse Ox O2 Delivery O2 Flow Rate FiO2 01/30/17 07:30 98.2 72 18 120/70 95 01/29/17 12:39 Room Air Intake and Output 01/29/17 01/29/17 01/30/17 15:00 23:00 07:00 Intake Total 1200 ml 1320 ml 200 ml Output Total 500 ml 200 ml 650 ml Balance 700 ml 1120 ml -450 ml Exam No apparent distress, undergoing physical therapy Constitutional: alert, oriented Head: normocephalic Respiratory: other (Coarse breath sounds bilaterally, no wheezing) Cardiovascular: other (S1-S2 heard), regular rate and rhythm Gastrointestinal: bowel sounds, non-tender, soft Extremities: other (No edema) Results Result Diagram: 01/27/17 0610 01/27/17 0610 Medications Medications Current Medications Acetaminophen (Tylenol Tab) 650 mg Q6H PRN PO PAIN LEVEL 1-3 OR FEVER Last administered on 01/23/17 20:14; Admin Dose 650 MG; Start 01/16/17 at 19:00 Aspirin (Ecotrin) 325 mg BID PO Last administered on 01/30/17 09:16; Admin Dose 325 MG; Start 01/16/17 at 21:00 Atorvastatin Calcium (Lipitor) 80 mg QHS PO Last administered on 01/29/17 20: 50; Admin Dose 80 MG; Start 01/16/17 at 21:00 Bisacodyl (Dulcolax) 5 mg DAILY PRN PO CONSTIPATION Last administered on 09:05; Admin Dose 5 MG; Start 01/16/17 at 19:00 Bisacodyl (Dulcolax Supp) 10 mg Q12H PRN [place] CONSTIPATION Last administered on 11:13; Admin Dose 10 MG; Start 01/16/17 at 19:00 Diphenhydramine HCl (Benadryl) 25 mg Q6H PRN PO PRURITUS; Start 01/16/17 at 19: 00 Docusate Sodium (Colace) 100 mg BID PO Last administered on 01/30/17 09:16; Admin Dose 100 MG; Start 01/16/17 at 21:00 Famotidine (Pepcid) 20 mg Q12 PO Last administered on 01/30/17 09:16; Admin Dose 20 MG; Start 01/16/17 at 21:00 Fluoxetine HCl (Prozac) 40 mg DAILY PO Last administered on 01/30/17 09:16; Admin Dose 40 MG; Start 01/17/17 at 09:00 Acetaminophen/ Hydrocodone Bitart ([place] (5/325)) 1 tab Q4H PRN PO PAIN LEVEL 1 -3 Last administered on 01/30/17 09:16; Admin Dose 1 TAB; Start 01/16/17 at 19: 30 Acetaminophen/ Hydrocodone Bitart ([place] (5/325)) 2 tab Q4H PRN PO PAIN LEVEL 4 -7 Last administered on 01/30/17 14:28; Admin Dose 2 TAB; Start 01/16/17 at 19: 30 Magnesium Hydroxide (Milk Of Mag) 30 ml BID PRN PO CONSTIPATION; Start at 19:30 Sodium Biphosphate/ Sodium Phosphate (Fleet Enema) 133 ml DAILY PRN [place] CONSTIPATION Last administered on 01/18/17 21:56; Admin Dose 133 ML; Start 07/25 at 19:30 Hydromorphone HCl (Dilaudid) 0.5 mg Q6H PRN IV PAIN Last administered on 22:14; Admin Dose 0.5 MG; Start 01/16/17 at 19:30; Status Future Hold Senna (Senokot) 1 tab HS PO Last administered on 01/29/17 20:50; Admin Dose 1 TAB; Start 01/16/17 at 22:00 Lactulose (Enulose) 20 gm DAILY PRN PO CONSTIPATION Last administered on 11:13; Admin Dose 20 GM; Start 01/16/17 at 22:00 Lidocaine (Xylocaine) 1 applic PRN PRN TOP PAIN Last administered on 01/22/17 06:15; Admin Dose 1 APPLIC; Start 01/17/17 at 18:00 Hydrocortisone (Hydrocortisone 1% Cr) 1 applic BID PRN TOP rashes; Start at 13:00 Finasteride (Proscar) 5 mg DAILY PO Last administered on 01/30/17 09:16; Admin Dose 5 MG; Start 01/22/17 at 09:00 Bethanechol Chloride (Urecholine) 25 mg Q6 PO Last administered on 01/30/17 12 :27; Admin Dose 25 MG; Start 01/22/17 at 14:30 Tamsulosin HCl (Flomax) 0.8 mg HS PO Last administered on 01/29/17 20:50; Admin Dose 0.8 MG; Start 01/23/17 at 21:00 Acetylcysteine (Nac) 600 mg BID PO Last administered on 01/30/17 09:16; Admin Dose 600 MG; Start 01/26/17 at 21:00 Thor Munguia DO January 30, 2017 17:25
[2017-01-30] MEDS: ATORVASTATIN 80 MG TAB PO SCH (20:32)
[2017-01-30] MEDS: SENNA TAB PO SCH (20:32)
[2017-01-30] MEDS: TAMSULOSIN (SR) 0.4 MG CAP PO SCH (20:32)
[2017-01-30 21:07] VITALS: BP 103/59; RESP 19
[2017-01-31] MEDS: BETHANECHOL 25 MG TAB PO SCH ×3 (06:22→18:17)
[2017-01-31 07:38] VITALS: BP 124/62; RESP 18
--- NOTE | 2017-01-31 09:41 | CONS ---
Date/Time of Note Date/Time of Note DATE: 01/31/17 TIME: 09:41 Consult Date/Type/Reason Admit Date/Time January 16, 2017 at 18:00 Type of Consultation: cv Objective Vital Signs Date Time Temp Pulse Resp B/P Pulse Ox O2 Delivery O2 Flow Rate FiO2 01/31/17 07:38 97.9 71 18 124/62 95 01/29/17 12:39 Room Air Intake and Output 01/30/17 01/30/17 01/31/17 15:00 23:00 07:00 Intake Total 820 ml 350 ml Output Total 900 ml 1900 ml Balance -900 ml 820 ml -1550 ml INTERDISCIPLINARY TEAM CONFERENCE BOWEL- Cont BLADDER-incont SKIN- intact OT- DRESSING-min/mod BATHING-min/mod TOILETING-mod PT- BED MOBILITY-mod TRANSFERS-mod AMBULATION-mod A/P- Interdisciplinary team conference held today. Please see interdisciplinary sheet. Working toward d.cBrandon on 02/06 with post discharge follow up of physical therapy, occupational therapy. Results/Medications Result Diagram: 01/27/17 0610 01/27/17 0610 Medications Current Medications Acetaminophen (Tylenol Tab) 650 mg Q6H PRN PO PAIN LEVEL 1-3 OR FEVER Last administered on 01/23/17 20:14; Admin Dose 650 MG; Start 01/16/17 at 19:00 Aspirin (Ecotrin) 325 mg BID PO Last administered on 01/30/17 20:32; Admin Dose 325 MG; Start 01/16/17 at 21:00 Atorvastatin Calcium (Lipitor) 80 mg QHS PO Last administered on 01/30/17 20: 32; Admin Dose 80 MG; Start 01/16/17 at 21:00 Bisacodyl (Dulcolax) 5 mg DAILY PRN PO CONSTIPATION Last administered on 09:05; Admin Dose 5 MG; Start 01/16/17 at 19:00 Bisacodyl (Dulcolax Supp) 10 mg Q12H PRN [place] CONSTIPATION Last administered on 11:13; Admin Dose 10 MG; Start 01/16/17 at 19:00 Diphenhydramine HCl (Benadryl) 25 mg Q6H PRN PO PRURITUS; Start 01/16/17 at 19: 00 Docusate Sodium (Colace) 100 mg BID PO Last administered on 01/30/17 20:32; Admin Dose 100 MG; Start 01/16/17 at 21:00 Famotidine (Pepcid) 20 mg Q12 PO Last administered on 01/30/17 20:32; Admin Dose 20 MG; Start 01/16/17 at 21:00 Fluoxetine HCl (Prozac) 40 mg DAILY PO Last administered on 01/30/17 09:16; Admin Dose 40 MG; Start 01/17/17 at 09:00 Acetaminophen/ Hydrocodone Bitart ([place] (5/325)) 1 tab Q4H PRN PO PAIN LEVEL 1 -3 Last administered on 01/30/17 09:16; Admin Dose 1 TAB; Start 01/16/17 at 19: 30 Acetaminophen/ Hydrocodone Bitart ([place] (5/325)) 2 tab Q4H PRN PO PAIN LEVEL 4 -7 Last administered on 01/30/17 14:28; Admin Dose 2 TAB; Start 01/16/17 at 19: 30 Magnesium Hydroxide (Milk Of Mag) 30 ml BID PRN PO CONSTIPATION; Start at 19:30 Sodium Biphosphate/ Sodium Phosphate (Fleet Enema) 133 ml DAILY PRN IN CONSTIPATION Last administered on 01/18/17 21:56; Admin Dose 133 ML; Start 07/25 at 19:30 Hydromorphone HCl (Dilaudid) 0.5 mg Q6H PRN IV PAIN Last administered on 22:14; Admin Dose 0.5 MG; Start 01/16/17 at 19:30; Status Future Hold Senna (Senokot) 1 tab HS PO Last administered on 01/30/17 20:32; Admin Dose 1 TAB; Start 01/16/17 at 22:00 Lactulose (Enulose) 20 gm DAILY PRN PO CONSTIPATION Last administered on 11:13; Admin Dose 20 GM; Start 01/16/17 at 22:00 Lidocaine (Xylocaine) 1 applic PRN PRN TOP PAIN Last administered on 01/22/17 06:15; Admin Dose 1 APPLIC; Start 01/17/17 at 18:00 Hydrocortisone (Hydrocortisone 1% Cr) 1 applic BID PRN TOP rashes; Start at 13:00 Finasteride (Proscar) 5 mg DAILY PO Last administered on 01/30/17 09:16; Admin Dose 5 MG; Start 01/22/17 at 09:00 Bethanechol Chloride (Urecholine) 25 mg Q6 PO Last administered on 01/31/17 06 :22; Admin Dose 25 MG; Start 01/22/17 at 14:30 Tamsulosin HCl (Flomax) 0.8 mg HS PO Last administered on 01/30/17 20:32; Admin Dose 0.8 MG; Start 01/23/17 at 21:00 Acetylcysteine (Nac) 600 mg BID PO Last administered on 01/30/17 20:32; Admin Dose 600 MG; Start 01/26/17 at 21:00 KIMBERLI CASEY MD January 31, 2017 09:41 KIMBERLI CASEY MD January 31, 2017 09:41
--- NOTE | 2017-01-31 10:27 | CONS ---
Date/Time of Note Date/Time of Note DATE: 01/31/17 TIME: 10:26 Assessment/Plan Assessment/Plan Additional Assessment/Plan Mechanical fall with hip fracture CVA Preserved ejection fraction History of hypertension with labile blood pressure Possible urinary retention -Blood pressure trend remains stable. Would continue to hold antihypertensives given labile blood pressure and patient on multiple prostate medications necessary for urinary retention. Consultation Date/Type/Reason Admit Date/Time January 16, 2017 at 18:00 Type of Consultation: cv 24 HR Interval Summary Free Text/Dictation Patient complaining of sore throat and cough. Denies shortness of breath, dizziness Exam/Review of Systems Vital Signs Vitals Vital Signs Date Time Temp Pulse Resp B/P Pulse Ox O2 Delivery O2 Flow Rate FiO2 01/31/17 07:38 97.9 71 18 124/62 95 01/29/17 12:39 Room Air Intake and Output 01/30/17 01/30/17 01/31/17 15:00 23:00 07:00 Intake Total 820 ml 350 ml Output Total 900 ml 1900 ml Balance -900 ml 820 ml -1550 ml Exam No apparent distress Constitutional: alert, oriented Head: normocephalic Respiratory: other (Coarse breath sounds bilaterally, no wheezing) Cardiovascular: other (S1-S2 heard), regular rate and rhythm Gastrointestinal: bowel sounds, non-tender, soft Extremities: edema (Trace), other Results Result Diagram: 01/27/17 0610 01/27/17 0610 Medications Medications Current Medications Acetaminophen (Tylenol Tab) 650 mg Q6H PRN PO PAIN LEVEL 1-3 OR FEVER Last administered on 01/23/17 20:14; Admin Dose 650 MG; Start 01/16/17 at 19:00 Aspirin (Ecotrin) 325 mg BID PO Last administered on 01/30/17 20:32; Admin Dose 325 MG; Start 01/16/17 at 21:00 Atorvastatin Calcium (Lipitor) 80 mg QHS PO Last administered on 01/30/17 20: 32; Admin Dose 80 MG; Start 01/16/17 at 21:00 Bisacodyl (Dulcolax) 5 mg DAILY PRN PO CONSTIPATION Last administered on 09:05; Admin Dose 5 MG; Start 01/16/17 at 19:00 Bisacodyl (Dulcolax Supp) 10 mg Q12H PRN [place] CONSTIPATION Last administered on 11:13; Admin Dose 10 MG; Start 01/16/17 at 19:00 Diphenhydramine HCl (Benadryl) 25 mg Q6H PRN PO PRURITUS; Start 01/16/17 at 19: 00 Docusate Sodium (Colace) 100 mg BID PO Last administered on 01/30/17 20:32; Admin Dose 100 MG; Start 01/16/17 at 21:00 Famotidine (Pepcid) 20 mg Q12 PO Last administered on 01/30/17 20:32; Admin Dose 20 MG; Start 01/16/17 at 21:00 Fluoxetine HCl (Prozac) 40 mg DAILY PO Last administered on 01/30/17 09:16; Admin Dose 40 MG; Start 01/17/17 at 09:00 Acetaminophen/ Hydrocodone Bitart ([place] (5/325)) 1 tab Q4H PRN PO PAIN LEVEL 1 -3 Last administered on 01/30/17 09:16; Admin Dose 1 TAB; Start 01/16/17 at 19: 30 Acetaminophen/ Hydrocodone Bitart ([place] (5/325)) 2 tab Q4H PRN PO PAIN LEVEL 4 -7 Last administered on 01/30/17 14:28; Admin Dose 2 TAB; Start 01/16/17 at 19: 30 Magnesium Hydroxide (Milk Of Mag) 30 ml BID PRN PO CONSTIPATION; Start at 19:30 Sodium Biphosphate/ Sodium Phosphate (Fleet Enema) 133 ml DAILY PRN [place] CONSTIPATION Last administered on 01/18/17 21:56; Admin Dose 133 ML; Start 07/25 at 19:30 Hydromorphone HCl (Dilaudid) 0.5 mg Q6H PRN IV PAIN Last administered on 22:14; Admin Dose 0.5 MG; Start 01/16/17 at 19:30; Status Future Hold Senna (Senokot) 1 tab HS PO Last administered on 01/30/17 20:32; Admin Dose 1 TAB; Start 01/16/17 at 22:00 Lactulose (Enulose) 20 gm DAILY PRN PO CONSTIPATION Last administered on 11:13; Admin Dose 20 GM; Start 01/16/17 at 22:00 Lidocaine (Xylocaine) 1 applic PRN PRN TOP PAIN Last administered on 01/22/17 06:15; Admin Dose 1 APPLIC; Start 01/17/17 at 18:00 Hydrocortisone (Hydrocortisone 1% Cr) 1 applic BID PRN TOP rashes; Start at 13:00 Finasteride (Proscar) 5 mg DAILY PO Last administered on 01/30/17 09:16; Admin Dose 5 MG; Start 01/22/17 at 09:00 Bethanechol Chloride (Urecholine) 25 mg Q6 PO Last administered on 01/31/17 06 :22; Admin Dose 25 MG; Start 01/22/17 at 14:30 Tamsulosin HCl (Flomax) 0.8 mg HS PO Last administered on 01/30/17 20:32; Admin Dose 0.8 MG; Start 01/23/17 at 21:00 Acetylcysteine (Nac) 600 mg BID PO Last administered on 01/30/17 20:32; Admin Dose 600 MG; Start 01/26/17 at 21:00 Thor Munguia DO January 31, 2017 10:27
[2017-01-31] MEDS: ASPIRIN (EC) 325 MG TAB PO SCH ×2 (10:28→20:39)
[2017-01-31] MEDS: FLUOXETINE 20 MG CAP PO SCH (10:28)
[2017-01-31] MEDS: ACETYLCYSTEINE 600 MG CAP PO SCH ×2 (10:28→20:39)
[2017-01-31] MEDS: HYDROCODONE/APAP (5/325) TAB PO PRN ×2 (10:29→13:20)
[2017-01-31] MEDS: FINASTERIDE 5 MG TAB PO SCH (10:29)
[2017-01-31] MEDS: DOCUSATE SODIUM 100 MG CAP PO SCH ×2 (10:30→20:40)
[2017-01-31] MEDS: FAMOTIDINE 20 MG TAB PO SCH ×2 (10:30→20:40)
[2017-01-31 20:00] VITALS: BP 108/63; RESP 18
[2017-01-31] MEDS: SENNA TAB PO SCH (20:39)
[2017-01-31] MEDS: ACETAMINOPHEN 325 MG TAB PO PRN (20:39)
[2017-01-31] MEDS: ATORVASTATIN 80 MG TAB PO SCH (20:39)
[2017-01-31] MEDS: TAMSULOSIN (SR) 0.4 MG CAP PO SCH (20:40)
[2017-02-01] MEDS: BETHANECHOL 25 MG TAB PO SCH ×5 (00:31→23:42)
[2017-02-01 07:30] VITALS: BP 108/61; RESP 18
[2017-02-01 08:10] VITALS: BP 108/61; PULSE 64; RESP 18
[2017-02-01] MEDS: ACETYLCYSTEINE 600 MG CAP PO SCH ×2 (08:43→20:31)
[2017-02-01] MEDS: ASPIRIN (EC) 325 MG TAB PO SCH ×2 (08:43→20:31)
[2017-02-01] MEDS: DOCUSATE SODIUM 100 MG CAP PO SCH ×2 (08:43→20:31)
[2017-02-01] MEDS: FINASTERIDE 5 MG TAB PO SCH (08:43)
[2017-02-01] MEDS: FAMOTIDINE 20 MG TAB PO SCH ×2 (08:43→20:31)
[2017-02-01] MEDS: FLUOXETINE 20 MG CAP PO SCH (08:43)
--- NOTE | 2017-02-01 12:06 | PN ---
Date/Time of Note Date/Time of Note DATE: 02/01/17 TIME: 12:02 Assessment/Plan VTE Prophylaxis VTE Prophylaxis Intervention: other (ASA) Lines/Catheters IV Catheter Type (from Nrsg): Saline Lock Urinary Cath still in place: No Assessment/Plan Assessment/Plan 1. Status post mechanical fall with displaced left femoral neck fracture, status post left hip hemiarthroplasty. With impaired mobility/gait/ADLs. Mod assist for lower body dressing. Mod assist for sliding board transfers. 2. Acute postoperative pain. Controlled on prn norco. 3. History of cerebrovascular accident with residual left-sided weakness. Continue secondary stroke prevention. 4. History of hypertension. Off hypertensive medications. Continue to monitor BP. Cardiology and internal medicine following. 5. Hyperlipidemia. Continue Statin. 6. GERD. On pepcid. 7. Anemia. Continue to monitor hemoglobin/hematocrit. 8. BPH. Voiding has improved, has not been requiring I/O cath per nursing staff. Continue medical management and bladder program. Subjective 24 Hr Interval Summary Free Text/Dictation Rehab progress note Subjective: Reports 3/10 pain in left hip. ROS: Denies chest pain, no shortness of breath, no abdominal pain, no nausea or vomiting, no chills. Exam/Review of Systems Vital Signs Vitals Vital Signs Date Time Temp Pulse Resp B/P Pulse Ox O2 Delivery O2 Flow Rate FiO2 02/01/17 08:10 98.3 64 18 108/61 97 Room Air Intake and Output 01/31/17 01/31/17 02/01/17 15:00 23:00 07:00 Intake Total 1200 ml 960 ml 240 ml Output Total 600 ml 360 ml 600 ml Balance 600 ml 600 ml -360 ml Exam General: Awake, alert, no acute distress CV: Regular rate, s1s2 Lungs: Clear to auscultation, no wheezing Abdomen soft, nontender Extremities: Without cyanosis, no new swelling Neuro: No new focal changes. Follows simple commands. Medications Medications Current Medications Acetaminophen (Tylenol Tab) 650 mg Q6H PRN PO PAIN LEVEL 1-3 OR FEVER Last administered on 01/31/17 20:39; Admin Dose 650 MG; Start 01/16/17 at 19:00 Aspirin (Ecotrin) 325 mg BID PO Last administered on 02/01/17 08:43; Admin Dose 325 MG; Start 01/16/17 at 21:00 Atorvastatin Calcium (Lipitor) 80 mg QHS PO Last administered on 01/31/17 20: 39; Admin Dose 80 MG; Start 01/16/17 at 21:00 Bisacodyl (Dulcolax) 5 mg DAILY PRN PO CONSTIPATION Last administered on 09:05; Admin Dose 5 MG; Start 01/16/17 at 19:00 Bisacodyl (Dulcolax Supp) 10 mg Q12H PRN [place] CONSTIPATION Last administered on 11:13; Admin Dose 10 MG; Start 01/16/17 at 19:00 Diphenhydramine HCl (Benadryl) 25 mg Q6H PRN PO PRURITUS; Start 01/16/17 at 19: 00 Docusate Sodium (Colace) 100 mg BID PO Last administered on 02/01/17 08:43; Admin Dose 100 MG; Start 01/16/17 at 21:00 Famotidine (Pepcid) 20 mg Q12 PO Last administered on 02/01/17 08:43; Admin Dose 20 MG; Start 01/16/17 at 21:00 Fluoxetine HCl (Prozac) 40 mg DAILY PO Last administered on 02/01/17 08:43; Admin Dose 40 MG; Start 01/17/17 at 09:00 Acetaminophen/ Hydrocodone Bitart ([place] (5/325)) 1 tab Q4H PRN PO PAIN LEVEL 1 -3 Last administered on 01/30/17 09:16; Admin Dose 1 TAB; Start 01/16/17 at 19: 30 Acetaminophen/ Hydrocodone Bitart ([place] (5/325)) 2 tab Q4H PRN PO PAIN LEVEL 4 -7 Last administered on 01/31/17 13:20; Admin Dose 2 TAB; Start 01/16/17 at 19: 30 Magnesium Hydroxide (Milk Of Mag) 30 ml BID PRN PO CONSTIPATION; Start at 19:30 Sodium Biphosphate/ Sodium Phosphate (Fleet Enema) 133 ml DAILY PRN [place] CONSTIPATION Last administered on 01/18/17 21:56; Admin Dose 133 ML; Start 07/25 at 19:30 Hydromorphone HCl (Dilaudid) 0.5 mg Q6H PRN IV PAIN Last administered on 22:14; Admin Dose 0.5 MG; Start 01/16/17 at 19:30; Status Future Hold Senna (Senokot) 1 tab HS PO Last administered on 01/31/17 20:39; Admin Dose 1 TAB; Start 01/16/17 at 22:00 Lactulose (Enulose) 20 gm DAILY PRN PO CONSTIPATION Last administered on 11:13; Admin Dose 20 GM; Start 01/16/17 at 22:00 Lidocaine (Xylocaine) 1 applic PRN PRN TOP PAIN Last administered on 01/22/17 06:15; Admin Dose 1 APPLIC; Start 01/17/17 at 18:00 Hydrocortisone (Hydrocortisone 1% Cr) 1 applic BID PRN TOP rashes; Start at 13:00 Finasteride (Proscar) 5 mg DAILY PO Last administered on 02/01/17 08:43; Admin Dose 5 MG; Start 01/22/17 at 09:00 Bethanechol Chloride (Urecholine) 25 mg Q6 PO Last administered on 02/01/17 06 :33; Admin Dose 25 MG; Start 01/22/17 at 14:30 Tamsulosin HCl (Flomax) 0.8 mg HS PO Last administered on 01/31/17 20:40; Admin Dose 0.8 MG; Start 01/23/17 at 21:00 Acetylcysteine (Nac) 600 mg BID PO Last administered on 02/01/17 08:43; Admin Dose 600 MG; Start 01/26/17 at 21:00 IGNACIO DUKES February 01, 2017 12:06
--- NOTE | 2017-02-01 12:55 | PN ---
Date/Time of Note Date/Time of Note DATE: 02/01/17 TIME: 12:48 Assessment/Plan VTE Prophylaxis VTE Prophylaxis Intervention: ambulation Lines/Catheters [facility] Urinary Cath still in place: No Assessment/Plan Problems: (1) BPH (benign prostatic hypertrophy) with urinary retention Status: Chronic Comment: Cont. tamsulosin (2) Essential (primary) hypertension Status: Chronic Comment: Requires no BP med in hospital (3) Diastolic dysfunction Status: Chronic Comment: Monitor cardiac status. No meds req'd at this time (4) Hyperlipidemia Status: Chronic Comment: On atorvastatin 80 mg/d Qualifiers: Hyperlipidemia type: pure hypercholesterolemia Qualified Code: E78.00 - Pure hypercholesterolemia (5) Hemiplegia and hemiparesis following cerebral infarction affecting left non- dominant side Status: Chronic Comment: Cont. rehab (6) Status post hip hemiarthroplasty Status: Resolved Comment: Cont. rehab (7) Acute upper respiratory infection Status: Acute Comment: On [id number] but add pseudoephedrine, phenergan w/ codeine, and cepastat lozenges prn. Subjective 24 Hr Interval Summary Constitutional: no complaints ENT: congestion (thinks he is coming down w/ a cold), sore throat (thinks he is coming down w/ a cold) Respiratory: cough, other (feels congested, thinks he is coming down w/ a cold) Cardiovascular: no complaints Gastrointestinal: no complaints Genitourinary: no complaints Musculoskeletal: bone/joint pain (L hip still hurts) Neurologic: no complaints Exam/Review of Systems Vital Signs Vitals VS - Last 72 Hours, by Label Date Time Temp Pulse Resp B/P Pulse Ox O2 Delivery O2 Flow Rate FiO2 02/01/17 08:10 98.3 64 18 108/61 97 Room Air 02/01/17 07:30 98.3 64 18 108/61 97 01/31/17 20:00 98.2 81 18 108/63 96 01/31/17 07:38 97.9 71 18 124/62 95 01/30/17 21:07 98.1 75 19 103/59 95 01/30/17 07:30 98.2 72 18 120/70 95 01/29/17 20:00 98.2 76 20 113/62 97 Vital Signs Date Time Temp Pulse Resp B/P Pulse Ox O2 Delivery O2 Flow Rate FiO2 02/01/17 08:10 98.3 64 18 108/61 97 Room Air Intake and Output 01/31/17 01/31/17 02/01/17 15:00 23:00 07:00 Intake Total 1200 ml 960 ml 240 ml Output Total 600 ml 360 ml 600 ml Balance 600 ml 600 ml -360 ml Exam Constitutional: alert, frail, oriented Psych: depression Respiratory: clear to auscultation, normal air movement Cardiovascular: nl pulses, regular rate and rhythm, No edema, No murmurs/extra sounds, No rub Gastrointestinal: bowel sounds, nl liver, spleen, non-tender, soft, No mass, No rebound or guarding Musculoskeletal: nl extremities to inspection Extremities: normal pulses, No clubbing, No cyanosis, No edema Neurological: [employer] II-XII intact, nl mental status, nl speech, nl strength Medications Medications Current Medications Acetaminophen (Tylenol Tab) 650 mg Q6H PRN PO PAIN LEVEL 1-3 OR FEVER Last administered on 01/31/17 20:39; Admin Dose 650 MG; Start 01/16/17 at 19:00 Aspirin (Ecotrin) 325 mg BID PO Last administered on 02/01/17 08:43; Admin Dose 325 MG; Start 01/16/17 at 21:00 Atorvastatin Calcium (Lipitor) 80 mg QHS PO Last administered on 01/31/17 20: 39; Admin Dose 80 MG; Start 01/16/17 at 21:00 Bisacodyl (Dulcolax) 5 mg DAILY PRN PO CONSTIPATION Last administered on 09:05; Admin Dose 5 MG; Start 01/16/17 at 19:00 Bisacodyl (Dulcolax Supp) 10 mg Q12H PRN [place] CONSTIPATION Last administered on 11:13; Admin Dose 10 MG; Start 01/16/17 at 19:00 Diphenhydramine HCl (Benadryl) 25 mg Q6H PRN PO PRURITUS; Start 01/16/17 at 19: 00 Docusate Sodium (Colace) 100 mg BID PO Last administered on 02/01/17 08:43; Admin Dose 100 MG; Start 01/16/17 at 21:00 Famotidine (Pepcid) 20 mg Q12 PO Last administered on 02/01/17 08:43; Admin Dose 20 MG; Start 01/16/17 at 21:00 Fluoxetine HCl (Prozac) 40 mg DAILY PO Last administered on 02/01/17 08:43; Admin Dose 40 MG; Start 01/17/17 at 09:00 Acetaminophen/ Hydrocodone Bitart ([place] (5/325)) 1 tab Q4H PRN PO PAIN LEVEL 1 -3 Last administered on 01/30/17 09:16; Admin Dose 1 TAB; Start 01/16/17 at 19: 30 Acetaminophen/ Hydrocodone Bitart ([place] (5/325)) 2 tab Q4H PRN PO PAIN LEVEL 4 -7 Last administered on 01/31/17 13:20; Admin Dose 2 TAB; Start 01/16/17 at 19: 30 Magnesium Hydroxide (Milk Of Mag) 30 ml BID PRN PO CONSTIPATION; Start at 19:30 Sodium Biphosphate/ Sodium Phosphate (Fleet Enema) 133 ml DAILY PRN [place] CONSTIPATION Last administered on 01/18/17 21:56; Admin Dose 133 ML; Start 07/25 at 19:30 Hydromorphone HCl (Dilaudid) 0.5 mg Q6H PRN IV PAIN Last administered on 22:14; Admin Dose 0.5 MG; Start 01/16/17 at 19:30; Status Future Hold Senna (Senokot) 1 tab HS PO Last administered on 01/31/17 20:39; Admin Dose 1 TAB; Start 01/16/17 at 22:00 Lactulose (Enulose) 20 gm DAILY PRN PO CONSTIPATION Last administered on 11:13; Admin Dose 20 GM; Start 01/16/17 at 22:00 Lidocaine (Xylocaine) 1 applic PRN PRN TOP PAIN Last administered on 01/22/17 06:15; Admin Dose 1 APPLIC; Start 01/17/17 at 18:00 Hydrocortisone (Hydrocortisone 1% Cr) 1 applic BID PRN TOP rashes; Start at 13:00 Finasteride (Proscar) 5 mg DAILY PO Last administered on 02/01/17 08:43; Admin Dose 5 MG; Start 01/22/17 at 09:00 Bethanechol Chloride (Urecholine) 25 mg Q6 PO Last administered on 02/01/17 12 :01; Admin Dose 25 MG; Start 01/22/17 at 14:30 Tamsulosin HCl (Flomax) 0.8 mg HS PO Last administered on 01/31/17 20:40; Admin Dose 0.8 MG; Start 01/23/17 at 21:00 Acetylcysteine (Nac) 600 mg BID PO Last administered on 02/01/17 08:43; Admin Dose 600 MG; Start 01/26/17 at 21:00 ELIO AGUILLON MD February 01, 2017 12:55
[2017-02-01] MEDS ORDERED: CEPASTAT LOZENGE MT PRN (13:00)
[2017-02-01] MEDS ORDERED: PSEUDOEPHEDRINE 30 MG TAB PO PRN (13:00)
[2017-02-01] MEDS: HYDROCODONE/APAP (5/325) TAB PO PRN (15:43)
[2017-02-01] MEDS: TAMSULOSIN (SR) 0.4 MG CAP PO SCH (20:31)
[2017-02-01] MEDS: ATORVASTATIN 80 MG TAB PO SCH (20:31)
[2017-02-01] MEDS: SENNA TAB PO SCH (20:31)
[2017-02-01] MEDS: PROMETHAZINE/CODEINE 5ML CUP PO PRN (23:42)
[2017-02-02] MEDS: BETHANECHOL 25 MG TAB PO SCH ×3 (06:07→17:29)
[2017-02-02 08:00] VITALS: BP 121/67; PULSE 74; RESP 18
[2017-02-02] MEDS: FLUOXETINE 20 MG CAP PO SCH (08:32)
[2017-02-02] MEDS: ASPIRIN (EC) 325 MG TAB PO SCH ×2 (08:32→20:38)
[2017-02-02] MEDS: DOCUSATE SODIUM 100 MG CAP PO SCH ×2 (08:32→20:38)
[2017-02-02] MEDS: ACETYLCYSTEINE 600 MG CAP PO SCH ×2 (08:32→20:38)
[2017-02-02] MEDS: FINASTERIDE 5 MG TAB PO SCH (08:32)
[2017-02-02] MEDS: FAMOTIDINE 20 MG TAB PO SCH ×2 (08:32→20:38)
[2017-02-02] MEDS: PROMETHAZINE/CODEINE 5ML CUP PO PRN ×2 (09:17→15:06)
--- NOTE | 2017-02-02 09:29 | PN ---
Date/Time of Note Date/Time of Note DATE: 02/02/17 TIME: 09:24 Assessment/Plan VTE Prophylaxis VTE Prophylaxis Intervention: other (ASA) Lines/Catheters IV Catheter Type (from Nrs): Saline Lock Urinary Cath still in place: No Assessment/Plan Assessment/Plan 1. Status post mechanical fall with displaced left femoral neck fracture, status post left hip hemiarthroplasty. With impaired mobility/gait/ADLs. Bed mobility improving to min assist. 2. Acute postoperative pain. Controlled on prn norco. 3. History of cerebrovascular accident with residual left-sided weakness. Continue secondary stroke prevention. 4. History of hypertension. Off hypertensive medications. Continue to monitor BP. Cardiology and internal medicine following. 5. Hyperlipidemia. Continue Statin. 6. GERD. Continue pepcid. 7. Anemia. Continue to monitor hemoglobin/hematocrit. 8. BPH. Continue medical management. Continue bladder program. 9. URI. Continue supportive treatment. Subjective 24 Hr Interval Summary Free Text/Dictation Rehab progress note Subjective: Reports chest/nasal congestion and cough, reports medications helping. ROS: Denies chest pain, no shortness of breath, no chills, no fevers, no abdominal pain, no nausea or vomiting. Exam/Review of Systems Vital Signs Vitals Vital Signs Date Time Temp Pulse Resp B/P Pulse Ox O2 Delivery O2 Flow Rate FiO2 02/01/17 08:10 98.3 64 18 108/61 97 Room Air Intake and Output 02/01/17 02/01/17 02/02/17 15:00 23:00 07:00 Intake Total 960 ml 360 ml Output Total 650 ml 900 ml 750 ml Balance -650 ml 60 ml -390 ml Exam General: Awake, alert, no acute distress CV: Regular rate, s1s2 Lungs: Symmetrical air entry bilaterally, no wheezing or crackles Abdomen soft, nontender Extremities: Without cyanosis, no new swelling Neuro: No new focal changes. Follows simple commands. Medications Medications Current Medications Acetaminophen (Tylenol Tab) 650 mg Q6H PRN PO PAIN LEVEL 1-3 OR FEVER Last administered on 01/31/17 20:39; Admin Dose 650 MG; Start 01/16/17 at 19:00 Aspirin (Ecotrin) 325 mg BID PO Last administered on 02/02/17 08:32; Admin Dose 325 MG; Start 01/16/17 at 21:00 Atorvastatin Calcium (Lipitor) 80 mg QHS PO Last administered on 02/01/17 20: 31; Admin Dose 80 MG; Start 01/16/17 at 21:00 Bisacodyl (Dulcolax) 5 mg DAILY PRN PO CONSTIPATION Last administered on 09:05; Admin Dose 5 MG; Start 01/16/17 at 19:00 Bisacodyl (Dulcolax Supp) 10 mg Q12H PRN [place] CONSTIPATION Last administered on 11:13; Admin Dose 10 MG; Start 01/16/17 at 19:00 Diphenhydramine HCl (Benadryl) 25 mg Q6H PRN PO PRURITUS; Start 01/16/17 at 19: 00 Docusate Sodium (Colace) 100 mg BID PO Last administered on 02/02/17 08:32; Admin Dose 100 MG; Start 01/16/17 at 21:00 Famotidine (Pepcid) 20 mg Q12 PO Last administered on 02/02/17 08:32; Admin Dose 20 MG; Start 01/16/17 at 21:00 Fluoxetine HCl (Prozac) 40 mg DAILY PO Last administered on 02/02/17 08:32; Admin Dose 40 MG; Start 01/17/17 at 09:00 Acetaminophen/ Hydrocodone Bitart ([place] (5/325)) 1 tab Q4H PRN PO PAIN LEVEL 1 -3 Last administered on 01/30/17 09:16; Admin Dose 1 TAB; Start 01/16/17 at 19: 30 Acetaminophen/ Hydrocodone Bitart ([place] (5/325)) 2 tab Q4H PRN PO PAIN LEVEL 4 -7 Last administered on 02/01/17 15:43; Admin Dose 2 TAB; Start 01/16/17 at 19: 30 Magnesium Hydroxide (Milk Of Mag) 30 ml BID PRN PO CONSTIPATION; Start at 19:30 Sodium Biphosphate/ Sodium Phosphate (Fleet Enema) 133 ml DAILY PRN [place] CONSTIPATION Last administered on 01/18/17 21:56; Admin Dose 133 ML; Start 07/25 at 19:30 Hydromorphone HCl (Dilaudid) 0.5 mg Q6H PRN IV PAIN Last administered on 22:14; Admin Dose 0.5 MG; Start 01/16/17 at 19:30; Status Future Hold Senna (Senokot) 1 tab HS PO Last administered on 02/01/17 20:31; Admin Dose 1 TAB; Start 01/16/17 at 22:00 Lactulose (Enulose) 20 gm DAILY PRN PO CONSTIPATION Last administered on 11:13; Admin Dose 20 GM; Start 01/16/17 at 22:00 Lidocaine (Xylocaine) 1 applic PRN PRN TOP PAIN Last administered on 01/22/17 06:15; Admin Dose 1 APPLIC; Start 01/17/17 at 18:00 Hydrocortisone (Hydrocortisone 1% Cr) 1 applic BID PRN TOP rashes; Start at 13:00 Finasteride (Proscar) 5 mg DAILY PO Last administered on 02/02/17 08:32; Admin Dose 5 MG; Start 01/22/17 at 09:00 Bethanechol Chloride (Urecholine) 25 mg Q6 PO Last administered on 02/02/17 06 :07; Admin Dose 25 MG; Start 01/22/17 at 14:30 Tamsulosin HCl (Flomax) 0.8 mg HS PO Last administered on 02/01/17 20:31; Admin Dose 0.8 MG; Start 01/23/17 at 21:00 Acetylcysteine (Nac) 600 mg BID PO Last administered on 02/02/17 08:32; Admin Dose 600 MG; Start 01/26/17 at 21:00 Pseudoephedrine HCl (Sudogest) 60 mg Q6H PRN PO NASAL CONGESTION; Start at 13:00 Promethazine HCl/ Codeine (Phenergan/ Codeine) 5 ml Q4H PRN PO COUGH Last administered on 02/02/17 09:17; Admin Dose 5 ML; Start 02/01/17 at 13:00 Phenol (Cepastat Lozenge) 1 lozenge Q1H PRN [place] SORE THROAT; Start 02/01/17 at 13:00 IGNACIO DUKES February 02, 2017 09:29
--- NOTE | 2017-02-02 10:39 | PN ---
Date/Time of Note Date/Time of Note DATE: 02/02/17 TIME: 10:39 Assessment/Plan VTE Prophylaxis VTE Prophylaxis Intervention: SCD's Lines/Catheters IV Catheter Type (from Nrs): Saline Lock Urinary Cath still in place: No Assessment/Plan Assessment/Plan Mechanical fall with hip fracture CVA Preserved ejection fraction History of hypertension with labile blood pressure Possible urinary retention -Blood pressure trend remains stable. Would continue to hold antihypertensives given labile blood pressure and patient on multiple prostate medications necessary for urinary retention. Subjective 24 Hr Interval Summary Free Text/Dictation the patient with no change Exam/Review of Systems Vital Signs Vitals Vital Signs Date Time Temp Pulse Resp B/P Pulse Ox O2 Delivery O2 Flow Rate FiO2 02/01/17 08:10 98.3 64 18 108/61 97 Room Air Intake and Output 02/01/17 02/01/17 02/02/17 15:00 23:00 07:00 Intake Total 960 ml 360 ml Output Total 650 ml 900 ml 750 ml Balance -650 ml 60 ml -390 ml Medications Medications Current Medications Acetaminophen (Tylenol Tab) 650 mg Q6H PRN PO PAIN LEVEL 1-3 OR FEVER Last administered on 01/31/17 20:39; Admin Dose 650 MG; Start 01/16/17 at 19:00 Aspirin (Ecotrin) 325 mg BID PO Last administered on 02/02/17 08:32; Admin Dose 325 MG; Start 01/16/17 at 21:00 Atorvastatin Calcium (Lipitor) 80 mg QHS PO Last administered on 02/01/17 20: 31; Admin Dose 80 MG; Start 01/16/17 at 21:00 Bisacodyl (Dulcolax) 5 mg DAILY PRN PO CONSTIPATION Last administered on 09:05; Admin Dose 5 MG; Start 01/16/17 at 19:00 Bisacodyl (Dulcolax Supp) 10 mg Q12H PRN [place] CONSTIPATION Last administered on 11:13; Admin Dose 10 MG; Start 01/16/17 at 19:00 Diphenhydramine HCl (Benadryl) 25 mg Q6H PRN PO PRURITUS; Start 01/16/17 at 19: 00 Docusate Sodium (Colace) 100 mg BID PO Last administered on 02/02/17 08:32; Admin Dose 100 MG; Start 01/16/17 at 21:00 Famotidine (Pepcid) 20 mg Q12 PO Last administered on 02/02/17 08:32; Admin Dose 20 MG; Start 01/16/17 at 21:00 Fluoxetine HCl (Prozac) 40 mg DAILY PO Last administered on 02/02/17 08:32; Admin Dose 40 MG; Start 01/17/17 at 09:00 Acetaminophen/ Hydrocodone Bitart ([place] (5/325)) 1 tab Q4H PRN PO PAIN LEVEL 1 -3 Last administered on 01/30/17 09:16; Admin Dose 1 TAB; Start 01/16/17 at 19: 30 Acetaminophen/ Hydrocodone Bitart ([place] (5/325)) 2 tab Q4H PRN PO PAIN LEVEL 4 -7 Last administered on 02/01/17 15:43; Admin Dose 2 TAB; Start 01/16/17 at 19: 30 Magnesium Hydroxide (Milk Of Mag) 30 ml BID PRN PO CONSTIPATION; Start at 19:30 Sodium Biphosphate/ Sodium Phosphate (Fleet Enema) 133 ml DAILY PRN [place] CONSTIPATION Last administered on 01/18/17 21:56; Admin Dose 133 ML; Start 07/25 at 19:30 Hydromorphone HCl (Dilaudid) 0.5 mg Q6H PRN IV PAIN Last administered on 22:14; Admin Dose 0.5 MG; Start 01/16/17 at 19:30; Status Future Hold Senna (Senokot) 1 tab HS PO Last administered on 02/01/17 20:31; Admin Dose 1 TAB; Start 01/16/17 at 22:00 Lactulose (Enulose) 20 gm DAILY PRN PO CONSTIPATION Last administered on 11:13; Admin Dose 20 GM; Start 01/16/17 at 22:00 Lidocaine (Xylocaine) 1 applic PRN PRN TOP PAIN Last administered on 01/22/17 06:15; Admin Dose 1 APPLIC; Start 01/17/17 at 18:00 Hydrocortisone (Hydrocortisone 1% Cr) 1 applic BID PRN TOP rashes; Start at 13:00 Finasteride (Proscar) 5 mg DAILY PO Last administered on 02/02/17 08:32; Admin Dose 5 MG; Start 01/22/17 at 09:00 Bethanechol Chloride (Urecholine) 25 mg Q6 PO Last administered on 02/02/17 06 :07; Admin Dose 25 MG; Start 01/22/17 at 14:30 Tamsulosin HCl (Flomax) 0.8 mg HS PO Last administered on 02/01/17 20:31; Admin Dose 0.8 MG; Start 01/23/17 at 21:00 Acetylcysteine (Nac) 600 mg BID PO Last administered on 02/02/17 08:32; Admin Dose 600 MG; Start 01/26/17 at 21:00 Pseudoephedrine HCl (Sudogest) 60 mg Q6H PRN PO NASAL CONGESTION; Start at 13:00 Promethazine HCl/ Codeine (Phenergan/ Codeine) 5 ml Q4H PRN PO COUGH Last administered on 02/02/17 09:17; Admin Dose 5 ML; Start 02/01/17 at 13:00 Phenol (Cepastat Lozenge) 1 lozenge Q1H PRN [place] SORE THROAT; Start 02/01/17 at 13:00 MASON RABAGO MD February 02, 2017 10:39
[2017-02-02 20:14] VITALS: BP 108/61; RESP 20
[2017-02-02] MEDS: TAMSULOSIN (SR) 0.4 MG CAP PO SCH (20:38)
[2017-02-02] MEDS: ATORVASTATIN 80 MG TAB PO SCH (20:38)
[2017-02-02] MEDS: SENNA TAB PO SCH (20:38)
--- NOTE | 2017-02-02 21:53 | PN ---
Date/Time of Note Date/Time of Note DATE: 02/02/17 TIME: 21:47 Assessment/Plan VTE Prophylaxis VTE Prophylaxis Intervention: ambulation Lines/Catheters IV Catheter Type (from Nrs): Saline Lock Urinary Cath still in place: No Assessment/Plan Problems: (1) Acute upper respiratory infection Status: Acute Comment: Cont. symptomatic treatment (2) Left rib fracture Status: Acute Comment: Cont. pain management (3) Status post hip hemiarthroplasty Status: Resolved Comment: Cont. rehab and pain management for residual pain running down leg. (4) BPH (benign prostatic hypertrophy) with urinary retention Status: Chronic Comment: Urinating well. Cont. tamsulosin (5) Essential (primary) hypertension Status: Chronic Comment: BP controlled on no meds at this time. Will monitor Subjective 24 Hr Interval Summary Constitutional: no complaints Eyes: no complaints ENT: congestion (better than yesterdy), sore throat Respiratory: cough (better than yeterday), sputum (better than yesterday) Cardiovascular: no complaints Gastrointestinal: no complaints Genitourinary: no complaints Musculoskeletal: bone/joint pain (pain along lateral LLE, pain where he has old healed L rib fx; both fully managed by pain meds.) Neurologic: no complaints Psychological: nl mood/affect, no complaints Exam/Review of Systems Vital Signs Vitals VS - Last 72 Hours, by Label Date Time Temp Pulse Resp B/P Pulse Ox O2 Delivery O2 Flow Rate FiO2 02/02/17 20:14 97.9 75 20 108/61 96 02/02/17 08:00 98.6 74 18 121/67 99 Room Air 02/01/17 08:10 98.3 64 18 108/61 97 Room Air 02/01/17 07:30 98.3 64 18 108/61 97 01/31/17 20:00 98.2 81 18 108/63 96 01/31/17 07:38 97.9 71 18 124/62 95 Vital Signs Date Time Temp Pulse Resp B/P Pulse Ox O2 Delivery O2 Flow Rate FiO2 02/02/17 20:14 97.9 75 20 108/61 96 02/02/17 08:00 Room Air Intake and Output 02/01/17 02/01/17 02/02/17 15:00 23:00 07:00 Intake Total 960 ml 360 ml Output Total 650 ml 900 ml 750 ml Balance -650 ml 60 ml -390 ml Exam Constitutional: alert, frail, oriented Psych: depression Respiratory: clear to auscultation, normal air movement Cardiovascular: edema (1+ BLE), regular rate and rhythm Gastrointestinal: nl liver, spleen, non-tender, soft, No bowel sounds, No mass, No rebound or guarding Musculoskeletal: nl extremities to inspection Extremities: edema (1+ BLE), normal pulses, No clubbing, No cyanosis Neurological: RECOVERY COACH II-XII intact, nl mental status, nl speech, nl strength Medications Medications Current Medications Acetaminophen (Tylenol Tab) 650 mg Q6H PRN PO PAIN LEVEL 1-3 OR FEVER Last administered on 01/31/17 20:39; Admin Dose 650 MG; Start 01/16/17 at 19:00 Aspirin (Ecotrin) 325 mg BID PO Last administered on 02/02/17 20:38; Admin Dose 325 MG; Start 01/16/17 at 21:00 Atorvastatin Calcium (Lipitor) 80 mg QHS PO Last administered on 02/02/17 20: 38; Admin Dose 80 MG; Start 01/16/17 at 21:00 Bisacodyl (Dulcolax) 5 mg DAILY PRN PO CONSTIPATION Last administered on 09:05; Admin Dose 5 MG; Start 01/16/17 at 19:00 Bisacodyl (Dulcolax Supp) 10 mg Q12H PRN [place] CONSTIPATION Last administered on 11:13; Admin Dose 10 MG; Start 01/16/17 at 19:00 Diphenhydramine HCl (Benadryl) 25 mg Q6H PRN PO PRURITUS; Start 01/16/17 at 19: 00 Docusate Sodium (Colace) 100 mg BID PO Last administered on 02/02/17 20:38; Admin Dose 100 MG; Start 01/16/17 at 21:00 Famotidine (Pepcid) 20 mg Q12 PO Last administered on 02/02/17 20:38; Admin Dose 20 MG; Start 01/16/17 at 21:00 Fluoxetine HCl (Prozac) 40 mg DAILY PO Last administered on 02/02/17 08:32; Admin Dose 40 MG; Start 01/17/17 at 09:00 Acetaminophen/ Hydrocodone Bitart ([place] (5/325)) 1 tab Q4H PRN PO PAIN LEVEL 1 -3 Last administered on 01/30/17 09:16; Admin Dose 1 TAB; Start 01/16/17 at 19: 30 Acetaminophen/ Hydrocodone Bitart ([place] (5/325)) 2 tab Q4H PRN PO PAIN LEVEL 4 -7 Last administered on 02/01/17 15:43; Admin Dose 2 TAB; Start 01/16/17 at 19: 30 Magnesium Hydroxide (Milk Of Mag) 30 ml BID PRN PO CONSTIPATION; Start at 19:30 Sodium Biphosphate/ Sodium Phosphate (Fleet Enema) 133 ml DAILY PRN [place] CONSTIPATION Last administered on 01/18/17 21:56; Admin Dose 133 ML; Start 07/25 at 19:30 Hydromorphone HCl (Dilaudid) 0.5 mg Q6H PRN IV PAIN Last administered on 22:14; Admin Dose 0.5 MG; Start 01/16/17 at 19:30; Status Future Hold Senna (Senokot) 1 tab HS PO Last administered on 02/02/17 20:38; Admin Dose 1 TAB; Start 01/16/17 at 22:00 Lactulose (Enulose) 20 gm DAILY PRN PO CONSTIPATION Last administered on 11:13; Admin Dose 20 GM; Start 01/16/17 at 22:00 Lidocaine (Xylocaine) 1 applic PRN PRN TOP PAIN Last administered on 01/22/17 06:15; Admin Dose 1 APPLIC; Start 01/17/17 at 18:00 Hydrocortisone (Hydrocortisone 1% Cr) 1 applic BID PRN TOP rashes; Start at 13:00 Finasteride (Proscar) 5 mg DAILY PO Last administered on 02/02/17 08:32; Admin Dose 5 MG; Start 01/22/17 at 09:00 Bethanechol Chloride (Urecholine) 25 mg Q6 PO Last administered on 02/02/17 17 :29; Admin Dose 25 MG; Start 01/22/17 at 14:30 Tamsulosin HCl (Flomax) 0.8 mg HS PO Last administered on 02/02/17 20:38; Admin Dose 0.8 MG; Start 01/23/17 at 21:00 Acetylcysteine (Nac) 600 mg BID PO Last administered on 02/02/17 20:38; Admin Dose 600 MG; Start 01/26/17 at 21:00 Pseudoephedrine HCl (Sudogest) 60 mg Q6H PRN PO NASAL CONGESTION; Start at 13:00 Promethazine HCl/ Codeine (Phenergan/ Codeine) 5 ml Q4H PRN PO COUGH Last administered on 02/02/17 15:06; Admin Dose 5 ML; Start 02/01/17 at 13:00 Phenol (Cepastat Lozenge) 1 lozenge Q1H PRN [place] SORE THROAT; Start 02/01/17 at 13:00 ELIO AGUILLON MD February 02, 2017 21:53
[2017-02-03] MEDS: BETHANECHOL 25 MG TAB PO SCH ×4 (00:19→18:36)
[2017-02-03 07:30] VITALS: BP 120/71; RESP 18
[2017-02-03] MEDS: FAMOTIDINE 20 MG TAB PO SCH ×2 (09:02→20:45)
[2017-02-03] MEDS: FLUOXETINE 20 MG CAP PO SCH (09:02)
[2017-02-03] MEDS: DOCUSATE SODIUM 100 MG CAP PO SCH ×2 (09:02→20:45)
[2017-02-03] MEDS: FINASTERIDE 5 MG TAB PO SCH (09:02)
[2017-02-03] MEDS: ACETYLCYSTEINE 600 MG CAP PO SCH ×2 (09:02→20:45)
[2017-02-03] MEDS: HYDROCODONE/APAP (5/325) TAB PO PRN ×2 (09:03→13:37)
[2017-02-03] MEDS: PROMETHAZINE/CODEINE 5ML CUP PO PRN (09:04)
[2017-02-03] MEDS: ASPIRIN (EC) 325 MG TAB PO SCH ×2 (09:04→20:45)
--- NOTE | 2017-02-03 10:35 | PN ---
Date/Time of Note Date/Time of Note DATE: 02/03/17 TIME: 10:33 Assessment/Plan VTE Prophylaxis VTE Prophylaxis Intervention: other (ASA) Lines/Catheters IV Catheter Type (from Nrsg): Saline Lock Urinary Cath still in place: No Assessment/Plan Assessment/Plan 1. Status post mechanical fall with displaced left femoral neck fracture, status post left hip hemiarthroplasty. With impaired mobility/gait/ADLs. Bed mobility now with stand by assistance. 2. Acute postoperative pain. Controlled on prn norco. 3. History of cerebrovascular accident with residual left-sided weakness. Continue secondary stroke prevention. 4. History of hypertension. BP controlled. Cardiology and internal medicine following. 5. Hyperlipidemia. Continue Statin. 6. GERD. On pepcid. 7. Anemia. Continue to monitor hemoglobin/hematocrit. 8. BPH. Continue medical management. Continue bladder program. 9. URI. Continue supportive treatment. Subjective 24 Hr Interval Summary Free Text/Dictation Rehab progress note Subjective: Reports minimal pain in LLE. Still with some chest congestion, coughing, overall better. ROS: Denies chills, no fevers, no shortness of breath, no chest pain, no nausea , no vomiting, no headache or dizziness. Exam/Review of Systems Vital Signs Vitals Vital Signs Date Time Temp Pulse Resp B/P Pulse Ox O2 Delivery O2 Flow Rate FiO2 02/02/17 20:14 97.9 75 20 108/61 96 02/02/17 08:00 Room Air Intake and Output 02/02/17 02/02/17 02/03/17 15:00 23:00 07:00 Intake Total 820 ml Output Total 500 ml 600 ml Balance -500 ml 220 ml Exam General: Awake, alert, no acute distress CV: Regular rate, s1s2 Lungs: Respirations are nonlabored, no wheezing Abdomen soft, nontender Extremities: Without cyanosis, no new swelling Neuro: No new focal changes. Follows simple commands. Medications Medications Current Medications Acetaminophen (Tylenol Tab) 650 mg Q6H PRN PO PAIN LEVEL 1-3 OR FEVER Last administered on 01/31/17 20:39; Admin Dose 650 MG; Start 01/16/17 at 19:00 Aspirin (Ecotrin) 325 mg BID PO Last administered on 02/03/17 09:04; Admin Dose 325 MG; Start 01/16/17 at 21:00 Atorvastatin Calcium (Lipitor) 80 mg QHS PO Last administered on 02/02/17 20: 38; Admin Dose 80 MG; Start 01/16/17 at 21:00 Bisacodyl (Dulcolax) 5 mg DAILY PRN PO CONSTIPATION Last administered on 09:05; Admin Dose 5 MG; Start 01/16/17 at 19:00 Bisacodyl (Dulcolax Supp) 10 mg Q12H PRN [place] CONSTIPATION Last administered on 11:13; Admin Dose 10 MG; Start 01/16/17 at 19:00 Diphenhydramine HCl (Benadryl) 25 mg Q6H PRN PO PRURITUS; Start 01/16/17 at 19: 00 Docusate Sodium (Colace) 100 mg BID PO Last administered on 02/03/17 09:02; Admin Dose 100 MG; Start 01/16/17 at 21:00 Famotidine (Pepcid) 20 mg Q12 PO Last administered on 02/03/17 09:02; Admin Dose 20 MG; Start 01/16/17 at 21:00 Fluoxetine HCl (Prozac) 40 mg DAILY PO Last administered on 02/03/17 09:02; Admin Dose 40 MG; Start 01/17/17 at 09:00 Acetaminophen/ Hydrocodone Bitart ([place] (5/325)) 1 tab Q4H PRN PO PAIN LEVEL 1 -3 Last administered on 02/03/17 09:03; Admin Dose 1 TAB; Start 01/16/17 at 19: 30 Acetaminophen/ Hydrocodone Bitart ([place] (5/325)) 2 tab Q4H PRN PO PAIN LEVEL 4 -7 Last administered on 02/01/17 15:43; Admin Dose 2 TAB; Start 01/16/17 at 19: 30 Magnesium Hydroxide (Milk Of Mag) 30 ml BID PRN PO CONSTIPATION; Start at 19:30 Sodium Biphosphate/ Sodium Phosphate (Fleet Enema) 133 ml DAILY PRN [place] CONSTIPATION Last administered on 01/18/17 21:56; Admin Dose 133 ML; Start 07/25 at 19:30 Hydromorphone HCl (Dilaudid) 0.5 mg Q6H PRN IV PAIN Last administered on 22:14; Admin Dose 0.5 MG; Start 01/16/17 at 19:30; Status Future Hold Senna (Senokot) 1 tab HS PO Last administered on 02/02/17 20:38; Admin Dose 1 TAB; Start 01/16/17 at 22:00 Lactulose (Enulose) 20 gm DAILY PRN PO CONSTIPATION Last administered on 11:13; Admin Dose 20 GM; Start 01/16/17 at 22:00 Lidocaine (Xylocaine) 1 applic PRN PRN TOP PAIN Last administered on 01/22/17 06:15; Admin Dose 1 APPLIC; Start 01/17/17 at 18:00 Hydrocortisone (Hydrocortisone 1% Cr) 1 applic BID PRN TOP rashes; Start at 13:00 Finasteride (Proscar) 5 mg DAILY PO Last administered on 02/03/17 09:02; Admin Dose 5 MG; Start 01/22/17 at 09:00 Bethanechol Chloride (Urecholine) 25 mg Q6 PO Last administered on 02/03/17 06 :11; Admin Dose 25 MG; Start 01/22/17 at 14:30 Tamsulosin HCl (Flomax) 0.8 mg HS PO Last administered on 02/02/17 20:38; Admin Dose 0.8 MG; Start 01/23/17 at 21:00 Acetylcysteine (Nac) 600 mg BID PO Last administered on 02/03/17 09:02; Admin Dose 600 MG; Start 01/26/17 at 21:00 Pseudoephedrine HCl (Sudogest) 60 mg Q6H PRN PO NASAL CONGESTION; Start at 13:00 Promethazine HCl/ Codeine (Phenergan/ Codeine) 5 ml Q4H PRN PO COUGH Last administered on 02/03/17 09:04; Admin Dose 5 ML; Start 02/01/17 at 13:00 Phenol (Cepastat Lozenge) 1 lozenge Q1H PRN [place] SORE THROAT; Start 02/01/17 at 13:00 IGNACIO DUKES February 03, 2017 10:35
--- NOTE | 2017-02-03 13:14 | PN ---
Date/Time of Note Date/Time of Note DATE: 02/03/17 TIME: 13:10 Assessment/Plan VTE Prophylaxis VTE Prophylaxis Intervention: ambulation Lines/Catheters IV C[facility]from [facility] Saline Lock Urinary Cath still in place: No Assessment/Plan Problems: (1) Status post hip hemiarthroplasty Status: Resolved Comment: Still w/ pain, will add lidoderm patch locally. (2) BPH (benign prostatic hypertrophy) with urinary retention Status: Chronic Comment: Doing well w/ tamsulosin, finasteride. (3) Essential (primary) hypertension Status: Chronic Comment: Controlled w/ no meds (4) Acute upper respiratory infection Status: Resolved Comment: Denies complaints today. Subjective 24 Hr Interval Summary Constitutional: improved, no complaints ENT: no complaints Respiratory: no complaints Cardiovascular: no complaints Gastrointestinal: no complaints Genitourinary: no complaints Musculoskeletal: bone/joint pain (LLE lateral portion) Neurologic: no complaints Exam/Review of Systems Vital Signs Vitals VS - Last 72 Hours, by Label Date Time Temp Pulse Resp B/P Pulse Ox O2 Delivery O2 Flow Rate FiO2 02/03/17 07:30 98.0 71 18 120/71 95 02/02/17 20:14 97.9 75 20 108/61 96 02/02/17 08:00 98.6 74 18 121/67 99 Room Air 02/01/17 08:10 98.3 64 18 108/61 97 Room Air 02/01/17 07:30 98.3 64 18 108/61 97 01/31/17 20:00 98.2 81 18 108/63 96 Vital Signs Date Time Temp Pulse Resp B/P Pulse Ox O2 Delivery O2 Flow Rate FiO2 02/03/17 07:30 98.0 71 18 120/71 95 02/02/17 08:00 Room Air Intake and Output 02/02/17 02/02/17 02/03/17 15:00 23:00 07:00 Intake Total 820 ml Output Total 500 ml 600 ml Balance -500 ml 220 ml Exam Constitutional: alert, frail, oriented Psych: nl mood/affect, no complaints Respiratory: clear to auscultation, normal air movement Cardiovascular: nl pulses, regular rate and rhythm, No edema, No murmurs/extra sounds, No rub Gastrointestinal: bowel sounds, nl liver, spleen, non-tender, soft, No mass, No rebound or guarding Musculoskeletal: nl extremities to inspection Extremities: normal pulses, No clubbing, No cyanosis, No edema Neurological: CERTIFIED ADAPTED PHYSICAL EDUCATOR II-XII intact, nl mental status, nl speech, nl strength Medications Medications Current Medications Acetaminophen (Tylenol Tab) 650 mg Q6H PRN PO PAIN LEVEL 1-3 OR FEVER Last administered on 01/31/17 20:39; Admin Dose 650 MG; Start 01/16/17 at 19:00 Aspirin (Ecotrin) 325 mg BID PO Last administered on 02/03/17 09:04; Admin Dose 325 MG; Start 01/16/17 at 21:00 Atorvastatin Calcium (Lipitor) 80 mg QHS PO Last administered on 02/02/17 20: 38; Admin Dose 80 MG; Start 01/16/17 at 21:00 Bisacodyl (Dulcolax) 5 mg DAILY PRN PO CONSTIPATION Last administered on 09:05; Admin Dose 5 MG; Start 01/16/17 at 19:00 Bisacodyl (Dulcolax Supp) 10 mg Q12H PRN [place] CONSTIPATION Last administered on 11:13; Admin Dose 10 MG; Start 01/16/17 at 19:00 Diphenhydramine HCl (Benadryl) 25 mg Q6H PRN PO PRURITUS; Start 01/16/17 at 19: 00 Docusate Sodium (Colace) 100 mg BID PO Last administered on 02/03/17 09:02; Admin Dose 100 MG; Start 01/16/17 at 21:00 Famotidine (Pepcid) 20 mg Q12 PO Last administered on 02/03/17 09:02; Admin Dose 20 MG; Start 01/16/17 at 21:00 Fluoxetine HCl (Prozac) 40 mg DAILY PO Last administered on 02/03/17 09:02; Admin Dose 40 MG; Start 01/17/17 at 09:00 Acetaminophen/ Hydrocodone Bitart ([place] (5/325)) 1 tab Q4H PRN PO PAIN LEVEL 1 -3 Last administered on 02/03/17 09:03; Admin Dose 1 TAB; Start 01/16/17 at 19: 30 Acetaminophen/ Hydrocodone Bitart ([place] (5/325)) 2 tab Q4H PRN PO PAIN LEVEL 4 -7 Last administered on 02/01/17 15:43; Admin Dose 2 TAB; Start 01/16/17 at 19: 30 Magnesium Hydroxide (Milk Of Mag) 30 ml BID PRN PO CONSTIPATION; Start at 19:30 Sodium Biphosphate/ Sodium Phosphate (Fleet Enema) 133 ml DAILY PRN [place] CONSTIPATION Last administered on 01/18/17 21:56; Admin Dose 133 ML; Start 07/25 at 19:30 Hydromorphone HCl (Dilaudid) 0.5 mg Q6H PRN IV PAIN Last administered on 22:14; Admin Dose 0.5 MG; Start 01/16/17 at 19:30; Status Future Hold Senna (Senokot) 1 tab HS PO Last administered on 02/02/17 20:38; Admin Dose 1 TAB; Start 01/16/17 at 22:00 Lactulose (Enulose) 20 gm DAILY PRN PO CONSTIPATION Last administered on 11:13; Admin Dose 20 GM; Start 01/16/17 at 22:00 Lidocaine (Xylocaine) 1 applic PRN PRN TOP PAIN Last administered on 01/22/17 06:15; Admin Dose 1 APPLIC; Start 01/17/17 at 18:00 Hydrocortisone (Hydrocortisone 1% Cr) 1 applic BID PRN TOP rashes; Start at 13:00 Finasteride (Proscar) 5 mg DAILY PO Last administered on 02/03/17 09:02; Admin Dose 5 MG; Start 01/22/17 at 09:00 Bethanechol Chloride (Urecholine) 25 mg Q6 PO Last administered on 02/03/17 12 :30; Admin Dose 25 MG; Start 01/22/17 at 14:30 Tamsulosin HCl (Flomax) 0.8 mg HS PO Last administered on 02/02/17 20:38; Admin Dose 0.8 MG; Start 01/23/17 at 21:00 Acetylcysteine (Nac) 600 mg BID PO Last administered on 02/03/17 09:02; Admin Dose 600 MG; Start 01/26/17 at 21:00 Pseudoephedrine HCl (Sudogest) 60 mg Q6H PRN PO NASAL CONGESTION; Start at 13:00 Promethazine HCl/ Codeine (Phenergan/ Codeine) 5 ml Q4H PRN PO COUGH Last administered on 02/03/17 09:04; Admin Dose 5 ML; Start 02/01/17 at 13:00 Phenol (Cepastat Lozenge) 1 lozenge Q1H PRN [place] SORE THROAT; Start 02/01/17 at 13:00 ELIO AGUILLON MD February 03, 2017 13:14
[2017-02-03] MEDS: LIDOCAINE 5% PATCH TD SCH (13:37)
[2017-02-03 19:32] VITALS: BP 116/64; RESP 18
[2017-02-03] MEDS: ATORVASTATIN 80 MG TAB PO SCH (20:45)
[2017-02-03] MEDS: TAMSULOSIN (SR) 0.4 MG CAP PO SCH (20:45)
[2017-02-03] MEDS: SENNA TAB PO SCH (20:45)
[2017-02-04] MEDS: BETHANECHOL 25 MG TAB PO SCH ×4 (00:19→17:49)
[2017-02-04 07:30] VITALS: BP 115/60; PULSE 63; RESP 20
[2017-02-04] MEDS: ASPIRIN (EC) 325 MG TAB PO SCH ×2 (08:21→20:40)
[2017-02-04] MEDS: FINASTERIDE 5 MG TAB PO SCH (08:21)
[2017-02-04] MEDS: DOCUSATE SODIUM 100 MG CAP PO SCH ×2 (08:22→20:40)
[2017-02-04] MEDS: FLUOXETINE 20 MG CAP PO SCH (08:22)
[2017-02-04] MEDS: FAMOTIDINE 20 MG TAB PO SCH ×2 (08:22→20:39)
[2017-02-04] MEDS: ACETYLCYSTEINE 600 MG CAP PO SCH ×2 (08:22→20:40)
[2017-02-04] MEDS: LIDOCAINE 5% PATCH TD SCH (08:22)
--- NOTE | 2017-02-04 12:33 | CONS ---
Date/Time of Note Date/Time of Note DATE: 02/04/17 TIME: 12:31 Consult Date/Type/Reason Admit Date/Time January 16, 2017 at 18:00 Type of Consultation: cv Subjective Comfortable Objective Vital Signs Date Time Temp Pulse Resp B/P Pulse Ox O2 Delivery O2 Flow Rate FiO2 02/04/17 07:30 98.0 63 20 115/60 97 Room Air Intake and Output 02/03/17 02/03/17 02/04/17 14:59 22:59 06:59 Intake Total 820 ml 1080 ml Output Total 920 ml 400 ml Balance -100 ml 680 ml INTERDISCIPLINARY TEAM CONFERENCE BOWEL- Cont BLADDER-Cont SKIN- intact OT- DRESSING-min BATHING-min TOILETING-min PT- BED MOBILITY-min/mod TRANSFERS-mod AMBULATION-mod 25 feet W.C. MOBILITY-min A/P- Interdisciplinary team conference held today. Please see interdisciplinary sheet. Working toward d.c. on 02/06 with post discharge follow up of physical therapy, occupational therapy. Results/Medications Medications Current Medications Acetaminophen (Tylenol Tab) 650 mg Q6H PRN PO PAIN LEVEL 1-3 OR FEVER Last administered on 01/31/17 20:39; Admin Dose 650 MG; Start 01/16/17 at 19:00 Aspirin (Ecotrin) 325 mg BID PO Last administered on 02/04/17 08:21; Admin Dose 325 MG; Start 01/16/17 at 21:00 Atorvastatin Calcium (Lipitor) 80 mg QHS PO Last administered on 02/03/17 20: 45; Admin Dose 80 MG; Start 01/16/17 at 21:00 Bisacodyl (Dulcolax) 5 mg DAILY PRN PO CONSTIPATION Last administered on 09:05; Admin Dose 5 MG; Start 01/16/17 at 19:00 Bisacodyl (Dulcolax Supp) 10 mg Q12H PRN [place] CONSTIPATION Last administered on 11:13; Admin Dose 10 MG; Start 01/16/17 at 19:00 Diphenhydramine HCl (Benadryl) 25 mg Q6H PRN PO PRURITUS; Start 01/16/17 at 19: 00 Docusate Sodium (Colace) 100 mg BID PO Last administered on 02/04/17 08:22; Admin Dose 100 MG; Start 01/16/17 at 21:00 Famotidine (Pepcid) 20 mg Q12 PO Last administered on 02/04/17 08:22; Admin Dose 20 MG; Start 01/16/17 at 21:00 Fluoxetine HCl (Prozac) 40 mg DAILY PO Last administered on 02/04/17 08:22; Admin Dose 40 MG; Start 01/17/17 at 09:00 Acetaminophen/ Hydrocodone Bitart ([place] (5/325)) 1 tab Q4H PRN PO PAIN LEVEL 1 -3 Last administered on 02/03/17 13:37; Admin Dose 1 TAB; Start 01/16/17 at 19: 30 Acetaminophen/ Hydrocodone Bitart ([place] (5/325)) 2 tab Q4H PRN PO PAIN LEVEL 4 -7 Last administered on 02/01/17 15:43; Admin Dose 2 TAB; Start 01/16/17 at 19: 30 Magnesium Hydroxide (Milk Of Mag) 30 ml BID PRN PO CONSTIPATION; Start at 19:30 Sodium Biphosphate/ Sodium Phosphate (Fleet Enema) 133 ml DAILY PRN [place] CONSTIPATION Last administered on 01/18/17 21:56; Admin Dose 133 ML; Start 07/25 at 19:30 Hydromorphone HCl (Dilaudid) 0.5 mg Q6H PRN IV PAIN Last administered on 22:14; Admin Dose 0.5 MG; Start 01/16/17 at 19:30; Status Future Hold Senna (Senokot) 1 tab HS PO Last administered on 02/03/17 20:45; Admin Dose 1 TAB; Start 01/16/17 at 22:00 Lactulose (Enulose) 20 gm DAILY PRN PO CONSTIPATION Last administered on 11:13; Admin Dose 20 GM; Start 01/16/17 at 22:00 Lidocaine (Xylocaine) 1 applic PRN PRN TOP PAIN Last administered on 01/22/17 06:15; Admin Dose 1 APPLIC; Start 01/17/17 at 18:00 Hydrocortisone (Hydrocortisone 1% Cr) 1 applic BID PRN TOP rashes; Start at 13:00 Finasteride (Proscar) 5 mg DAILY PO Last administered on 02/04/17 08:21; Admin Dose 5 MG; Start 01/22/17 at 09:00 Bethanechol Chloride (Urecholine) 25 mg Q6 PO Last administered on 02/04/17 12 :30; Admin Dose 25 MG; Start 01/22/17 at 14:30 Tamsulosin HCl (Flomax) 0.8 mg HS PO Last administered on 02/03/17 20:45; Admin Dose 0.8 MG; Start 01/23/17 at 21:00 Acetylcysteine (Nac) 600 mg BID PO Last administered on 02/04/17 08:22; Admin Dose 600 MG; Start 01/26/17 at 21:00 Pseudoephedrine HCl (Sudogest) 60 mg Q6H PRN PO NASAL CONGESTION; Start at 13:00 Promethazine HCl/ Codeine (Phenergan/ Codeine) 5 ml Q4H PRN PO COUGH Last administered on 02/03/17 09:04; Admin Dose 5 ML; Start 02/01/17 at 13:00 Phenol (Cepastat Lozenge) 1 lozenge Q1H PRN [place] SORE THROAT; Start 02/01/17 at 13:00 Lidocaine (Lidoderm) 1 patch DAILY TD Last administered on 02/04/17 08:22; Admin Dose 1 PATCH; Start 02/03/17 at 13:30 KIMBERLI CASEY MD February 04, 2017 12:33
[2017-02-04] MEDS: PROMETHAZINE/CODEINE 5ML CUP PO PRN ×2 (13:12→20:39)
--- NOTE | 2017-02-04 13:36 | CONS ---
Date/Time of Note Date/Time of Note DATE: 02/04/17 TIME: 13:35 Assessment/Plan Assessment/Plan Additional Assessment/Plan Mechanical fall with hip fracture CVA Preserved ejection fraction History of hypertension with labile blood pressure Possible urinary retention -Blood pressure trend remains stable. Would continue to hold antihypertensives given labile blood pressure and patient on multiple prostate medications necessary for urinary retention. No new cardiac orders at the current time. Consultation Date/Type/Reason Admit Date/Time January 16, 2017 at 18:00 Type of Consultation: cv 24 HR Interval Summary Free Text/Dictation Denies dizziness or lightheadedness with activity or at rest Exam/Review of Systems Vital Signs Vitals Vital Signs Date Time Temp Pulse Resp B/P Pulse Ox O2 Delivery O2 Flow Rate FiO2 02/04/17 07:30 98.0 63 20 115/60 97 Room Air Intake and Output 02/03/17 02/03/17 02/04/17 15:00 23:00 07:00 Intake Total 820 ml 1080 ml Output Total 920 ml 400 ml Balance -100 ml 680 ml Exam No apparent distress Constitutional: alert, oriented Head: normocephalic Respiratory: other (Coarse breath sounds bilaterally, no wheezing) Cardiovascular: other (S1-S2 heard), regular rate and rhythm Gastrointestinal: bowel sounds, non-tender, soft Extremities: other (No edema) Medications Medications Current Medications Acetaminophen (Tylenol Tab) 650 mg Q6H PRN PO PAIN LEVEL 1-3 OR FEVER Last administered on 01/31/17 20:39; Admin Dose 650 MG; Start 01/16/17 at 19:00 Aspirin (Ecotrin) 325 mg BID PO Last administered on 02/04/17 08:21; Admin Dose 325 MG; Start 01/16/17 at 21:00 Atorvastatin Calcium (Lipitor) 80 mg QHS PO Last administered on 02/03/17 20: 45; Admin Dose 80 MG; Start 01/16/17 at 21:00 Bisacodyl (Dulcolax) 5 mg DAILY PRN PO CONSTIPATION Last administered on 09:05; Admin Dose 5 MG; Start 01/16/17 at 19:00 Bisacodyl (Dulcolax Supp) 10 mg Q12H PRN [place] CONSTIPATION Last administered on 11:13; Admin Dose 10 MG; Start 01/16/17 at 19:00 Diphenhydramine HCl (Benadryl) 25 mg Q6H PRN PO PRURITUS; Start 01/16/17 at 19: 00 Docusate Sodium (Colace) 100 mg BID PO Last administered on 02/04/17 08:22; Admin Dose 100 MG; Start 01/16/17 at 21:00 Famotidine (Pepcid) 20 mg Q12 PO Last administered on 02/04/17 08:22; Admin Dose 20 MG; Start 01/16/17 at 21:00 Fluoxetine HCl (Prozac) 40 mg DAILY PO Last administered on 02/04/17 08:22; Admin Dose 40 MG; Start 01/17/17 at 09:00 Acetaminophen/ Hydrocodone Bitart ([place] (5/325)) 1 tab Q4H PRN PO PAIN LEVEL 1 -3 Last administered on 02/03/17 13:37; Admin Dose 1 TAB; Start 01/16/17 at 19: 30 Acetaminophen/ Hydrocodone Bitart ([place] (5/325)) 2 tab Q4H PRN PO PAIN LEVEL 4 -7 Last administered on 02/01/17 15:43; Admin Dose 2 TAB; Start 01/16/17 at 19: 30 Magnesium Hydroxide (Milk Of Mag) 30 ml BID PRN PO CONSTIPATION; Start at 19:30 Sodium Biphosphate/ Sodium Phosphate (Fleet Enema) 133 ml DAILY PRN [place] CONSTIPATION Last administered on 01/18/17 21:56; Admin Dose 133 ML; Start 07/25 at 19:30 Hydromorphone HCl (Dilaudid) 0.5 mg Q6H PRN IV PAIN Last administered on 22:14; Admin Dose 0.5 MG; Start 01/16/17 at 19:30; Status Future Hold Senna (Senokot) 1 tab HS PO Last administered on 02/03/17 20:45; Admin Dose 1 TAB; Start 01/16/17 at 22:00 Lactulose (Enulose) 20 gm DAILY PRN PO CONSTIPATION Last administered on 11:13; Admin Dose 20 GM; Start 01/16/17 at 22:00 Lidocaine (Xylocaine) 1 applic PRN PRN TOP PAIN Last administered on 01/22/17 06:15; Admin Dose 1 APPLIC; Start 01/17/17 at 18:00 Hydrocortisone (Hydrocortisone 1% Cr) 1 applic BID PRN TOP rashes; Start at 13:00 Finasteride (Proscar) 5 mg DAILY PO Last administered on 02/04/17 08:21; Admin Dose 5 MG; Start 01/22/17 at 09:00 Bethanechol Chloride (Urecholine) 25 mg Q6 PO Last administered on 02/04/17 12 :30; Admin Dose 25 MG; Start 01/22/17 at 14:30 Tamsulosin HCl (Flomax) 0.8 mg HS PO Last administered on 02/03/17 20:45; Admin Dose 0.8 MG; Start 01/23/17 at 21:00 Acetylcysteine (Nac) 600 mg BID PO Last administered on 02/04/17 08:22; Admin Dose 600 MG; Start 01/26/17 at 21:00 Pseudoephedrine HCl (Sudogest) 60 mg Q6H PRN PO NASAL CONGESTION; Start at 13:00 Promethazine HCl/ Codeine (Phenergan/ Codeine) 5 ml Q4H PRN PO COUGH Last administered on 02/04/17 13:12; Admin Dose 5 ML; Start 02/01/17 at 13:00 Phenol (Cepastat Lozenge) 1 lozenge Q1H PRN [place] SORE THROAT; Start 02/01/17 at 13:00 Lidocaine (Lidoderm) 1 patch DAILY TD Last administered on 02/04/17 08:22; Admin Dose 1 PATCH; Start 02/03/17 at 13:30 Thor Munguia DO February 04, 2017 13:36
--- NOTE | 2017-02-04 17:44 | PN ---
Date/Time of Note Date/Time of Note DATE: 02/04/17 TIME: 17:43 Assessment/Plan Lines/Catheters IV Catheter Type (from Nrsg): Saline Lock Valenzuela in Place (from Nrsg): No Assessment/Plan Assessment/Plan Stable in ARU, s/p left hemiarthroplasty -aj removed, steri strips applied -cont posterior hip precautions -OOB with PT -discharge planning with HHPT -follow up in the office in 4 weeks Subjective 24 Hr Interval Summary Doing well in ARU. Progressing with PT. States hip pain is improving. Denies f/c Exam/Review of Systems Vital Signs Vitals Vital Signs Date Time Temp Pulse Resp B/P Pulse Ox O2 Delivery O2 Flow Rate FiO2 02/04/17 07:30 98.0 63 20 115/60 97 Room Air Intake and Output 02/03/17 02/03/17 02/04/17 15:00 23:00 07:00 Intake Total 820 ml 1080 ml Output Total 920 ml 400 ml Balance -100 ml 680 ml Exam Free Text/Dictation Dressing dry Incision clean, dry, and intact without redness or drainage 5/ Quadriceps, Tibialis Anterior, EHL, Gastroc, Soleus, Peroneals Normal sensation Palpable DT/PT, CR <2 sec No distal edema DANIA MORRISON PA-C February 04, 2017 17:44
--- NOTE | 2017-02-04 18:38 | PN ---
Date/Time of Note Date/Time of Note DATE: 02/04/17 TIME: 18:34 Assessment/Plan VTE Prophylaxis VTE Prophylaxis Intervention: other Lines/Catheters IV [facility] Type (from [facility] Saline Lock Urinary Cath still in place: No Assessment/Plan Problems: (1) Status post type I or II open fracture of left hip Status: Resolved Comment: Postoperative and progressing slowly with acute rehabilitation unit (2) Diastolic dysfunction Status: Chronic Comment: Stable on current medication regimen (3) Hyperlipidemia Status: Chronic Comment: Stable on current regimen Qualifiers: Hyperlipidemia type: pure hypercholesterolemia Qualified Code: E78.00 - Pure hypercholesterolemia (4) Essential (primary) hypertension Status: Chronic Comment: Adequate control under the current circumstances. As per cardiology with no change medications (5) BPH (benign prostatic hypertrophy) with urinary retention Status: Chronic Comment: This is under fair control under the current circumstances. (6) Status post hip hemiarthroplasty Status: Resolved Comment: Recovering slowly. Please see the notes from the operative surgeon Subjective 24 Hr Interval Summary Constitutional: no complaints Respiratory: no complaints Cardiovascular: no complaints Gastrointestinal: no complaints Genitourinary: no complaints (Denies dysuria pyuria or hesitancy) Exam/Review of Systems Vital Signs Vitals Vital Signs Date Time Temp Pulse Resp B/P Pulse Ox O2 Delivery O2 Flow Rate FiO2 02/04/17 07:30 98.0 63 20 115/60 97 Room Air Intake and Output 02/03/17 02/03/17 02/04/17 15:00 23:00 07:00 Intake Total 820 ml 1080 ml Output Total 920 ml 400 ml Balance -100 ml 680 ml Exam Constitutional: alert, oriented Respiratory: clear to auscultation, normal air movement Cardiovascular: nl pulses, regular rate and rhythm Gastrointestinal: nl liver, spleen, non-tender, soft Medications Medications Current Medications Acetaminophen (Tylenol Tab) 650 mg Q6H PRN PO PAIN LEVEL 1-3 OR FEVER Last administered on 01/31/17 20:39; Admin Dose 650 MG; Start 01/16/17 at 19:00 Aspirin (Ecotrin) 325 mg BID PO Last administered on 02/04/17 08:21; Admin Dose 325 MG; Start 01/16/17 at 21:00 Atorvastatin Calcium (Lipitor) 80 mg QHS PO Last administered on 02/03/17 20: 45; Admin Dose 80 MG; Start 01/16/17 at 21:00 Bisacodyl (Dulcolax) 5 mg DAILY PRN PO CONSTIPATION Last administered on 09:05; Admin Dose 5 MG; Start 01/16/17 at 19:00 Bisacodyl (Dulcolax Supp) 10 mg Q12H PRN [place] CONSTIPATION Last administered on 11:13; Admin Dose 10 MG; Start 01/16/17 at 19:00 Diphenhydramine HCl (Benadryl) 25 mg Q6H PRN PO PRURITUS; Start 01/16/17 at 19: 00 Docusate Sodium (Colace) 100 mg BID PO Last administered on 02/04/17 08:22; Admin Dose 100 MG; Start 01/16/17 at 21:00 Famotidine (Pepcid) 20 mg Q12 PO Last administered on 02/04/17 08:22; Admin Dose 20 MG; Start 01/16/17 at 21:00 Fluoxetine HCl (Prozac) 40 mg DAILY PO Last administered on 02/04/17 08:22; Admin Dose 40 MG; Start 01/17/17 at 09:00 Acetaminophen/ Hydrocodone Bitart ([place] (5/325)) 1 tab Q4H PRN PO PAIN LEVEL 1 -3 Last administered on 02/03/17 13:37; Admin Dose 1 TAB; Start 01/16/17 at 19: 30 Acetaminophen/ Hydrocodone Bitart ([place] (5/325)) 2 tab Q4H PRN PO PAIN LEVEL 4 -7 Last administered on 02/01/17 15:43; Admin Dose 2 TAB; Start 01/16/17 at 19: 30 Magnesium Hydroxide (Milk Of Mag) 30 ml BID PRN PO CONSTIPATION; Start at 19:30 Sodium Biphosphate/ Sodium Phosphate (Fleet Enema) 133 ml DAILY PRN [place] CONSTIPATION Last administered on 01/18/17 21:56; Admin Dose 133 ML; Start 07/25 at 19:30 Hydromorphone HCl (Dilaudid) 0.5 mg Q6H PRN IV PAIN Last administered on 22:14; Admin Dose 0.5 MG; Start 01/16/17 at 19:30; Status Future Hold Senna (Senokot) 1 tab HS PO Last administered on 02/03/17 20:45; Admin Dose 1 TAB; Start 01/16/17 at 22:00 Lactulose (Enulose) 20 gm DAILY PRN PO CONSTIPATION Last administered on 11:13; Admin Dose 20 GM; Start 01/16/17 at 22:00 Lidocaine (Xylocaine) 1 applic PRN PRN TOP PAIN Last administered on 01/22/17 06:15; Admin Dose 1 APPLIC; Start 01/17/17 at 18:00 Hydrocortisone (Hydrocortisone 1% Cr) 1 applic BID PRN TOP rashes; Start at 13:00 Finasteride (Proscar) 5 mg DAILY PO Last administered on 02/04/17 08:21; Admin Dose 5 MG; Start 01/22/17 at 09:00 Bethanechol Chloride (Urecholine) 25 mg Q6 PO Last administered on 02/04/17 17 :49; Admin Dose 25 MG; Start 01/22/17 at 14:30 Tamsulosin HCl (Flomax) 0.8 mg HS PO Last administered on 02/03/17 20:45; Admin Dose 0.8 MG; Start 01/23/17 at 21:00 Acetylcysteine (Nac) 600 mg BID PO Last administered on 02/04/17 08:22; Admin Dose 600 MG; Start 01/26/17 at 21:00 Pseudoephedrine HCl (Sudogest) 60 mg Q6H PRN PO NASAL CONGESTION; Start at 13:00 Promethazine HCl/ Codeine (Phenergan/ Codeine) 5 ml Q4H PRN PO COUGH Last administered on 02/04/17 13:12; Admin Dose 5 ML; Start 02/01/17 at 13:00 Phenol (Cepastat Lozenge) 1 lozenge Q1H PRN [place] SORE THROAT; Start 02/01/17 at 13:00 Lidocaine (Lidoderm) 1 patch DAILY TD Last administered on 02/04/17 08:22; Admin Dose 1 PATCH; Start 02/03/17 at 13:30 MURIEL LÓPEZ MD February 04, 2017 18:38
[2017-02-04 19:23] VITALS: BP 109/62; RESP 18
[2017-02-04] MEDS: SENNA TAB PO SCH (20:39)
[2017-02-04] MEDS: ATORVASTATIN 80 MG TAB PO SCH (20:40)
[2017-02-04] MEDS: HYDROCODONE/APAP (5/325) TAB PO PRN (20:40)
[2017-02-04] MEDS: TAMSULOSIN (SR) 0.4 MG CAP PO SCH (20:40)
[2017-02-05] MEDS: BETHANECHOL 25 MG TAB PO SCH ×4 (00:17→17:44)
[2017-02-05 07:41] VITALS: BP 108/58; RESP 18
[2017-02-05] MEDS: ASPIRIN (EC) 325 MG TAB PO SCH ×2 (09:05→20:44)
[2017-02-05] MEDS: LIDOCAINE 5% PATCH TD SCH (09:05)
[2017-02-05] MEDS: FAMOTIDINE 20 MG TAB PO SCH ×2 (09:05→20:44)
[2017-02-05] MEDS: ACETYLCYSTEINE 600 MG CAP PO SCH ×2 (09:05→20:45)
[2017-02-05] MEDS: DOCUSATE SODIUM 100 MG CAP PO SCH ×2 (09:06→20:44)
[2017-02-05] MEDS: FLUOXETINE 20 MG CAP PO SCH (09:06)
[2017-02-05] MEDS: FINASTERIDE 5 MG TAB PO SCH (09:06)
--- NOTE | 2017-02-05 12:31 | CONS ---
Date/Time of Note Date/Time of Note DATE: 02/05/17 TIME: 12:30 Consult Date/Type/Reason Admit Date/Time January 16, 2017 at 18:00 Type of Consultation: cv Subjective Comfortable Objective pulm-cta min assist Vital Signs Date Time Temp Pulse Resp B/P Pulse Ox O2 Delivery O2 Flow Rate FiO2 02/05/17 07:41 98.0 57 18 108/58 97 02/04/17 07:30 Room Air Intake and Output 02/04/17 02/04/17 02/05/17 15:00 23:00 07:00 Intake Total 860 ml 600 ml 770 ml Output Total 450 ml 400 ml Balance 410 ml 200 ml 770 ml Results/Medications Medications Current Medications Acetaminophen (Tylenol Tab) 650 mg Q6H PRN PO PAIN LEVEL 1-3 OR FEVER Last administered on 01/31/17 20:39; Admin Dose 650 MG; Start 01/16/17 at 19:00 Aspirin (Ecotrin) 325 mg BID PO Last administered on 02/05/17 09:05; Admin Dose 325 MG; Start 01/16/17 at 21:00 Atorvastatin Calcium (Lipitor) 80 mg QHS PO Last administered on 02/04/17 20: 40; Admin Dose 80 MG; Start 01/16/17 at 21:00 Bisacodyl (Dulcolax) 5 mg DAILY PRN PO CONSTIPATION Last administered on 09:05; Admin Dose 5 MG; Start 01/16/17 at 19:00 Bisacodyl (Dulcolax Supp) [address] [place] CONSTIPATION Last administered on 11:13; Admin Dose 10 MG; Start 01/16/17 at 19:00 Diphenhydramine HCl (Benadryl) 25 mg Q6H PRN PO PRURITUS; Start 01/16/17 at 19: 00 Docusate Sodium (Colace) 100 mg BID PO Last administered on 02/05/17 09:06; Admin Dose 100 MG; Start 01/16/17 at 21:00 Famotidine (Pepcid) 20 mg Q12 PO Last administered on 02/05/17 09:05; Admin Dose 20 MG; Start 01/16/17 at 21:00 Fluoxetine HCl (Prozac) 40 mg DAILY PO Last administered on 02/05/17 09:06; Admin Dose 40 MG; Start 01/17/17 at 09:00 Acetaminophen/ Hydrocodone Bitart ([place] (5/325)) 1 tab Q4H PRN PO PAIN LEVEL 1 -3 Last administered on 02/04/17 20:40; Admin Dose 1 TAB; Start 01/16/17 at 19: 30 Acetaminophen/ Hydrocodone Bitart ([place] (5/325)) 2 tab Q4H PRN PO PAIN LEVEL 4 -7 Last administered on 02/01/17 15:43; Admin Dose 2 TAB; Start 01/16/17 at 19: 30 Magnesium Hydroxide (Milk Of Mag) 30 ml BID PRN PO CONSTIPATION; Start at 19:30 Sodium Biphosphate/ Sodium Phosphate (Fleet Enema) [address] CONSTIPATION Last administered on 01/18/17 21:56; Admin Dose 133 ML; Start 07/25 at 19:30 Hydromorphone HCl (Dilaudid) 0.5 mg Q6H PRN IV PAIN Last administered on 22:14; Admin Dose 0.5 MG; Start 01/16/17 at 19:30; Status Future Hold Senna (Senokot) 1 tab HS PO Last administered on 02/04/17 20:39; Admin Dose 1 TAB; Start 01/16/17 at 22:00 Lactulose (Enulose) 20 gm DAILY PRN PO CONSTIPATION Last administered on 11:13; Admin Dose 20 GM; Start 01/16/17 at 22:00 Lidocaine (Xylocaine) 1 applic PRN PRN TOP PAIN Last administered on 01/22/17 06:15; Admin Dose 1 APPLIC; Start 01/17/17 at 18:00 Hydrocortisone (Hydrocortisone 1% Cr) 1 applic BID PRN TOP rashes; Start at 13:00 Finasteride (Proscar) 5 mg DAILY PO Last administered on 02/05/17 09:06; Admin Dose 5 MG; Start 01/22/17 at 09:00 Bethanechol Chloride (Urecholine) 25 mg Q6 PO Last administered on 02/05/17 11 :39; Admin Dose 25 MG; Start 01/22/17 at 14:30 Tamsulosin HCl (Flomax) 0.8 mg HS PO Last administered on 02/04/17 20:40; Admin Dose 0.8 MG; Start 01/23/17 at 21:00 Acetylcysteine (Nac) 600 mg BID PO Last administered on 02/05/17 09:05; Admin Dose 600 MG; Start 01/26/17 at 21:00 Pseudoephedrine HCl (Sudogest) 60 mg Q6H PRN PO NASAL CONGESTION; Start at 13:00 Promethazine HCl/ Codeine (Phenergan/ Codeine) 5 ml Q4H PRN PO COUGH Last administered on 02/04/17 20:39; Admin Dose 5 ML; Start 02/01/17 at 13:00 Phenol (Cepastat Lozenge) 1 lozenge Q1H PRN [place] SORE THROAT; Start 02/01/17 at 13:00 Lidocaine (Lidoderm) 1 patch DAILY TD Last administered on 02/05/17 09:05; Admin Dose 1 PATCH; Start 02/03/17 at 13:30 Assessment/Plan Additional Assessment/Plan Rehab- Left femoral neck fracture status post left hip hemiarthroplasty; History of cerebrovascular accident with residual left-sided weakness. dispo planning in progress Hypertension. Hyperlipidemia. Gastroesophageal reflux disease. Anemia. KIMBERLI CASEY MD February 05, 2017 12:31
--- NOTE | 2017-02-05 14:23 | PN ---
Date/Time of Note Date/Time of Note DATE: 02/05/17 TIME: 14:21 Assessment/Plan VTE Prophylaxis VTE Prophylaxis Intervention: other Lines/Catheters IV C[facility]ter Type (from [facility]): Saline Lock Urinary Cath still in place: No Assessment/Plan Problems: (1) BPH (benign prostatic hypertrophy) with urinary retention Status: Chronic Comment: He is doing relatively well and stable on his current medication regimen. In roughly a month we can look at tapering down on the Urecholine. At assumes of course that he is ambulating better (2) Status post hip hemiarthroplasty Status: Resolved Comment: Recuperating slowly for possible discharge tomorrow (3) Hemiplegia and hemiparesis following cerebral infarction affecting left non- dominant side Status: Chronic Comment: Stable and unchanged (4) Diastolic dysfunction Status: Chronic Comment: Compensated (5) Essential (primary) hypertension Status: Chronic Comment: Controlled with his current regimen. Subjective 24 Hr Interval Summary Free Text/Dictation Patient reports that he is relatively stable. He took a shower today although he sat in the chair while showering. Transferring using wheelchair Constitutional: no complaints Respiratory: no complaints Cardiovascular: no complaints Gastrointestinal: no complaints Genitourinary: no complaints Exam/Review of Systems Vital Signs Vitals Vital Signs Date Time Temp Pulse Resp B/P Pulse Ox O2 Delivery O2 Flow Rate FiO2 02/05/17 07:41 98.0 57 18 108/58 97 02/04/17 07:30 Room Air Intake and Output 02/04/17 02/04/17 02/05/17 15:00 23:00 07:00 Intake Total 860 ml 600 ml 770 ml Output Total 450 ml 400 ml Balance 410 ml 200 ml 770 ml Exam Constitutional: alert, oriented Respiratory: clear to auscultation, normal air movement Medications Medications Current Medications Acetaminophen (Tylenol Tab) 650 mg Q6H PRN PO PAIN LEVEL 1-3 OR FEVER Last administered on 01/31/17 20:39; Admin Dose 650 MG; Start 01/16/17 at 19:00 Aspirin (Ecotrin) 325 mg BID PO Last administered on 02/05/17 09:05; Admin Dose 325 MG; Start 01/16/17 at 21:00 Atorvastatin Calcium (Lipitor) 80 mg QHS PO Last administered on 02/04/17 20: 40; Admin Dose 80 MG; Start 01/16/17 at 21:00 Bisacodyl (Dulcolax) 5 mg DAILY PRN PO CONSTIPATION Last administered on 09:05; Admin Dose 5 MG; Start 01/16/17 at 19:00 Bisacodyl (Dulcolax Supp) 10 mg Q12H PRN [place] CONSTIPATION Last administered on 11:13; Admin Dose 10 MG; Start 01/16/17 at 19:00 Diphenhydramine HCl (Benadryl) 25 mg Q6H PRN PO PRURITUS; Start 01/16/17 at 19: 00 Docusate Sodium (Colace) 100 mg BID PO Last administered on 02/05/17 09:06; Admin Dose 100 MG; Start 01/16/17 at 21:00 Famotidine (Pepcid) 20 mg Q12 PO Last administered on 02/05/17 09:05; Admin Dose 20 MG; Start 01/16/17 at 21:00 Fluoxetine HCl (Prozac) 40 mg DAILY PO Last administered on 02/05/17 09:06; Admin Dose 40 MG; Start 01/17/17 at 09:00 Acetaminophen/ Hydrocodone Bitart ([place] (5/325)) 1 tab Q4H PRN PO PAIN LEVEL 1 -3 Last administered on 02/04/17 20:40; Admin Dose 1 TAB; Start 01/16/17 at 19: 30 Acetaminophen/ Hydrocodone Bitart ([place] (5/325)) 2 tab Q4H PRN PO PAIN LEVEL 4 -7 Last administered on 02/01/17 15:43; Admin Dose 2 TAB; Start 01/16/17 at 19: 30 Magnesium Hydroxide (Milk Of Mag) 30 ml BID PRN PO CONSTIPATION; Start at 19:30 Sodium Biphosphate/ Sodium Phosphate (Fleet Enema) 133 ml DAILY PRN [place] CONSTIPATION Last administered on 01/18/17 21:56; Admin Dose 133 ML; Start 07/25 at 19:30 Hydromorphone HCl (Dilaudid) 0.5 mg Q6H PRN IV PAIN Last administered on 22:14; Admin Dose 0.5 MG; Start 01/16/17 at 19:30; Status Future Hold Senna (Senokot) 1 tab HS PO Last administered on 02/04/17 20:39; Admin Dose 1 TAB; Start 01/16/17 at 22:00 Lactulose (Enulose) 20 gm DAILY PRN PO CONSTIPATION Last administered on 11:13; Admin Dose 20 GM; Start 01/16/17 at 22:00 Lidocaine (Xylocaine) 1 applic PRN PRN TOP PAIN Last administered on 01/22/17 06:15; Admin Dose 1 APPLIC; Start 01/17/17 at 18:00 Hydrocortisone (Hydrocortisone 1% Cr) 1 applic BID PRN TOP rashes; Start at 13:00 Finasteride (Proscar) 5 mg DAILY PO Last administered on 02/05/17 09:06; Admin Dose 5 MG; Start 01/22/17 at 09:00 Bethanechol Chloride (Urecholine) 25 mg Q6 PO Last administered on 02/05/17 11 :39; Admin Dose 25 MG; Start 01/22/17 at 14:30 Tamsulosin HCl (Flomax) 0.8 mg HS PO Last administered on 02/04/17 20:40; Admin Dose 0.8 MG; Start 01/23/17 at 21:00 Acetylcysteine (Nac) 600 mg BID PO Last administered on 02/05/17 09:05; Admin Dose 600 MG; Start 01/26/17 at 21:00 Pseudoephedrine HCl (Sudogest) 60 mg Q6H PRN PO NASAL CONGESTION; Start at 13:00 Promethazine HCl/ Codeine (Phenergan/ Codeine) 5 ml Q4H PRN PO COUGH Last administered on 02/04/17 20:39; Admin Dose 5 ML; Start 02/01/17 at 13:00 Phenol (Cepastat Lozenge) 1 lozenge Q1H PRN [place] SORE THROAT; Start 02/01/17 at 13:00 Lidocaine (Lidoderm) 1 patch DAILY TD Last administered on 02/05/17 09:05; Admin Dose 1 PATCH; Start 02/03/17 at 13:30 MURIEL LÓPEZ MD February 05, 2017 14:23
--- NOTE | 2017-02-05 17:31 | PN ---
DATE: 02/05/2017 PSYCHOLOGICAL PROGRESS NOTE - INDIVIDUAL SESSION - [id number]: This is a followup on a patient who was seen last week. The patient is getting better. The patient feels better. The patient was seen up in his wheelchair. He feels like his pain is under better c ontrol and his blood pressure is under better control. HISTORY OF PRESENT ILLNESS: The patient is prepared to be discharged tomorrow. The patient's was present during the session with the patient's permission, and the patient's did believe christine t he has improved. The patient's mood is more positive, and he does see the progress that he has ma de. The patient is still very frustrated about all his medical issues. I worked supportively with the patient to try to help continue to encourage him to work on his physical and emotional health. Dictated By: KATRINA HENDERSON PHD VICKY/JANET Conf#: [id number] DID#: [id number]
[2017-02-05 20:30] VITALS: PULSE 65
[2017-02-05] MEDS: TAMSULOSIN (SR) 0.4 MG CAP PO SCH (20:44)
[2017-02-05] MEDS: ATORVASTATIN 80 MG TAB PO SCH (20:44)
[2017-02-05] MEDS: SENNA TAB PO SCH (20:44)
[2017-02-05] MEDS: PROMETHAZINE/CODEINE 5ML CUP PO PRN (20:48)
[2017-02-06] MEDS: BETHANECHOL 25 MG TAB PO SCH ×3 (00:25→12:46)
[2017-02-06 07:30] VITALS: BP 106/57; RESP 18
[2017-02-06] MEDS: DOCUSATE SODIUM 100 MG CAP PO SCH (09:00)
[2017-02-06] MEDS: FLUOXETINE 20 MG CAP PO SCH (09:39)
[2017-02-06] MEDS: ACETYLCYSTEINE 600 MG CAP PO SCH (09:39)
[2017-02-06] MEDS: FINASTERIDE 5 MG TAB PO SCH (09:39)
[2017-02-06] MEDS: LIDOCAINE 5% PATCH TD SCH (09:39)
[2017-02-06] MEDS: ASPIRIN (EC) 325 MG TAB PO SCH (09:39)
[2017-02-06] MEDS: FAMOTIDINE 20 MG TAB PO SCH (09:39)
[2017-02-06] MEDS: PROMETHAZINE/CODEINE 5ML CUP PO PRN (10:31)
--- NOTE | 2017-02-06 13:02 | PN ---
Date/Time of Note Date/Time of Note DATE: 02/06/17 TIME: 13:02 Assessment/Plan VTE Prophylaxis VTE Prophylaxis Intervention: SCD's Lines/Catheters IV Catheter Type (from Nrs): Saline Lock Urinary Cath still in place: No Assessment/Plan Assessment/Plan Mechanical fall with hip fracture CVA Preserved ejection fraction History of hypertension with labile blood pressure Possible urinary retention -Blood pressure trend remains stable. Would continue to hold antihypertensives given labile blood pressure and patient on multiple prostate medications necessary for urinary retention. No new cardiac orders at the current time. d/c plan Subjective 24 Hr Interval Summary Free Text/Dictation no comaplaints Exam/Review of Systems Vital Signs Vitals Vital Signs Date Time Temp Pulse Resp B/P Pulse Ox O2 Delivery O2 Flow Rate FiO2 02/06/17 07:30 97.7 63 18 106/57 95 02/04/17 07:30 Room Air Intake and Output 02/05/17 02/05/17 02/06/17 15:00 23:00 07:00 Intake Total 1100 ml 1320 ml 420 ml Output Total 650 ml 400 ml 1100 ml Balance 450 ml 920 ml -680 ml Medications Medications Current Medications Acetaminophen (Tylenol Tab) 650 mg Q6H PRN PO PAIN LEVEL 1-3 OR FEVER Last administered on 01/31/17 20:39; Admin Dose 650 MG; Start 01/16/17 at 19:00 Aspirin (Ecotrin) 325 mg BID PO Last administered on 02/06/17 09:39; Admin Dose 325 MG; Start 01/16/17 at 21:00 Atorvastatin Calcium (Lipitor) 80 mg QHS PO Last administered on 02/05/17 20: 44; Admin Dose 80 MG; Start 01/16/17 at 21:00 Bisacodyl (Dulcolax) 5 mg DAILY PRN PO CONSTIPATION Last administered on 09:05; Admin Dose 5 MG; Start 01/16/17 at 19:00 Bisacodyl (Dulcolax Supp) 10 mg Q12H PRN [place] CONSTIPATION Last administered on 11:13; Admin Dose 10 MG; Start 01/16/17 at 19:00 Diphenhydramine HCl (Benadryl) 25 mg Q6H PRN PO PRURITUS; Start 01/16/17 at 19: 00 Docusate Sodium (Colace) 100 mg BID PO Last administered on 02/05/17 20:44; Admin Dose 100 MG; Start 01/16/17 at 21:00 Famotidine (Pepcid) 20 mg Q12 PO Last administered on 02/06/17 09:39; Admin Dose 20 MG; Start 01/16/17 at 21:00 Fluoxetine HCl (Prozac) 40 mg DAILY PO Last administered on 02/06/17 09:39; Admin Dose 40 MG; Start 01/17/17 at 09:00 Acetaminophen/ Hydrocodone Bitart ([place] (5/325)) 1 tab Q4H PRN PO PAIN LEVEL 1 -3 Last administered on 02/04/17 20:40; Admin Dose 1 TAB; Start 01/16/17 at 19: 30 Acetaminophen/ Hydrocodone Bitart ([place] (5/325)) 2 tab Q4H PRN PO PAIN LEVEL 4 -7 Last administered on 02/01/17 15:43; Admin Dose 2 TAB; Start 01/16/17 at 19: 30 Magnesium Hydroxide (Milk Of Mag) 30 ml BID PRN PO CONSTIPATION; Start at 19:30 Sodium Biphosphate/ Sodium Phosphate (Fleet Enema) 133 ml DAILY PRN [place] CONSTIPATION Last administered on 01/18/17 21:56; Admin Dose 133 ML; Start 07/25 at 19:30 Hydromorphone HCl (Dilaudid) 0.5 mg Q6H PRN IV PAIN Last administered on 22:14; Admin Dose 0.5 MG; Start 01/16/17 at 19:30; Status Future Hold Senna (Senokot) 1 tab HS PO Last administered on 02/05/17 20:44; Admin Dose 1 TAB; Start 01/16/17 at 22:00 Lactulose (Enulose) 20 gm DAILY PRN PO CONSTIPATION Last administered on 11:13; Admin Dose 20 GM; Start 01/16/17 at 22:00 Lidocaine (Xylocaine) 1 applic PRN PRN TOP PAIN Last administered on 01/22/17 06:15; Admin Dose 1 APPLIC; Start 01/17/17 at 18:00 Hydrocortisone (Hydrocortisone 1% Cr) 1 applic BID PRN TOP rashes; Start 5/16/ 17 at 13:00 Finasteride (Proscar) 5 mg DAILY PO Last administered on 02/06/17 09:39; Admin Dose 5 MG; Start 01/22/17 at 09:00 Bethanechol Chloride (Urecholine) 25 mg Q6 PO Last administered on 02/06/17 12: 46; Admin Dose 25 MG; Start 01/22/17 at 14:30 Tamsulosin HCl (Flomax) 0.8 mg HS PO Last administered on 02/05/17 20:44; Admin Dose 0.8 MG; Start 01/23/17 at 21:00 Acetylcysteine (Nac) 600 mg BID PO Last administered on 02/06/17 09:39; Admin Dose 600 MG; Start 01/26/17 at 21:00 Pseudoephedrine HCl (Sudogest) 60 mg Q6H PRN PO NASAL CONGESTION; Start at 13:00 Promethazine HCl/ Codeine (Phenergan/ Codeine) 5 ml Q4H PRN PO COUGH Last administered on 02/06/17 10:31; Admin Dose 5 ML; Start 02/01/17 at 13:00 Phenol (Cepastat Lozenge) 1 lozenge Q1H PRN MT SORE THROAT; Start 02/01/17 at 13:00 Lidocaine (Lidoderm) 1 patch DAILY TD Last administered on 02/06/17 09:39; Admin Dose 1 PATCH; Start 02/03/17 at 13:30 MASON RABAGO MD Feb 06, 2017 13:02
== END 2017-02-06 15:01 | DRG 560 ==
LOC: VRC 18:00
PROVIDERS: ADMIT Physical Medicine & Rehabilitation; ATTEND Internal Medicine
DX: S72.002D Fracture of unspecified part of neck of left femur, subsequent encounter for closed fracture with routine healing (principal); F33.1 Major depressive disorder, recurrent, moderate; I69.354 Hemiplegia and hemiparesis following cerebral infarction affecting left non-dominant side; I95.9 Hypotension, unspecified; D64.9 Anemia, unspecified; I10 Essential (primary) hypertension; J06.9 Acute upper respiratory infection, unspecified; B35.1 Tinea unguium; K59.00 Constipation, unspecified; N40.1 Benign prostatic hyperplasia with lower urinary tract symptoms; R33.8 Other retention of urine; I51.89 Other ill-defined heart diseases; E78.5 Hyperlipidemia, unspecified; G89.18 Other acute postprocedural pain; K21.9 Gastro-esophageal reflux disease without esophagitis; W18.30XD Fall on same level, unspecified, subsequent encounter; Z96.642 Presence of left artificial hip joint
CPT/HCPCS: 71010; 72170; 73510; 74000; 76856; 80048; 80053; 81003; 82962; 85014; 85018; 85025; 87086; 97110; 97112; 97116; 97150; 97163; 97167; 97530; 97535; 97542; A4310; J1170; J7030; J7040

== ENCOUNTER → 2017-02-17 | Outpatient (CLI) | payer MEDICARE, OTHER ==
--- NOTE | 2017-02-17 11:44 | HKNOTE ---
DATE OF SERVICE: 02/17/2017 INTERVAL HISTORY: The patient presents today for a postoperative evaluation on his left hip. He is just over 1 month status post left hip bipolar hemiarthroplasty. He is doing well overall. He is still at the [facility] facility doing physical therapy. He is making progress, but slowly given his residual deficits from his CVA. He denies any fevers or chills. He is on appropriate DVT prophylaxis. He presents today for evaluation. PHYSICAL EXAMINATION: Today, he is alert and oriented x4 and in no acute distress. He is predominantly wheelchair-dependent. Exam of the incision demonstrates it to be clean, dry, and intact. It is well healed at this point. There is no erythema, warmth, pus, or drainage noted. There is minimal pain with passive range of motion of the left hip. Compartments are soft. Homans sign is negative. He is neurovascularly intact distally. IMAGING: X-rays of the left hip were obtained at an outside facility are reviewed by me today. They demonstrate good anatomic alignment with no fractures or dislocations identified. ASSESSMENT: Four weeks status post left hip bipolar hemiarthroplasty. PLAN: The aj were removed during his hospital rehabilitation stay. The incision is clean, dry, and well healed at this point. He is to continue physical therapy at [facility]. Additionally, he is to continue DVT prophylaxis. We will see him back in 6 weeks for a repeat evaluation. He is to call the office in the meantime if he has any ongoing concerns. Dictated By: DANIA JONES/JANET Conf#: [id number] DID#: [id number] MTDD
== END | disposition home or self-care (01) ==
LOC: HKI 11:13
PROVIDERS: ATTEND Orthopaedic Surgery
DX: Z47.1 Aftercare following joint replacement surgery (principal); Z96.642 Presence of left artificial hip joint

== ENCOUNTER → 2017-03-31 | Outpatient (CLI) | payer MEDICARE, OTHER | END | disposition home or self-care (01) | LOC: HKI 09:20 | PROVIDERS: ATTEND Orthopaedic Surgery | DX: Z47.1 Aftercare following joint replacement surgery (principal); S72.032D Displaced midcervical fracture of left femur, subsequent encounter for closed fracture with routine healing; Z96.642 Presence of left artificial hip joint ==